=== PATIENT | male | born 1980 | race Hispanic/Latino ===

== ENCOUNTER 2017-12-18 14:25 | Emergency (ER) | payer SELFPAY ==
--- OUTSIDE RECORDS SUMMARY | 2017-12-18 14:28 | XMS REPORT | Clinical Summary ---
:1980 Author Organization [facility] Address [address] [place] [address] Phone Care Team Providers Name Role Phone Unavailable Primary Care Provider Unavailable Allergies Active Allergy Reactions Severity Noted Date Comments Gadolinium-Containing Contrast Media Hives 03/07/2017 Given at [facility] Current Medications Prescription Sig. Disp. Refills Start Date End Date Status levothyroxine Take 1 tablet 30 tablet 1 03/19/2017 03/19/2018 Active (SYNTHROID, (200 mcg LEVOTHROID) 200 MCG total) by tablet mouth Every morning on an empty stomach. levothyroxine Take 1 tablet 30 tablet 1 03/19/2017 03/19/2018 Active (SYNTHROID, (75 mcg LEVOTHROID) 75 MCG total) by tablet mouth Every morning on an empty stomach Take the 75 mcg tablet with the 200mcg tablet to total 275mcg.. gabapentin Take 1 90 capsule 1 03/19/2017 03/19/2018 Active (NEURONTIN) 300 MG capsule (300 capsule mg total) by mouth 3 (three) times daily. levothyroxine Take 250 mcg 03/19/2017 Discontinued (SYNTHROID, by mouth LEVOTHROID) 200 MCG Every morning tablet on an empty stomach. ondansetron Take 1 tablet 20 tablet 0 03/30/2017 04/06/2017 (ZOFRAN) 4 MG (4 mg total) tablet by mouth 2 (two) times daily as needed for Nausea for up to 7 days. acetaminophen-codei Take 2 60 tablet 0 03/30/2017 04/09/2017 ne (TYLENOL #3) tablets by 300-30 mg per mouth every 6 tablet (six) hours as needed for Pain for up to 10 days. Max Daily Amount: 8 tablets Active Problems Problem Noted Date Parkinson disease (HCC) 03/28/2017 Brain lesion 03/17/2017 Morbid obesity (HCC) 03/17/2017 YAMIL on CPAP 03/17/2017 Fatty liver 03/17/2017 H/O: depression 03/17/2017 Headache, acute 03/15/2017 Encounters Date Type Specialty Care Team Description 10/31/2017 Orders Only Neurology Zaki Allen Abnormal brain MRI MD Félix (Primary Dx);Intractable acute post-traumatic headache 10/30/2017 Emergency Emergency Medicine [place], Vasovagal syncope Jagjit Collins MD (Primary Dx);Dehydration;Morbi d obesity (HCC);Brain lesion 10/30/2017 Orders Only General Internal Medicine 04/17/2017 Orders Only Neurology Zaki Allen Abnormal brain MRI MD Félix (Primary Dx) 03/28/2017 - Hospital Encounter Intensive Care Anna, Parkinson disease 03/30/2017 MD Eduardo ([facility]) (Primary Dx);Brain mass;S/P craniotomy;Brain lesion 03/28/2017 Procedure Pass 03/28/2017 Surgery Anna CRANIOTOMY MD Eduardo 03/27/2017 Anesthesia Event Brad Simon MD 03/24/2017 Orders Only Neurosurgery Anna, Parkinson disease MD Eduardo ([facility]) (Primary Dx) 03/24/2017 Orders Only Neurosurgery Eduardo Castillo MD 03/19/2017 Orders Only General Internal Medicine 03/18/2017 Anesthesia Event Nazia Rincon MD 03/18/2017 Procedure Pass 03/18/2017 Surgery Virtual, PROCEDURE DONE Surgeon OUTSIDE OR 03/14/2017 - Hospital Encounter General Internal Melodie Fragoso Acute nonintractable 03/19/2017 Medicine MD An headache, unspecified Bartsch, headache type;Brain Seth Antonietta, mass;Brain MD lesion;Spells of speech arrest;Morbid obesity, unspecified obesity type (HCC);Fatty liver;Mild episode of recurrent major depressive disorder (HCC);YAMIL on CPAP;Encephalopathy after 12/17/2016 Family History Medical History Relation Name Comments Diabetes Father Diabetes Maternal Grandmother Hyperlipidemia Maternal Grandmother Cancer Paternal Aunt Cancer Paternal Grandmother Osteoporosis Paternal Grandmother Relation Name Status Comments Father Maternal Grandmother Paternal Aunt Paternal Grandmother Social History Tobacco Use Types Packs/Day Years Used Date Current Every Day Smoker 1 0.5 Smokeless Tobacco: Never Used Tobacco Cessation: Counseling Given: Yes Comments: since he was 20-28 years old quit for 4 years them started smoking again. handout to be given dos Alcohol Use Drinks/Week oz/Week Comments Yes 3 x a year Sex Assigned at Date Recorded Not on file Last Filed Vital Signs Vital Sign Reading Time Taken Blood Pressure 134/66 10/30/2017 8:36 PM [facility] Pulse 73 10/30/2017 8:36 PM [facility] Temperature 37.2 C (99 F) 10/30/2017 8:36 PM [facility] Respiratory Rate 18 10/30/2017 8:36 PM [facility] Oxygen Saturation 95% 10/30/2017 8:36 PM [facility] Inhaled Oxygen Concentration - - Weight 163.3 kg (360 lb) 10/30/2017 3:40 PM [facility] Height 175.3 cm (5' 9") 03/28/2017 3:15 PM CDT Body Mass Index 53.16 10/30/2017 3:40 PM [facility] Plan of Treatment Not on file Implants Implanted Type Area It Solutions Architect Device Expiration Model / Identifier Date Serial / Lot Matrix Floseal Hemo W/O Ndl 10 [id number] - [id number] Cement/Keo Left: FRITZ: BIOSCI 08/11/2018 [id number] / Implanted: Qty: 1 on 03/28/2017 by Eduardo Castillo MD ler/Adhesi Head / ve [id number] Cvr Bur-Hl Lp-Neuro 24mm Ti Ns 421.528 - [id number] Fracture/F Left: SYNTHES: SYNTHES [id number] / Implanted: Qty: 4 on 03/28/2017 by Eduardo Castillo MD ixation Head [facility] / Scr Sd Mtrxneu 4mm Ti Ns [id number] - [id number] Fracture/F Left: SYNTHES: SYNTHES [id number] / Implanted: Qty: 15 on 03/28/2017 by Eduardo Castillo MD ixation Head [place] / Grft Dura Cllgn Duragn [id number] Id-[id number] - [id number] Tissue Left: INTEGRA 07/17/2017 [id number] / Implanted: Qty: 1 on 03/28/2017 by Eduardo Castillo MD Graft/Subs Head LIFESCI:NEURO / titute [id number] Procedures Procedure Name Priority Date/Time Associated Diagnosis Comments CRANIOTOMY 03/28/2017 9:50 AM Brain tumor (HCC) CDT PROCEDURE DONE OUTSIDE 03/18/2017 11:07 AM GENERAL ANESTHESIA OR CDT REQUESTED after 12/17/2016 Results ED ECG Interpretation (11/03/2017 12:43 AM) Narrative Jagjit Potts MD 11/03/2017 12:43 AM ECG/EKG Interpretation Date/Time: 10/30/2017 4:52 PM Performed by: JAGJIT POTTS Authorized by: JAGJIT POTTS The ECG was interpreted by ED physician. The ECG is interpreted as sinus rhythm. Rate is normal rate. Heart rate is 82 BPM. Conduction: conduction normal. ST segments normal. T waves normal. [place] is right. Other findings: no other findings. Clinical Impression: non-specific ECGECG reviewed and does not meet STEMI criteria. Patient tolerance: Patient tolerated the procedure well with no immediate complications Urinalysis w/Microscopic (10/30/2017 6:25 PM)Only the most recent of2 resultswithin the time period is included. Component Value Ref Range Color, UA Yellow Clarity, UA Clear Specific [place], UA 1.014 1.001 - 1.035 pH, UA 6.5 5.0 - 8.0 Protein, UA Negative Negative Glucose, UA Negative Negative Ketones, UA Negative Negative Bilirubin, UA Negative Negative Blood, UA Negative Negative Nitrite, UA Negative Negative Leukocytes, UA Negative Negative Urobilinogen, UA 2.0 (H) 0.2 - 1.0 mg/dL RBC, UA <1 /HPF WBC, UA <1 /HPF Mucus Rare Specimen Source Urine, Clean Catch Specimen Performing Laboratory Urine - Urine, Clean Catch [address] [address] XR chest 1 view portable / bedside (10/30/2017 6:10 PM) Specimen Performing Laboratory GE RIS Narrative FINAL REPORT Chest one view AP 10/30/2017 7:07 PM CLINICAL INDICATION: LOSS OF CONSCIOUSNESS COMPARISON: None available IMPRESSION: There is atelectasis in the right lung base. The left lung is clear. Cardiomediastinal contours are within normal limits. The central pulmonary vasculature is not engorged. Signed: Sharif Du MD Report Verified Date/Time:10/30/2017 19:07:24 Reading Location: [facility] Radiology Reading Room Procedure Note Interface, External Ris In - 10/30/2017 7:13 PM [facility] FINAL REPORT Chest one view AP 10/30/2017 7:07 PM CLINICAL INDICATION: LOSS OF CONSCIOUSNESS COMPARISON: None available IMPRESSION: There is atelectasis in the right lung base. The left lung is clear. Cardiomediastinal contours are within normal limits. The central pulmonary vasculature is not engorged. Signed: Sharif Du MD Report Verified Date/Time: 10/30/2017 19:07:24 Reading Location: [facility] Radiology Reading Room brain without IV contrast (10/30/2017 5:39 PM) Specimen Performing Laboratory RIS Narrative FINAL REPORT CT head without contrast 10/30/2017 5:49 PM CLINICAL HISTORY: LOSS OF CONSCIOUSNESS SYNCOPE TECHNIQUE: Axial noncontrast CT images through the head were obtained. This examination was performed according to our departmental dose optimization program, which includes automated exposure control, adjustment of the mA and/or kV according to patient size, and/or use of iterated reconstruction technique. COMPARISON: MRI brain 03/16/2017 FINDINGS: There is no hemorrhage, extra-axial collection, evident mass, hydrocephalus, or midline shift. There is small volume encephalomalacia in the paramedian left frontal lobe, with an overlying craniotomy. The visualized paranasal sinuses and mastoid air cells are well aerated. The skull is otherwise intact. IMPRESSION: No intracranial hemorrhage or mass effect. Chronic appearing postoperative changes. If concern for acute pathology persists, further evaluation with pre and postcontrast MRI is recommended. Signed: Sharif Du MD Report Verified Date/Time:10/30/2017 17:52:21 Reading Location: [facility] Radiology Reading Room Procedure Note Interface, External Ris In - 10/30/2017 5:54 PM [facility] FINAL REPORT CT head without contrast 10/30/2017 5:49 PM CLINICAL HISTORY: LOSS OF CONSCIOUSNESS SYNCOPE TECHNIQUE: Axial noncontrast CT images through the head were obtained. This examination was performed according to our departmental dose optimization program, which includes automated exposure control, adjustment of the mA and/or kV according to patient size, and/or use of iterated reconstruction technique. COMPARISON: MRI brain 03/16/2017 FINDINGS: There is no hemorrhage, extra-axial collection, evident mass, hydrocephalus, or midline shift. There is small volume encephalomalacia in the paramedian left frontal lobe, with an overlying craniotomy. The visualized paranasal sinuses and mastoid air cells are well aerated. The skull is otherwise intact. IMPRESSION: No intracranial hemorrhage or mass effect. Chronic appearing postoperative changes. If concern for acute pathology persists, further evaluation with pre and postcontrast MRI is recommended. Signed: Sharif Du MD Report Verified Date/Time: 10/30/2017 17:52:21 Reading Location: [facility] Radiology Reading Room with platelet count + automated diff (10/30/2017 4:56 PM)Only the most recent of6 resultswithin the time period is included. Component Value Ref Range WBC 9.0 3.5 - 10.5 K/L RBC 5.15 4.63 - 6.08 M/L Hemoglobin 15.6 13.7 - 17.5 GM/DL Hematocrit 47.0 40.1 - 51.0 % MCV 91.3 79.0 - 92.2 fL MCH 30.3 25.7 - 32.2 pg MCHC 33.2 32.3 - 36.5 GM/DL RDW 13.5 11.6 - 14.4 % Platelets 205 150 - 450 K/CU MM MPV 9.9 9.4 - 12.4 fL nRBC 0 0 - 0 /100 WBC % Neutros 58 % % Lymphs 33 % % Monos 6 % % Eos 2 % % Baso 1 % # Neutros 5.19 1.78 - 5.38 K/L # Lymphs 3.00 1.32 - 3.57 K/L # Monos 0.54 0.30 - 0.82 K/L # Eos 0.17 0.04 - 0.54 K/L # Baso 0.05 0.01 - 0.08 K/L Immature Granulocytes-Relative 0 0 - 1 % Specimen Performing Laboratory Blood - [address] [address] Troponin I (10/30/2017 4:56 PM) Component Value Ref Range Troponin I <0.01 0.00 - 0.03 ng/mL Specimen Performing Laboratory Blood - [address] [address] Narrative Troponin I (TnI) levels must be interpreted in the context of the presenting symptoms and the clinical findings. Elevated TnI levels indicate myocardial damage, but are not specific for ischemic heart disease. Elevated TnI levels are seen in patients with other cardiac conditions (including myocarditis and congestive heart failure), and slight TnI elevations occur in patients with other conditions, including sepsis, renal failure, acidosis, acute neurological disease, and persistent tachyarrhythmia. CBC with platelet count + automated diff (10/30/2017 4:56 PM)Only the most recent of6 resultswithin the time period is included. Specimen Performing Laboratory Blood Narrative The following orders were created for panel order CBC with platelet count + automated diff. Procedure Abnormality Status --------- ------ CBC with platelet count ...[[id number]]Final result Please view results for these tests on the individual orders. Magnesium (10/30/2017 4:56 PM)Only the most recent of3 resultswithin the time period is included. Component Value Ref Range Magnesium 2.0 1.6 - 2.6 mg/dL Specimen Performing Laboratory Blood - Arm, [address] [address] Lipase (10/30/2017 4:56 PM) Component Value Ref Range Lipase 67 8 - 78 U/L Specimen Performing Laboratory Blood - [address] [address] Basic Metabolic Panel (10/30/2017 4:56 PM)Only the most recent of8 resultswithin the time period is included. Component Value Ref Range Sodium 141 136 - 145 meq/L Potassium 4.1 3.5 - 5.1 meq/L Chloride 108 (H) 98 - 107 meq/L CO2 21 (L) 22 - 29 meq/L BUN 12 7 - 21 mg/dL Creatinine 0.94 0.57 - 1.25 mg/dL Glucose 206 (H) 70 - 105 mg/dL Calcium 9.0 8.4 - 10.2 mg/dL EGFR Comment: INSUFFICIENT CLINICAL DATA TO CALCULATE mL/min/1.73 sq m ESTIMATED GFR. Specimen Performing Laboratory Blood - Arm, Left [address] [address] ECG 12 lead (10/30/2017 4:52 PM)Only the most recent of3 resultswithin the time period is included. Specimen Performing Laboratory GE MUSE Narrative Ventricular Rate 82 BPM Atrial Rate 82 BPM P-R Interval 154 ms QRS Duration 96 ms Q-T Interval 360 ms QTC Calculation(Bazett) 420 ms P Savoy 37 degrees R Savoy 95 degrees T Sav[place] 48 degrees Normal sinus rhythm Rightward axis Borderline ECG When compared with ECG of 19-MAR-2017 16:30, No significant change was found Confirmed by Hoa MOSELEY BASANT ([id number]) on 10/31/2017 4:55:53 PM Procedure Note Interface, External Ris In - 10/31/2017 4:56 PM [facility] Ventricular Rate 82 BPM Atrial Rate 82 BPM P-R Interval 154 ms QRS Duration 96 ms Q-T Interval 360 ms QTC Calculation(Bazett) 420 ms P [place] 37 degrees R Sav[place] 95 degrees T [place] 48 degrees Normal sinus rhythm Rightward axis Borderline ECG When compared with ECG of 19-MAR-2017 16:30, No significant change was found Confirmed by Hoa MOSELEY BASANT ([id number]) on 10/31/2017 4:55:53 PM INTRAOPERATIVE PATH REPORT - SCAN (03/31/2017 1:40 PM)Only the most recent of3 resultswithin the time period is included.RHYTHM STRIP - SCAN (03/31/2017 1:40 PM)Only the most recent of2 resultswithin the time period is included.MR brain without IV contrast (03/29/2017 10:56 AM) Specimen Performing Laboratory GE RIS Narrative FINAL REPORT MRI brain Comparison: March 16 Reason for exam: Post-op Discussion: Multiplanar MR imaging the brain was performed using T1, T2, FLAIR, FFE, diffusion, and ADC map imaging. Note that the study has a history of MRI contrast allergy and was not premedicated. A noncontrast study was therefore performed. Postoperative changes are noted with presumed biopsy related changes along the medial aspect of the left medial frontal nonenhancing lesion. There is some regional diffusion restriction and minimal hemorrhage within a very small operative cavity but there is no dae hematoma. T2 hyperintense signal alterations similar in general configuration to that of the previous study are in keeping with residual lesion. No hydrocephalus, midline shift, extra-axial collection. Impressions: No worrisome postoperative findings. Residual T2 hyperintense lesion is noted. Signed: Jason Rodriguez MD Report Verified Date/Time:03/29/2017 13:35:23 Reading Location: [address] Neuro Reading Room Procedure Note Interface, External Ris In - 03/30/2017 6:59 AM CDT FINAL REPORT MRI brain Comparison: March 16 Reason for exam: Post-op Discussion: Multiplanar MR imaging the brain was performed using T1, T2, FLAIR, FFE, diffusion, and ADC map imaging. Note that the study has a history of MRI contrast allergy and was not premedicated. A noncontrast study was therefore performed. Postoperative changes are noted with presumed biopsy related changes along the medial aspect of the left medial frontal nonenhancing lesion. There is some regional diffusion restriction and minimal hemorrhage within a very small operative cavity but there is no dae hematoma. T2 hyperintense signal alterations similar in general configuration to that of the previous study are in keeping with residual lesion. No hydrocephalus, midline shift, extra-axial collection. Impressions: No worrisome postoperative findings. Residual T2 hyperintense lesion is noted. Signed: Jason Rodriguez MD Report Verified Date/Time: 03/29/2017 13:35:23 Reading Location: [facility] Neuro Reading Room (Hemogram only) (03/29/2017 2:58 AM)Only the most recent of2 resultswithin the time period is included. Component Value Ref Range WBC 19.6 (H) 4.0 - 10.0 K/L RBC 4.54 4.20 - 5.80 M/L Hemoglobin 14.1 13.0 - 16.8 GM/DL Hematocrit 41.4 40.0 - 50.0 % MCV 91.2 82.0 - 98.0 fL MCH 31.0 27.0 - 33.0 pg MCHC 34.0 32.0 - 36.0 GM/DL RDW 13.6 10.3 - 14.2 % Platelets 193 150 - 430 K/CU MM MPV 7.3 6.5 - 10.5 fL nRBC 0 0 - 0 /100 WBC Specimen Performing Laboratory Blood [facility] [address] [place] [address] Narrative 0.00 Phosphorus (03/29/2017 2:58 AM) Component Value Ref Range Phosphorus 3.5 2.3 - 4.7 mg/dL Specimen Performing Laboratory Blood [address] [address] Tissue Exam (03/28/2017 12:15 PM) Component Value Ref Range Case Report Surgical Pathology Report Case: [id number] Authorizing Provider:Eduardo Castillo MDCollected: 03/28/2017 1215 [facility] Received: 03/28/2017 1221 SERVICES Pathologist: Samuel Desai MD Specimens: A) - Tumor, LEFT FRONTAL TUMOR C) - Tumor, LEFT FRONTAL TUMOR D) - Tumor, LEFT FRONTAL TUMOR DIAGNOSIS A. BRAIN, LEFT FRONTAL LOBE, CRANIOTOMY AND BIOPSY: CEREBRAL CORTEX WITH MILD GLIOSIS B. BRAIN, LEFT FRONTAL LOBE, CRANIOTOMY AND BIOPSY: NO SPECIMEN RECEIVED (SEE COMMENT) C. BRAIN, LEFT FRONTAL LOBE, CRANIOTOMY AND BIOPSY: CEREBRAL CORTEX AND WHITE MATTER WITH MILD GLIOSIS D. BRAIN, LEFT FRONTAL LOBE, CRANIOTOMY AND BIOPSY: CEREBRAL CORTEX AND WHITE MATTER WITH MILD GLIOSIS COMMENT Only 3 specimens are received, and no specimen B is received. Each of the specimens are submitted in their entirety. No definite tumor is identified. All immunoperoxidase stains are performed on the fourth specimen The MIB1 labeling index is less than 1% and st ains the nuclei of very rare glial cells.. Some foci of axonal loss and axonal dilatation are noted with neurofilament stains. Myelination is normal as determined with Luxol fast blue/PAS stains. IDH 1 is negative for tumor cells. P53 stains are negative. GFAP highlights reactive gliosis. Synaptophysin staining is not abnormal. The findings are nonspecific. Definite features of primary demyelination are also absent. CPT Code(s) 515719; 247836; 50613; 19563; 53512; 41091 4 CLINICAL HISTORY Left craniotomy, brain tumor SPECIMEN SOURCE A. Tumor, left frontal tumor GROSS DESCRIPTION Part A.The specimen is received fresh for frozen labeled with the patient's name and accession number as "tumor" with description of "left frontal tumor" is a 0.6 x 0.6 x 0.3 cm aggregate of multipl e fragments of mustafa soft tissue.___ squash is smear prepared. The specimen is submitted entirely in cassette FSA1 and A2. Part C. Received fresh for frozen labeled with the patient's name and accession number as "tumor" with description "left frontal tumor" consists of multiple fragments of mustafa soft tissue with an aggregat e measurement of 1 x 0.4 x 0. 2 cm. ____ squash smear prepared. The specimen is submitted entirely in cassette FSC1 and FSC2 and C3. SM/pl Part D. Received fresh for frozen labeled with the patient's name and accession number as "tumor" with the description of "left frontal tumor" consists of of multiple fragments of mustafa-pink soft tissue w ith an aggregate measurement of 1 x 0.5 x 0.5 cm. The specimen is submitted entirely in cassette DFS1 and D2. SM/pl INTRAOPERATIVE CONSULTATION LEFT FRONTAL TUMOR: - AFS1 - CEREBRAL CORTEX WITH MILD GLIOSIS - RESULTS HAVE BEEN REPORTED BY DR. DESAI AT 12:36 P.M. LEFT FRONTAL TUMOR: - BFS1 AND BFS2 - CORTEX, WHITE MATTER WITH GLIOSIS - RESULTS HAVE BEEN REPORTED BY DR. DESAI AT 1:05 P.M. LEFT FRONTAL TUMOR: - DFS1 - WHITE MATTER WITH REACTIVE GLIOSIS - RESULTS HAVE BEEN REPORTED BY DR. DESAI MICROSCOPIC DESCRIPTION Performed on A, C, and D SPECIAL STUDIES The following special studies were performed on this case and the interpretation is incorporated in the diagnostic report above: The immunohistochemistry test was developed and its performance characteristics determined by [facility], Pathology Laboratory. It has not been cleared or approved by the U.S. Food and Drug Administration. The FDA has determined that such clearance or approval is not necessary. The test is used for clinical purposes. It should not be regarded as investigational or for research. This laboratory is certified under the Clinical Laboratory Improvement Amendments of 1988 (CLIA-88) as qualified to perform high complexity clinical laboratory testing. Specimen Performing Laboratory Tissue - Tumor [place] [id number] [facility] (ABG,NA,K,H&H,GLUCOSE) (03/28/2017 11:24 AM) Specimen Performing Laboratory Blood, Arterial Narrative The following orders were created for panel order [facility] (ABG,NA,K,H&H,GLUCOSE). Procedure Abnormality Status --------- ------ Blood gas, arterial[[id number]]AbnormalFinal result Sodium Na-Stat Lab[[id number]] NormalFinal result Potassium-Stat Lab[[id number]] NormalFinal result Glucose-Stat Lab[[id number]] NormalFinal result HGB/HCT (H&H)-Stat Lab[[id number]] NormalFinal result Please view results for these tests on the individual orders. Potassium-Stat Lab (03/28/2017 11:24 AM) Component Value Ref Range Potassium 3.8 3.6 - 5.5 meq/L Specimen Performing Laboratory Blood, Arterial [address] [address] Narrative FiO2:35%, Temp: 36.7C FiO2:35%, Temp: 36.7C FiO2:35%, Temp: 36.7C FiO2:35%, Temp: 36.7C FiO2:35%, Temp: 36.7C Sodium Na-Stat Lab (03/28/2017 11:24 AM) Component Value Ref Range Sodium 136 135 - 148 meq/L Specimen Performing Laboratory Blood, Arterial [address] [address] Narrative FiO2:35%, Temp: 36.7C FiO2:35%, Temp: 36.7C FiO2:35%, Temp: 36.7C FiO2:35%, Temp: 36.7C FiO2:35%, Temp: 36.7C Glucose-Stat Lab (03/28/2017 11:24 AM) Component Value Ref Range Glucose 101 70 - 110 mg/dL Specimen Performing Laboratory Blood, Arterial [address] [address] Narrative FiO2:35%, Temp: 36.7C FiO2:35%, Temp: 36.7C FiO2:35%, Temp: 36.7C FiO2:35%, Temp: 36.7C FiO2:35%, Temp: 36.7C HGB/HCT (H&H)-Stat Lab (03/28/2017 11:24 AM) Component Value Ref Range Hemoglobin 13.8 13.0 - 16.8 g/dL Hematocrit 41.0 40.0 - 50.0 % Specimen Performing Laboratory Blood, Arterial [address] [address] Narrative FiO2:35%, Temp: 36.7C FiO2:35%, Temp: 36.7C FiO2:35%, Temp: 36.7C FiO2:35%, Temp: 36.7C FiO2:35%, Temp: 36.7C Blood gas, arterial (03/28/2017 11:24 AM) Component Value Ref Range pH, Arterial 7.42 7.35 - 7.45 pCO2, Arterial 33 (L) 35 - 45 mmHg pO2, Arterial 74 (L) 80 - 90 mmHg O2 Sat, Arterial 95.5 (L) 96.0 - 97.0 % HCO3, Arterial 21 21 - 29 mmol/L Base Excess, Arterial -3.0 (L) -2.0 - 3.0 mmol/L Patient Temperature 36.7 C FIO2 35.0 % Specimen Performing Laboratory Blood, Arterial [address] [address] Narrative FiO2:35%, Temp: 36.7C FiO2:35%, Temp: 36.7C FiO2:35%, Temp: 36.7C FiO2:35%, Temp: 36.7C FiO2:35%, Temp: 36.7C Calcium, Ionized (03/28/2017 11:24 AM) Component Value Ref Range Calcium, Ion 1.03 (L) 1.12 - 1.27 mmol/L pH, Blood 7.42 Specimen Performing Laboratory Blood [address] [address] POC-Glucose meter (03/19/2017 5:58 PM)Only the most recent of16 resultswithin the time period is included. Component Value Ref Range POC-Glucose Meter 108Comment: TESTED AT [address] 70 - 110 mg/dL [id number] Specimen Performing Laboratory Blood [address] [address] Manual Differential (03/19/2017 5:15 AM) Component Value Ref Range Total Counted Specimen Performing Laboratory Blood [address] [address] HIV-1 Antigen with HIV-1/2 Antibody (03/19/2017 5:15 AM) Component Value Ref Range HIV-1 Antigen with HIV 1&2 Antibody Nonreactive Nonreactive Specimen Performing Laboratory Blood [address] [address] Flow Cytometry Requisition (03/18/2017 2:28 PM) Component Value Ref Range Flow Cytometry See Separate Report Case # [id number] Specimen Performing Laboratory Cerebrospinal Fluid [address] [address] Mycobacterium TB PCR Non-Respiratory (03/18/2017 2:28 PM) Component Value Ref Range MYCOBACTERIUM TB Specimen Performing Laboratory Cerebrospinal Fluid - CSF [address] [address] Flow Cytometry (03/18/2017 2:28 PM) Component Value Ref Range Case Report Flow Cytometry Report Case: [id number] Authorizing Provider:Seth Christine MD Collected: 03/18/2017 1428 Ordering Location: [address] Received: 03/20/2017 0822 Service Pathologist: Dalia Roper MD Specimen:Other Flow Interpretation CEREBROSPINAL FLUID, FLOW CYTOMETRY: - NON-DIAGNOSTIC DUE TO LOW CELLULARITY AND NON-SPECIFIC ANTIBODY STAINING Flow Interpretation Comment Please correlate with morphologic and clinical findings. CPT Code(s) 91062 CLINICAL HISTORY Brain mass SPECIMEN SOURCE Cerebrospinal fluid CELLULAR BIOMARKER ANALYSIS CD2, CD3, CD4, CD5, CD7, CD8, CD10, CD11c, CD19, CD20, CD23, CD34, CD38, CD45, CD56, [place], Lambda IMMUNOPHENOTYPIC FINDINGS Flow cytometric evaluation is limited by low cellularity and non-specific antibody staining. DISCLAIMER These tests were developed and their performance characteristics determined by [facility]. They have not been cleared or approved by the U.S. Food and Drug Administration. The FDA has determined that s uch clearance or approval is not necessary. It should not be regarded as investigational or for research. This laboratory is certified under the Clinical Laboratory Improvement Amendments of 1988 ("CLIA ") as qualified to perform high-complexity clinical testing. Specimen Performing Laboratory Other [address] [address] Aurora ink prep (03/18/2017 2:27 PM) Component Value Ref Range [facility] Ink No encapsulated yeast seen No encapsulated yeast seen Specimen Performing Laboratory Cerebrospinal Fluid - CSF, tube [address] [address] AFB culture + smear (03/18/2017 2:27 PM) Component Value Ref Range Result No acid-fast bacilli isolated in 42 days AFB Smear No acid fast bacilli seen Specimen Performing Laboratory Cerebrospinal Fluid - CSF, tube [address] [address] Fungus culture + smear (03/18/2017 2:27 PM) Component Value Ref Range Result No fungus isolated in 28 days Fungus Smear No fungi seen Specimen Performing Laboratory Cerebrospinal Fluid - CSF, tube [address] [address] Protein, CSF (03/18/2017 2:21 PM) Component Value Ref Range Protein, CSF 60 (H) 15 - 45 mg/dL Specimen Performing Laboratory Cerebrospinal Fluid - CSF, tube [address] [address] Glucose, CSF (03/18/2017 2:21 PM) Component Value Ref Range Glucose, CSF 53 40 - 70 mg/dL Specimen Performing Laboratory Cerebrospinal Fluid - CSF, tube [address] [address] HSV 1/2 PCR, Qualitative (03/18/2017 2:20 PM) Component Value Ref Range HSV, PCR NEGATIVE NEGATIVE Specimen Performing Laboratory Cerebrospinal Fluid - CSF, tube [address] [address] Narrative Herpes Simplex Virus (HSV) not detected. These assays were performed by real-time PCR utilizing fluorogenic hydrolysis probe technology for the detection of Herpes Simplex Virus-1 and/or Herpes Simplex Virus-2 in approved specimens.A 154 base pair region of the HSV-1 and HSV-2 UL5 gene is amplified, and typing is achieved by using type specific probes.An internal control is used to confirm PCR amplification.Genetic variation and other factors can affect the accuracy of nucleic acid testing; therefore, the results should be interpreted in light of clinical data. This test was developed and its performance characteristics determined by the [facility] Pathology Department, Section of Molecular Pathology. It has not been cleared or approved by the U.S. Food and Drug Administration (FDA) , as FDA approval is not required for clinical use of the test.Validation was done as required by the Clinical Laboratory Amendments of 1988. CSF cell count with differential (03/18/2017 2:17 PM) Component Value Ref Range Appearance Clear Clear Color Colorless Colorless RBCs 2 0 - 5 /cu mm WBCs 0 <=5 /cu mm RBCs Fresh? 100% Fresh # of Cells Diff'd 0 Tube Number 3 Specimen Performing Laboratory Cerebrospinal Fluid - CSF, tube [address] [address] CSF culture + gram stain (03/18/2017 2:16 PM) Component Value Ref Range Result No growth Gram Stain Result No WBCs Gram Stain Result No organisms seen Specimen Performing Laboratory Cerebrospinal Fluid - CSF, tube [address] [address] Cytology (03/18/2017 1:02 PM) Component Value Ref Range Case Report Medical Cytology Report Case: [id number] Authorizing Provider:Seth Christine MD Collected: 03/18/2017 1302 Ordering Location: [address] Received: 03/20/2017 0905 Service Pathologist: Alysha Giraldo MD Specimen:CSF, tube 4 DIAGNOSIS CEREBROSPINAL FLUID (CYTOSPINS): - NO MALIGNANT CELLS IDENTIFIED; - ESSENTIALLY ACELLULAR SAMPLE Signing Pathologist Direct Phone Line: [phone] CPT Code(s) 01683 CLINICAL DATA Brain mass SPECIMEN SOURCE CEREBROSPINAL FLUID (CYTOSPINS) GROSS DESCRIPTION 2 cytospins Collected: [id number] Received: [id number] STATEMENT OF ADEQUACY Satisfactory Technical component was performed at [facility], Department of Pathology, [address] [place] [address], Professional component was performed [facility], at Department of Pathology, [address] [place] [address], Specimen Performing Laboratory Cerebrospinal Fluid - CSF, tube [address] [address] [place] Lumbar Puncture Image-Guided (03/18/2017 12:45 PM) Specimen Performing Laboratory GE RIS Narrative FINAL REPORT Procedure: Lumbar puncture Modality: Fluoroscopy Sedation: Anesthesia Anesthesia: 1% lidocaine local Indication: Brain lesion Discussion: The patient was sterilely prepped and draped. 1% lidocaine was used for local anesthesia. Using fluoroscopic guidance, a 20-gauge spinal needle was introduced into the thecal sac at the L4-L5 level. Approximately 13.5 cc of clear spinal fluid was removed and sent to the laboratory. There were no procedure related complications. Disposition:The patient was transferred back to their hospital room in unchanged condition. Fluoroscopy time: 0.2 minutes Number of images obtained: 1 Impression: Successful fluoroscopy guided lumbar puncture. Signed: Judit Guadalupe MD Report Verified Date/Time:03/18/2017 13:02:11 Reading Location: [address] Neuro Reading Room Procedure Note Interface, External Ris In - 03/18/2017 1:04 PM CDT FINAL REPORT Procedure: Lumbar puncture Modality: Fluoroscopy Sedation: Anesthesia Anesthesia: 1% lidocaine local Indication: Brain lesion Discussion: The patient was sterilely prepped and draped. 1% lidocaine was used for local anesthesia. Using fluoroscopic guidance, a 20-gauge spinal needle was introduced into the thecal sac at the L4-L5 level. Approximately 13.5 cc of clear spinal fluid was removed and sent to the laboratory. There were no procedure related complications. Disposition: The patient was transferred back to their hospital room in unchanged condition. Fluoroscopy time: 0.2 minutes Number of images obtained: 1 Impression: Successful fluoroscopy guided lumbar puncture. Signed: Judit Guadalupe MD Report Verified Date/Time: 03/18/2017 13:02:11 Reading Location: [place] [address]V Neuro Reading Room /aPTT (03/18/2017 4:26 AM)Only the most recent of4 resultswithin the time period is included. Component Value Ref Range Protime 13.7 11.7 - 14.7 seconds INR 1.1 <=5.9 PTT 27.2 22.5 - 36.0 seconds Specimen Performing Laboratory Blood [address] [address] Narrative RECOMMENDED COUMADIN/WARFARIN INR THERAPY RANGES STANDARD DOSE: 2.0 - 3.0 Includes: PROPHYLAXIS for venous thrombosis, systemic embolization; TREATMENT for venous thrombosis and/or pulmonary embolus. HIGH RISK: Target INR is 2.5-3.5 for patients with mechanical heart valves. Hepatic function panel (03/17/2017 4:47 AM) Component Value Ref Range Protein, Total 6.7Comment: Specimen slightly hemolyzed 6.0 - 8.3 gm/dL Albumin 3.3 (L)Comment: Specimen slightly hemolyzed 3.5 - 5.0 g/dL Total Bilirubin 0.2Comment: Specimen slightly hemolyzed 0.2 - 1.2 mg/dL Bilirubin, Direct 0.1Comment: Specimen slightly hemolyzed 0.1 - 0.5 mg/dL Alkaline Phosphatase 71 40 - 150 U/L AST 54 (H)Comment: Specimen slightly hemolyzed 5 - 34 U/L ALT 84 (H)Comment: Specimen slightly hemolyzed 6 - 55 U/L Specimen Performing Laboratory Blood - Arm, [address] [address] Creatine Kinase (CK) (03/16/2017 6:05 PM) Component Value Ref Range Total CK 212 (H) 29 - 200 U/L Specimen Performing Laboratory Blood - Arm, [address] [address] 2D Echo W/Doppler(CW/PW/Color) (03/16/2017 2:17 PM) Component Value Ref Range Ejection Fraction LV EF BP 75.1 % Specimen Performing Laboratory DIGISONICS Narrative Echocardiography Laboratory [address] [place] [address] Voice:[phone] Transthoracic Echocardiogram Pat.Name:VIKRAM BAGLEY Pat.ID:[id number] .Date: 03/16/2017 Refer.MD:SETH CHRISTINE Exam Time: 2:17:00 PMStudy Type:Echo Complete Height:69inWeight:360lb BSA: 2.65 m2 DOBAge:1980,36Y Sex: MALEBP:128/66 HR:61 bpmSonogrphr: Viv Babb [facility] Pat. Stat.:Inpatient Room:226 Reason for Study:Unexplained Presyncope/Syncope History / Clinical:Diabetes, Hypertension, Obesity, Thyroid disease, High cholesterol Procedures:2D ECHO W/ DOPPLER (CW/PW/COLOR), Definity contrast done SUMMARY: LV endocardium is adequately visualized withIV contrast. Left ventricular chamber size (by vol index) is normal (male - LVED vol - 34-74 ml/m2). No evidence of LV hypertrophy. All of the LV segments appear hyperkinetic. Global LV systolic function is hyperdynamic. LVEF by quantitative assessment is increased (>70%). LA size is normal. RV chamber size is normal. RA cavity size is normal. A trace of tricuspid regurgitation. The inferior vena cava is not visualized. The estimated RA pressure by IVC dynamics indeterminate. A trace of tricuspid regurgitation. Estimated peak systolic PA pressure is 30-35 mmHg + RA pressure. Peak systolic PA pressure may be underestimated; partial TR signal. FINDINGS: Rhythm/BP: Sinus bradycardia during the exam. LV: All of the LV segments appear hyperkinetic. Global LV systolicfunction is hyperdynamic. Normal diastolic functionLeft ventricular chamber size (by vol index) is normal(male - LVED vol - 34-74 ml/m2). No evidence of LV hypertrophy.LVEF by quantitative assessment is increased (>70%).The LVEF was measured using Huffman's bi- plane methodof disks. LV endocardium is adequately visualized with IV contrast. LA: LA size is normal. LA is well visualized. RV: RV is partially visualized. RV chamber size is normal. GlobalRV systolic function is normal. RA: The RA is well visualized. RA cavity size is normal. AV: Normal AoV structure and function. No evidence of aortic stenosis.No evidence of aortic regurgitation. MV: Normal MV structure and function. A trace of mitral regurgitation. TV: Normal TV structure and function. A trace of tricuspid regurgitation.No evidence of TV leaflet thickening. Estimatedpeak systolic PA pressure is 30-35 mmHg + RA pressure.Peak systolic PA pressure may be underestimated; partialTR signal. PV: Normal PV structure and function by limited views and Doppler. AO: Aortic root size (Sinus of Valsalva diameter) is normal. Pericard: No pericardial effusion is visualized. Systemic Veins: The inferior vena cava is not visualized. The estimatedRA pressure by IVC dynamics indeterminate. Comparison: No prior exam available for comparison. Quality:Technically adequate exam. MEASUREMENTS: 2D LA Sng Plane LA Vol78.1 mlIndex 29.5 ml/m2 LA Area 24.6 cm2(8.8-23.4)* Parasternal [place] Ao An 2.12 cm (1.4-2.6) LV%fs 34.7 %(25-46) Ao Rtd2.85 cmLVPWd 1.22 cm IVSd1.18 cm LA Ds 4.91 cm (2.3-3.9)* LVIDd 5.47 cm (4.3-5.1)* LV Wmn 1.2 cm LVIDs 3.57 cm (2-4) LV EF Biplane LVEDV BP 182 mlIndex 68.7 ml/m2 HR59 bpm LVESV BP45.4 mlLV CO BP 8.06 l/min LV SV BP 137 mlLV CI BP 3.04 l/min/m2 DOPPLER AV LVOT For Flow ROMPvxDsz580 cm/s (70-110) LVOT CO 5.22 l/min LVOT VTI22.7 cmLVOT CI 1.97 l/min/m2 LVOTpkPG 4.3 mmHgLVOT Area 3.46 cm2 LVOTmnPG2.17 ihHpFD78 bpm LVOT SV 78.7 ml Aortic Valve AV DI0.911 SVi (LVOT)29.7 AV AV For Flow/SHERRILL AV pkVel 124 cm/s (100-170) AV AC/ET 0.229 AV mnVel84.1 cm/sAVpkAcRt 3948 cm/s2 AV pkPG 6.15 mmHgAV DeRt 418 cm/s2 AV mnPG 3.28 mmHgArea (VTI) 3.16 cm2(3-5) AV VTI25 cmArea (Jem) 2.9 cm2(3-5)* AV ET297 msec AV AC 68 msec (83-118)* MV E/A Ratio MV pkE 101 cm/s (60-130) MV E/A1.32 MV pkA76.8 cm/s Signed 03/16/2017 06:09 PM Abdirashid Vallejo M.D. Procedure Note Interface, External Ris In - 03/16/2017 6:10 PM CDT Echocardiography Laboratory [address] [place] [address] Voice: [phone] Transthoracic Echocardiogram Pat.Name: VIKRAM BAGLEY Pat.ID: [id number] .Date: 03/16/2017 Refer.: SETH CHRISTINE Exam Time: 2:17:00 PM Study Type:Echo Complete Height: 69in Weight: 360lb BSA: 2.65 m2 Age: 1 1980,36Y Sex: MALE BP: 128/66 HR: 61 bpm Sonogrphr: Viv Babb [facility] Pat. Stat.:Inpatient Room: [facility] Reason for Study:Unexplained Presyncope/Syncope History / Clinical:Diabetes, Hypertension, Obesity, Thyroid disease, High cholesterol Procedures:2D ECHO W/ DOPPLER (CW/PW/COLOR), Definity contrast done SUMMARY: LV endocardium is adequately visualized with IV contrast. Left ventricular chamber size (by vol index) is normal (male - LVED vol - 34-74 ml/m2). No evidence of LV hypertrophy. All of the LV segments appear hyperkinetic. Global LV systolic function is hyperdynamic. LVEF by quantitative assessment is increased (>70%). LA size is normal. RV chamber size is normal. RA cavity size is normal. A trace of tricuspid regurgitation. The inferior vena cava is not visualized. The estimated RA pressure by IVC dynamics indeterminate. A trace of tricuspid regurgitation. Estimated peak systolic PA pressure is 30-35 mmHg + RA pressure. Peak systolic PA pressure may be underestimated; partial TR signal. FINDINGS: Rhythm/BP: Sinus bradycardia during the exam. LV: All of the LV segments appear hyperkinetic. Global LV systolic function is hyperdynamic. Normal diastolic function Left ventricular chamber size (by vol index) is normal (male - LVED vol - 34-74 ml/m2). No evidence of LV hypertrophy. LVEF by quantitative assessment is increased (>70%). The LVEF was measured using Huffman's bi-plane method of disks. LV endocardium is adequately visualized with IV contrast. LA: LA size is normal. LA is well visualized. RV: RV is partially visualized. RV chamber size is normal. Global RV systolic function is normal. RA: The RA is well visualized. RA cavity size is normal. AV: Normal AoV structure and function. No evidence of aortic stenosis. No evidence of aortic regurgitation. MV: Normal MV structure and function. A trace of mitral regurgitation. TV: Normal TV structure and function. A trace of tricuspid regurgitation. No evidence of TV leaflet thickening. Estimated peak systolic PA pressure is 30-35 mmHg + RA pressure. Peak systolic PA pressure may be underestimated; partial TR signal. PV: Normal PV structure and function by limited views and Doppler. AO: Aortic root size (Sinus of Valsalva diameter) is normal. Pericard: No pericardial effusion is visualized. Systemic Veins: The inferior vena cava is not visualized. The estimated RA pressure by IVC dynamics indeterminate. Comparison: No prior exam available for comparison. Quality: Technically adequate exam. MEASUREMENTS: 2D LA Sng Plane LA Vol 78.1 ml Index 29.5 ml/m2 LA Area 24.6 cm2 (8.8-23.4)* Parasternal [place] Ao An 2.12 cm (1.4-2.6) LV%fs 34.7 % (25-46) Ao Rtd 2.85 cm LVPWd 1.22 cm IVSd 1.18 cm LA Ds 4.91 cm (2.3-3.9)* LVIDd 5.47 cm (4.3-5.1)* LV Wmn 1.2 cm LVIDs 3.57 cm (2-4) LV EF Biplane LVEDV BP 182 ml Index 68.7 ml/m2 HR 59 bpm LVESV BP 45.4 ml LV CO BP 8.06 l/min LV SV BP 137 ml LV CI BP 3.04 l/min/m2 DOPPLER AV LVOT For Flow LVOTpkVel 104 cm/s (70-110) LVOT CO 5.22 l/min LVOT VTI 22.7 cm LVOT CI 1.97 l/min/m2 LVOTpkPG 4.3 mmHg LVOT Area 3.46 cm2 LVOTmnPG 2.17 mmHg HR 66 bpm LVOT SV 78.7 ml Aortic Valve AV DI 0.911 SVi (LVOT) 29.7 AV AV For Flow/SHERRILL AV pkVel 124 cm/s (100-170) AV AC/ET 0.229 AV mnVel 84.1 cm/s AVpkAcRt 3948 cm/s2 AV pkPG 6.15 mmHg AV DeRt 418 cm/s2 AV mnPG 3.28 mmHg Area (VTI) 3.16 cm2 (3-5) AV VTI 25 cm Area (Jem) 2.9 cm2 (3-5)* AV ET 297 msec AV AC 68 msec (83-118)* MV E/A Ratio MV pkE 101 cm/s (60-130) MV E/A 1.32 MV pkA 76.8 cm/s Signed 03/16/2017 06:09 PM Abdirashid Vallejo M.D. CT abdomen/pelvis with IV contrast (03/16/2017 10:19 AM) Specimen Performing Laboratory [facility] Narrative FINAL REPORT HISTORY : brain lesion, rule out primary malignancy TECHNIQUE :Multiple axial images of the chest, abdomen and pelvis were performed with 5 mm slice thickness with the administration of IV and oral contrast from the lung apices to the pubic symphysis. Delayed images were also obtained. This exam was performed according to our departmental dose optimization program which includes automated exposure control, adjustment of the mA and/or kV according to patient size and/or use of iterative reconstructive technique. COMPARISON : None CHEST : The thyroid gland is within normal limits. There is no hilar, mediastinal or axillary lymphadenopathy. There is coronary atherosclerosis. The osseous structures as well as the subcutaneous soft tissues are without any abnormalities. There are some scattered areas of some linear subsegmental atelectasis versus scarring. There is no pleural effusion, pneumothorax or infiltrate. ABDOMEN/PELVIS: The visualized spleen, adrenal glands, kidneys, pancreas, stomach and duodenum are within normal limits. The patient does have hepatic steatosis. There are some slight areas of fatty sparing. The patient is status post cholecystectomy. There is atherosclerotic vascular disease. There is no abdominal, retroperitoneal or pelvic lymphadenopathy. There is a small left-sided fat-containing inguinal hernia. No bowel contents are seen within the hernia, however. There is no free fluid or free air in the abdomen or pelvis. No findings of any bowel obstruction. The small bowel is within normal limits. There is colonic diverticulosis. There are no CT findings to suggest diverticulitis, however. The appendix is not visualized. The prostate gland is not enlarged. Some calcifications are seen within the prostate gland. There is some diffuse thickening of the wall of the bladder. While the wall thickening could be due to underdistention, a diffuse process such as cystitis or other infiltrative process cannot be excluded. As clinically warranted, the findings can be correlated with cystoscopy. There is some slightly hyperdense fluid within the bladder of unclear etiology/significance. This could represent some excreted contrast from the previous MRI of the brain. Urine with some hemorrhagic or proteinaceous material cannot be entirely excluded. Impression: 1. Scattered areas of some linear subsegmental atelectasis versus scarring in the lungs. 2. Atherosclerotic vascular disease. 3. Colonic diverticulosis. 4. Hepatic steatosis. 5. Diffuse bladder wall thickening of the poorly distended bladder. Please see above. Signed: Alo Heart MD Report Verified Date/Time:03/16/2017 10:30:14 Reading Location: [facility] C013Y CT Body Reading Room Procedure Note Interface, External Ris In - 03/16/2017 10:32 AM CDT FINAL REPORT HISTORY : brain lesion, rule out primary malignancy TECHNIQUE : Multiple axial images of the chest, abdomen and pelvis were performed with 5 mm slice thickness with the administration of IV and oral contrast from the lung apices to the pubic symphysis. Delayed images were also obtained. This exam was performed according to our departmental dose optimization program which includes automated exposure control, adjustment of the mA and/or kV according to patient size and/or use of iterative reconstructive technique. COMPARISON : None CHEST : The thyroid gland is within normal limits. There is no hilar, mediastinal or axillary lymphadenopathy. There is coronary atherosclerosis. The osseous structures as well as the subcutaneous soft tissues are without any abnormalities. There are some scattered areas of some linear subsegmental atelectasis versus scarring. There is no pleural effusion, pneumothorax or infiltrate. ABDOMEN/PELVIS: The visualized spleen, adrenal glands, kidneys, pancreas, stomach and duodenum are within normal limits. The patient does have hepatic steatosis. There are some slight areas of fatty sparing. The patient is status post cholecystectomy. There is atherosclerotic vascular disease. There is no abdominal, retroperitoneal or pelvic lymphadenopathy. There is a small left-sided fat-containing inguinal hernia. No bowel contents are seen within the hernia, however. There is no free fluid or free air in the abdomen or pelvis. No findings of any bowel obstruction. The small bowel is within normal limits. There is colonic diverticulosis. There are no CT findings to suggest diverticulitis, however. The appendix is not visualized. The prostate gland is not enlarged. Some calcifications are seen within the prostate gland. There is some diffuse thickening of the wall of the bladder. While the wall thickening could be due to underdistention, a diffuse process such as cystitis or other infiltrative process cannot be excluded. As clinically warranted, the findings can be correlated with cystoscopy. There is some slightly hyperdense fluid within the bladder of unclear etiology/significance. This could represent some excreted contrast from the previous MRI of the brain. Urine with some hemorrhagic or proteinaceous material cannot be entirely excluded. Impression: 1. Scattered areas of some linear subsegmental atelectasis versus scarring in the lungs. 2. Atherosclerotic vascular disease. 3. Colonic diverticulosis. 4. Hepatic steatosis. 5. Diffuse bladder wall thickening of the poorly distended bladder. Please see above. Signed: Alo Heart MD Report Verified Date/Time: 03/16/2017 10:30:14 Reading Location: [place] [address] CT Body Reading Room chest with IV contrast (03/16/2017 10:19 AM) Specimen Performing Laboratory [facility] Narrative FINAL REPORT HISTORY : brain lesion, rule out primary malignancy TECHNIQUE :Multiple axial images of the chest, abdomen and pelvis were performed with 5 mm slice thickness with the administration of IV and oral contrast from the lung apices to the pubic symphysis. Delayed images were also obtained. This exam was performed according to our departmental dose optimization program which includes automated exposure control, adjustment of the mA and/or kV according to patient size and/or use of iterative reconstructive technique. COMPARISON : None CHEST : The thyroid gland is within normal limits. There is no hilar, mediastinal or axillary lymphadenopathy. There is coronary atherosclerosis. The osseous structures as well as the subcutaneous soft tissues are without any abnormalities. There are some scattered areas of some linear subsegmental atelectasis versus scarring. There is no pleural effusion, pneumothorax or infiltrate. ABDOMEN/PELVIS: The visualized spleen, adrenal glands, kidneys, pancreas, stomach and duodenum are within normal limits. The patient does have hepatic steatosis. There are some slight areas of fatty sparing. The patient is status post cholecystectomy. There is atherosclerotic vascular disease. There is no abdominal, retroperitoneal or pelvic lymphadenopathy. There is a small left-sided fat-containing inguinal hernia. No bowel contents are seen within the hernia, however. There is no free fluid or free air in the abdomen or pelvis. No findings of any bowel obstruction. The small bowel is within normal limits. There is colonic diverticulosis. There are no CT findings to suggest diverticulitis, however. The appendix is not visualized. The prostate gland is not enlarged. Some calcifications are seen within the prostate gland. There is some diffuse thickening of the wall of the bladder. While the wall thickening could be due to underdistention, a diffuse process such as cystitis or other infiltrative process cannot be excluded. As clinically warranted, the findings can be correlated with cystoscopy. There is some slightly hyperdense fluid within the bladder of unclear etiology/significance. This could represent some excreted contrast from the previous MRI of the brain. Urine with some hemorrhagic or proteinaceous material cannot be entirely excluded. Impression: 1. Scattered areas of some linear subsegmental atelectasis versus scarring in the lungs. 2. Atherosclerotic vascular disease. 3. Colonic diverticulosis. 4. Hepatic steatosis. 5. Diffuse bladder wall thickening of the poorly distended bladder. Please see above. Signed: Alo Heart MD Report Verified Date/Time:03/16/2017 10:30:14 Reading Location: [facility] C013Y CT Body Reading Room Procedure Note Interface, External Ris In - 03/16/2017 10:32 AM CDT FINAL REPORT HISTORY : brain lesion, rule out primary malignancy TECHNIQUE : Multiple axial images of the chest, abdomen and pelvis were performed with 5 mm slice thickness with the administration of IV and oral contrast from the lung apices to the pubic symphysis. Delayed images were also obtained. This exam was performed according to our departmental dose optimization program which includes automated exposure control, adjustment of the mA and/or kV according to patient size and/or use of iterative reconstructive technique. COMPARISON : None CHEST : The thyroid gland is within normal limits. There is no hilar, mediastinal or axillary lymphadenopathy. There is coronary atherosclerosis. The osseous structures as well as the subcutaneous soft tissues are without any abnormalities. There are some scattered areas of some linear subsegmental atelectasis versus scarring. There is no pleural effusion, pneumothorax or infiltrate. ABDOMEN/PELVIS: The visualized spleen, adrenal glands, kidneys, pancreas, stomach and duodenum are within normal limits. The patient does have hepatic steatosis. There are some slight areas of fatty sparing. The patient is status post cholecystectomy. There is atherosclerotic vascular disease. There is no abdominal, retroperitoneal or pelvic lymphadenopathy. There is a small left-sided fat-containing inguinal hernia. No bowel contents are seen within the hernia, however. There is no free fluid or free air in the abdomen or pelvis. No findings of any bowel obstruction. The small bowel is within normal limits. There is colonic diverticulosis. There are no CT findings to suggest diverticulitis, however. The appendix is not visualized. The prostate gland is not enlarged. Some calcifications are seen within the prostate gland. There is some diffuse thickening of the wall of the bladder. While the wall thickening could be due to underdistention, a diffuse process such as cystitis or other infiltrative process cannot be excluded. As clinically warranted, the findings can be correlated with cystoscopy. There is some slightly hyperdense fluid within the bladder of unclear etiology/significance. This could represent some excreted contrast from the previous MRI of the brain. Urine with some hemorrhagic or proteinaceous material cannot be entirely excluded. Impression: 1. Scattered areas of some linear subsegmental atelectasis versus scarring in the lungs. 2. Atherosclerotic vascular disease. 3. Colonic diverticulosis. 4. Hepatic steatosis. 5. Diffuse bladder wall thickening of the poorly distended bladder. Please see above. Signed: Alo Heart MD Report Verified Date/Time: 03/16/2017 10:30:14 Reading Location: [facility] B1 C013Y CT Body Reading Room brain without & with IV contrast (03/16/2017 6:00 AM) Specimen Performing Laboratory [facility] Narrative FINAL REPORT MRI Brain with and without contrast 03/16/2017 7:24 AM CLINICAL HISTORY: Brain mass - Stealth protocol Patient with Gadolinium (contrast) allergy, will pre-medicate per protocol TECHNIQUE: Multiplanar, multisequence MR imaging of the brain was performed, utilizing the following imaging sequences: Axial T1, T2, FLAIR, GRE, DWI/ADC; sagittal T1; postcontrast axial, sagittal, and coronal T1. COMPARISON: None available. FINDINGS: There is a minimally expansile nonenhancing T2/FLAIR hyperintense lesion without diffusion restriction or hemosiderin deposition in the proximal left cingulate gyrus. There is no acute infarct, hematoma, hydrocephalus, extra-axial collection, or abnormal intracranial enhancement. There is no remarkable white matter disease. Normal appearing flow-voids are present within the major intracranial vascular structures. 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 The pineal region and craniocervical junction are unremarkable. The orbits, face, and skull base are without worrisome finding. 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 Signed: Sharif Du MD Report Verified Date/Time:03/16/2017 07:27:37 Reading Location: [address] Neuro Reading Room Procedure Note Interface, External Ris In - 03/16/2017 11:55 AM CDT FINAL REPORT MRI Brain with and without contrast 03/16/2017 7:24 AM CLINICAL HISTORY: Brain mass - Stealth protocol Patient with Gadolinium (contrast) allergy, will pre-medicate per protocol TECHNIQUE: Multiplanar, multisequence MR imaging of the brain was performed, utilizing the following imaging sequences: Axial T1, T2, FLAIR, GRE, DWI/ADC; sagittal T1; postcontrast axial, sagittal, and coronal T1. COMPARISON: None available. FINDINGS: There is a minimally expansile nonenhancing T2/FLAIR hyperintense lesion without diffusion restriction or hemosiderin deposition in the proximal left cingulate gyrus. There is no acute infarct, hematoma, hydrocephalus, extra-axial collection, or abnormal intracranial enhancement. There is no remarkable white matter disease. Normal appearing flow-voids are present within the major intracranial vascular structures. 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 The pineal region and craniocervical junction are unremarkable. The orbits, face, and skull base are without worrisome finding. 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 Signed: Sharif Du MD Report Verified Date/Time: 03/16/2017 07:27:37 Reading Location: [facility] C013V Neuro Reading Room /Free T4 If Indicated (03/15/2017 5:39 PM) Component Value Ref Range TSH 14.58 (H) 0.35 - 4.94 uIU/mL Specimen Performing Laboratory Blood - Arm, [address] [address] T4, free (03/15/2017 5:39 PM) Component Value Ref Range Free T4 0.79 0.70 - 1.48 ng/dL Specimen Performing Laboratory Blood - Arm, [address] [address] Ammonia (03/15/2017 5:39 PM) Component Value Ref Range Ammonia 43 18 - 72 mol/L Specimen Performing Laboratory Blood - [facility], [address] [address] EEG AWAKE AND DROWSY (03/15/2017 4:37 PM) Specimen Performing Laboratory GE RIS Narrative DATE OF TEST: 03/15/2017 DATE OF REPORT: 03/15/2017 ACC: [id number] Start time: 16:01 Stop time: 16:22 ICD-10: R56.9 CPT Code: 60031 HISTORY: 36 year old man who presented with confusion and was found to have a brain mass on MRI.He has had recent episodes of loss of consciousness and memory deficits concerning for seizure. MEDICATIONS: Benadryl, levothyroxine, prednisone, norco, ketorolac, odansetron TECHNICAL SUMMARY: This is a digital video EEG recorded with 32 input channels reviewed with bipolar and referential montages using the modified combinatorial system nomenclature. DESCRIPTION OF RECORD:During the maximally alert state a 9-10 Hz posterior dominant rhythm was seen that was symmetric, reactive to eye opening and well regulated.More anteriorly, low voltage frontocentral beta predominated.Drowsiness was characterized by alpha attenuation and increased frontocentral theta.Deeper stages of sleep were not recorded. HV: Hyperventilation was not performed. PHOTIC STIMULATION: Flash stimulation was not done. IMPRESSION: Normal Awake and Drowsy EEG CLINICAL CORRELATION: An EEG without epileptiform discharges does not exclude the possibility of epilepsy.If the clinical suspicion of epilepsy remains, consider additional EEG recordings. Liudmila Chiang MD, PhD Epilepsy Fellow Daysi Alarcon MD Neurophysiology/Epilepsy Attending Attending note: I personally reviewed this EEG record and I agree with the details of this report. Procedure Note Interface, External Ris In - 03/15/2017 5:05 PM CDT DATE OF TEST: 03/15/2017 DATE OF REPORT: 03/15/2017 ACC: [id number] Start time: 16:01 Stop time: 16:22 ICD-10: R56.9 CPT Code: 01327 HISTORY: 36 year old man who presented with confusion and was found to have a brain mass on MRI. He has had recent episodes of loss of consciousness and memory deficits concerning for seizure. MEDICATIONS: Benadryl, levothyroxine, prednisone, norco, ketorolac, odansetron TECHNICAL SUMMARY: This is a digital video EEG recorded with 32 input channels reviewed with bipolar and referential montages using the modified combinatorial system nomenclature. DESCRIPTION OF RECORD: During the maximally alert state a 9-10 Hz posterior dominant rhythm was seen that was symmetric, reactive to eye opening and well regulated. More anteriorly, low voltage frontocentral beta predominated. Drowsiness was characterized by alpha attenuation and increased frontocentral theta. Deeper stages of sleep were not recorded. HV: Hyperventilation was not performed. PHOTIC STIMULATION: Flash stimulation was not done. IMPRESSION: Normal Awake and Drowsy EEG CLINICAL CORRELATION: An EEG without epileptiform discharges does not exclude the possibility of epilepsy. If the clinical suspicion of epilepsy remains, consider additional EEG recordings. Liudmila Chiang MD, PhD Epilepsy Fellow Daysi Alarcon MD Neurophysiology/Epilepsy Attending Attending note: I personally reviewed this EEG record and I agree with the details of this report. after 12/17/2016
--- OUTSIDE RECORDS SUMMARY | 2017-12-18 14:29 | XMS REPORT ---
:1980 [facility] Address [address] [place] [address] Dr. Torre [address] [place] [id number] Care Team Providers Name Role Phone NAOMIE LEDESMA Unavailable Unavailable TERRANCE MODI Unavailable Unavailable An ARREOLA Unavailable Unavailable Problems This patient has no known problems. Allergies, Adverse Reactions, Alerts This patient has no known allergies or adverse reactions. Medications This patient has no known medications. Results Test Description Test Time Test Comments Text Results Atomic Results Result Comments RAD, CHEST, 1 2017-10-30 Reason for exam:->LOSS FINAL REPORT PATIENT ID: VIEW, NON DEPT 19:07:00 OF CONSCIOUSNESSShould this [id number] Chest one be performed at the view AP 10/30/2017 7:07 bedside?->Yes PM CLINICAL INDICATION: LOSS OF CONSCIOUSNESS COMPARISON: None available IMPRESSION: There is atelectasis in the right lung base. The left lung is clear. Cardiomediastinal contours are within normal limits. The central pulmonary vasculature is not engorged. Signed: Sharif Faulkner Verified Date/Time: 10/30/2017 19:07:24 Reading Location: [facility] Radiology Reading Room ALYSIS W/ MICROSCOPIC 2017-10-30 18:49:00 Test Item Value Reference Range Comments COLOR (BEAKER) (test nwlo=767) Yellow CLARITY (BEAKER) (test lowd=724) Clear SPECIFIC GRAVITY UA (BEAKER) (test cdfy=100) 1.014 1.001-1.035 PH UA (BEAKER) (test ugov=757) 6.5 5.0-8.0 PROTEIN UA (BEAKER) (test ycys=357) Negative Negative GLUCOSE UA (BEAKER) (test raef=257) Negative Negative KETONES UA (BEAKER) (test jdlv=297) Negative Negative BILIRUBIN UA (BEAKER) (test hldr=534) Negative Negative BLOOD UA (BEAKER) (test uala=142) Negative Negative NITRITE UA (BEAKER) (test uyvz=994) Negative Negative LEUKOCYTE ESTERASE UA (BEAKER) (test gcmj=683) Negative Negative UROBILINOGEN UA (BEAKER) (test zwya=072) 2.0 mg/dL 0.2-1.0 RBC UA (BEAKER) (test nnbs=378) < /HPF WBC UA (BEAKER) (test esru=574) < /HPF MUCUS (BEAKER) (test dopb=4769) Rare SOURCE(BEAKER) (test rfjh=5107) Urine, Clean Catch BASIC METABOLIC [id number] 18:08:00 Test Item Value Reference Range Comments SODIUM (BEAKER) (test 141 meq/L 136-145 tmaz=826) POTASSIUM (BEAKER) (test 4.1 meq/L 3.5-5.1 ucko=069) CHLORIDE (BEAKER) (test 108 meq/L 98-107 pxof=542) CO2 (BEAKER) (test 21 meq/L 22-29 tbnj=992) BLOOD UREA NITROGEN 12 mg/dL 7-21 (BEAKER) (test jnnu=472) CREATININE (BEAKER) (test 0.94 mg/dL 0.57-1.25 gafs=570) GLUCOSE RANDOM (BEAKER) 206 mg/dL 70-105 (test udpz=124) CALCIUM (BEAKER) (test 9.0 mg/dL 8.4-10.2 ahkt=471) EGFR (BEAKER) (test mL/min/1.73 sq m INSUFFICIENT CLINICAL DATA judi=1157) TO CALCULATE ESTIMATED GFR. [id number] 18:06:00 Test Item Value Reference Range Comments MAGNESIUM (BEAKER) (test bevy=738) 2.0 mg/dL 1.6-2.6 [id number] 18:06:00 Test Item Value Reference Range Comments LIPASE (BEAKER) (test yrlm=091) 67 U/L 8-78 TROPONIN [id number] 18:03:00 Test Item Value Reference Range Comments TROPONIN I (BEAKER) (test gyre=396) < ng/mL 0.00-0.03 Troponin I (TnI) levels must be interpreted [...] failure, acidosis, acute neurological disease, and persistent tachyarrhythmia.CT, BRAIN, WITHOUT [id number] 17 :52:00Reason for exam:->LOSS OF CONSCIOUSNESSWhat is the patient's sedation requirement?->No SedationFINAL REPORT CT head without contrast 10/30/2017 5:49 PM CLINICAL HISTORY: LOSS OF CONSCIOUSNESSSYNCOPE TECHNIQUE: Axial noncontrast CT images through the head were obtained. Thisexamination was performed according to our departmental dose [...] and postcontrast MRI is recommended. Signed: Sharif Faulkner Verified Date/Time: 10/30/2017 17 :52:21 Reading Location: [facility] Radiology Reading Room CBC W/PLT COUNT & AUTO [id number] 17:19:00 Test Item Value Reference Range Comments WHITE BLOOD CELL COUNT (BEAKER) (test dnfq=194) 9.0 K/ L 3.5-10.5 RED BLOOD CELL COUNT (BEAKER) (test lbll=138) 5.15 M/ L 4.63-6.08 HEMOGLOBIN (BEAKER) (test ehub=720) 15.6 GM/DL 13.7-17.5 HEMATOCRIT (BEAKER) (test xfkh=639) 47.0 % 40.1-51.0 MEAN CORPUSCULAR VOLUME (BEAKER) (test fnba=034) 91.3 fL 79.0-92.2 MEAN CORPUSCULAR HEMOGLOBIN (BEAKER) (test 30.3 pg 25.7-32.2 ssxc=567) MEAN CORPUSCULAR HEMOGLOBIN CONC (BEAKER) (test 33.2 GM/DL 32.3-36.5 wgwo=471) RED CELL DISTRIBUTION WIDTH (BEAKER) (test 13.5 % 11.6-14.4 gomw=831) PLATELET COUNT (BEAKER) (test lazc=076) 205 K/CU MM 150-450 MEAN PLATELET VOLUME (BEAKER) (test xesc=671) 9.9 fL 9.4-12.4 NUCLEATED RED BLOOD CELLS (BEAKER) (test 0 /100 WBC 0-0 gqgi=407) NEUTROPHILS RELATIVE PERCENT (BEAKER) (test 58 % avco=141) LYMPHOCYTES RELATIVE PERCENT (BEAKER) (test 33 % hpbv=452) MONOCYTES RELATIVE PERCENT (BEAKER) (test 6 % cctw=550) EOSINOPHILS RELATIVE PERCENT (BEAKER) (test 2 % pyfa=317) BASOPHILS RELATIVE PERCENT (BEAKER) (test 1 % mobw=497) NEUTROPHILS ABSOLUTE COUNT (BEAKER) (test 5.19 K/ L 1.78-5.38 xykl=204) LYMPHOCYTES ABSOLUTE COUNT (BEAKER) (test 3.00 K/ L 1.32-3.57 ekpd=270) MONOCYTES ABSOLUTE COUNT (BEAKER) (test 0.54 K/ L 0.30-0.82 qhzu=270) EOSINOPHILS ABSOLUTE COUNT (BEAKER) (test 0.17 K/ L 0.04-0.54 sgjn=155) BASOPHILS ABSOLUTE COUNT (BEAKER) (test 0.05 K/ L 0.01-0.08 qomi=636) IMMATURE GRANULOCYTES-RELATIVE PERCENT (BEAKER) 0 % 0-1 (test ocwn=1991) AFB CULTURE + [id number] 08:57:00 Test Item Value Reference Range Comments CULTURE (BEAKER) (test No acid-fast bacilli isolated uhqp=5308) in 42 days AFB SMEAR (BEAKER) (test No acid fast bacilli seen gjav=019) FUNGUS CULTURE + [id number] 07:23:00 Test Item Value Reference Range Comments CULTURE (BEAKER) (test No fungus isolated in 28 days mgny=2520) FUNGUS SMEAR (BEAKER) (test No fungi seen gucf=0573) FLOW CYTOMETRY [id number] 15:21:00 Test Item Value Reference Range Comments FLOW CYTOMETRY RESULT POINTER (GHANSHYAM) See Separate Report (test ntdq=5638) FLOW CYTOMETRY AP CASE # (BELINUS) (test [id number] loyc=3073) TISSUE [id number] 10:11:00Surgical Pathology Report Case: [id number] Authorizing Provider: Terrance Modi MD Collected: 03/28/2017 1215 Ordering Location: [facility] Received: 2016 1221 SERVICES Pathologist: Samuel Desai MD Specimens: A) - Tumor, LEFT FRONTAL TUMOR C) - Tumor, LEFT FRONTAL TUMOR D) - Tumor, LEFT FRONTAL TUMOR A. BRAIN, LEFT FRONTAL LOBE, CRANIOTOMY AND BIOPSY:CEREBRAL CORTEX WITH MILD GLIOSISB. BRAIN, LEFT FRONTAL LOBE, CRANIOTOMY AND BIOPSY:NO SPECIMEN RECEIVED (SEE COMMENT)C. BRAIN, LEFT FRONTAL LOBE, CRANIOTOMY AND BIOPSY:CEREBRAL CORTEX AND WHITE MATTER WITH MILD GLIOSISD. BRAIN, LEFT FRONTAL LOBE, CRANIOTOMY AND BIOPSY:CEREBRAL CORTEX AND WHITE MATTER WITH MILD GLIOSIS Only 3 specimens are received, and no specimen B is received.Each of the specimens are submitted in their entirety. No definite tumor is identified. All immunoperoxidase stains are performed on the fourth specimen The MIB-1 labeling index is less than 1% and stains the nuclei of very rare glial cells.. Some foci of axonal loss and axonal dilatation are noted with neurofilament stains. Myelination is normal as determined with Luxol fast blue/PAS stains. IDH-1 is negative for tumor cells. P53 stains are negative. GFAP highlights reactive gliosis. Synaptophysin staining is not abnormal. The findings are nonspecific. Definite features of primary demyelination are also absent. [id number]; [id number]; 22826; 89846; 29765; 62691 x4Left craniotomy, brain tumorA. Tumor, left frontal tumorPart A. The specimen is received fresh for frozen labeled with the patient 's name and accession number as "tumor" with description of "left frontal tumor " is a 0.6 x 0.6 x 0.3 cm aggregate of multiple fragments of mustafa soft tissue. _ __ squash is smear prepared. The specimen is submitted entirely in cassette AAQ9ohm A2. Part C. Received fresh for frozen labeled with the patient's name and accession number as "tumor" with description "left frontal tumor" consists of multiple fragments of mustafa soft tissue with anaggregate measurement of 1 x 0.4 x 0. 2 cm. ____ squash smear prepared. The specimen is submitted entirely in cassette FSC1 and FSC2 and C3. SM/plPart D. Received fresh for frozen labeled with the patient's name and accession number as "tumor" with the description of "left frontal tumor" consists of of multiple fragments of mustaaf- pink soft tissue with an aggregate measurement of 1 x 0.5 x 0.5 cm. The specimen is submitted entirely in cassette DFS1 and D2. SM/plLEFT FRONTAL TUMOR : - AFS1 - CEREBRAL CORTEX WITH MILD GLIOSIS - RESULTS HAVE BEEN REPORTED BY DR. DESAI AT 12:36 P.M. LEFT FRONTAL TUMOR: - BFS1 AND BFS2 - CORTEX, WHITE MATTER WITH GLIOSIS - RESULTS HAVE BEEN REPORTED BY DR. DESAI AT 1:05 P.M.LEFT FRONTAL TUMOR: - DFS1 - WHITE MATTER WITH REACTIVE GLIOSIS - RESULTS HAVE BEEN REPORTED BY Performed on A, C, and DThe following special studies were performed on this case and the interpretation is incorporated in the diagnostic report above:The immunohistochemistry test was developed and its performance characteristics determined by [facility], Pathology Laboratory.It has not been cleared or approved by the U.S. Food and Drug Administration. The FDA has determinedthat such clearance or approval is not necessary. The test is used for clinical purposes. It should not be regarded as investigational or for research. This laboratory is certified under the Clinical Laboratory Improvement Amendments of 1988 (CLIA-88) as qualified to perform high complexity clinical laboratory testing.BASIC METABOLIC [id number] 09:32:00 Test Item Value Reference Range Comments SODIUM (BEAKER) (test 137 meq/L 136-145 zqqa=285) POTASSIUM (BEAKER) (test 3.7 meq/L 3.5-5.1 qazg=538) CHLORIDE (BEAKER) (test 103 meq/L 98-107 zqrb=170) CO2 (BEAKER) (test 27 meq/L 22-29 pxee=975) BLOOD UREA NITROGEN 9 mg/dL 7-21 (BEAKER) (test usqk=967) CREATININE (BEAKER) (test 0.84 mg/dL 0.57-1.25 nwnn=165) GLUCOSE RANDOM (BEAKER) 201 mg/dL 70-105 (test sboj=800) CALCIUM (BEAKER) (test 8.6 mg/dL 8.4-10.2 fmsi=163) EGFR (BEAKER) (test mL/min/1.73 sq m INSUFFICIENT CLINICAL DATA lcny=1908) TO CALCULATE ESTIMATED GFR. CBC W/PLT COUNT & AUTO [id number] 09:09:00 Test Item Value Reference Range Comments WHITE BLOOD CELL COUNT (BEAKER) (test sncl=179) 11.2 K/ L 4.0-10.0 RED BLOOD CELL COUNT (BEAKER) (test bgof=686) 4.23 M/ L 4.20-5.80 HEMOGLOBIN (BEAKER) (test kzzd=992) 13.8 GM/DL 13.0-16.8 HEMATOCRIT (BEAKER) (test gzlx=808) 39.2 % 40.0-50.0 MEAN CORPUSCULAR VOLUME (BEAKER) (test rkqe=159) 92.8 fL 82.0-98.0 MEAN CORPUSCULAR HEMOGLOBIN (BEAKER) (test 32.8 pg 27.0-33.0 taah=392) MEAN CORPUSCULAR HEMOGLOBIN CONC (BEAKER) (test 35.3 GM/DL 32.0-36.0 vrvb=567) RED CELL DISTRIBUTION WIDTH (BEAKER) (test 12.0 % 10.3-14.2 vgdi=636) PLATELET COUNT (BEAKER) (test jjge=033) 163 K/CU MM 150-430 MEAN PLATELET VOLUME (BEAKER) (test ojli=892) 7.5 fL 6.5-10.5 NUCLEATED RED BLOOD CELLS (BEAKER) (test 0 /100 WBC 0-0 ulan=740) NEUTROPHILS RELATIVE PERCENT (BEAKER) (test 69 % dwrc=916) LYMPHOCYTES RELATIVE PERCENT (BEAKER) (test 23 % ztcj=076) MONOCYTES RELATIVE PERCENT (BEAKER) (test 6 % shaz=420) EOSINOPHILS RELATIVE PERCENT (BEAKER) (test 2 % epwi=324) BASOPHILS RELATIVE PERCENT (BEAKER) (test 0 % oxzq=962) NEUTROPHILS ABSOLUTE COUNT (BEAKER) (test 7.70 K/ L 1.80-8.00 jjko=186) LYMPHOCYTES ABSOLUTE COUNT (BEAKER) (test 2.63 K/ L 1.48-4.50 mvhv=878) MONOCYTES ABSOLUTE COUNT (BEAKER) (test 0.70 K/ L 0.00-1.30 jdqo=651) EOSINOPHILS ABSOLUTE COUNT (BEAKER) (test 0.20 K/ L 0.00-0.50 tbig=936) BASOPHILS ABSOLUTE COUNT (BEAKER) (test 0.02 K/ L 0.00-0.20 itwk=621) 0.00BASIC METABOLIC [id number] 03:22:00 Test Item Value Reference Range Comments SODIUM (BEAKER) (test 138 meq/L 136-145 eelh=530) POTASSIUM (BEAKER) (test 4.3 meq/L 3.5-5.1 rutq=769) CHLORIDE (BEAKER) (test 106 meq/L 98-107 hpqv=758) CO2 (BEAKER) (test 22 meq/L 22-29 tufh=168) BLOOD UREA NITROGEN 9 mg/dL 7-21 (BEAKER) (test prsb=492) CREATININE (BEAKER) (test 0.82 mg/dL 0.57-1.25 shxq=776) GLUCOSE RANDOM (BEAKER) 148 mg/dL 70-105 (test ciyb=185) CALCIUM (BEAKER) (test 8.4 mg/dL 8.4-10.2 cqno=379) EGFR (BEAKER) (test mL/min/1.73 sq m INSUFFICIENT CLINICAL DATA jdyq=7570) TO CALCULATE ESTIMATED GFR. [id number] 03:20:00 Test Item Value Reference Range Comments PHOSPHORUS (BEAKER) (test nklr=427) 3.5 mg/dL 2.3-4.7 [id number] 03:20:00 Test Item Value Reference Range Comments MAGNESIUM (BEAKER) (test sayn=273) 1.9 mg/dL 1.6-2.6 CBC (HEMOGRAM ONLY)2017-03-29 03:09:00 Test Item Value Reference Range Comments WHITE BLOOD CELL COUNT (BEAKER) (test roxv=684) 19.6 K/ L 4.0-10.0 RED BLOOD CELL COUNT (BEAKER) (test lphy=958) 4.54 M/ L 4.20-5.80 HEMOGLOBIN (BEAKER) (test sqfy=555) 14.1 GM/DL 13.0-16.8 HEMATOCRIT (BEAKER) (test cbgq=298) 41.4 % 40.0-50.0 MEAN CORPUSCULAR VOLUME (BEAKER) (test ewyy=070) 91.2 fL 82.0-98.0 MEAN CORPUSCULAR HEMOGLOBIN (BEAKER) (test 31.0 pg 27.0-33.0 ihft=310) MEAN CORPUSCULAR HEMOGLOBIN CONC (BEAKER) (test 34.0 GM/DL 32.0-36.0 gwfe=099) RED CELL DISTRIBUTION WIDTH (BEAKER) (test 13.6 % 10.3-14.2 isyo=834) PLATELET COUNT (BEAKER) (test mwzm=057) 193 K/CU MM 150-430 MEAN PLATELET VOLUME (BEAKER) (test yiqk=133) 7.3 fL 6.5-10.5 NUCLEATED RED BLOOD CELLS (BEAKER) (test 0 /100 WBC 0-0 ecvu=683) 0.00MYCOBACTERIUM TB PCR [id number] 14:38:00 Test Item Value Reference Range Comments MYCOBACTERIUM TB (test aprr=[id number]) HGB/HCT (H&H) - STAT [id number] 11:35:00 Test Item Value Reference Range Comments HEMOGLOBIN (BEAKER) (test omfk=679) 13.8 g/dL 13.0-16.8 HEMATOCRIT (BEAKER) (test emyr=079) 41.0 % 40.0-50.0 FiO2:35%, Temp: 36.7CFiO2:35%, Temp: 36.7CFiO2:35%, Temp: 36.7CFiO2:35%, Temp: 36.7CFiO2:35%, Temp: 36.7CCALCIUM, [id number] 11:35:00 Test Item Value Reference Range Comments CALCIUM IONIZED (BEAKER) (test oxeg=781) 1.03 mmol/L 1.12-1.27 PH, BLOOD (BEAKER) (test ehqk=5059) 7.42 BLOOD GAS, [id number] 11:34:00 Test Item Value Reference Range Comments PH ARTERIAL (BEAKER) (test ckdh=602) 7.42 7.35-7.45 PCO2 ARTERIAL (BEAKER) (test caeo=960) 33 mmHg 35-45 PO2 ARTERIAL (BEAKER) (test pjbc=159) 74 mmHg 80-90 O2 SATURATION ARTERIAL (BEAKER) (test kswa=230) 95.5 % 96.0-97.0 HCO3 ARTERIAL (BEAKER) (test tuis=267) 21 mmol/L 21-29 BASE EXCESS ARTERIAL (BEAKER) (test ufzt=890) -3.0 mmol/L -2.0-3.0 PATIENT TEMPERATURE (BEAKER) (test gzxt=6464) 36.7 C FIO2 (BEAKER) (test jfwh=4863) 35.0 % FiO2:35%, Temp: 36.7CFiO2:35%, Temp: 36.7CFiO2:35%, Temp: 36.7CFiO2:35%, Temp: 36.7CFiO2:35%, Temp: 36.7CGLUCOSE-STAT [id number] 11:33:00 Test Item Value Reference Range Comments GLUCOSE RANDOM (BEAKER) (test nxbq=771) 101 mg/dL 70-110 FiO2:35%, Temp: 36.7CFiO2:35%, Temp: 36.7CFiO2:35%, Temp: 36.7CFiO2:35%, Temp: 36.7CFiO2:35%, Temp: 36.7CSODIUM NA-STAT [id number] 11:33:00 Test Item Value Reference Range Comments SODIUM (BEAKER) (test ieff=016) 136 meq/L 135-148 FiO2:35%, Temp: 36.7CFiO2:35%, Temp: 36.7CFiO2:35%, Temp: 36.7CFiO2:35%, Temp: 36.7CFiO2:35%, Temp: 36.7CPOTASSIUM-STAT [id number] 11:33:00 Test Item Value Reference Range Comments POTASSIUM (BEAKER) (test nfyc=884) 3.8 meq/L 3.6-5.5 FiO2:35%, Temp: 36.7CFiO2:35%, Temp: 36.7CFiO2:35%, Temp: 36.7CFiO2:35%, Temp: 36.7CFiO2:35%, Temp: 36.7CURINALYSIS W/ [id number] 08:37:00 Test Item Value Reference Range Comments COLOR (BEAKER) (test oqyu=598) Yellow CLARITY (BEAKER) (test hzvg=769) Clear SPECIFIC GRAVITY UA (BEAKER) (test lugx=090) 1.023 1.001-1.035 PH UA (BEAKER) (test cznf=632) 6.0 5.0-8.0 PROTEIN UA (BEAKER) (test uwiy=109) 10 mg/dL Negative GLUCOSE UA (BEAKER) (test qhut=298) Negative Negative KETONES UA (BEAKER) (test ujuj=542) Negative Negative BILIRUBIN UA (BEAKER) (test otlz=529) Negative Negative BLOOD UA (BEAKER) (test rsuq=404) Negative Negative NITRITE UA (BEAKER) (test mlos=419) Negative Negative LEUKOCYTE ESTERASE UA (BEAKER) (test xdpb=917) Negative Negative UROBILINOGEN UA (BEAKER) (test sbko=509) 0.2 mg/dL 0.2-1.0 RBC UA (BEAKER) (test unng=268) 1 /HPF WBC UA (BEAKER) (test eoqb=036) 1 /HPF MUCUS (BEAKER) (test ndyg=9558) Rare SQUAMOUS EPITHELIAL (BEAKER) (test kafr=144) 1 /HPF SOURCE(BEAKER) (test lrfq=1366) Urine, Voided FLOW [id number] 14:12:00Flow Cytometry Report Case: [id number] Authorizing Provider: Ayanna Christine MD Collected: 03/18/2017 1428 Ordering Location: [address] Received: 2016 0822 Service Pathologist: Dalia Roper MD Specimen: Other CEREBROSPINAL FLUID,FLOW CYTOMETRY:- NON-DIAGNOSTIC DUE TO LOW CELLULARITY AND NON-SPECIFIC ANTIBODY STAINING Please correlate with morphologic and clinical findings. 54700Kmmqy massCerebrospinal fluidCD2, CD3, CD4, CD5, CD7, CD8, CD10, CD11c, CD19, CD20, CD23, CD34, CD38, CD45, CD56, [place], LambdaFlow cytometric evaluation is limitedby low cellularity and non- specific antibody staining.These tests were developed and their performance characteristics determined by [facility]. They have not been cleared or approved by the U.S. Foodand Drug Administration. The FDA has determined that such clearance or approval is not necessary. Itshould not be regarded as investigational or for research. This laboratory is certified under the Clinical Laboratory Improvement Amendments of 1988 ("CLIA") as qualified to perform high-complexity clinical testing.CSF CULTURE + GRAM [id number] 09: 13:00 Test Item Value Reference Range Comments CULTURE (BEAKER) (test zoka=4601) No growth GRAM STAIN RESULT (BEAKER) (test No WBCs oanl=3203) GRAM STAIN RESULT (BEAKER) (test No organisms seen qjvb=84639) HSV 1/2 PCR, [id number] 17:52:00 Test Item Value Reference Range Comments HSV BY PCR (BEAKER) (test gjlr=665) NEGATIVE NEGATIVE Herpes Simplex Virus (HSV) not detected.These assays were performed by real- time PCR utilizing fluorogenic hydrolysis probe technology for the detection of Herpes Simplex Virus-1 and/or Herpes Simplex Virus-2 in approved specimens. A 154 base pair region of the HSV-1 and HSV-2 UL5 gene is amplified, and typing is achieved by using type specific probes. An internal control is used to confirm PCR amplification. Genetic variation and other factors can affect the accuracy of nucleic acid testing; therefore, the results should be interpreted in light of clinical data.This test was developed and its performance characteristics determined by the [facility] Pathology Department, Section of Molecular Pathology. It has not been cleared or approved by the U.S. Food and Drug Administration (FDA), as FDA approval is not required for clinical use of the test. Validation was done as required by the Clinical Laboratory Amendments of 1988.[id number] 14:15:00Medical Cytology Report Case: [id number] Authorizing Provider: Ayanna Christine MD Collected: 03/18/2017 1302 Ordering Location: [address] Received: 03/20/2017 0905 Service Pathologist: Alysha Giraldo MD Specimen: CSF , tube 4 CEREBROSPINAL FLUID (CYTOSPINS): - NO MALIGNANT CELLS IDENTIFIED; - ESSENTIALLY ACELLULAR SAMPLE Signing Pathologist Direct Phone Line: [phone] massCEREBROSPINAL FLUID (CYTOSPINS)2 cytospinsCollected: [id number]: [id number] St. [facility], [facility] of [facility]ology, [address] [place] [address], [facility], [facility] of [facility], [address] [place] [address], FLZC-GLUCOSE [id number] 18:01:00 Test Item Value Reference Range Comments POC-GLUCOSE METER (BEAKER) 108 mg/dL 70-110 TESTED AT [address] (test lmfi=9446) [place] [address] POCT-GLUCOSE [id number] 12:24:00 Test Item Value Reference Range Comments POC-GLUCOSE METER (BEAKER) 129 mg/dL 70-110 TESTED AT [address] (test lbtz=8441) [place] [address] CBC W/PLT COUNT & AUTO [id number] 10:53:00 Test Item Value Reference Range Comments WHITE BLOOD CELL COUNT (BEAKER) (test pdsa=952) 9.0 K/ L 4.0-10.0 RED BLOOD CELL COUNT (BEAKER) (test ludy=685) 4.89 M/ L 4.20-5.80 HEMOGLOBIN (BEAKER) (test pelg=135) 15.2 GM/DL 13.0-16.8 HEMATOCRIT (BEAKER) (test pjbr=148) 45.0 % 40.0-50.0 MEAN CORPUSCULAR VOLUME (BEAKER) (test xmah=762) 91.9 fL 82.0-98.0 MEAN CORPUSCULAR HEMOGLOBIN (BEAKER) (test 31.0 pg 27.0-33.0 qqiv=131) MEAN CORPUSCULAR HEMOGLOBIN CONC (BEAKER) (test 33.8 GM/DL 32.0-36.0 mnpq=275) RED CELL DISTRIBUTION WIDTH (BEAKER) (test 12.1 % 10.3-14.2 ywsm=362) PLATELET COUNT (BEAKER) (test gzkt=126) 172 K/CU MM 150-430 MEAN PLATELET VOLUME (BEAKER) (test whbt=060) 7.5 fL 6.5-10.5 NUCLEATED RED BLOOD CELLS (BEAKER) (test 0 /100 WBC 0-0 dvaa=650) NEUTROPHILS RELATIVE PERCENT (BEAKER) (test 46 % dapi=204) LYMPHOCYTES RELATIVE PERCENT (BEAKER) (test 43 % nkmu=512) MONOCYTES RELATIVE PERCENT (BEAKER) (test 7 % ycew=264) EOSINOPHILS RELATIVE PERCENT (BEAKER) (test 3 % hriz=913) BASOPHILS RELATIVE PERCENT (BEAKER) (test 0 % jkfr=302) NEUTROPHILS ABSOLUTE COUNT (BEAKER) (test 4.15 K/ L 1.80-8.00 joml=977) LYMPHOCYTES ABSOLUTE COUNT (BEAKER) (test 3.86 K/ L 1.48-4.50 vrcz=016) MONOCYTES ABSOLUTE COUNT (BEAKER) (test 0.63 K/ L 0.00-1.30 eapr=302) EOSINOPHILS ABSOLUTE COUNT (BEAKER) (test 0.31 K/ L 0.00-0.50 qrqm=020) BASOPHILS ABSOLUTE COUNT (BEAKER) (test 0.04 K/ L 0.00-0.20 jtcp=071) 0.00(MANUAL DIFFERENTIAL)2017-03-19 10:53:00 Test Item Value Reference Range Comments TOTAL COUNTED (BEAKER) (test birr=8174) POCT-GLUCOSE [id number] 08:15:00 Test Item Value Reference Range Comments POC-GLUCOSE METER (BEAKER) 110 mg/dL 70-110 TESTED AT [facility] [address] [facility] (test dzyw=7811) [facility] [address] BASIC METABOLIC [id number] 06:38:00 Test Item Value Reference Range Comments SODIUM (BEAKER) (test 140 meq/L 136-145 fuqi=172) POTASSIUM (BEAKER) (test 3.8 meq/L 3.5-5.1 ldyr=041) CHLORIDE (BEAKER) (test 106 meq/L 98-107 ytog=047) CO2 (BEAKER) (test 23 meq/L 22-29 gerq=833) BLOOD UREA NITROGEN 10 mg/dL 7-21 (BEAKER) (test qlvi=098) CREATININE (BEAKER) (test 0.94 mg/dL 0.57-1.25 qsbv=384) GLUCOSE RANDOM (BEAKER) 106 mg/dL 70-105 (test ncnp=522) CALCIUM (BEAKER) (test 8.4 mg/dL 8.4-10.2 parr=033) EGFR (BEAKER) (test mL/min/1.73 sq m INSUFFICIENT CLINICAL DATA eyzi=8665) TO CALCULATE ESTIMATED GFR. HIV-1 ANTIGEN WITH HIV-1/2 [id number] 06:37:00 Test Item Value Reference Range Comments HIV-1 ANTIGEN WITH HIV 1\\T\\2 ANTIBODY (2) Nonreactive Nonreactive (BEAKER) (test ylpv=8932) POCT-GLUCOSE [id number] 22:04:00 Test Item Value Reference Range Comments POC-GLUCOSE METER (BEAKER) 77 mg/dL 70-110 TESTED AT [facility] [address] [place] [address] (test yinq=2623) [facility] [address] CSF CELL COUNT [id number] 16:31:00 Test Item Value Reference Range Comments APPEARANCE CSF (BEAKER) (test vjqs=060) Clear Clear COLOR CSF (BEAKER) (test xnxp=368) Colorless Colorless RBC CSF (BEAKER) (test gqtc=884) 2 /cu mm 0-5 WBC CSF (BEAKER) (test axaw=2097) 0 /cu mm <=5 RBCS FRESH (BEAKER) (test fiva=0567) 100% Fresh NUMBER OF CELLS DIFF'D (BEAKER) (test rjli=8798) 0 TUBE NUMBER CSF (BEAKER) (test tnes=8485) 3 PROTEIN, [id number] 15:25:00 Test Item Value Reference Range Comments PROTEIN CSF (BEAKER) (test lehw=458) 60 mg/dL 15-45 GLUCOSE, [id number] 15:19:00 Test Item Value Reference Range Comments GLUCOSE CSF (BEAKER) (test hywt=716) 53 mg/dL 40-70 MICHAEL INK [id number] 15:10:00 Test Item Value Reference Range Comments MICHAEL INK (BEAKER) No encapsulated yeast seen No encapsulated yeast seen (test pipw=0178) POCT-GLUCOSE [id number] 07:47:00 Test Item Value Reference Range Comments POC-GLUCOSE METER (BEAKER) 97 mg/dL 70-110 TESTED AT [facility] [address] [facility] (test qhts=8348) [place] [address] CBC W/PLT COUNT & AUTO [id number] 06:05:00 Test Item Value Reference Range Comments WHITE BLOOD CELL COUNT (BEAKER) (test hltg=370) 10.3 K/ L 4.0-10.0 RED BLOOD CELL COUNT (BEAKER) (test qysz=807) 4.96 M/ L 4.20-5.80 HEMOGLOBIN (BEAKER) (test filu=450) 14.6 GM/DL 13.0-16.8 HEMATOCRIT (BEAKER) (test zzix=950) 46.1 % 40.0-50.0 MEAN CORPUSCULAR VOLUME (BEAKER) (test myvf=356) 92.9 fL 82.0-98.0 MEAN CORPUSCULAR HEMOGLOBIN (BEAKER) (test 29.4 pg 27.0-33.0 nyea=894) MEAN CORPUSCULAR HEMOGLOBIN CONC (BEAKER) (test 31.7 GM/DL 32.0-36.0 tdlq=335) RED CELL DISTRIBUTION WIDTH (BEAKER) (test 12.1 % 10.3-14.2 qzky=700) PLATELET COUNT (BEAKER) (test syoa=279) 175 K/CU MM 150-430 MEAN PLATELET VOLUME (BEAKER) (test xznj=282) 7.5 fL 6.5-10.5 NUCLEATED RED BLOOD CELLS (BEAKER) (test 0 /100 WBC 0-0 oszo=409) NEUTROPHILS RELATIVE PERCENT (BEAKER) (test 46 % xwjf=491) LYMPHOCYTES RELATIVE PERCENT (BEAKER) (test 42 % kcxf=122) MONOCYTES RELATIVE PERCENT (BEAKER) (test 8 % xphz=707) EOSINOPHILS RELATIVE PERCENT (BEAKER) (test 3 % ckzh=160) BASOPHILS RELATIVE PERCENT (BEAKER) (test 1 % waqe=155) NEUTROPHILS ABSOLUTE COUNT (BEAKER) (test 4.74 K/ L 1.80-8.00 jrzz=243) LYMPHOCYTES ABSOLUTE COUNT (BEAKER) (test 4.36 K/ L 1.48-4.50 jack=548) MONOCYTES ABSOLUTE COUNT (BEAKER) (test 0.80 K/ L 0.00-1.30 egft=807) EOSINOPHILS ABSOLUTE COUNT (BEAKER) (test 0.33 K/ L 0.00-0.50 hecn=166) BASOPHILS ABSOLUTE COUNT (BEAKER) (test 0.06 K/ L 0.00-0.20 helk=516) 0.00BASIC METABOLIC [id number] 05:56:00 Test Item Value Reference Range Comments SODIUM (BEAKER) (test 138 meq/L 136-145 vufx=567) POTASSIUM (BEAKER) (test 4.0 meq/L 3.5-5.1 fiqt=019) CHLORIDE (BEAKER) (test 107 meq/L 98-107 mgqg=504) CO2 (BEAKER) (test 24 meq/L 22-29 nrcb=762) BLOOD UREA NITROGEN 15 mg/dL 7-21 (BEAKER) (test azad=835) CREATININE (BEAKER) (test 0.96 mg/dL 0.57-1.25 ymab=965) GLUCOSE RANDOM (BEAKER) 94 mg/dL 70-105 (test ovbk=583) CALCIUM (BEAKER) (test 8.2 mg/dL 8.4-10.2 mgzg=612) EGFR (BEAKER) (test mL/min/1.73 sq m INSUFFICIENT CLINICAL DATA gasj=0227) TO CALCULATE ESTIMATED GFR. [id number] 05:01:00 Test Item Value Reference Range Comments PROTIME (BEAKER) (test eimh=854) 13.7 seconds 11.7-14.7 INR (BEAKER) (test wwac=667) 1.1 <=5.9 PARTIAL THROMBOPLASTIN TIME (BEAKER) (test 27.2 seconds 22.5-36.0 htdo=847) RECOMMENDED COUMADIN/WARFARIN INR THERAPY RANGESSTANDARD DOSE: 2.0 - 3.0 Includes: PROPHYLAXIS forvenous thrombosis, systemic embolization; TREATMENT for venous thrombosis and/or pulmonary embolus.HIGH RISK: Target INR is 2.5-3.5 for patients with mechanical heart valves.POCT-GLUCOSE [id number] 21:22:00 Test Item Value Reference Range Comments POC-GLUCOSE METER (BEAKER) 174 mg/dL 70-110 TESTED AT [address] (test zugj=4629) [facility] [address] POCT-GLUCOSE [id number] 17:05:00 Test Item Value Reference Range Comments POC-GLUCOSE METER (BEAKER) 104 mg/dL 70-110 TESTED AT [address] (test fnxz=7713) [place] [address] [id number] 12:22:00 Test Item Value Reference Range Comments PROTIME (BEAKER) (test vjub=540) 15.0 seconds 11.7-14.7 INR (BEAKER) (test bjnn=168) 1.2 <=5.9 PARTIAL THROMBOPLASTIN TIME (BEAKER) (test 27.5 seconds 22.5-36.0 uegv=317) RECOMMENDED COUMADIN/WARFARIN INR THERAPY RANGESSTANDARD DOSE: 2.0 - 3.0 Includes: PROPHYLAXIS forvenous thrombosis, systemic embolization; TREATMENT for venous thrombosis and/or pulmonary embolus.HIGH RISK: Target INR is 2.5-3.5 for patients with mechanical heart valves.[id number] 12:20:00 Test Item Value Reference Range Comments MAGNESIUM (BEAKER) (test zygw=909) 1.9 mg/dL 1.6-2.6 POCT-GLUCOSE [id number] 11:34:00 Test Item Value Reference Range Comments POC-GLUCOSE METER (BEAKER) 90 mg/dL 70-110 TESTED AT [address] (test plse=0361) [place] [id number] POCT-GLUCOSE [id number] 07:35:00 Test Item Value Reference Range Comments POC-GLUCOSE METER (BEAKER) 105 mg/dL 70-110 TESTED AT [address] (test basc=9506) [place] [id number] CBC W/PLT COUNT & AUTO [id number] 07:01:00 Test Item Value Reference Range Comments WHITE BLOOD CELL COUNT (BEAKER) (test yajr=196) 12.6 K/ L 4.0-10.0 RED BLOOD CELL COUNT (BEAKER) (test cczb=542) 5.10 M/ L 4.20-5.80 HEMOGLOBIN (BEAKER) (test nrik=557) 15.4 GM/DL 13.0-16.8 HEMATOCRIT (BEAKER) (test mnll=288) 47.2 % 40.0-50.0 MEAN CORPUSCULAR VOLUME (BEAKER) (test bviw=030) 92.4 fL 82.0-98.0 MEAN CORPUSCULAR HEMOGLOBIN (BEAKER) (test 30.2 pg 27.0-33.0 yjil=126) MEAN CORPUSCULAR HEMOGLOBIN CONC (BEAKER) (test 32.7 GM/DL 32.0-36.0 hpoa=065) RED CELL DISTRIBUTION WIDTH (BEAKER) (test 12.2 % 10.3-14.2 mvst=339) PLATELET COUNT (BEAKER) (test nwrs=471) 162 K/CU MM 150-430 MEAN PLATELET VOLUME (BEAKER) (test pbwy=954) 8.6 fL 6.5-10.5 NUCLEATED RED BLOOD CELLS (BEAKER) (test 0 /100 WBC 0-0 jfzt=466) NEUTROPHILS RELATIVE PERCENT (BEAKER) (test 54 % oqry=596) LYMPHOCYTES RELATIVE PERCENT (BEAKER) (test 38 % ycdb=329) MONOCYTES RELATIVE PERCENT (BEAKER) (test 6 % kamg=477) EOSINOPHILS RELATIVE PERCENT (BEAKER) (test 1 % ppwf=435) BASOPHILS RELATIVE PERCENT (BEAKER) (test 1 % afvd=635) NEUTROPHILS ABSOLUTE COUNT (BEAKER) (test 6.80 K/ L 1.80-8.00 ysse=048) LYMPHOCYTES ABSOLUTE COUNT (BEAKER) (test 4.76 K/ L 1.48-4.50 mbcq=599) MONOCYTES ABSOLUTE COUNT (BEAKER) (test 0.79 K/ L 0.00-1.30 dbgf=223) EOSINOPHILS ABSOLUTE COUNT (BEAKER) (test 0.17 K/ L 0.00-0.50 jvnf=994) BASOPHILS ABSOLUTE COUNT (BEAKER) (test 0.09 K/ L 0.00-0.20 snor=507) 0.00BASIC METABOLIC [id number] 06:11:00 Test Item Value Reference Range Comments SODIUM (BEAKER) (test 138 meq/L 136-145 djgx=059) POTASSIUM (BEAKER) (test 4.3 meq/L 3.5-5.1 Specimen slightly qsbp=708) hemolyzed CHLORIDE (BEAKER) (test 108 meq/L 98-107 iqje=440) CO2 (BEAKER) (test 19 meq/L 22-29 swzf=385) BLOOD UREA NITROGEN 13 mg/dL 7-21 (BEAKER) (test hdgw=243) CREATININE (BEAKER) (test 0.88 mg/dL 0.57-1.25 Specimen slightly lfgx=342) hemolyzed GLUCOSE RANDOM (BEAKER) 93 mg/dL 70-105 (test pnxp=929) CALCIUM (BEAKER) (test 8.4 mg/dL 8.4-10.2 migu=762) EGFR (BEAKER) (test mL/min/1.73 sq m INSUFFICIENT CLINICAL DATA nmmx=0324) TO CALCULATE ESTIMATED GFR. HEPATIC FUNCTION [id number] 06:10:00 Test Item Value Reference Range Comments TOTAL PROTEIN (BEAKER) (test 6.7 gm/dL 6.0-8.3 Specimen slightly hemolyzed ogei=145) ALBUMIN (BEAKER) (test 3.3 g/dL 3.5-5.0 Specimen slightly hemolyzed aerm=5368) BILIRUBIN TOTAL (BEAKER) (test 0.2 mg/dL 0.2-1.2 Specimen slightly hemolyzed qmlz=832) BILIRUBIN DIRECT (BEAKER) (test 0.1 mg/dL 0.1-0.5 Specimen slightly hemolyzed zokj=155) ALKALINE PHOSPHATASE (BEAKER) 71 U/L 40-150 (test lyac=268) AST (SGOT) (BEAKER) (test 54 U/L 5-34 Specimen slightly hemolyzed womv=189) ALT (SGPT) (BEAKER) (test 84 U/L 6-55 Specimen slightly hemolyzed lzuy=699) POCT-GLUCOSE [id number] 21:29:00 Test Item Value Reference Range Comments POC-GLUCOSE METER (BEAKER) 238 mg/dL 70-110 TESTED AT [facility] [address] (test vzsz=1649) [facility] [address] CREATINE KINASE (CK)2017-03-16 19:00:00 Test Item Value Reference Range Comments CREATINE KINASE TOTAL (BEAKER) (test wgzt=130) 212 U/L 29-200 POCT-GLUCOSE [id number] 17:04:00 Test Item Value Reference Range Comments POC-GLUCOSE METER (BEAKER) 88 mg/dL 70-110 TESTED AT [address] (test gbzc=7889) [facility] [address] POCT-GLUCOSE [id number] 11:53:00 Test Item Value Reference Range Comments POC-GLUCOSE METER (BEAKER) 119 mg/dL 70-110 TESTED AT [address] (test isqp=0693) [facility] [address] POCT-GLUCOSE [id number] 07:32:00 Test Item Value Reference Range Comments POC-GLUCOSE METER (BEAKER) 142 mg/dL 70-110 TESTED AT [address] (test idxw=6796) [facility] [address] CBC W/PLT COUNT & AUTO [id number] 06:33:00 Test Item Value Reference Range Comments WHITE BLOOD CELL COUNT (BEAKER) (test sely=751) 12.2 K/ L 4.0-10.0 RED BLOOD CELL COUNT (BEAKER) (test tpnd=267) 5.24 M/ L 4.20-5.80 HEMOGLOBIN (BEAKER) (test lefl=407) 15.6 GM/DL 13.0-16.8 HEMATOCRIT (BEAKER) (test izar=775) 48.5 % 40.0-50.0 MEAN CORPUSCULAR VOLUME (BEAKER) (test bobi=801) 92.5 fL 82.0-98.0 MEAN CORPUSCULAR HEMOGLOBIN (BEAKER) (test 29.7 pg 27.0-33.0 clvq=583) MEAN CORPUSCULAR HEMOGLOBIN CONC (BEAKER) (test 32.1 GM/DL 32.0-36.0 gqza=114) RED CELL DISTRIBUTION WIDTH (BEAKER) (test 13.6 % 10.3-14.2 nouy=956) PLATELET COUNT (BEAKER) (test fbob=709) 190 K/CU MM 150-430 MEAN PLATELET VOLUME (BEAKER) (test ublt=582) 7.8 fL 6.5-10.5 NUCLEATED RED BLOOD CELLS (BEAKER) (test 0 /100 WBC 0-0 xgxa=689) NEUTROPHILS RELATIVE PERCENT (BEAKER) (test 73 % jloj=241) LYMPHOCYTES RELATIVE PERCENT (BEAKER) (test 23 % hdjs=684) MONOCYTES RELATIVE PERCENT (BEAKER) (test 3 % hpaq=695) EOSINOPHILS RELATIVE PERCENT (BEAKER) (test 0 % csrq=287) BASOPHILS RELATIVE PERCENT (BEAKER) (test 0 % alhy=687) NEUTROPHILS ABSOLUTE COUNT (BEAKER) (test 8.89 K/ L 1.80-8.00 hpjv=057) LYMPHOCYTES ABSOLUTE COUNT (BEAKER) (test 2.85 K/ L 1.48-4.50 yhsz=929) MONOCYTES ABSOLUTE COUNT (BEAKER) (test 0.34 K/ L 0.00-1.30 cqjc=251) EOSINOPHILS ABSOLUTE COUNT (BEAKER) (test 0.03 K/ L 0.00-0.50 ugnp=110) BASOPHILS ABSOLUTE COUNT (BEAKER) (test 0.06 K/ L 0.00-0.20 bcty=348) 0.00BASIC METABOLIC [id number] 06:20:00 Test Item Value Reference Range Comments SODIUM (BEAKER) (test 138 meq/L 136-145 rvhy=795) POTASSIUM (BEAKER) (test 4.8 meq/L 3.5-5.1 emfl=926) CHLORIDE (BEAKER) (test 106 meq/L 98-107 xwkv=121) CO2 (BEAKER) (test 23 meq/L 22-29 aspn=504) BLOOD UREA NITROGEN 15 mg/dL 7-21 (BEAKER) (test wjef=481) CREATININE (BEAKER) (test 0.92 mg/dL 0.57-1.25 xwuq=712) GLUCOSE RANDOM (BEAKER) 142 mg/dL 70-105 (test lztf=999) CALCIUM (BEAKER) (test 9.0 mg/dL 8.4-10.2 mrzx=927) EGFR (BEAKER) (test mL/min/1.73 sq m INSUFFICIENT CLINICAL DATA uqis=2027) TO CALCULATE ESTIMATED GFR. [id number] 05:51:00 Test Item Value Reference Range Comments PROTIME (BEAKER) (test qnzq=584) 14.1 seconds 11.7-14.7 INR (BEAKER) (test kiak=679) 1.1 <=5.9 PARTIAL THROMBOPLASTIN TIME (BEAKER) (test 27.5 seconds 22.5-36.0 bpvl=346) RECOMMENDED COUMADIN/WARFARIN INR THERAPY RANGESSTANDARD DOSE: 2.0 - 3.0 Includes: PROPHYLAXIS forvenous thrombosis, systemic embolization; TREATMENT for venous thrombosis and/or pulmonary embolus.HIGH RISK: Target INR is 2.5-3.5 for patients with mechanical heart valves.T4, [id number] 19:26:00 Test Item Value Reference Range Comments FREE T4 (BEAKER) (test wbzv=264) 0.79 ng/dL 0.70-1.48 TSH/FREE T4 IF [id number] 18:49:00 Test Item Value Reference Range Comments THYROID STIMULATING HORMONE (BEAKER) (test 14.58 uIU/mL 0.35-4.94 racw=185) [id number] 18:11:00 Test Item Value Reference Range Comments AMMONIA (BEAKER) (test kuuk=463) 43 mol/L 18-72 POCT-GLUCOSE [id number] 17:22:00 Test Item Value Reference Range Comments POC-GLUCOSE METER (BEAKER) 118 mg/dL 70-110 TESTED AT [address] (test khaq=0050) [facility] [address] POCT-GLUCOSE [id number] 07:33:00 Test Item Value Reference Range Comments POC-GLUCOSE METER (BEAKER) 202 mg/dL 70-110 TESTED AT [address] (test lfyg=4166) [facility] [address] CBC (HEMOGRAM ONLY)2017-03-15 06:38:00 Test Item Value Reference Range Comments WHITE BLOOD CELL COUNT (BEAKER) (test ugos=277) 20.1 K/ L 4.0-10.0 RED BLOOD CELL COUNT (BEAKER) (test ylwn=126) 5.45 M/ L 4.20-5.80 HEMOGLOBIN (BEAKER) (test ehat=952) 15.9 GM/DL 13.0-16.8 HEMATOCRIT (BEAKER) (test rbkm=855) 50.1 % 40.0-50.0 MEAN CORPUSCULAR VOLUME (BEAKER) (test wsbs=296) 92.0 fL 82.0-98.0 MEAN CORPUSCULAR HEMOGLOBIN (BEAKER) (test 29.3 pg 27.0-33.0 pytf=400) MEAN CORPUSCULAR HEMOGLOBIN CONC (BEAKER) (test 31.8 GM/DL 32.0-36.0 acky=598) RED CELL DISTRIBUTION WIDTH (BEAKER) (test 12.0 % 10.3-14.2 syaq=379) PLATELET COUNT (BEAKER) (test bqqe=378) 218 K/CU MM 150-430 MEAN PLATELET VOLUME (BEAKER) (test ldhh=637) 7.4 fL 6.5-10.5 NUCLEATED RED BLOOD CELLS (BEAKER) (test 0 /100 WBC 0-0 rnlf=636) 0.00BASI METABOLIC [id number] 05:56:00 Test Item Value Reference Range Comments SODIUM (BEAKER) (test 138 meq/L 136-145 yxdc=975) POTASSIUM (BEAKER) (test 4.2 meq/L 3.5-5.1 gvvy=515) CHLORIDE (BEAKER) (test 105 meq/L 98-107 jklz=363) CO2 (BEAKER) (test 21 meq/L 22-29 dcae=740) BLOOD UREA NITROGEN 13 mg/dL 7-21 (BEAKER) (test gekm=626) CREATININE (BEAKER) (test 0.85 mg/dL 0.57-1.25 vixu=272) GLUCOSE RANDOM (BEAKER) 127 mg/dL 70-105 (test yufe=567) CALCIUM (BEAKER) (test 9.5 mg/dL 8.4-10.2 mucv=323) EGFR (BEAKER) (test mL/min/1.73 sq m INSUFFICIENT CLINICAL DATA qdjh=4609) TO CALCULATE ESTIMATED GFR. [id number] 05:48:00 Test Item Value Reference Range Comments PROTIME (BEAKER) (test tgmy=463) 14.1 seconds 11.7-14.7 INR (BEAKER) (test gztg=820) 1.1 <=5.9 PARTIAL THROMBOPLASTIN TIME (BEAKER) (test 26.1 seconds 22.5-36.0 xajb=795) RECOMMENDED COUMADIN/WARFARIN INR THERAPY RANGESSTANDARD DOSE: 2.0 - 3.0 Includes: PROPHYLAXIS forvenous thrombosis, systemic embolization; TREATMENT for venous thrombosis and/or pulmonary embolus.HIGH RISK: Target INR is 2.5-3.5 for patients with mechanical heart valves.POCT-GLUCOSE [id number] 00:03:00 Test Item Value Reference Range Comments POC-GLUCOSE METER (BEAKER) 133 mg/dL 70-110 TESTED AT [address] (test fcul=9252) [facility] [address]
--- NOTE | 2017-12-18 16:46 | ER ---
Nurse's Notes [facility] Name: Vikram Bagley Age: 37 yrs Sex: Male : 1980 Arrival Date: 12/18/2017 Time: 14:27 Bed Waiting Private MD: Manolo Velasco Diagnosis: Presentation: 12/18 14:53 Presenting complaint: Patient states: "I have a real sharp pain in the center of my lk1 back and in my groin area that started last night.". Transition of care: patient was not received from another setting of care. Onset of symptoms was December 17, 2017 at 20:00. Care prior to arrival: None. 14:53 Method Of Arrival: Ambulatory lk1 14:53 Acuity: SMITA 3 lk1 Triage Assessment: 14:56 General: Appears uncomfortable, Behavior is calm, cooperative, appropriate for age. lk1 Pain: Complains of pain in back Pain radiates to pelvis Pain currently is 10 out of 10 on a pain scale. Musculoskeletal: Swelling absent. Historical: - Allergies: 14:55 iodine IV; lk1 - PMHx: 14:55 fatty liver; Hypothyroidism; brain lesion; High Cholesterol; Anxiety; lk1 - PSHx: 14:55 brain surgery; lk1 - Immunization history:: Adult Immunizations up to date. - Social history:: Smoking status: Patient uses tobacco products, smokes one pack cigarettes per day. Assessment: 16:45 Reassessment: called patient who reports he went to urgent care to be seen. ss Vital Signs: 14:56 BP 135 / 84; Pulse 66; Resp 18; Temp 97.8(TE); Pulse Ox 96% on R/A; Weight 154.22 kg lk1 (R); Height 5 ft. 8 in. (172.72 cm) (R); Pain 10/10; 14:56 Body Mass Index 51.70 (154.22 kg, 172.72 cm) lk1 ED Course: 14:27 Patient arrived in ED. as 14:28 Manolo Velasco MD is Private Physician. as 14:54 Triage completed. lk1 14:59 Arm band placed on right wrist. lk1 16:41 Christopher Moses MD is Attending Physician. tw4 16:43 Josephine Mclean, RN is Primary Nurse. aj Administered Medications: No medications were administered Outcome: 16:45 Eloped from waiting room. ss 16:46 Patient left the ED. ss Signatures: Josephine Mclean RN RN Krystal Guzman Shelby, RN RN Juani Huff RN RN lk1 Christopher Moses MD MD tw4
== END 2017-12-18 16:46 | disposition left against medical advice (07) ==
LOC: ER 14:25
DX: Z53.21 Procedure and treatment not carried out due to patient leaving prior to being seen by health care provider (principal)
CPT/HCPCS: 99281

== ENCOUNTER 2018-04-09 13:38 | Emergency (ER) | payer SELFPAY ==
--- OUTSIDE RECORDS SUMMARY | 2018-04-09 13:40 | XMS REPORT | Clinical Summary ---
:1980 Author Organization [facility] Address [address] [place] [address] Phone Care Team Providers Name Role Phone Unavailable Primary Care Provider Unavailable Allergies Active Allergy Reactions Severity Noted Date Comments Gadolinium-Containing Contrast Media Hives 03/07/2017 Given at [facility] Current Medications Prescription Sig. Disp. Refills Start Date End Date Status levothyroxine Take 1 tablet 30 tablet 1 03/19/2017 03/19/2018 (SYNTHROID, (200 mcg total) LEVOTHROID) 200 MCG by mouth Every tablet morning on an empty stomach. levothyroxine Take 1 tablet 30 tablet 1 03/19/2017 03/19/2018 (SYNTHROID, (75 mcg total) LEVOTHROID) 75 MCG by mouth Every tablet morning on an empty stomach Take the 75 mcg tablet with the 200mcg tablet to total 275mcg.. gabapentin Take 1 capsule 90 capsule 1 03/19/2017 03/19/2018 (NEURONTIN) 300 MG (300 mg total) capsule by mouth 3 (three) times daily. acetaminophen-codeine Take 2 tablets 60 tablet 0 03/30/2017 04/09/2017 (TYLENOL #3) 300-30 by mouth every mg per tablet 6 (six) hours as needed for Pain for [...] acute post-traumatic headache 10/30/2017 Emergency Emergency Medicine Jagjit Potts Vasovagal syncope MD Dennis (Primary Dx);Dehydration;Morbid obesity (HCC);Brain lesion 10/30/2017 Orders Only General Internal Medicine 04/17/2017 Orders Only Neurology Zaki Allen Abnormal brain MRI MD Félix (Primary Dx) after 04/08/2017 Family History Medical History Relation Name Comments [...] Taken Blood Pressure 134/66 10/30/2017 8:36 PM FAMILY SERVICES ASSISTANT Pulse 73 10/30/2017 8:36 PM FAMILY SERVICES ASSISTANT Temperature 37.2 C (99 F) 10/30/2017 8:36 PM FAMILY SERVICES ASSISTANT Respiratory Rate 18 10/30/2017 8:36 PM FAMILY SERVICES ASSISTANT Oxygen Saturation 95% 10/30/2017 8:36 PM FAMILY SERVICES ASSISTANT Inhaled Oxygen Concentration - - Weight 163.3 kg (360 lb) 10/30/2017 3:40 PM FAMILY SERVICES ASSISTANT Height - - Body Mass Index 53.16 10/30/2017 3:40 PM FAMILY SERVICES ASSISTANT Plan of Treatment Not on file Implants Implanted Type Area Ribbon Hanking Machine Operator Device Expiration Model / Identifier Date Serial / Lot Matrix Floseal Hemo W/O Ndl 10 [id number] - [id number] Cement/Keo Left: FRITZ: BIOSCI 08/11/2018 [id number] / Implanted: Qty: 1 on 03/28/2017 by Eduardo Castillo MD ler/Adhesi Head / ve [id number] Cvr Bur-Hl Lp-Neuro 24mm Ti Ns 421.528 - [id number] Fracture/F Left: SYNTHES: SYNTHES 421.528 / Implanted: Qty: 4 on 03/28/2017 by Eduardo Castillo MD ixation Head [employer] / Scr Sd Mtrxneu 4mm Ti Ns 04.503.104.01 - [id number] Fracture/F Left: SYNTHES: SYNTHES .104.01 / Implanted: Qty: 15 on 03/28/2017 by Eduardo Castillo MD ixation Head [employer] / Grft Dura Cllgn Duragn [id number] Id-[id number] - [id number] Tissue Left: INTEGRA 07/17/2017 [id number] / Implanted: Qty: 1 on 03/28/2017 by Eduardo Castillo MD Graft/Subs Head LIFESCI:NEURO / titute [id number] Results ED ECG Interpretation (11/03/2017 12:43 AM) Narrative Jagjit Potts MD 11/03/2017 12:43 AM ECG/EKG Interpretation Date/Time: 10/30/2017 4:52 PM Performed by: JAGJIT POTTS Authorized by: JAGJIT POTTS The ECG was interpreted by ED physician. The ECG is interpreted as sinus rhythm. Rate is normal rate. Heart rate is 82 BPM. Conduction: conduction normal. ST segments normal. T waves normal. [place] is right. Other findings: no other findings. Clinical Impression: non-specific ECGECG reviewed and does not meet STEMI criteria. Patient tolerance: Patient tolerated the procedure well with no immediate complications Urinalysis w/Microscopic (10/30/2017 6:25 PM) Component Value Ref Range Color, UA Yellow Clarity, UA Clear Specific [place], UA 1.014 1.001 - 1.035 pH, UA [...] Performing Laboratory Urine - Urine, Clean Catch [facility] [address] [address] XR chest 1 view portable / bedside (10/30/2017 6:10 PM) Specimen Performing Laboratory GE RIS Narrative FINAL REPORT Chest one view AP 10/30/2017 7:07 PM CLINICAL INDICATION: LOSS OF CONSCIOUSNESS COMPARISON: None available IMPRESSION: There is atelectasis in the right lung base. The left lung is clear. Cardiomediastinal contours are within normal limits. The central pulmonary vasculature is not engorged. Signed: Sharif Faulkner MD Report Verified Date/Time:10/30/2017 19:07:24 Reading Location: [facility] Reading Room Procedure Note Interface, External Ris In - 10/30/2017 7:13 PM FAMILY SERVICES ASSISTANT FINAL REPORT Chest one view AP 10/30/2017 7:07 PM CLINICAL INDICATION: LOSS OF CONSCIOUSNESS COMPARISON: None available IMPRESSION: There is atelectasis in the right lung base. The left lung is clear. Cardiomediastinal contours are within normal limits. The central pulmonary vasculature is not engorged. Signed: Sharif Faulkner MD Report Verified Date/Time: 10/30/2017 19:07:24 Reading Location: [facility] Reading Room brain without IV contrast (10/30/2017 [...] postcontrast MRI is recommended. Signed: Sharif Faulkner MD Report Verified Date/Time:10/30/2017 17:52:21 Reading Location: [facility] Reading Room Procedure Note Interface, External Ris In - 10/30/2017 5:54 PM FAMILY SERVICES ASSISTANT FINAL REPORT CT head without contrast 10/30/2017 [...] postcontrast MRI is recommended. Signed: Sharif Faulkner MD Report Verified Date/Time: 10/30/2017 17:52:21 Reading Location: [facility] Reading Room with platelet count + automated diff (10/30/2017 4:56 PM) Component Value Ref Range WBC 9.0 3.5 [...] 1 % Specimen Performing Laboratory Blood - [address] [address] Troponin I (10/30/2017 4:56 PM) Component Value Ref Range Troponin I <0.01 0.00 - 0.03 ng/mL Specimen Performing Laboratory Blood - [facility], [address] [address] Narrative Troponin I (TnI) levels must be [...] platelet count + automated diff (10/30/2017 4:56 PM) Specimen Performing Laboratory Blood Narrative The following orders were created for panel order CBC with platelet count + automated diff. Procedure Abnormality Status --------- ------ CBC with platelet count ...[[id number]]Final result Please view results for these tests on the individual orders. Magnesium (10/30/2017 4:56 PM) Component Value Ref Range Magnesium 2.0 1.6 - 2.6 mg/dL Specimen Performing Laboratory Blood - [place], [address] [address] Lipase (10/30/2017 4:56 PM) Component Value Ref Range Lipase 67 8 - 78 U/L Specimen Performing Laboratory Blood - [facility], [address] [address] Basic Metabolic Panel (10/30/2017 4:56 PM) Component Value Ref Range Sodium 141 136 [...] Specimen Performing Laboratory Blood - [place], Left [facility] [address] [address] ECG 12 lead (10/30/2017 4:52 PM) Specimen Performing Laboratory GE MUSE Narrative Ventricular Rate 82 BPM Atrial Rate 82 BPM P-R Interval 154 ms QRS Duration 96 ms Q-T Interval 360 ms QTC Calculation(Bazett) 420 ms P [place] 37 degrees R [place] 95 degrees T [place] 48 degrees Normal sinus rhythm Rightward axis Borderline ECG When compared with ECG of 19-MAR-2017 16:30, No significant change was found Confirmed by Hoa MOSELEY, CAM ([place]) on 10/31/2017 4:55:53 PM Procedure Note Interface, External Ris In - 10/31/2017 4:56 PM FAMILY SERVICES ASSISTANT Ventricular Rate 82 BPM Atrial Rate 82 BPM P-R Interval 154 ms QRS Duration 96 ms Q-T Interval 360 ms QTC Calculation(Bazett) 420 ms P [place] 37 degrees R [place] 95 degrees T [place] 48 degrees Normal sinus rhythm Rightward axis Borderline ECG When compared with ECG of 19-MAR-2017 16:30, No significant change was found Confirmed by Hoa MOSELEY, CAM ([place]) on 10/31/2017 4:55:53 PM after 04/08/2017
--- OUTSIDE RECORDS SUMMARY | 2018-04-09 13:41 | XMS REPORT ---
:1980 [facility] Address [address] [place] [address] Dr. Torre [address] [place] [address] Care Team Providers Name Role Phone GLEN LEDESMA Unavailable Unavailable TERRANCE MODI Unavailable Unavailable NÉSTOR ARREOLA Unavailable Unavailable Problems This patient has no known problems. Allergies, Adverse Reactions, Alerts This patient has no known allergies or adverse reactions. Medications This patient has no known medications. Results Test Description Test Time Test Comments Text Results Atomic Results Result Comments RAD, CHEST, 1 2017-10-30 Reason for exam:->LOSS OF FINAL REPORT PATIENT ID: VIEW, NON DEPT 19:07:00 CONSCIOUSNESSShould this be [id number] Chest one performed at the view AP 10/30/2017 7:07 bedside?->Yes PM CLINICAL INDICATION: LOSS OF CONSCIOUSNESS COMPARISON: None available IMPRESSION: There is atelectasis in the right lung base. The left lung is clear. Cardiomediastinal contours are within normal limits. The central pulmonary vasculature is not engorged. Signed: Sharif Faulkner Verified Date/Time: 10/30/2017 19:07:24 Reading Location: [facility] Radiology Reading Room ALYSIS W/ MICROSCOPIC 2017-10-30 18:49:00 Test Item Value Reference Range Comments COLOR (BEAKER) (test wpbu=318) Yellow CLARITY (BEAKER) (test axrb=454) Clear SPECIFIC GRAVITY UA (BEAKER) (test mxav=299) 1.014 1.001-1.035 PH UA (BEAKER) (test bizd=782) 6.5 5.0-8.0 PROTEIN UA (BEAKER) (test bksy=920) Negative Negative GLUCOSE UA (BEAKER) (test pxxo=030) Negative Negative KETONES UA (BEAKER) (test fwlh=631) Negative Negative BILIRUBIN UA (BEAKER) (test wlri=261) Negative Negative BLOOD UA (BEAKER) (test digh=922) Negative Negative NITRITE UA (BEAKER) (test lmkx=462) Negative Negative LEUKOCYTE ESTERASE UA (BEAKER) (test bcao=591) Negative Negative UROBILINOGEN UA (BEAKER) (test iqxf=287) 2.0 mg/dL 0.2-1.0 RBC UA (BEAKER) (test mtcj=521) < /HPF WBC UA (BEAKER) (test fipo=945) < /HPF MUCUS (BEAKER) (test oqkg=0435) Rare SOURCE(BEAKER) (test rvpm=9317) Urine, Clean Catch BASIC METABOLIC [id number] 18:08:00 Test Item Value Reference Range Comments SODIUM (BEAKER) (test 141 meq/L 136-145 noho=324) POTASSIUM (BEAKER) (test 4.1 meq/L 3.5-5.1 bteu=900) CHLORIDE (BEAKER) (test 108 meq/L 98-107 leda=394) CO2 (BEAKER) (test 21 meq/L 22-29 ubeb=980) BLOOD UREA NITROGEN 12 mg/dL 7-21 (BEAKER) (test invm=244) CREATININE (BEAKER) (test 0.94 mg/dL 0.57-1.25 ieli=234) GLUCOSE RANDOM (BEAKER) 206 mg/dL 70-105 (test bita=749) CALCIUM (BEAKER) (test 9.0 mg/dL 8.4-10.2 vyzn=911) EGFR (BEAKER) (test mL/min/1.73 sq m INSUFFICIENT CLINICAL DATA ojhy=8953) TO CALCULATE ESTIMATED GFR. [id number] 18:06:00 Test Item Value Reference Range Comments MAGNESIUM (BEAKER) (test qimr=089) 2.0 mg/dL 1.6-2.6 [id number] 18:06:00 Test Item Value Reference Range Comments LIPASE (BEAKER) (test pcyt=235) 67 U/L 8-78 TROPONIN [id number] 18:03:00 Test Item Value Reference Range Comments TROPONIN I (BEAKER) (test teod=918) < ng/mL 0.00-0.03 Troponin I (TnI) levels [...] neurological disease, and persistent tachyarrhythmia.CT, BRAIN, WITHOUT [id number] 17 :52:00Reason for exam:->LOSS OF CONSCIOUSNESSWhat is [...] Verified Date/Time: 10/30/2017 17 :52:21 Reading Location: [facility] Radiology Reading Room CBC W/PLT COUNT & AUTO [id number] 17:19:00 Test Item Value Reference Range Comments WHITE BLOOD CELL COUNT (BEAKER) (test qntf=597) 9.0 K/ L 3.5-10.5 RED BLOOD CELL COUNT (BEAKER) (test ugmo=337) 5.15 M/ L 4.63-6.08 HEMOGLOBIN (BEAKER) (test lyar=466) 15.6 GM/DL 13.7-17.5 HEMATOCRIT (BEAKER) (test uhgf=203) 47.0 % 40.1-51.0 MEAN CORPUSCULAR VOLUME (BEAKER) (test iwgp=057) 91.3 fL 79.0-92.2 MEAN CORPUSCULAR HEMOGLOBIN (BEAKER) (test 30.3 pg 25.7-32.2 yvvl=165) MEAN CORPUSCULAR HEMOGLOBIN CONC (BEAKER) (test 33.2 GM/DL 32.3-36.5 sxpc=084) RED CELL DISTRIBUTION WIDTH (BEAKER) (test 13.5 % 11.6-14.4 wkbr=731) PLATELET COUNT (BEAKER) (test cmxb=502) 205 K/CU MM 150-450 MEAN PLATELET VOLUME (BEAKER) (test ltqn=614) 9.9 fL 9.4-12.4 NUCLEATED RED BLOOD CELLS (BEAKER) (test 0 /100 WBC 0-0 urpa=235) NEUTROPHILS RELATIVE PERCENT (BEAKER) (test 58 % mllo=132) LYMPHOCYTES RELATIVE PERCENT (BEAKER) (test 33 % gywe=191) MONOCYTES RELATIVE PERCENT (BEAKER) (test 6 % vqoo=074) EOSINOPHILS RELATIVE PERCENT (BEAKER) (test 2 % tiog=126) BASOPHILS RELATIVE PERCENT (BEAKER) (test 1 % bkqx=784) NEUTROPHILS ABSOLUTE COUNT (BEAKER) (test 5.19 K/ L 1.78-5.38 hoyh=744) LYMPHOCYTES ABSOLUTE COUNT (BEAKER) (test 3.00 K/ L 1.32-3.57 gsen=365) MONOCYTES ABSOLUTE COUNT (BEAKER) (test 0.54 K/ L 0.30-0.82 bsfk=387) EOSINOPHILS ABSOLUTE COUNT (BEAKER) (test 0.17 K/ L 0.04-0.54 zjdu=847) BASOPHILS ABSOLUTE COUNT (BEAKER) (test 0.05 K/ L 0.01-0.08 hehh=786) IMMATURE GRANULOCYTES-RELATIVE PERCENT (BEAKER) 0 % 0-1 (test fmqv=7450) AFB CULTURE + [id number] 08:57:00 Test Item Value Reference Range Comments CULTURE (BEAKER) (test No acid-fast bacilli isolated cyuo=9294) in 42 days AFB SMEAR (BEAKER) (test No acid fast bacilli seen krlw=863) FUNGUS CULTURE + [id number] 07:23:00 Test Item Value Reference Range Comments CULTURE (BEAKER) (test No fungus isolated in 28 days crpo=8382) FUNGUS SMEAR (BEAKER) (test No fungi seen jwkq=4770) FLOW CYTOMETRY [id number] 15:21:00 Test Item Value Reference Range Comments FLOW CYTOMETRY RESULT POINTER (GHANSHYAM) See Separate Report (test pbko=4386) FLOW CYTOMETRY AP CASE # (GHANSHYAM) (test [id number] chex=7619) TISSUE [id number] 10:11:00Surgical Pathology Report Case: [id number] Authorizing Provider: Terrance Modi MD Collected: 03/28/2017 1215 Ordering Location: [facility] Received: 2016 1221 SERVICES Pathologist: Samuel [...] features of primary demyelination are also absent. [id number]; 34522g7; 45237; 42708; 63865; 71367 x4Left craniotomy, brain tumorA. Tumor, left frontal tumorPart A. The specimen is received fresh for frozen labeled with the patient 's name and accession number as "tumor" with description of "left frontal tumor " is a 0.6 x 0.6 x 0.3 cm aggregate of multiple fragments of mustafa soft tissue. _ __ squash is smear prepared. The specimen is submitted entirely in cassette [id number]. Part C. Received fresh for frozen [...] tumor" consists of of multiple fragments of mustafa- pink soft tissue with an aggregate measurement [...] developed and its performance characteristics determined by [facility], Pathology Laboratory.It has not been cleared [...] perform high complexity clinical laboratory testing.BASIC METABOLIC [id number] 09:32:00 Test Item Value Reference Range Comments SODIUM (BEAKER) (test 137 meq/L 136-145 ftll=948) POTASSIUM (BEAKER) (test 3.7 meq/L 3.5-5.1 cawk=568) CHLORIDE (BEAKER) (test 103 meq/L 98-107 epxm=129) CO2 (BEAKER) (test 27 meq/L 22-29 zmup=217) BLOOD UREA NITROGEN 9 mg/dL 7-21 (BEAKER) (test iupk=299) CREATININE (BEAKER) (test 0.84 mg/dL 0.57-1.25 xywo=313) GLUCOSE RANDOM (BEAKER) 201 mg/dL 70-105 (test vloz=508) CALCIUM (BEAKER) (test 8.6 mg/dL 8.4-10.2 gcux=546) EGFR (BEAKER) (test mL/min/1.73 sq m INSUFFICIENT CLINICAL DATA wzon=5960) TO CALCULATE ESTIMATED GFR. CBC W/PLT COUNT & AUTO [id number] 09:09:00 Test Item Value Reference Range Comments WHITE BLOOD CELL COUNT (BEAKER) (test xqcn=294) 11.2 K/ L 4.0-10.0 RED BLOOD CELL COUNT (BEAKER) (test fjzf=346) 4.23 M/ L 4.20-5.80 HEMOGLOBIN (BEAKER) (test hwhx=025) 13.8 GM/DL 13.0-16.8 HEMATOCRIT (BEAKER) (test qslc=095) 39.2 % 40.0-50.0 MEAN CORPUSCULAR VOLUME (BEAKER) (test byrx=381) 92.8 fL 82.0-98.0 MEAN CORPUSCULAR HEMOGLOBIN (BEAKER) (test 32.8 pg 27.0-33.0 pvlw=437) MEAN CORPUSCULAR HEMOGLOBIN CONC (BEAKER) (test 35.3 GM/DL 32.0-36.0 vmcg=268) RED CELL DISTRIBUTION WIDTH (BEAKER) (test 12.0 % 10.3-14.2 eoxw=418) PLATELET COUNT (BEAKER) (test lssu=346) 163 K/CU MM 150-430 MEAN PLATELET VOLUME (BEAKER) (test yrlx=373) 7.5 fL 6.5-10.5 NUCLEATED RED BLOOD CELLS (BEAKER) (test 0 /100 WBC 0-0 eupa=294) NEUTROPHILS RELATIVE PERCENT (BEAKER) (test 69 % lrls=556) LYMPHOCYTES RELATIVE PERCENT (BEAKER) (test 23 % hnmy=557) MONOCYTES RELATIVE PERCENT (BEAKER) (test 6 % tbty=244) EOSINOPHILS RELATIVE PERCENT (BEAKER) (test 2 % lfxg=674) BASOPHILS RELATIVE PERCENT (BEAKER) (test 0 % bgdq=279) NEUTROPHILS ABSOLUTE COUNT (BEAKER) (test 7.70 K/ L 1.80-8.00 zbnf=190) LYMPHOCYTES ABSOLUTE COUNT (BEAKER) (test 2.63 K/ L 1.48-4.50 bnbx=822) MONOCYTES ABSOLUTE COUNT (BEAKER) (test 0.70 K/ L 0.00-1.30 ucuv=011) EOSINOPHILS ABSOLUTE COUNT (BEAKER) (test 0.20 K/ L 0.00-0.50 aquq=905) BASOPHILS ABSOLUTE COUNT (BEAKER) (test 0.02 K/ L 0.00-0.20 dogo=296) 0.00BASIC METABOLIC [id number] 03:22:00 Test Item Value Reference Range Comments SODIUM (BEAKER) (test 138 meq/L 136-145 zfqf=811) POTASSIUM (BEAKER) (test 4.3 meq/L 3.5-5.1 wbbe=264) CHLORIDE (BEAKER) (test 106 meq/L 98-107 mbdx=733) CO2 (BEAKER) (test 22 meq/L 22-29 lkld=717) BLOOD UREA NITROGEN 9 mg/dL 7-21 (BEAKER) (test ygim=573) CREATININE (BEAKER) (test 0.82 mg/dL 0.57-1.25 fjvj=799) GLUCOSE RANDOM (BEAKER) 148 mg/dL 70-105 (test hifz=046) CALCIUM (BEAKER) (test 8.4 mg/dL 8.4-10.2 nxar=298) EGFR (BEAKER) (test mL/min/1.73 sq m INSUFFICIENT CLINICAL DATA uydj=0994) TO CALCULATE ESTIMATED GFR. [id number] 03:20:00 Test Item Value Reference Range Comments PHOSPHORUS (BEAKER) (test kamy=382) 3.5 mg/dL 2.3-4.7 [id number] 03:20:00 Test Item Value Reference Range Comments MAGNESIUM (BEAKER) (test difg=056) 1.9 mg/dL 1.6-2.6 CBC (HEMOGRAM ONLY)2017-03-29 03:09:00 Test Item Value Reference Range Comments WHITE BLOOD CELL COUNT (BEAKER) (test jrbh=404) 19.6 K/ L 4.0-10.0 RED BLOOD CELL COUNT (BEAKER) (test nysl=539) 4.54 M/ L 4.20-5.80 HEMOGLOBIN (BEAKER) (test znyg=132) 14.1 GM/DL 13.0-16.8 HEMATOCRIT (BEAKER) (test czoc=104) 41.4 % 40.0-50.0 MEAN CORPUSCULAR VOLUME (BEAKER) (test qyfz=829) 91.2 fL 82.0-98.0 MEAN CORPUSCULAR HEMOGLOBIN (BEAKER) (test 31.0 pg 27.0-33.0 nzxw=835) MEAN CORPUSCULAR HEMOGLOBIN CONC (BEAKER) (test 34.0 GM/DL 32.0-36.0 rbrd=385) RED CELL DISTRIBUTION WIDTH (BEAKER) (test 13.6 % 10.3-14.2 schc=109) PLATELET COUNT (BEAKER) (test zhsh=928) 193 K/CU MM 150-430 MEAN PLATELET VOLUME (BEAKER) (test xyli=094) 7.3 fL 6.5-10.5 NUCLEATED RED BLOOD CELLS (BEAKER) (test 0 /100 WBC 0-0 jxvr=557) 0.00MYCOBACTERIUM TB PCR [id number] 14:38:00 Test Item Value Reference Range Comments MYCOBACTERIUM TB (test kfuh=[id number]) HGB/HCT (H&H) - STAT [id number] 11:35:00 Test Item Value Reference Range Comments HEMOGLOBIN (BEAKER) (test zkad=152) 13.8 g/dL 13.0-16.8 HEMATOCRIT (BEAKER) (test twlr=234) 41.0 % 40.0-50.0 FiO2:35%, Temp: 36.7CFiO2:35%, Temp: 36.7CFiO2:35%, Temp: 36.7CFiO2:35%, Temp: 36.7CFiO2:35%, Temp: 36.7CCALCIUM, [id number] 11:35:00 Test Item Value Reference Range Comments CALCIUM IONIZED (BEAKER) (test gmzd=385) 1.03 mmol/L 1.12-1.27 PH, BLOOD (BEAKER) (test fomr=4860) 7.42 BLOOD GAS, [id number] 11:34:00 Test Item Value Reference Range Comments PH ARTERIAL (BEAKER) (test iupb=625) 7.42 7.35-7.45 PCO2 ARTERIAL (BEAKER) (test xwsg=155) 33 mmHg 35-45 PO2 ARTERIAL (BEAKER) (test zsxd=608) 74 mmHg 80-90 O2 SATURATION ARTERIAL (BEAKER) (test zjhp=940) 95.5 % 96.0-97.0 HCO3 ARTERIAL (BEAKER) (test ejcg=608) 21 mmol/L 21-29 BASE EXCESS ARTERIAL (BEAKER) (test fbjd=767) -3.0 mmol/L -2.0-3.0 PATIENT TEMPERATURE (BEAKER) (test ofph=2204) 36.7 C FIO2 (BEAKER) (test mddb=3445) 35.0 % FiO2:35%, Temp: 36.7CFiO2:35%, Temp: 36.7CFiO2:35%, Temp: 36.7CFiO2:35%, Temp: 36.7CFiO2:35%, Temp: 36.7CGLUCOSE-STAT [id number] 11:33:00 Test Item Value Reference Range Comments GLUCOSE RANDOM (BEAKER) (test ffmv=470) 101 mg/dL 70-110 FiO2:35%, Temp: 36.7CFiO2:35%, Temp: 36.7CFiO2:35%, Temp: 36.7CFiO2:35%, Temp: 36.7CFiO2:35%, Temp: 36.7CSODIUM NA-STAT [id number] 11:33:00 Test Item Value Reference Range Comments SODIUM (BEAKER) (test mobh=268) 136 meq/L 135-148 FiO2:35%, Temp: 36.7CFiO2:35%, Temp: 36.7CFiO2:35%, Temp: 36.7CFiO2:35%, Temp: 36.7CFiO2:35%, Temp: 36.7CPOTASSIUM-STAT [id number] 11:33:00 Test Item Value Reference Range Comments POTASSIUM (BEAKER) (test owcj=918) 3.8 meq/L 3.6-5.5 FiO2:35%, Temp: 36.7CFiO2:35%, Temp: 36.7CFiO2:35%, Temp: 36.7CFiO2:35%, Temp: 36.7CFiO2:35%, Temp: 36.7CURINALYSIS W/ [id number] 08:37:00 Test Item Value Reference Range Comments COLOR (BEAKER) (test iesg=308) Yellow CLARITY (BEAKER) (test gtng=185) Clear SPECIFIC GRAVITY UA (BEAKER) (test dgqp=090) 1.023 1.001-1.035 PH UA (BEAKER) (test dtij=001) 6.0 5.0-8.0 PROTEIN UA (BEAKER) (test rfbu=094) 10 mg/dL Negative GLUCOSE UA (BEAKER) (test sysk=952) Negative Negative KETONES UA (BEAKER) (test lpks=486) Negative Negative BILIRUBIN UA (BEAKER) (test qprd=568) Negative Negative BLOOD UA (BEAKER) (test yazd=426) Negative Negative NITRITE UA (BEAKER) (test qmuw=236) Negative Negative LEUKOCYTE ESTERASE UA (BEAKER) (test wbze=997) Negative Negative UROBILINOGEN UA (BEAKER) (test ixev=340) 0.2 mg/dL 0.2-1.0 RBC UA (BEAKER) (test mzvq=964) 1 /HPF WBC UA (BEAKER) (test yfoa=672) 1 /HPF MUCUS (BEAKER) (test hvwl=4853) Rare SQUAMOUS EPITHELIAL (BEAKER) (test nglw=475) 1 /HPF SOURCE(BEAKER) (test kmcj=4429) Urine, Voided FLOW [id number] 14:12:00Flow Cytometry Report Case: [id number] Authorizing Provider: Ayanna Christine MD Collected: 03/18/2017 1428 Ordering Location: [address] Received: 2016 0822 Service Pathologist: Dalia Roper MD Specimen: Other CEREBROSPINAL FLUID,FLOW CYTOMETRY:- NON-DIAGNOSTIC DUE TO LOW CELLULARITY AND NON-SPECIFIC ANTIBODY STAINING Please correlate with morphologic and clinical findings. 01351Qpksu massCerebrospinal fluidCD2, CD3, CD4, CD5, CD7, CD8, CD10, CD11c, CD19, CD20, CD23, CD34, CD38, CD45, CD56, [place], LambdaFlow cytometric evaluation is limitedby low cellularity and non- specific antibody staining.These tests were developed and their performance characteristics determined by [facility]. They have not been cleared or approved by the U.S. Foodand Drug Administration. The FDA has determined that such clearance or approval is not necessary. Itshould not be regarded as investigational or for research. This laboratory is certified under the Clinical Laboratory Improvement Amendments of 1988 ("CLIA") as qualified to perform high-complexity clinical testing.CSF CULTURE + GRAM [id number] 09: 13:00 Test Item Value Reference Range Comments CULTURE (BEAKER) (test tcul=4067) No growth GRAM STAIN RESULT (BEAKER) (test No WBCs pohv=1093) GRAM STAIN RESULT (BEAKER) (test No organisms seen xfyc=88194) HSV 1/2 PCR, [id number] 17:52:00 Test Item Value Reference Range Comments HSV BY PCR (BEAKER) (test zjka=981) NEGATIVE NEGATIVE Herpes Simplex Virus (HSV) not [...] and its performance characteristics determined by the [facility] Pathology Department, Section of Molecular Pathology. It has not been cleared or approved by the U.S. Food and Drug Administration (FDA), as FDA approval is not required for clinical use of the test. Validation was done as required by the Clinical Laboratory Amendments of 1988.[id number] 14:15:00Medical Cytology Report Case: [id number] Authorizing Provider: Ayanna Christine MD Collected: 03/18/2017 1302 Ordering Location: [address] Received: 03/20/2017 0905 Service Pathologist: Alysha Giraldo MD Specimen: CSF , tube 4 CEREBROSPINAL FLUID (CYTOSPINS): - NO MALIGNANT CELLS IDENTIFIED; - ESSENTIALLY ACELLULAR SAMPLE Signing Pathologist Direct Phone Line: [phone] massCEREBROSPINAL FLUID (CYTOSPINS)2 cytospinsCollected: [id number]: [id number] Angeles [facility], Department of Pathology, [address] [place] [address], [facility] [place], [facility] of [facility], [address] [place] [address], BGNW-GLUCOSE [id number] 18:01:00 Test Item Value Reference Range Comments POC-GLUCOSE METER (BEAKER) 108 mg/dL 70-110 TESTED AT [address] (test dhah=7992) [place] [address] POCT-GLUCOSE [id number] 12:24:00 Test Item Value Reference Range Comments POC-GLUCOSE METER (BEAKER) 129 mg/dL 70-110 TESTED AT [address] (test pykc=7858) [place] [address] CBC W/PLT COUNT & AUTO [id number] 10:53:00 Test Item Value Reference Range Comments WHITE BLOOD CELL COUNT (BEAKER) (test vlam=661) 9.0 K/ L 4.0-10.0 RED BLOOD CELL COUNT (BEAKER) (test fuis=552) 4.89 M/ L 4.20-5.80 HEMOGLOBIN (BEAKER) (test eson=625) 15.2 GM/DL 13.0-16.8 HEMATOCRIT (BEAKER) (test vygg=741) 45.0 % 40.0-50.0 MEAN CORPUSCULAR VOLUME (BEAKER) (test vszf=544) 91.9 fL 82.0-98.0 MEAN CORPUSCULAR HEMOGLOBIN (BEAKER) (test 31.0 pg 27.0-33.0 chtw=229) MEAN CORPUSCULAR HEMOGLOBIN CONC (BEAKER) (test 33.8 GM/DL 32.0-36.0 rclu=042) RED CELL DISTRIBUTION WIDTH (BEAKER) (test 12.1 % 10.3-14.2 vnms=795) PLATELET COUNT (BEAKER) (test gwol=757) 172 K/CU MM 150-430 MEAN PLATELET VOLUME (BEAKER) (test nrpx=660) 7.5 fL 6.5-10.5 NUCLEATED RED BLOOD CELLS (BEAKER) (test 0 /100 WBC 0-0 xsog=020) NEUTROPHILS RELATIVE PERCENT (BEAKER) (test 46 % pvla=418) LYMPHOCYTES RELATIVE PERCENT (BEAKER) (test 43 % nccq=833) MONOCYTES RELATIVE PERCENT (BEAKER) (test 7 % agoa=487) EOSINOPHILS RELATIVE PERCENT (BEAKER) (test 3 % crhg=494) BASOPHILS RELATIVE PERCENT (BEAKER) (test 0 % mltk=468) NEUTROPHILS ABSOLUTE COUNT (BEAKER) (test 4.15 K/ L 1.80-8.00 iczx=644) LYMPHOCYTES ABSOLUTE COUNT (BEAKER) (test 3.86 K/ L 1.48-4.50 bmcw=136) MONOCYTES ABSOLUTE COUNT (BEAKER) (test 0.63 K/ L 0.00-1.30 jgib=838) EOSINOPHILS ABSOLUTE COUNT (BEAKER) (test 0.31 K/ L 0.00-0.50 hnfu=445) BASOPHILS ABSOLUTE COUNT (BEAKER) (test 0.04 K/ L 0.00-0.20 heeb=396) 0.00(MANUAL DIFFERENTIAL)2017-03-19 10:53:00 Test Item Value Reference Range Comments TOTAL COUNTED (BEAKER) (test nkxp=2252) POCT-GLUCOSE [id number] 08:15:00 Test Item Value Reference Range Comments POC-GLUCOSE METER (BEAKER) 110 mg/dL 70-110 TESTED AT [facility] [address] [facility] (test pcfx=3624) [facility] [address] BASIC METABOLIC [id number] 06:38:00 Test Item Value Reference Range Comments SODIUM (BEAKER) (test 140 meq/L 136-145 ljrc=541) POTASSIUM (BEAKER) (test 3.8 meq/L 3.5-5.1 glcm=651) CHLORIDE (BEAKER) (test 106 meq/L 98-107 klkh=112) CO2 (BEAKER) (test 23 meq/L 22-29 mgun=040) BLOOD UREA NITROGEN 10 mg/dL 7-21 (BEAKER) (test uqca=840) CREATININE (BEAKER) (test 0.94 mg/dL 0.57-1.25 gbxn=776) GLUCOSE RANDOM (BEAKER) 106 mg/dL 70-105 (test jgdx=021) CALCIUM (BEAKER) (test 8.4 mg/dL 8.4-10.2 tayz=909) EGFR (BEAKER) (test mL/min/1.73 sq m INSUFFICIENT CLINICAL DATA tlgp=4012) TO CALCULATE ESTIMATED GFR. HIV-1 ANTIGEN WITH HIV-1/2 [id number] 06:37:00 Test Item Value Reference Range Comments HIV-1 ANTIGEN WITH HIV 1\\T\\2 ANTIBODY (2) Nonreactive Nonreactive (BEAKER) (test thmc=7598) POCT-GLUCOSE [id number] 22:04:00 Test Item Value Reference Range Comments POC-GLUCOSE METER (BEAKER) 77 mg/dL 70-110 TESTED AT [facility] [address] [facility] (test gzfw=0286) [facility] [address] CSF CELL COUNT W/[id number] 16:31:00 Test Item Value Reference Range Comments APPEARANCE CSF (BEAKER) (test hwsq=145) Clear Clear COLOR CSF (BEAKER) (test hcrq=537) Colorless Colorless RBC CSF (BEAKER) (test addo=991) 2 /cu mm 0-5 WBC CSF (BEAKER) (test tipz=3079) 0 /cu mm <=5 RBCS FRESH (BEAKER) (test llnf=9336) 100% Fresh NUMBER OF CELLS DIFF'D (BEAKER) (test wyge=4529) 0 TUBE NUMBER CSF (BEAKER) (test qbqz=2627) 3 PROTEIN, [id number] 15:25:00 Test Item Value Reference Range Comments PROTEIN CSF (BEAKER) (test ibfe=178) 60 mg/dL 15-45 GLUCOSE, [id number] 15:19:00 Test Item Value Reference Range Comments GLUCOSE CSF (BEAKER) (test mhgj=597) 53 mg/dL 40-70 MICHAEL INK [id number] 15:10:00 Test Item Value Reference Range Comments MICHAEL INK (BEAKER) No encapsulated yeast seen No encapsulated yeast seen (test safd=0328) POCT-GLUCOSE [id number] 07:47:00 Test Item Value Reference Range Comments POC-GLUCOSE METER (BEAKER) 97 mg/dL 70-110 TESTED AT [facility] [address] (test rcju=0907) [place] [address] CBC W/PLT COUNT & AUTO [id number] 06:05:00 Test Item Value Reference Range Comments WHITE BLOOD CELL COUNT (BEAKER) (test ugvk=620) 10.3 K/ L 4.0-10.0 RED BLOOD CELL COUNT (BEAKER) (test dbnh=164) 4.96 M/ L 4.20-5.80 HEMOGLOBIN (BEAKER) (test zjmo=100) 14.6 GM/DL 13.0-16.8 HEMATOCRIT (BEAKER) (test gxif=798) 46.1 % 40.0-50.0 MEAN CORPUSCULAR VOLUME (BEAKER) (test wlru=333) 92.9 fL 82.0-98.0 MEAN CORPUSCULAR HEMOGLOBIN (BEAKER) (test 29.4 pg 27.0-33.0 yjfr=502) MEAN CORPUSCULAR HEMOGLOBIN CONC (BEAKER) (test 31.7 GM/DL 32.0-36.0 biox=928) RED CELL DISTRIBUTION WIDTH (BEAKER) (test 12.1 % 10.3-14.2 txvh=484) PLATELET COUNT (BEAKER) (test gsfe=181) 175 K/CU MM 150-430 MEAN PLATELET VOLUME (BEAKER) (test ltof=847) 7.5 fL 6.5-10.5 NUCLEATED RED BLOOD CELLS (BEAKER) (test 0 /100 WBC 0-0 wldt=618) NEUTROPHILS RELATIVE PERCENT (BEAKER) (test 46 % ixjc=286) LYMPHOCYTES RELATIVE PERCENT (BEAKER) (test 42 % swqx=560) MONOCYTES RELATIVE PERCENT (BEAKER) (test 8 % jfdi=320) EOSINOPHILS RELATIVE PERCENT (BEAKER) (test 3 % xttd=371) BASOPHILS RELATIVE PERCENT (BEAKER) (test 1 % gyap=014) NEUTROPHILS ABSOLUTE COUNT (BEAKER) (test 4.74 K/ L 1.80-8.00 wzbs=373) LYMPHOCYTES ABSOLUTE COUNT (BEAKER) (test 4.36 K/ L 1.48-4.50 esmy=728) MONOCYTES ABSOLUTE COUNT (BEAKER) (test 0.80 K/ L 0.00-1.30 jnfh=905) EOSINOPHILS ABSOLUTE COUNT (BEAKER) (test 0.33 K/ L 0.00-0.50 dwoi=106) BASOPHILS ABSOLUTE COUNT (BEAKER) (test 0.06 K/ L 0.00-0.20 ewvw=800) 0.00BASIC METABOLIC [id number] 05:56:00 Test Item Value Reference Range Comments SODIUM (BEAKER) (test 138 meq/L 136-145 tuun=741) POTASSIUM (BEAKER) (test 4.0 meq/L 3.5-5.1 vgfo=389) CHLORIDE (BEAKER) (test 107 meq/L 98-107 ifbd=527) CO2 (BEAKER) (test 24 meq/L 22-29 sagj=006) BLOOD UREA NITROGEN 15 mg/dL 7-21 (BEAKER) (test hbct=546) CREATININE (BEAKER) (test 0.96 mg/dL 0.57-1.25 mlgh=513) GLUCOSE RANDOM (BEAKER) 94 mg/dL 70-105 (test dkmx=811) CALCIUM (BEAKER) (test 8.2 mg/dL 8.4-10.2 dcjv=354) EGFR (BEAKER) (test mL/min/1.73 sq m INSUFFICIENT CLINICAL DATA usqy=3879) TO CALCULATE ESTIMATED GFR. [id number] 05:01:00 Test Item Value Reference Range Comments PROTIME (BEAKER) (test syyk=387) 13.7 seconds 11.7-14.7 INR (BEAKER) (test nivk=103) 1.1 <=5.9 PARTIAL THROMBOPLASTIN TIME (BEAKER) (test 27.2 seconds 22.5-36.0 gndr=119) RECOMMENDED COUMADIN/WARFARIN INR THERAPY RANGESSTANDARD DOSE: 2.0 - 3.0 Includes: PROPHYLAXIS forvenous thrombosis, systemic embolization; TREATMENT for venous thrombosis and/or pulmonary embolus.HIGH RISK: Target INR is 2.5-3.5 for patients with mechanical heart valves.POCT-GLUCOSE [id number] 21:22:00 Test Item Value Reference Range Comments POC-GLUCOSE METER (BEAKER) 174 mg/dL 70-110 TESTED AT [address] (test hnhw=8422) [facility] [address] POCT-GLUCOSE [id number] 17:05:00 Test Item Value Reference Range Comments POC-GLUCOSE METER (BEAKER) 104 mg/dL 70-110 TESTED AT [address] (test mbmm=3825) [place] [id number] 12:22:00 Test Item Value Reference Range Comments PROTIME (BEAKER) (test xdxr=098) 15.0 seconds 11.7-14.7 INR (BEAKER) (test qagy=493) 1.2 <=5.9 PARTIAL THROMBOPLASTIN TIME (BEAKER) (test 27.5 seconds 22.5-36.0 fyvn=563) RECOMMENDED COUMADIN/WARFARIN INR THERAPY RANGESSTANDARD DOSE: 2.0 - 3.0 Includes: PROPHYLAXIS forvenous thrombosis, systemic embolization; TREATMENT for venous thrombosis and/or pulmonary embolus.HIGH RISK: Target INR is 2.5-3.5 for patients with mechanical heart valves.[id number] 12:20:00 Test Item Value Reference Range Comments MAGNESIUM (BEAKER) (test ahzj=384) 1.9 mg/dL 1.6-2.6 POCT-GLUCOSE [id number] 11:34:00 Test Item Value Reference Range Comments POC-GLUCOSE METER (BEAKER) 90 mg/dL 70-110 TESTED AT [address] (test lhcw=7650) [place] [id number] POCT-GLUCOSE [id number] 07:35:00 Test Item Value Reference Range Comments POC-GLUCOSE METER (BEAKER) 105 mg/dL 70-110 TESTED AT [address] (test jiaz=5027) [place] [id number] CBC W/PLT COUNT & AUTO [id number] 07:01:00 Test Item Value Reference Range Comments WHITE BLOOD CELL COUNT (BEAKER) (test wttl=441) 12.6 K/ L 4.0-10.0 RED BLOOD CELL COUNT (BEAKER) (test jywt=398) 5.10 M/ L 4.20-5.80 HEMOGLOBIN (BEAKER) (test zavp=342) 15.4 GM/DL 13.0-16.8 HEMATOCRIT (BEAKER) (test sggu=640) 47.2 % 40.0-50.0 MEAN CORPUSCULAR VOLUME (BEAKER) (test uyso=014) 92.4 fL 82.0-98.0 MEAN CORPUSCULAR HEMOGLOBIN (BEAKER) (test 30.2 pg 27.0-33.0 qxct=230) MEAN CORPUSCULAR HEMOGLOBIN CONC (BEAKER) (test 32.7 GM/DL 32.0-36.0 nybn=748) RED CELL DISTRIBUTION WIDTH (BEAKER) (test 12.2 % 10.3-14.2 tujd=687) PLATELET COUNT (BEAKER) (test bsky=076) 162 K/CU MM 150-430 MEAN PLATELET VOLUME (BEAKER) (test efuu=519) 8.6 fL 6.5-10.5 NUCLEATED RED BLOOD CELLS (BEAKER) (test 0 /100 WBC 0-0 crvr=375) NEUTROPHILS RELATIVE PERCENT (BEAKER) (test 54 % djqp=956) LYMPHOCYTES RELATIVE PERCENT (BEAKER) (test 38 % hain=861) MONOCYTES RELATIVE PERCENT (BEAKER) (test 6 % vjsv=951) EOSINOPHILS RELATIVE PERCENT (BEAKER) (test 1 % dtti=350) BASOPHILS RELATIVE PERCENT (BEAKER) (test 1 % qbak=358) NEUTROPHILS ABSOLUTE COUNT (BEAKER) (test 6.80 K/ L 1.80-8.00 xjma=222) LYMPHOCYTES ABSOLUTE COUNT (BEAKER) (test 4.76 K/ L 1.48-4.50 bnxl=811) MONOCYTES ABSOLUTE COUNT (BEAKER) (test 0.79 K/ L 0.00-1.30 zixj=202) EOSINOPHILS ABSOLUTE COUNT (BEAKER) (test 0.17 K/ L 0.00-0.50 aquk=834) BASOPHILS ABSOLUTE COUNT (BEAKER) (test 0.09 K/ L 0.00-0.20 ceke=846) 0.00BASI METABOLIC [id number] 06:11:00 Test Item Value Reference Range Comments SODIUM (BEAKER) (test 138 meq/L 136-145 gfnk=643) POTASSIUM (BEAKER) (test 4.3 meq/L 3.5-5.1 Specimen slightly rolw=441) hemolyzed CHLORIDE (BEAKER) (test 108 meq/L 98-107 dfen=596) CO2 (BEAKER) (test 19 meq/L 22-29 fgqx=046) BLOOD UREA NITROGEN 13 mg/dL 7-21 (BEAKER) (test pfek=238) CREATININE (BEAKER) (test 0.88 mg/dL 0.57-1.25 Specimen slightly bywq=788) hemolyzed GLUCOSE RANDOM (BEAKER) 93 mg/dL 70-105 (test qxfe=068) CALCIUM (BEAKER) (test 8.4 mg/dL 8.4-10.2 qtcf=258) EGFR (BEAKER) (test mL/min/1.73 sq m INSUFFICIENT CLINICAL DATA pfml=6728) TO CALCULATE ESTIMATED GFR. HEPATIC FUNCTION [id number] 06:10:00 Test Item Value Reference Range Comments TOTAL PROTEIN (BEAKER) (test 6.7 gm/dL 6.0-8.3 Specimen slightly hemolyzed xmvg=362) ALBUMIN (BEAKER) (test 3.3 g/dL 3.5-5.0 Specimen slightly hemolyzed dpqm=5915) BILIRUBIN TOTAL (BEAKER) (test 0.2 mg/dL 0.2-1.2 Specimen slightly hemolyzed dxgz=297) BILIRUBIN DIRECT (BEAKER) (test 0.1 mg/dL 0.1-0.5 Specimen slightly hemolyzed bjhq=978) ALKALINE PHOSPHATASE (BEAKER) 71 U/L 40-150 (test ayxe=906) AST (SGOT) (BEAKER) (test 54 U/L 5-34 Specimen slightly hemolyzed xsyj=230) ALT (SGPT) (BEAKER) (test 84 U/L 6-55 Specimen slightly hemolyzed drpi=744) POCT-GLUCOSE [id number] 21:29:00 Test Item Value Reference Range Comments POC-GLUCOSE METER (BEAKER) 238 mg/dL 70-110 TESTED AT [address] (test xoqd=4026) [facility] [id number] CREATINE KINASE (CK)2017-03-16 19:00:00 Test Item Value Reference Range Comments CREATINE KINASE TOTAL (BEAKER) (test vhle=997) 212 U/L 29-200 POCT-GLUCOSE [id number] 17:04:00 Test Item Value Reference Range Comments POC-GLUCOSE METER (BEAKER) 88 mg/dL 70-110 TESTED AT [address] (test yxwx=9944) [place] [id number] POCT-GLUCOSE [id number] 11:53:00 Test Item Value Reference Range Comments POC-GLUCOSE METER (BEAKER) 119 mg/dL 70-110 TESTED AT [place] [id number] [facility] (test idkq=5521) [place] [id number] POCT-GLUCOSE [id number] 07:32:00 Test Item Value Reference Range Comments POC-GLUCOSE METER (BEAKER) 142 mg/dL 70-110 TESTED AT [address] (test ilid=2829) [place] [id number] CBC W/PLT COUNT & AUTO [id number] 06:33:00 Test Item Value Reference Range Comments WHITE BLOOD CELL COUNT (BEAKER) (test woqd=646) 12.2 K/ L 4.0-10.0 RED BLOOD CELL COUNT (BEAKER) (test idmv=128) 5.24 M/ L 4.20-5.80 HEMOGLOBIN (BEAKER) (test tcrh=408) 15.6 GM/DL 13.0-16.8 HEMATOCRIT (BEAKER) (test ufle=131) 48.5 % 40.0-50.0 MEAN CORPUSCULAR VOLUME (BEAKER) (test cchi=787) 92.5 fL 82.0-98.0 MEAN CORPUSCULAR HEMOGLOBIN (BEAKER) (test 29.7 pg 27.0-33.0 nxjb=596) MEAN CORPUSCULAR HEMOGLOBIN CONC (BEAKER) (test 32.1 GM/DL 32.0-36.0 iybx=602) RED CELL DISTRIBUTION WIDTH (BEAKER) (test 13.6 % 10.3-14.2 wlbu=016) PLATELET COUNT (BEAKER) (test ivxe=822) 190 K/CU MM 150-430 MEAN PLATELET VOLUME (BEAKER) (test qtvx=601) 7.8 fL 6.5-10.5 NUCLEATED RED BLOOD CELLS (BEAKER) (test 0 /100 WBC 0-0 syks=526) NEUTROPHILS RELATIVE PERCENT (BEAKER) (test 73 % wduk=881) LYMPHOCYTES RELATIVE PERCENT (BEAKER) (test 23 % gmlb=876) MONOCYTES RELATIVE PERCENT (BEAKER) (test 3 % osta=569) EOSINOPHILS RELATIVE PERCENT (BEAKER) (test 0 % knlo=923) BASOPHILS RELATIVE PERCENT (BEAKER) (test 0 % lcnz=798) NEUTROPHILS ABSOLUTE COUNT (BEAKER) (test 8.89 K/ L 1.80-8.00 ajdg=594) LYMPHOCYTES ABSOLUTE COUNT (BEAKER) (test 2.85 K/ L 1.48-4.50 pwcf=239) MONOCYTES ABSOLUTE COUNT (BEAKER) (test 0.34 K/ L 0.00-1.30 ztxx=126) EOSINOPHILS ABSOLUTE COUNT (BEAKER) (test 0.03 K/ L 0.00-0.50 orni=582) BASOPHILS ABSOLUTE COUNT (BEAKER) (test 0.06 K/ L 0.00-0.20 xfca=520) 0.00BASI METABOLIC [id number] 06:20:00 Test Item Value Reference Range Comments SODIUM (BEAKER) (test 138 meq/L 136-145 jofx=492) POTASSIUM (BEAKER) (test 4.8 meq/L 3.5-5.1 qakp=290) CHLORIDE (BEAKER) (test 106 meq/L 98-107 zzli=381) CO2 (BEAKER) (test 23 meq/L 22-29 pmxi=412) BLOOD UREA NITROGEN 15 mg/dL 7-21 (BEAKER) (test qeee=796) CREATININE (BEAKER) (test 0.92 mg/dL 0.57-1.25 xaoy=419) GLUCOSE RANDOM (BEAKER) 142 mg/dL 70-105 (test btnl=729) CALCIUM (BEAKER) (test 9.0 mg/dL 8.4-10.2 isjx=931) EGFR (BEAKER) (test mL/min/1.73 sq m INSUFFICIENT CLINICAL DATA bxgo=0881) TO CALCULATE ESTIMATED GFR. [id number] 05:51:00 Test Item Value Reference Range Comments PROTIME (BEAKER) (test kukt=911) 14.1 seconds 11.7-14.7 INR (BEAKER) (test ntyw=800) 1.1 <=5.9 PARTIAL THROMBOPLASTIN TIME (BEAKER) (test 27.5 seconds 22.5-36.0 zrhj=219) RECOMMENDED COUMADIN/WARFARIN INR THERAPY RANGESSTANDARD DOSE: 2.0 - 3.0 Includes: PROPHYLAXIS forvenous thrombosis, systemic embolization; TREATMENT for venous thrombosis and/or pulmonary embolus.HIGH RISK: Target INR is 2.5-3.5 for patients with mechanical heart valves.T4, [id number] 19:26:00 Test Item Value Reference Range Comments FREE T4 (BEAKER) (test wxml=560) 0.79 ng/dL 0.70-1.48 TSH/FREE T4 IF [id number] 18:49:00 Test Item Value Reference Range Comments THYROID STIMULATING HORMONE (BEAKER) (test 14.58 uIU/mL 0.35-4.94 nuar=504) [id number] 18:11:00 Test Item Value Reference Range Comments AMMONIA (BEAKER) (test lbmv=916) 43 mol/L 18-72 POCT-GLUCOSE [id number] 17:22:00 Test Item Value Reference Range Comments POC-GLUCOSE METER (BEAKER) 118 mg/dL 70-110 TESTED AT [address] (test kjfm=7089) [place] [address] POCT-GLUCOSE [id number] 07:33:00 Test Item Value Reference Range Comments POC-GLUCOSE METER (BEAKER) 202 mg/dL 70-110 TESTED AT [address] (test fqmf=7130) [place] [id number] CBC (HEMOGRAM ONLY)2017-03-15 06:38:00 Test Item Value Reference Range Comments WHITE BLOOD CELL COUNT (BEAKER) (test plis=721) 20.1 K/ L 4.0-10.0 RED BLOOD CELL COUNT (BEAKER) (test uqxw=398) 5.45 M/ L 4.20-5.80 HEMOGLOBIN (BEAKER) (test byqm=269) 15.9 GM/DL 13.0-16.8 HEMATOCRIT (BEAKER) (test akxt=099) 50.1 % 40.0-50.0 MEAN CORPUSCULAR VOLUME (BEAKER) (test ttof=449) 92.0 fL 82.0-98.0 MEAN CORPUSCULAR HEMOGLOBIN (BEAKER) (test 29.3 pg 27.0-33.0 ftbm=172) MEAN CORPUSCULAR HEMOGLOBIN CONC (BEAKER) (test 31.8 GM/DL 32.0-36.0 egvz=853) RED CELL DISTRIBUTION WIDTH (BEAKER) (test 12.0 % 10.3-14.2 tceb=855) PLATELET COUNT (BEAKER) (test hphw=594) 218 K/CU MM 150-430 MEAN PLATELET VOLUME (BEAKER) (test btlt=403) 7.4 fL 6.5-10.5 NUCLEATED RED BLOOD CELLS (BEAKER) (test 0 /100 WBC 0-0 pqmr=657) 0.00BASIC METABOLIC [id number] 05:56:00 Test Item Value Reference Range Comments SODIUM (BEAKER) (test 138 meq/L 136-145 jjfo=739) POTASSIUM (BEAKER) (test 4.2 meq/L 3.5-5.1 eodg=853) CHLORIDE (BEAKER) (test 105 meq/L 98-107 lsbu=271) CO2 (BEAKER) (test 21 meq/L 22-29 erlx=070) BLOOD UREA NITROGEN 13 mg/dL 7-21 (BEAKER) (test wsxe=126) CREATININE (BEAKER) (test 0.85 mg/dL 0.57-1.25 nqnr=223) GLUCOSE RANDOM (BEAKER) 127 mg/dL 70-105 (test szbl=922) CALCIUM (BEAKER) (test 9.5 mg/dL 8.4-10.2 cpwb=627) EGFR (BEAKER) (test mL/min/1.73 sq m INSUFFICIENT CLINICAL DATA inbe=0968) TO CALCULATE ESTIMATED GFR. [id number] 05:48:00 Test Item Value Reference Range Comments PROTIME (BEAKER) (test wtsk=258) 14.1 seconds 11.7-14.7 INR (BEAKER) (test lkyo=907) 1.1 <=5.9 PARTIAL THROMBOPLASTIN TIME (BEAKER) (test 26.1 seconds 22.5-36.0 aepl=411) RECOMMENDED COUMADIN/WARFARIN INR THERAPY RANGESSTANDARD DOSE: 2.0 - 3.0 Includes: PROPHYLAXIS forvenous thrombosis, systemic embolization; TREATMENT for venous thrombosis and/or pulmonary embolus.HIGH RISK: Target INR is 2.5-3.5 for patients with mechanical heart valves.POCT-GLUCOSE [id number] 00:03:00 Test Item Value Reference Range Comments POC-GLUCOSE METER (BEAKER) 133 mg/dL 70-110 TESTED AT [facility] [address] [facility] (test tnkn=6706) [facility] [id number]
[2018-04-09] MEDS ORDERED: HYDROMORPHONE HCL 1 MG/ML INJ ONE (14:42)
[2018-04-09] MEDS ORDERED: ONDANSETRON 4 MG/2 ML VIAL ONE (14:42)
[2018-04-09 14:53] LABS: Absolute Lymphocytes (CBC) 3.4 K/uL (0.7-4.9); Absolute Monocytes 0.9 K/uL (0.1-1.3); Absolute Neutrophil 6.9 K/uL (1.8-8.0); Basophils % 0.4 % (0-1.3); Eosinophils % 1.1 % (0-4.4); Hematocrit 50.5 % (39.6-49.0); Lymphocytes % 29.8 % (15.3-44.8); MCH 30.6 pg (27.0-35.0); MCV 91.4 fL (80-100); MPV 8.8 fL (7.6-11.3); RBC Red Blood Cell Count 5.52 M/uL (4.33-5.43)
[2018-04-09 14:59] LABS: Protime INR 1.02
[2018-04-09 15:16] LABS: Bilirubin Direct 0.2 mg/dL (0-0.2); Bilirubin Total 0.7 mg/dL (0.2-1.0); Magnesium 2.4 mg/dL (1.8-2.4); Potassium 3.8 mmol/L (3.5-5.1); Protein, Total 7.3 g/dL (6.4-8.2)
--- NOTE | 2018-04-09 15:19 | RAD REPORT ---
EXAM DESCRIPTION: CT - Abdomen Pelvis Wo Contrast - 04/09/2018 2:49 pm CLINICAL HISTORY: Abdominal pain right pelvic pain COMPARISON: None TECHNIQUE: Computed axial tomography of the abdomen and pelvis was obtained. IV and oral contrast we re not requested. All CT scans are performed using dose optimization technique as appropriate and may include automated exposure control or mA/KV adjustment according to patient size. FINDINGS: The evaluation of solid organs, vessels and bowel is limited secondary to the lack of con trast administration. Fatty infiltration of the liver is seen. Spleen, pancreas, adrenals and kidneys appear grossly normal. Small left inguinal hernia contains fat. There is no evidence of diverticulitis. No gross abnormality of the right hip is noted A moderate amount of stool is present throughout the colon IMPRESSION: Moderate amount of stool within the colon Fatty liver
[2018-04-09 17:30] LABS: Urine Blood NEGATIVE (NEG); Urine Glucose NEGATIVE (NEG); Urine Protein NEGATIVE (NEG)
--- NOTE | 2018-04-09 18:45 | RAD REPORT ---
EXAM DESCRIPTION: MRI - Lumbar Spine Wo Con - 04/09/2018 6:30 pm CLINICAL HISTORY: Bilateral leg numbness and radiculopathy COMPARISON: None. TECHNIQUE: Sagittal T1, T2 and STIR weighted sequences were obtained. Axial T1 and T2 sequences were obtained through the lumbar disc levels. FINDINGS: L1-2, L2-3 and L3-4 are unremarkable. A large right lateral structure is present at L4-5 markedly narrowing the right neural foramina A small to moderate broad-based central disc herniation is present at L5-S1 which abuts the right and left S1 nerve roots. No abnormal signal within the bones is noted IMPRESSION: Large right lateral structure L4-5 likely representing a disc herniation. Marked narrowi ng of the right neural foramina is present. Small to moderate broad-based central disc herniation L5-S1
--- NOTE | 2018-04-09 18:54 | EDPHYS ---
Physician Documentation [facility] Name: Vikram Bagley Age: 37 yrs Sex: Male : 1980 Arrival Date: 04/09/2018 Time: 13:39 Bed 16 Private MD: None, None ED Physician Fransisco Harrison HPI: 04/09 14:56 This 37 yrs old Male presents to ER via EMS with complaints of Right leg pain, jr8 side pain. 14:56 Patient stated that for over a week now has had right leg pain that is burning and jr8 cramping in nature. Stated that he was seen at [place] and given medicine but that it is not working and pain is getting worse. Denies trauma to leg . 15:44 Severity of symptoms: At their worst the symptoms were moderate in the emergency jr8 department the symptoms are unchanged. The patient has not experienced similar symptoms in the past. The patient has been recently seen by a physician:. Historical: - Allergies: 13:58 iodine IV; ss - PMHx: 13:58 ADD/ADHD; Anxiety; brain lesion; fatty liver; High Cholesterol; Hypertension; ss Hypothyroidism; - PSHx: 13:58 brain surgery; ss - Immunization history:: Adult Immunizations up to date. - Social history:: Smoking status: Patient uses tobacco products, smokes one pack cigarettes per day. - Ebola Screening: : Patient denies exposure to infectious person Patient denies travel to an Ebola-affected area in the 21 days before illness onset. ROS: 15:44 Eyes: Negative for injury, pain, redness, and discharge, ENT: Negative for injury, jr8 pain, and discharge, Neck: Negative for injury, pain, and swelling, Cardiovascular: Negative for chest pain, palpitations, and edema, Respiratory: Negative for shortness of breath, cough, wheezing, and pleuritic chest pain, Abdomen/GI: Negative for abdominal pain, nausea, vomiting, diarrhea, and constipation, Back: Negative for injury and pain, Skin: Negative for injury, rash, and discoloration, Neuro: Negative for headache, weakness, numbness, tingling, and seizure. 15:44 MS/extremity: Positive for pain, of the right leg. Exam: 15:44 Head/Face: Normocephalic, atraumatic. Eyes: Pupils equal round and reactive to light, jr8 extra-ocular motions intact. Lids and lashes normal. Conjunctiva and sclera are non-icteric and not injected. Cornea within normal limits. Periorbital areas with no swelling, redness, or edema. ENT: Nares patent. No nasal discharge, no septal abnormalities noted. Tympanic membranes are normal and external auditory canals are clear. Oropharynx with no redness, swelling, or masses, exudates, or evidence of obstruction, uvula midline. Mucous membranes moist. Neck: Trachea midline, no thyromegaly or masses palpated, and no cervical lymphadenopathy. Supple, full range of motion without nuchal rigidity, or vertebral point tenderness. No Meningismus. Chest/axilla: Normal chest wall appearance and motion. Nontender with no deformity. No lesions are appreciated. Cardiovascular: Regular rate and rhythm with a normal S1 and S2. No gallops, murmurs, or rubs. Normal PMI, no JVD. No pulse deficits. Respiratory: Lungs have equal breath sounds bilaterally, clear to auscultation and percussion. No rales, rhonchi or wheezes noted. No increased work of breathing, no retractions or nasal flaring. Back: No spinal tenderness. No costovertebral tenderness. Full range of motion. Skin: Warm, dry with normal turgor. Normal color with no rashes, no lesions, and no evidence of cellulitis. Neuro: Awake and alert, GCS 15, oriented to person, place, time, and situation. Cranial nerves II-XII grossly intact. Motor strength 5/5 in all extremities. Sensory grossly intact. Cerebellar exam normal. Normal gait. 15:44 Abdomen/GI: Inspection: obese Bowel sounds: active, all quadrants, Palpation: soft, in all quadrants, moderate abdominal tenderness, in the anterior aspect of right lateral abdomen, right inguinal region, mass, is not appreciated, rebound tenderness, is not appreciated, voluntary guarding, is not appreciated, involuntary guarding, is not appreciated, no appreciated organomegaly, Indicators: McBurney's point is not tender, Cordova's sign is negative, Rovsing's sign is negative, Liver: no appreciated palpable abnormalities, tenderness, is not appreciated. 15:44 Musculoskeletal/extremity: Extremities: grossly normal except: noted in the right leg: pain, tenderness, ROM: intact in all extremities, full active range of motion, full passive range of motion, limited active range of motion due to pain, limited passive range of motion due to pain, Circulation is intact in all extremities. Sensation intact. Vital Signs: 13:58 BP 152 / 116; Pulse 60; Resp 22; Temp 98.0(TE); Pulse Ox 97% on R/A; Weight 149.69 kg; ss Height 5 ft. 9 in. (175.26 cm); Pain 10/10; 15:10 BP 131 / 85; Pulse 46; Resp 14; Pulse Ox 96% on R/A; mb3 16:49 BP 117 / 71; Pulse 48; Resp 16; Pulse Ox 97% on R/A; mb3 18:42 BP 120 / 67; Pulse 46; Resp 16; Pulse Ox 97% on R/A; mb3 19:15 BP 122 / 66; Pulse 52; Resp 18; Temp 98; Pulse Ox 100% on R/A; Pain 3/10; bs1 13:58 Body Mass Index 48.73 (149.69 kg, 175.26 cm) ss MDM: 14:07 Patient medically screened. jr8 18:52 Data reviewed: vital signs, nurses notes, lab test result(s), radiologic studies, CT jr8 scan, MRI, and as a result, I will discharge patient. Data interpreted: Pulse oximetry: on room air is 97 %. Interpretation: normal. Counseling: I had a detailed discussion with the patient and/or guardian regarding: the historical points, exam findings, and any diagnostic results supporting the discharge/admit diagnosis, lab results, radiology results, the need for outpatient follow up, a neurosurgeon, to return to the emergency department if symptoms worsen or persist or if there are any questions or concerns that arise at home. 04/09 14:32 Order name: Basic Metabolic Panel; Complete Time: 15:16 04/09 14:32 Order name: CBC with Diff; Complete Time: 15:16 04/09 14:32 Order name: CPK; Complete Time: 15:16 04/09 14:32 Order name: LFT's; Complete Time: 15:16 04/09 14:32 Order name: Magnesium; Complete Time: 15:16 04/09 14:32 Order name: PT-INR; Complete Time: 15:16 04/09 14:32 Order name: Cardiac monitoring; Complete Time: 19:13 04/09 14:32 Order name: IV Saline Lock; Complete Time: 14:35 [facility] 04/09 14:32 Order name: Labs collected and sent; Complete Time: 14:35 [facility] 04/09 14:33 Order name: CT Abd/Pelvis - Without Cont; Complete Time: 15:33 04/09 15:34 Order name: MRI Lumbar Spine wo Con; Complete Time: 18:45 [facility] 04/09 17:02 Order name: Urine Dipstick--Ancillary (enter results); Complete Time: 17:32 ag 04/09 14:32 Order name: O2 Per Protocol; Complete Time: 14:35 [facility] 04/09 14:32 Order name: O2 Sat Monitoring; Complete Time: 14:35 [facility] 04/09 14:32 Order name: Urine Dipstick-Ancillary (obtain specimen); Complete Time: 19:14 Administered Medications: 14:40 Drug: Dilaudid 1 mg Route: IVP; Site: left antecubital; mb3 19:13 Follow up: Response: No adverse reaction bs1 14:40 Drug: Zofran 4 mg Route: IVP; Site: left antecubital; mb3 19:13 Follow up: Response: No adverse reaction bs1 Disposition: 04/10 09:40 Co-signature as Attending Physician, Fransisco Harrison MD I agree with the assessment and stephy plan of care. Disposition: 04/09/18 18:54 Discharged to Home. Impression: Disc Herniation L4-L5 and L5-S1, Low back pain, Intervertebral disc disorders with radiculopathy, lumbar region. - Condition is Stable. - Discharge Instructions: Back Pain, Adult, Herniated Disk, Musculoskeletal Pain, Back Exercises, Acyb-nr-Uimw, Heat Therapy. - Prescriptions for Robaxin 500 mg Oral Tablet - take 2 tablet by ORAL route every 6 hours As needed; 40 tablet. Medrol (Joseph) 4 mg Oral Tablets, Dose Pack - take 1 tablet by ORAL route as directed - follow package instructions; 1 packet. - Medication Reconciliation Form, Thank You Letter, Antibiotic Education, Prescription Opioid Use form. - Follow up: Jadon Whitmore MD; When: 1 - 2 days; Reason: Recheck today's complaints, Continuance of care, Re-evaluation by your physician. - Problem is new. - Symptoms have improved. Signatures: Dispatcher [employer] EDMS Fransisco Harrison MD MD cha Smirch, Shelby, RN RN Justyn Fagan PA PA jr8 Arely Oneill RN RN bs1 Dennis Stoner RN RN mb3 Corrections: (The following items were deleted from the chart) 04/09 18:57 13:58 PMHx: Diabetes - NIDDM; [facility] 19:16 18:54 04/09/2018 18:54 Discharged to Home. Impression: Disc Herniation L4-L5 and L5-S1; bs1 Low back pain; Intervertebral disc disorders with radiculopathy, lumbar region. Condition is Stable. Forms are Medication Reconciliation Form, Thank You Letter, Antibiotic Education, Prescription Opioid Use. Follow up: Jadon Whitmore; When: 1 - 2 days; Reason: Recheck today's complaints, Continuance of care, Re-evaluation by your physician. Problem is new. Symptoms have improved. jr8
--- NOTE | 2018-04-09 18:54 | ER ---
Nurse's Notes [facility] Name: Vikram Bagley Age: 37 yrs Sex: Male : 1980 Arrival Date: 04/09/2018 Time: 13:39 Bed 16 Private MD: None, None Diagnosis: Disc Herniation L4-L5 and L5-S1;Low back pain;Intervertebral disc disorders with radiculopathy, lumbar region Presentation: 04/09 13:56 Presenting complaint: Patient states: R hip pain that radiates down to R thigh that ss began 2 weeks ago. Pt reports the pain is getting progressively worse, and is now unbearable. Pt reports being seen in [place] [facility] 1 week ago, but believes that the medication is not helping. Transition of care: patient was not received from another setting of care. Onset of symptoms was March 26, 2018. Risk Assessment: Do you want to hurt yourself or someone else? Patient reports no desire to harm self or others. Initial Sepsis Screen: Does the patient meet any 2 criteria? No. Patient's initial sepsis screen is negative. Does the patient have a suspected source of infection? No. Patient's initial sepsis screen is negative. Care prior to arrival: None. 13:56 Method Of Arrival: EMS: [facility] 13:56 Acuity: [facility] 3 ss Historical: - Allergies: 13:58 iodine IV; ss - PMHx: 13:58 ADD/ADHD; Anxiety; brain lesion; fatty liver; High Cholesterol; Hypertension; ss Hypothyroidism; - PSHx: 13:58 brain surgery; ss - Immunization history:: Adult Immunizations up to date. - Social history:: Smoking status: Patient uses tobacco products, smokes one pack cigarettes per day. - Ebola Screening: : Patient denies exposure to infectious person Patient denies travel to an Ebola-affected area in the 21 days before illness onset. Screenin:11 Abuse screen: Denies threats or abuse. Nutritional screening: No deficits noted. mb3 Tuberculosis screening: No symptoms or risk factors identified. Fall Risk None identified. Assessment: 15:08 General: Appears distressed, uncomfortable, Behavior is cooperative, crying. Pain: mb3 Complains of pain in right femoral area, right inguinal area and right iliac crest Pain radiates to right leg. Neuro: Level of Consciousness is awake, alert, obeys commands, Oriented to person, place, time, situation, Appropriate for age. Cardiovascular: No deficits noted. Heart tones present Capillary refill < 3 seconds Pulses are all present. Rhythm is sinus rhythm. Respiratory: Airway is patent Respiratory effort is even, unlabored, Respiratory pattern is regular, symmetrical, Breath sounds are clear bilaterally. GI: Abdomen is round obese, Bowel sounds present X 4 quads. Abd is soft Abdomen is tender to palpation in right lower quadrant. : No signs and/or symptoms were reported regarding the genitourinary system. EENT: No signs and/or symptoms were reported regarding the EENT system. Derm: No signs and/or symptoms reported regarding the dermatologic system. 15:15 Reassessment: Patient and/or family updated on plan of care and expected duration. Pain mb3 level reassessed. Patient is alert, oriented x 3, equal unlabored respirations, skin warm/dry/pink. Patient states feeling better. Patient states symptoms have improved. 16:49 Reassessment: Patient and/or family updated on plan of care and expected duration. Pain mb3 level reassessed. Patient is alert, oriented x 3, equal unlabored respirations, skin warm/dry/pink. Patient states feeling better. 18:41 Reassessment: Patient and/or family updated on plan of care and expected duration. Pain mb3 level reassessed. Patient is alert, oriented x 3, equal unlabored respirations, skin warm/dry/pink. states pain starting to come back. 19:15 Reassessment: Patient appears in no apparent distress at this time. Patient and/or bs1 family updated on plan of care and expected duration. Pain level reassessed. Patient is alert, oriented x 3, equal unlabored respirations, skin warm/dry/pink. Report received from ADONIS Collins. I agree with initial assessement. Patient states feeling better. Vital Signs: 13:58 BP 152 / 116; Pulse 60; Resp 22; Temp 98.0(TE); Pulse Ox 97% on R/A; Weight 149.69 kg; ss Height 5 ft. 9 in. (175.26 cm); Pain 10/10; 15:10 BP 131 / 85; Pulse 46; Resp 14; Pulse Ox 96% on R/A; mb3 16:49 BP 117 / 71; Pulse 48; Resp 16; Pulse Ox 97% on R/A; mb3 18:42 BP 120 / 67; Pulse 46; Resp 16; Pulse Ox 97% on R/A; mb3 19:15 BP 122 / 66; Pulse 52; Resp 18; Temp 98; Pulse Ox 100% on R/A; Pain 3/10; bs1 13:58 Body Mass Index 48.73 (149.69 kg, 175.26 cm) ED Course: 13:39 Patient arrived in ED. sb2 13:39 None, None is Private Physician. sb2 13:58 Triage completed. ss 13:58 Arm band placed on right wrist. ss 14:03 Dennis Stoner, RN is Primary Nurse. mb3 14:07 Justyn Fagan PA is PHCP. jr8 14:07 Fransisco Harrison MD is Attending Physician. jr8 14:12 Inserted saline lock: 22 gauge in left antecubital area, using aseptic technique. Blood mb3 collected. 14:[address] nj 14:49 CT completed. Patient moved back from CT. nj 14:50 CT Abd/Pelvis - Without Cont In Process Unspecified. EDMS 15:13 Patient has correct armband on for positive identification. Bed in low position. Call mb3 light in reach. Side rails up X 1. potline monitor on. Pulse ox on. NIBP on. 15:19 EKG done, by guitar technician. reviewed by Fransisco Harrison MD. sm3 18:00 Patient moved to MRI via wheelchair. ka 18:28 MRI Lumbar Spine wo Con In Process Unspecified. EDMS 18:28 MRI completed. Patient tolerated well. Patient moved back from MRI. ka 18:52 Jadon Whitmore MD is Referral Physician. jr8 19:14 No provider procedures requiring assistance completed. IV discontinued, bleeding bs1 controlled, No redness/swelling at site. Pressure dressing applied. Administered Medications: 14:40 Drug: Dilaudid 1 mg Route: IVP; Site: left antecubital; mb3 19:13 Follow up: Response: No adverse reaction bs1 14:40 Drug: Zofran 4 mg Route: IVP; Site: left antecubital; mb3 19:13 Follow up: Response: No adverse reaction bs1 Outcome: 18:54 Discharge ordered by . jr8 19:14 Discharged to home ambulatory. bs1 19:14 Condition: stable 19:14 Discharge instructions given to patient, Instructed on discharge instructions, follow up and referral plans. medication usage, Demonstrated understanding of instructions, follow-up care, medications, Prescriptions given X 2. 19:16 Patient left the ED. bs1 Signatures: Dispatcher [employer] EDMS Radha Croft, RN RN ss Justyn Fagan PA PA jr8 Cara Black Nathan nj Salazar, Brittany RN RN bs1 Naty Pimentel sb2 Dennis Stoner RN RN mb3 She Acevedo 3 Corrections: (The following items were deleted from the chart) 18:57 13:58 PMHx: Diabetes - NIDDM; mb3
[2018-04-09 20:18] VITALS: BP 122/66; TEMP 98; O2SAT 100
== END 2018-04-09 19:16 | disposition home or self-care (01) ==
LOC: ER 13:38
DX: M51.27 Other intervertebral disc displacement, lumbosacral region (principal); M51.16 Intervertebral disc disorders with radiculopathy, lumbar region; I10 Essential (primary) hypertension; F17.210 Nicotine dependence, cigarettes, uncomplicated; Z91.048 Other nonmedicinal substance allergy status
CPT/HCPCS: 36415; 72148; 74176; 80048; 80076; 81003; 82550; 83735; 85025; 85610; 96374; 96375; 99285; J1170; J2405

== ENCOUNTER 2018-09-20 07:37 | Emergency (ER) | payer SELFPAY ==
--- OUTSIDE RECORDS SUMMARY | 2018-09-20 07:40 | XMS REPORT | Clinical Summary ---
:1980 Author Organization [facility] Address [address] [place] [address] Care Team Providers Name Role Phone Sharpmaegan Primary Care Provider Allergies Active Allergy Reactions Severity Noted Date Comments Gadolinium-Containing Contrast Media Hives 03/07/2017 Given at [facility] Medications Medication Sig Dispensed Refills Start Date End Date Status levothyroxine [...] capsule by mouth 3 (three) times daily. Active Problems Problem Noted Date Parkinson disease 03/28/2017 Brain lesion 03/17/2017 Morbid obesity 03/17/2017 YAMIL on CPAP 03/17/2017 Fatty liver 03/17/2017 H/O: depression 03/17/2017 Headache, acute 03/15/2017 Encounters Date Type Specialty Care Team Description 10/31/2017 Orders Only Neurology Zaki Allen Abnormal brain MRI (Primary Dx); MD Félix Intractable acute post-traumatic headache 10/30/2017 Emergency Emergency Medicine Jagjit Potts Vasovagal syncope (Primary Dx); MD Dennis Dehydration; Morbid obesity (HCC); Brain lesion 10/30/2017 Orders Only General Internal Medicine after 09/19/2017 Family History Medical History Relation Name Comments [...] Assigned at Date Recorded Not on file Job Start Date Occupation Industry Not on file Not on file Not on file Travel History Travel Start Travel End No recent travel history available. Last Filed Vital Signs Vital Sign Reading Time Taken Blood Pressure 134/66 10/30/2017 8:36 PM [employer] Pulse 73 10/30/2017 8:36 PM [employer] Temperature 37.2 C (99 F) 10/30/2017 8:36 PM [employer] Respiratory Rate 18 10/30/2017 8:36 PM [employer] Oxygen Saturation 95% 10/30/2017 8:36 PM [employer] Inhaled Oxygen Concentration - - Weight 163.3 kg (360 lb) 10/30/2017 3:40 PM [employer] Height - - Body Mass Index 53.16 10/30/2017 3:40 PM [employer] Plan of Treatment Not on file Implants Implanted Type Area Travel Nurse Device Shelf Model / Identifier Expiration Serial / Date Lot Matrix Floseal Hemo W/O Ndl 10 [id number] - [id number] Cement/Keo Left: FRITZ: BIOSCI 08/11/2018 [id number] / Implanted: Qty: 1 on 03/28/2017 by Eduardo Castillo MD ler/Adhesi Head / ve [id number] Cvr Bur-Hl Lp-Neuro 24mm Ti Ns 421.528 - [id number] Fracture/F Left: SYNTHES: SYNTHES [id number] / Implanted: Qty: 4 on 03/28/2017 by Eduardo Castillo MD ixation Head [facility] / [facility] Sd Mtrxneu 4mm Ti Ns [id number] - [id number] Fracture/F Left: SYNTHES: SYNTHES [id number] / Implanted: Qty: 15 on 03/28/2017 by Eduardo Castillo MD ixation Head [facility] / [facility] [[email or web address] Dura Cllgn Duragn [id number] - [id number] Tissue Left: INTEGRA 07/17/2017 ID-[id number] / Implanted: Qty: 1 on 03/28/2017 by Eduardo Castillo MD Graft/Subs Head LIFESCI:NEURO / titute [id number] Procedures Procedure Name Priority Date/Time Associated Comments Diagnosis ED ECG INTERPRETATION Routine 11/03/2017 12:43 Results for this AM [employer] procedure are in the results section. URINALYSIS W/ STAT 10/30/2017 6:25 Results for this MICROSCOPIC PM [employer] procedure are in the results section. XR CHEST 1 VIEW STAT 10/30/2017 6:10 Results for this PORTABLE/BEDSIDE PM [employer] procedure are in the results section. CT BRAIN WITHOUT IV STAT 10/30/2017 5:39 Results for this CONTRAST PM [employer] procedure are in the results section. CBC W/PLT COUNT & AUTO STAT 10/30/2017 4:56 Results for this DIFFERENTIAL PM [employer] procedure are in the results section. MAGNESIUM STAT 10/30/2017 4:56 Results for this PM [employer] procedure are in the results section. LIPASE STAT 10/30/2017 4:56 Results for this PM [employer] procedure are in the results section. TROPONIN I STAT 10/30/2017 4:56 Results for this PM [employer] procedure are in the results section. CBC W/PLT COUNT & AUTO STAT 10/30/2017 4:56 Results for this DIFFERENTIAL PM [employer] procedure are in the results section. BASIC METABOLIC PANEL STAT 10/30/2017 4:56 Results for this (7) PM [employer] procedure are in the results section. ECG 12-LEAD STAT 10/30/2017 4:52 Results for this PM [employer] procedure are in the results section. after 09/19/2017 Results ED ECG Interpretation (11/03/2017 12:43 AM [employer]) Narrative Performed At Jagjit Potts MD 11/03/2017 12:43 AM ECG/EKG Interpretation Date/Time: 10/30/2017 4:52 PM Performed by: JAGJIT POTTS Authorized by: JAGJIT POTTS The ECG was interpreted by ED physician. The ECG is interpreted as sinus rhythm. Rate is normal rate. Heart rate is 82 BPM. Conduction: conduction normal. ST segments normal. T waves normal. [place] is right. Other findings: no other findings. Clinical Impression: non-specific ECGECG reviewed and does not meet STEMI criteria. Patient tolerance: Patient tolerated the procedure well with no immediate complications Urinalysis w/Microscopic (10/30/2017 6:25 PM [employer]) Color, UA Yellow [facility] Clarity, UA Clear [facility] Specific [place], UA 1.014 1.001 - 1.035 [facility] pH, UA 6.5 5.0 - 8.0 [facility] Protein, UA Negative Negative [facility] Glucose, UA Negative Negative [facility] Ketones, UA Negative Negative [facility] Bilirubin, UA Negative Negative [facility] Blood, UA Negative Negative [facility] Nitrite, UA Negative Negative [facility] Leukocytes, UA Negative Negative [facility] Urobilinogen, UA 2.0 (H) 0.2 - 1.0 mg/dL [facility] RBC, UA <1 /HPF [facility] WBC, UA <1 /HPF [facility] Mucus Rare [facility] Specimen Source Urine, Clean Catch [facility] Specimen Urine - Urine, Clean Catch Performing Organization Address City/State/Zipcode Phone Number [facility] [address] [place] [address] CENTER XR chest 1 view portable / bedside (10/30/2017 6:10 PM [employer]) Narrative Performed At FINAL REPORT [facility] Chest one view AP 10/30/2017 7:07 PM CLINICAL INDICATION: LOSS OF CONSCIOUSNESS COMPARISON: None available IMPRESSION: There is atelectasis in the right lung base. The left lung is clear. Cardiomediastinal contours are within normal limits. The central pulmonary vasculature is not engorged. Signed: Sharif Faulkner MD Report Verified Date/Time:10/30/2017 19:07:24 Reading Location: [facility] Radiology Reading Room Procedure Note Interface, External Ris In - 10/30/2017 7:13 PM [employer] FINAL REPORT Chest one view AP 10/30/2017 7:07 PM CLINICAL INDICATION: LOSS OF CONSCIOUSNESS COMPARISON: None available IMPRESSION: There is atelectasis in the right lung base. The left lung is clear. Cardiomediastinal contours are within normal limits. The central pulmonary vasculature is not engorged. Signed: Sharif Faulkner MD Report Verified Date/Time: 10/30/2017 19:07:24 Reading Location: [facility] Radiology Reading Room Performing Organization Address City/State/Zipcode Phone Number [facility] brain without IV contrast (10/30/2017 5:39 PM [employer]) Narrative Performed At FINAL REPORT [facility] head without contrast 10/30/2017 5:49 PM [...] MD Report Verified Date/Time:10/30/2017 17:52:21 Reading Location: [facility] Radiology Reading Room Procedure Note Interface, External Ris In - 10/30/2017 5:54 PM [employer] FINAL REPORT CT head without contrast 10/30/2017 [...] Report Verified Date/Time: 10/30/2017 17:52:21 Reading Location: [facility] Radiology Reading Room Performing Organization Address City/State/Zipcode Phone Number GE RIS CBC with platelet count + automated diff (10/30/2017 4:56 PM [employer]) WBC 9.0 3.5 - 10.5 K/L [facility] RBC 5.15 4.63 - 6.08 M/L [facility] Hemoglobin 15.6 13.7 - 17.5 GM/DL [facility] Hematocrit 47.0 40.1 - 51.0 % [facility] MCV 91.3 79.0 - 92.2 fL [facility] MCH 30.3 25.7 - 32.2 pg [facility] MCHC 33.2 32.3 - 36.5 GM/DL [facility] RDW 13.5 11.6 - 14.4 % [facility] Platelets 205 150 - 450 K/CU MM [facility] MPV 9.9 9.4 - 12.4 fL [facility] nRBC 0 0 - 0 /100 WBC [facility] % Neutros 58 % [facility] % Lymphs 33 % [facility] % Monos 6 % [facility] % Eos 2 % [facility] % Baso 1 % [facility] # Neutros 5.19 1.78 - 5.38 K/L [facility] # Lymphs 3.00 1.32 - 3.57 K/L [facility] # Monos 0.54 0.30 - 0.82 K/L [facility] # Eos 0.17 0.04 - 0.54 K/L [facility] # Baso 0.05 0.01 - 0.08 K/L [facility] Immature Granulocytes-Relative 0 0 - 1 % [facility] Specimen Blood - Arm, Left Performing Organization Address City/State/[facility] Phone Number [facility] [address] [place] [address] [phone] CENTER Troponin I (10/30/2017 4:56 PM [employer]) Troponin I <0.01 0.00 - 0.03 ng/mL [facility] Specimen Blood - Arm, Left Narrative Performed At [facility] Troponin I (TnI) levels must be interpreted [...] acidosis, acute neurological disease, and persistent tachyarrhythmia. Performing Organization Address City/[facility] Phone Number [address] [address] CENTER Magnesium (10/30/2017 4:56 PM [employer]) Magnesium 2.0 1.6 - 2.6 mg/dL [facility] Specimen Blood - Arm, Left Performing Organization Address [facility]/[place] Phone Number [address] [address] CENTER Lipase (10/30/2017 4:56 PM [employer]) Lipase 67 8 - 78 U/L [facility] Specimen Blood - Arm, Left Performing Organization Address [facility]/[place] Phone Number [address] [address] [phone] [place] Basic Metabolic Panel (10/30/2017 4:56 PM [employer]) Sodium 141 136 - 145 meq/L [facility] Potassium 4.1 3.5 - 5.1 meq/L [facility] Chloride 108 (H) 98 - 107 meq/L [facility] CO2 21 (L) 22 - 29 meq/L [facility] BUN 12 7 - 21 mg/dL [facility] Creatinine 0.94 0.57 - 1.25 mg/dL [facility] Glucose 206 (H) 70 - 105 mg/dL [facility] Calcium 9.0 8.4 - 10.2 mg/dL [facility] EGFR Comment: INSUFFICIENT CLINICAL mL/min/1.73 sq m [facility] DATA TO CALCULATE ESTIMATED MEDICAL CENTER GFR. Specimen Blood - Arm, Left Performing Organization Address [facility] Phone Number [address] [address] CENTER ECG 12 lead (10/30/2017 4:52 PM [employer]) Narrative Performed At Ventricular Rate 82 BPM GE MUSE Atrial Rate 82 BPM P-R Interval 154 ms QRS Duration 96 ms Q-T Interval 360 ms QTC Calculation(Bazett) 420 ms P [place] 37 degrees R [place] 95 degrees T [place] 48 degrees Normal sinus rhythm Rightward axis Borderline ECG When compared with ECG of 19-MAR-2017 16:30, No significant change was found Confirmed by Hoa MOSELEY, CAM ([id number]) on 10/31/2017 4:55:53 PM Procedure Note Interface, External Ris In - 10/31/2017 4:56 PM [employer] Ventricular Rate 82 BPM Atrial Rate 82 BPM P-R Interval 154 ms QRS Duration 96 ms Q-T Interval 360 ms QTC Calculation(Bazett) 420 ms P [place] 37 degrees R [place] 95 degrees T [place] 48 degrees Normal sinus rhythm Rightward axis Borderline ECG When compared with ECG of 19-MAR-2017 16:30, No significant change was found Confirmed by Hoa MOSELEY, CAM ([id number]) on 10/31/2017 4:55:53 PM Performing Organization Address City/State/Zipcode Phone Number SARA MUSE after 09/19/2017 Insurance Payer Benefit Plan / Subscriber ID Type Phone Address Group BLUE CROSS/BLUE BCBS PPO POS EPO xxxxxxxxxxxx PPO [phone] [address] [place] [address] [facility] HMO POS xxxxxxxxx HMO/POS [facility] [place] ([place] [address] Advance Directives For more information, please contact:[address] [phone] Code Status Date Activated Date Inactivated Comments Full Code 03/28/2017 3:16 PM 03/30/2017 2:02 PM This code status was determined by: Patient Full Code 03/15/2017 2:58 AM 03/20/2017 12:50 AM This code status was determined by: Patient
--- OUTSIDE RECORDS SUMMARY | 2018-09-20 07:41 | XMS REPORT ---
:1980 [facility] Address [address] [place] [address] [address]. [address] [place] [address] Care Team Providers Name Role Phone DR MARQUEZ HADDAD Unavailable Unavailable GLEN LEDESMA Unavailable Unavailable TERRANCE MODI Unavailable Unavailable NÉSTOR ARREOLA Unavailable Unavailable Payers Payer Name Policy Type Policy Number Effective Date Expiration Date Problems This patient has no known problems. Allergies, Adverse Reactions, Alerts Allergy Allergy Status Severity Reaction(s) Onset Inactive Treating Comments Name Type Date Date Clinician No Known DA Active U 2018-06 Allergies -16 00:00:0 0 Medications This patient has no known medications. Encounters Start End Encounter Admission Attending Care Care Encounter Date/Time Date/Time Type Type Clinicians Facility Department ID 2018-04-18 2018-04-18 Outpatient LORETO NOLASCO [facility] [id number] 07:34:00 10:07:00 MARQUEZ Results Test Description Test Time Test Comments Text Results Atomic Results Result Comments XR SMITA W 2018-04-18 FluoroscopyLocation CONTRAST*HSE* 10:12:25 Code: [id number] HISTORY: Back painComments: Fluoroscopy was provided during Lumbar SMITA. Approximately fluoroscopytime was 34.4 seconds. 4 fluoroscopic spot images were taken.IMPRESSION: Fluoroscopy services provided. Please see operative report for fulldetails. RAD, CHEST, 1 VIEW, 2017-10-30 Reason for exam:->LOSS FINAL REPORT PATIENT ID: NON DEPT 19:07:00 OF CONSCIOUSNESSShould [id number] Chest one this be performed at the view AP 10/30/2017 7:07 bedside?->Yes PM CLINICAL INDICATION: LOSS OF CONSCIOUSNESS COMPARISON: None available IMPRESSION: There is atelectasis in the right lung base. The left lung is clear. Cardiomediastinal contours are within normal limits. The central pulmonary vasculature is not engorged. Signed: Sharif Faulkner Verified Date/Time: 10/30/2017 19:07:24 Reading Location: [facility] Radiology Reading Room ALYSIS W/ MICROSCOPIC 2017-10-30 18:49:00 Test Item Value Reference Range Comments COLOR (BEAKER) (test xorx=487) Yellow CLARITY (BEAKER) (test hmuc=457) Clear SPECIFIC GRAVITY UA (BEAKER) (test zdaq=767) 1.014 1.001-1.035 PH UA (BEAKER) (test mutv=450) 6.5 5.0-8.0 PROTEIN UA (BEAKER) (test vzwz=179) Negative Negative GLUCOSE UA (BEAKER) (test ufpr=282) Negative Negative KETONES UA (BEAKER) (test kvcn=612) Negative Negative BILIRUBIN UA (BEAKER) (test dcqu=780) Negative Negative BLOOD UA (BEAKER) (test rltl=261) Negative Negative NITRITE UA (BEAKER) (test xmcx=596) Negative Negative LEUKOCYTE ESTERASE UA (BEAKER) (test pkmr=748) Negative Negative UROBILINOGEN UA (BEAKER) (test mfpc=121) 2.0 mg/dL 0.2-1.0 RBC UA (BEAKER) (test eoko=225) < /HPF WBC UA (BEAKER) (test dxzj=965) < /HPF MUCUS (BEAKER) (test wami=3984) Rare SOURCE(BEAKER) (test lopx=4121) Urine, Clean Catch BASIC METABOLIC [id number] 18:08:00 Test Item Value Reference Range Comments SODIUM (BEAKER) (test 141 meq/L 136-145 jbyl=461) POTASSIUM (BEAKER) (test 4.1 meq/L 3.5-5.1 tcma=495) CHLORIDE (BEAKER) (test 108 meq/L 98-107 ykpk=570) CO2 (BEAKER) (test 21 meq/L 22-29 cvhf=102) BLOOD UREA NITROGEN 12 mg/dL 7-21 (BEAKER) (test fxpo=917) CREATININE (BEAKER) (test 0.94 mg/dL 0.57-1.25 fipk=710) GLUCOSE RANDOM (BEAKER) 206 mg/dL 70-105 (test qmzt=849) CALCIUM (BEAKER) (test 9.0 mg/dL 8.4-10.2 ykdd=414) EGFR (BEAKER) (test mL/min/1.73 sq m INSUFFICIENT CLINICAL DATA emxw=2650) TO CALCULATE ESTIMATED GFR. [id number] 18:06:00 Test Item Value Reference Range Comments MAGNESIUM (BEAKER) (test qkry=038) 2.0 mg/dL 1.6-2.6 [id number] 18:06:00 Test Item Value Reference Range Comments LIPASE (BEAKER) (test izeh=413) 67 U/L 8-78 TROPONIN [id number] 18:03:00 Test Item Value Reference Range Comments TROPONIN I (BEAKER) (test haez=482) < ng/mL 0.00-0.03 Troponin I (TnI) levels [...] neurological disease, and persistent tachyarrhythmia.CT, BRAIN, WITHOUT [id number] 17 :52:00Reason for exam:->LOSS OF CONSCIOUSNESSWhat is [...] and postcontrast MRI is recommended. Signed: Sharif Faulknereport Verified Date/Time: 10/30/2017 17 :52:21 Reading Location: [facility] Radiology Reading Room CBC W/PLT COUNT & AUTO [id number] 17:19:00 Test Item Value Reference Range Comments WHITE BLOOD CELL COUNT (BEAKER) (test suow=909) 9.0 K/ L 3.5-10.5 RED BLOOD CELL COUNT (BEAKER) (test rklh=592) 5.15 M/ L 4.63-6.08 HEMOGLOBIN (BEAKER) (test hwij=575) 15.6 GM/DL 13.7-17.5 HEMATOCRIT (BEAKER) (test allu=907) 47.0 % 40.1-51.0 MEAN CORPUSCULAR VOLUME (BEAKER) (test rqph=622) 91.3 fL 79.0-92.2 MEAN CORPUSCULAR HEMOGLOBIN (BEAKER) (test 30.3 pg 25.7-32.2 mwek=823) MEAN CORPUSCULAR HEMOGLOBIN CONC (BEAKER) (test 33.2 GM/DL 32.3-36.5 lofv=361) RED CELL DISTRIBUTION WIDTH (BEAKER) (test 13.5 % 11.6-14.4 huey=339) PLATELET COUNT (BEAKER) (test hpeq=728) 205 K/CU MM 150-450 MEAN PLATELET VOLUME (BEAKER) (test fcez=675) 9.9 fL 9.4-12.4 NUCLEATED RED BLOOD CELLS (BEAKER) (test 0 /100 WBC 0-0 xpkh=659) NEUTROPHILS RELATIVE PERCENT (BEAKER) (test 58 % vtax=210) LYMPHOCYTES RELATIVE PERCENT (BEAKER) (test 33 % pjtd=737) MONOCYTES RELATIVE PERCENT (BEAKER) (test 6 % brft=874) EOSINOPHILS RELATIVE PERCENT (BEAKER) (test 2 % qccg=265) BASOPHILS RELATIVE PERCENT (BEAKER) (test 1 % ipam=866) NEUTROPHILS ABSOLUTE COUNT (BEAKER) (test 5.19 K/ L 1.78-5.38 kksm=684) LYMPHOCYTES ABSOLUTE COUNT (BEAKER) (test 3.00 K/ L 1.32-3.57 leyq=361) MONOCYTES ABSOLUTE COUNT (BEAKER) (test 0.54 K/ L 0.30-0.82 gpfg=421) EOSINOPHILS ABSOLUTE COUNT (BEAKER) (test 0.17 K/ L 0.04-0.54 okfm=560) BASOPHILS ABSOLUTE COUNT (BEAKER) (test 0.05 K/ L 0.01-0.08 zzyd=923) IMMATURE GRANULOCYTES-RELATIVE PERCENT (BEAKER) 0 % 0-1 (test gppd=1133) AFB CULTURE + [id number] 08:57:00 Test Item Value Reference Range Comments CULTURE (BEAKER) (test No acid-fast bacilli isolated mufk=4086) in 42 days AFB SMEAR (BEAKER) (test No acid fast bacilli seen iuhq=248) FUNGUS CULTURE + [id number] 07:23:00 Test Item Value Reference Range Comments CULTURE (BEAKER) (test No fungus isolated in 28 days fhmt=3855) FUNGUS SMEAR (BEAKER) (test No fungi seen vbxb=9682) FLOW CYTOMETRY [id number] 15:21:00 Test Item Value Reference Range Comments FLOW CYTOMETRY RESULT POINTER (BEAKER) See Separate Report (test acmi=4790) FLOW CYTOMETRY AP CASE # (BEAKER) (test [id number] zkqn=1511) TISSUE [id number] 10:11:00Surgical Pathology Report Case: [id number] Authorizing Provider: Terrance Modi MD Collected: 03/28/2017 1215 Ordering Location: [facility] PERIOPER[facility]IVE Received: 2016 1221 SERVICES Pathologist: [...] features of primary demyelination are also absent. 20251a2; 88626y0; 09840; 18648; 88890; 87710 x4Left craniotomy, brain tumorA. Tumor, left frontal tumorPart A. The specimen is received fresh for frozen labeled with the patient 's name and accession number as "tumor" with description of "left frontal tumor " is a 0.6 x 0.6 x 0.3 cm aggregate of multiple fragments of mustafa soft tissue. _ __ squash is smear prepared. The specimen is submitted entirely in cassette [id number] A2. Part C. Received fresh for frozen [...] developed and its performance characteristics determined by [facility], Pathology Laboratory.It has not been cleared [...] perform high complexity clinical laboratory testing.BASIC METABOLIC [id number] 09:32:00 Test Item Value Reference Range Comments SODIUM (BEAKER) (test 137 meq/L 136-145 ixsk=202) POTASSIUM (BEAKER) (test 3.7 meq/L 3.5-5.1 froh=480) CHLORIDE (BEAKER) (test 103 meq/L 98-107 herg=975) CO2 (BEAKER) (test 27 meq/L 22-29 pdzm=303) BLOOD UREA NITROGEN 9 mg/dL 7-21 (BEAKER) (test fvra=231) CREATININE (BEAKER) (test 0.84 mg/dL 0.57-1.25 irzf=743) GLUCOSE RANDOM (BEAKER) 201 mg/dL 70-105 (test hudo=842) CALCIUM (BEAKER) (test 8.6 mg/dL 8.4-10.2 hylf=897) EGFR (BEAKER) (test mL/min/1.73 sq m INSUFFICIENT CLINICAL DATA jxqq=7259) TO CALCULATE ESTIMATED GFR. CBC W/PLT COUNT & AUTO [id number] 09:09:00 Test Item Value Reference Range Comments WHITE BLOOD CELL COUNT (BEAKER) (test gbny=681) 11.2 K/ L 4.0-10.0 RED BLOOD CELL COUNT (BEAKER) (test fagy=300) 4.23 M/ L 4.20-5.80 HEMOGLOBIN (BEAKER) (test nora=112) 13.8 GM/DL 13.0-16.8 HEMATOCRIT (BEAKER) (test drvy=157) 39.2 % 40.0-50.0 MEAN CORPUSCULAR VOLUME (BEAKER) (test nqvj=093) 92.8 fL 82.0-98.0 MEAN CORPUSCULAR HEMOGLOBIN (BEAKER) (test 32.8 pg 27.0-33.0 pojk=796) MEAN CORPUSCULAR HEMOGLOBIN CONC (BEAKER) (test 35.3 GM/DL 32.0-36.0 sgpp=336) RED CELL DISTRIBUTION WIDTH (BEAKER) (test 12.0 % 10.3-14.2 mknu=744) PLATELET COUNT (BEAKER) (test cisl=828) 163 K/CU MM 150-430 MEAN PLATELET VOLUME (BEAKER) (test xtiz=225) 7.5 fL 6.5-10.5 NUCLEATED RED BLOOD CELLS (BEAKER) (test 0 /100 WBC 0-0 acgp=326) NEUTROPHILS RELATIVE PERCENT (BEAKER) (test 69 % numu=001) LYMPHOCYTES RELATIVE PERCENT (BEAKER) (test 23 % ndve=298) MONOCYTES RELATIVE PERCENT (BEAKER) (test 6 % lozx=255) EOSINOPHILS RELATIVE PERCENT (BEAKER) (test 2 % bosl=585) BASOPHILS RELATIVE PERCENT (BEAKER) (test 0 % utfh=752) NEUTROPHILS ABSOLUTE COUNT (BEAKER) (test 7.70 K/ L 1.80-8.00 xssq=822) LYMPHOCYTES ABSOLUTE COUNT (BEAKER) (test 2.63 K/ L 1.48-4.50 zkmx=379) MONOCYTES ABSOLUTE COUNT (BEAKER) (test 0.70 K/ L 0.00-1.30 fowy=358) EOSINOPHILS ABSOLUTE COUNT (BEAKER) (test 0.20 K/ L 0.00-0.50 mrzg=120) BASOPHILS ABSOLUTE COUNT (BEAKER) (test 0.02 K/ L 0.00-0.20 bdws=717) 0.00BASI METABOLIC [id number] 03:22:00 Test Item Value Reference Range Comments SODIUM (BEAKER) (test 138 meq/L 136-145 qblf=706) POTASSIUM (BEAKER) (test 4.3 meq/L 3.5-5.1 tgxj=581) CHLORIDE (BEAKER) (test 106 meq/L 98-107 gbua=122) CO2 (BEAKER) (test 22 meq/L 22-29 grvl=224) BLOOD UREA NITROGEN 9 mg/dL 7-21 (BEAKER) (test kvry=566) CREATININE (BEAKER) (test 0.82 mg/dL 0.57-1.25 zgtg=325) GLUCOSE RANDOM (BEAKER) 148 mg/dL 70-105 (test jiwn=383) CALCIUM (BEAKER) (test 8.4 mg/dL 8.4-10.2 osnl=555) EGFR (BEAKER) (test mL/min/1.73 sq m INSUFFICIENT CLINICAL DATA gqmf=4513) TO CALCULATE ESTIMATED GFR. [id number] 03:20:00 Test Item Value Reference Range Comments PHOSPHORUS (BEAKER) (test ycup=852) 3.5 mg/dL 2.3-4.7 [id number] 03:20:00 Test Item Value Reference Range Comments MAGNESIUM (BEAKER) (test mlsw=016) 1.9 mg/dL 1.6-2.6 CBC (HEMOGRAM ONLY)2017-03-29 03:09:00 Test Item Value Reference Range Comments WHITE BLOOD CELL COUNT (BEAKER) (test zdyj=703) 19.6 K/ L 4.0-10.0 RED BLOOD CELL COUNT (BEAKER) (test txcg=650) 4.54 M/ L 4.20-5.80 HEMOGLOBIN (BEAKER) (test xnrf=944) 14.1 GM/DL 13.0-16.8 HEMATOCRIT (BEAKER) (test wpuz=223) 41.4 % 40.0-50.0 MEAN CORPUSCULAR VOLUME (BEAKER) (test uwsm=783) 91.2 fL 82.0-98.0 MEAN CORPUSCULAR HEMOGLOBIN (BEAKER) (test 31.0 pg 27.0-33.0 woiq=261) MEAN CORPUSCULAR HEMOGLOBIN CONC (BEAKER) (test 34.0 GM/DL 32.0-36.0 xnmr=900) RED CELL DISTRIBUTION WIDTH (BEAKER) (test 13.6 % 10.3-14.2 hhvt=426) PLATELET COUNT (BEAKER) (test bfxl=136) 193 K/CU MM 150-430 MEAN PLATELET VOLUME (BEAKER) (test snch=770) 7.3 fL 6.5-10.5 NUCLEATED RED BLOOD CELLS (BEAKER) (test 0 /100 WBC 0-0 ixfp=457) 0.00MYCOBACTERIUM TB PCR [id number] 14:38:00 Test Item Value Reference Range Comments MYCOBACTERIUM TB (test vemj=[id number]) HGB/HCT (H&H) - STAT [id number] 11:35:00 Test Item Value Reference Range Comments HEMOGLOBIN (BEAKER) (test qetm=027) 13.8 g/dL 13.0-16.8 HEMATOCRIT (BEAKER) (test pttg=040) 41.0 % 40.0-50.0 FiO2:35%, Temp: 36.7CFiO2:35%, Temp: 36.7CFiO2:35%, Temp: 36.7CFiO2:35%, Temp: 36.7CFiO2:35%, Temp: 36.7CCALCIUM, [id number] 11:35:00 Test Item Value Reference Range Comments CALCIUM IONIZED (BEAKER) (test elwl=966) 1.03 mmol/L 1.12-1.27 PH, BLOOD (BEAKER) (test bfzz=0268) 7.42 BLOOD GAS, [id number] 11:34:00 Test Item Value Reference Range Comments PH ARTERIAL (BEAKER) (test gmhm=348) 7.42 7.35-7.45 PCO2 ARTERIAL (BEAKER) (test ukee=243) 33 mmHg 35-45 PO2 ARTERIAL (BEAKER) (test vbgg=823) 74 mmHg 80-90 O2 SATURATION ARTERIAL (BEAKER) (test xtrz=879) 95.5 % 96.0-97.0 HCO3 ARTERIAL (BEAKER) (test zfum=444) 21 mmol/L 21-29 BASE EXCESS ARTERIAL (BEAKER) (test vsuy=644) -3.0 mmol/L -2.0-3.0 PATIENT TEMPERATURE (BEAKER) (test sydf=1480) 36.7 C FIO2 (BEAKER) (test szjv=5997) 35.0 % FiO2:35%, Temp: 36.7CFiO2:35%, Temp: 36.7CFiO2:35%, Temp: 36.7CFiO2:35%, Temp: 36.7CFiO2:35%, Temp: 36.7CGLUCOSE-STAT [id number] 11:33:00 Test Item Value Reference Range Comments GLUCOSE RANDOM (BEAKER) (test oiqb=588) 101 mg/dL 70-110 FiO2:35%, Temp: 36.7CFiO2:35%, Temp: 36.7CFiO2:35%, Temp: 36.7CFiO2:35%, Temp: 36.7CFiO2:35%, Temp: 36.7CSODIUM NA-STAT [id number] 11:33:00 Test Item Value Reference Range Comments SODIUM (BEAKER) (test nive=083) 136 meq/L 135-148 FiO2:35%, Temp: 36.7CFiO2:35%, Temp: 36.7CFiO2:35%, Temp: 36.7CFiO2:35%, Temp: 36.7CFiO2:35%, Temp: 36.7CPOTASSIUM-STAT [id number] 11:33:00 Test Item Value Reference Range Comments POTASSIUM (BEAKER) (test ezja=733) 3.8 meq/L 3.6-5.5 FiO2:35%, Temp: 36.7CFiO2:35%, Temp: 36.7CFiO2:35%, Temp: 36.7CFiO2:35%, Temp: 36.7CFiO2:35%, Temp: 36.7CURINALYSIS W/ [id number] 08:37:00 Test Item Value Reference Range Comments COLOR (BEAKER) (test rhde=150) Yellow CLARITY (BEAKER) (test nuxg=740) Clear SPECIFIC GRAVITY UA (BEAKER) (test lgmo=376) 1.023 1.001-1.035 PH UA (BEAKER) (test scmk=735) 6.0 5.0-8.0 PROTEIN UA (BEAKER) (test hgfz=617) 10 mg/dL Negative GLUCOSE UA (BEAKER) (test lidy=627) Negative Negative KETONES UA (BEAKER) (test sfvv=431) Negative Negative BILIRUBIN UA (BEAKER) (test kiat=622) Negative Negative BLOOD UA (BEAKER) (test jozs=553) Negative Negative NITRITE UA (BEAKER) (test nwii=442) Negative Negative LEUKOCYTE ESTERASE UA (BEAKER) (test toxu=600) Negative Negative UROBILINOGEN UA (BEAKER) (test bdhc=742) 0.2 mg/dL 0.2-1.0 RBC UA (BEAKER) (test uwib=402) 1 /HPF WBC UA (BEAKER) (test puqg=789) 1 /HPF MUCUS (BEAKER) (test acuk=3017) Rare SQUAMOUS EPITHELIAL (BEAKER) (test cgqz=898) 1 /HPF SOURCE(BEAKER) (test ffld=2757) Urine, Voided FLOW [id number] 14:12:00Flow Cytometry Report Case: [id number] Authorizing Provider: Ayanna Christine MD Collected: 03/18/2017 1428 Ordering Location: [address] Received: 2016 0822 Service Pathologist: Dalia Roper MD Specimen: Other CEREBROSPINAL FLUID,FLOW CYTOMETRY:- NON-DIAGNOSTIC DUE TO LOW CELLULARITY AND NON-SPECIFIC ANTIBODY STAINING Please correlate with morphologic and clinical findings. 65310Gyezk massCerebrospinal fluidCD2, CD3, CD4, CD5, CD7, CD8, CD10, CD11c, CD19, CD20, CD23, CD34, CD38, CD45, CD56, [place], LambdaFlow cytometric evaluation is limitedby low cellularity and non- specific antibody staining.These tests were developed and their performance characteristics determined by [facility]. They have not been cleared or approved by the U.S. Foodand Drug Administration. The FDA has determined that such clearance or approval is not necessary. Itshould not be regarded as investigational or for research. This laboratory is certified under the Clinical Laboratory Improvement Amendments of 1988 ("CLIA") as qualified to perform high-complexity clinical testing.CSF CULTURE + GRAM [id number] 09: 13:00 Test Item Value Reference Range Comments CULTURE (BEAKER) (test yejz=7614) No growth GRAM STAIN RESULT (BEAKER) (test No WBCs chaq=4066) GRAM STAIN RESULT (BEAKER) (test No organisms seen wwyk=79518) HSV 1/2 PCR, [id number] 17:52:00 Test Item Value Reference Range Comments HSV BY PCR (BEAKER) (test tewi=840) NEGATIVE NEGATIVE Herpes Simplex Virus (HSV) not [...] and its performance characteristics determined by the [facility] Pathology Department, Section of Molecular Pathology. It has not been cleared or approved by the U.S. Food and Drug Administration (FDA), as FDA approval is not required for clinical use of the test. Validation was done as required by the Clinical Laboratory Amendments of 1988.[id number] 14:15:00Medical Cytology Report Case: [id number] Authorizing Provider: Ayanna Christine MD Collected: 03/18/2017 1302 Ordering Location: [address] Received: 03/20/2017 0905 Service Pathologist: Alysha Giraldo MD Specimen: CSF , tube 4 CEREBROSPINAL FLUID (CYTOSPINS): - NO MALIGNANT CELLS IDENTIFIED; - ESSENTIALLY ACELLULAR SAMPLE Signing Pathologist Direct Phone Line: [phone] massCEREBROSPINAL FLUID (CYTOSPINS)2 cytospinsCollected: [id number]: [id number] [facility], Department of Pathology, [address] [place] [address], [facility], [address] [place] [address], LNKS-GLUCOSE [id number] 18:01:00 Test Item Value Reference Range Comments POC-GLUCOSE METER (BEAKER) 108 mg/dL 70-110 [address]7644) [facility] [address] POCT-GLUCOSE [id number] 12:24:00 Test Item Value Reference Range Comments POC-GLUCOSE METER (BEAKER) 129 mg/dL 70-110 TESTED AT [facility] [address] [facility] (test jnta=9385) [facility] [address] CBC W/PLT COUNT & AUTO [id number] 10:53:00 Test Item Value Reference Range Comments WHITE BLOOD CELL COUNT (BEAKER) (test smgh=299) 9.0 K/ L 4.0-10.0 RED BLOOD CELL COUNT (BEAKER) (test zkpj=418) 4.89 M/ L 4.20-5.80 HEMOGLOBIN (BEAKER) (test uxwd=587) 15.2 GM/DL 13.0-16.8 HEMATOCRIT (BEAKER) (test gbfg=826) 45.0 % 40.0-50.0 MEAN CORPUSCULAR VOLUME (BEAKER) (test sfej=904) 91.9 fL 82.0-98.0 MEAN CORPUSCULAR HEMOGLOBIN (BEAKER) (test 31.0 pg 27.0-33.0 ocpz=150) MEAN CORPUSCULAR HEMOGLOBIN CONC (BEAKER) (test 33.8 GM/DL 32.0-36.0 ovvr=724) RED CELL DISTRIBUTION WIDTH (BEAKER) (test 12.1 % 10.3-14.2 vakh=228) PLATELET COUNT (BEAKER) (test oiwh=702) 172 K/CU MM 150-430 MEAN PLATELET VOLUME (BEAKER) (test exbm=315) 7.5 fL 6.5-10.5 NUCLEATED RED BLOOD CELLS (BEAKER) (test 0 /100 WBC 0-0 qlcu=621) NEUTROPHILS RELATIVE PERCENT (BEAKER) (test 46 % ebcd=209) LYMPHOCYTES RELATIVE PERCENT (BEAKER) (test 43 % oknd=642) MONOCYTES RELATIVE PERCENT (BEAKER) (test 7 % ryrv=441) EOSINOPHILS RELATIVE PERCENT (BEAKER) (test 3 % alup=378) BASOPHILS RELATIVE PERCENT (BEAKER) (test 0 % gnce=730) NEUTROPHILS ABSOLUTE COUNT (BEAKER) (test 4.15 K/ L 1.80-8.00 enfq=347) LYMPHOCYTES ABSOLUTE COUNT (BEAKER) (test 3.86 K/ L 1.48-4.50 ggfs=013) MONOCYTES ABSOLUTE COUNT (BEAKER) (test 0.63 K/ L 0.00-1.30 jqhb=913) EOSINOPHILS ABSOLUTE COUNT (BEAKER) (test 0.31 K/ L 0.00-0.50 dvgu=143) BASOPHILS ABSOLUTE COUNT (BEAKER) (test 0.04 K/ L 0.00-0.20 kpqm=889) 0.00(MANUAL DIFFERENTIAL)2017-03-19 10:53:00 Test Item Value Reference Range Comments TOTAL COUNTED (BEAKER) (test kbpw=6023) POCT-GLUCOSE [id number] 08:15:00 Test Item Value Reference Range Comments POC-GLUCOSE METER (BEAKER) 110 mg/dL 70-110 TESTED AT [address] (test lqdg=4009) [facility] [address] BASIC METABOLIC [id number] 06:38:00 Test Item Value Reference Range Comments SODIUM (BEAKER) (test 140 meq/L 136-145 bryr=228) POTASSIUM (BEAKER) (test 3.8 meq/L 3.5-5.1 btif=287) CHLORIDE (BEAKER) (test 106 meq/L 98-107 twvf=553) CO2 (BEAKER) (test 23 meq/L 22-29 ptnn=426) BLOOD UREA NITROGEN 10 mg/dL 7-21 (BEAKER) (test olqc=559) CREATININE (BEAKER) (test 0.94 mg/dL 0.57-1.25 yanq=094) GLUCOSE RANDOM (BEAKER) 106 mg/dL 70-105 (test oxny=636) CALCIUM (BEAKER) (test 8.4 mg/dL 8.4-10.2 tocg=152) EGFR (BEAKER) (test mL/min/1.73 sq m INSUFFICIENT CLINICAL DATA iuhf=0783) TO CALCULATE ESTIMATED GFR. HIV-1 ANTIGEN WITH HIV-1/2 [id number] 06:37:00 Test Item Value Reference Range Comments HIV-1 ANTIGEN WITH HIV 1\\T\\2 ANTIBODY (2) Nonreactive Nonreactive (BEAKER) (test qxwq=0445) POCT-GLUCOSE [id number] 22:04:00 Test Item Value Reference Range Comments POC-GLUCOSE METER (BEAKER) 77 mg/dL 70-110 TESTED AT [address] (test zzyx=4448) [facility] [address] CSF CELL COUNT [id number] 16:31:00 Test Item Value Reference Range Comments APPEARANCE CSF (BEAKER) (test icmu=944) Clear Clear COLOR CSF (BEAKER) (test mgmc=335) Colorless Colorless RBC CSF (BEAKER) (test ryyn=831) 2 /cu mm 0-5 WBC CSF (BEAKER) (test hurm=1198) 0 /cu mm <=5 RBCS FRESH (BEAKER) (test wiaf=5346) 100% Fresh NUMBER OF CELLS DIFF'D (BEAKER) (test jixq=0561) 0 TUBE NUMBER CSF (BEAKER) (test pbgx=9132) 3 PROTEIN, [id number] 15:25:00 Test Item Value Reference Range Comments PROTEIN CSF (BEAKER) (test lmqs=758) 60 mg/dL 15-45 GLUCOSE, [id number] 15:19:00 Test Item Value Reference Range Comments GLUCOSE CSF (BEAKER) (test jdxs=296) 53 mg/dL 40-70 MICHAEL INK [id number] 15:10:00 Test Item Value Reference Range Comments MICHAEL INK (BEAKER) No encapsulated yeast seen No encapsulated yeast seen (test rpuu=7922) POCT-GLUCOSE [id number] 07:47:00 Test Item Value Reference Range Comments POC-GLUCOSE METER (BEAKER) 97 mg/dL 70-110 TESTED AT [facility] [address] [facility] [address] (test ndnt=6359) [facility] [address] CBC W/PLT COUNT & AUTO [id number] 06:05:00 Test Item Value Reference Range Comments WHITE BLOOD CELL COUNT (BEAKER) (test hvlw=695) 10.3 K/ L 4.0-10.0 RED BLOOD CELL COUNT (BEAKER) (test jmgo=874) 4.96 M/ L 4.20-5.80 HEMOGLOBIN (BEAKER) (test lfcm=113) 14.6 GM/DL 13.0-16.8 HEMATOCRIT (BEAKER) (test msbx=963) 46.1 % 40.0-50.0 MEAN CORPUSCULAR VOLUME (BEAKER) (test cgop=612) 92.9 fL 82.0-98.0 MEAN CORPUSCULAR HEMOGLOBIN (BEAKER) (test 29.4 pg 27.0-33.0 kcyt=590) MEAN CORPUSCULAR HEMOGLOBIN CONC (BEAKER) (test 31.7 GM/DL 32.0-36.0 oxjq=003) RED CELL DISTRIBUTION WIDTH (BEAKER) (test 12.1 % 10.3-14.2 milt=170) PLATELET COUNT (BEAKER) (test xqhz=435) 175 K/CU MM 150-430 MEAN PLATELET VOLUME (BEAKER) (test kltf=612) 7.5 fL 6.5-10.5 NUCLEATED RED BLOOD CELLS (BEAKER) (test 0 /100 WBC 0-0 ifcd=935) NEUTROPHILS RELATIVE PERCENT (BEAKER) (test 46 % ckwm=144) LYMPHOCYTES RELATIVE PERCENT (BEAKER) (test 42 % dxze=672) MONOCYTES RELATIVE PERCENT (BEAKER) (test 8 % xthp=556) EOSINOPHILS RELATIVE PERCENT (BEAKER) (test 3 % exfj=981) BASOPHILS RELATIVE PERCENT (BEAKER) (test 1 % hakt=783) NEUTROPHILS ABSOLUTE COUNT (BEAKER) (test 4.74 K/ L 1.80-8.00 qlrl=734) LYMPHOCYTES ABSOLUTE COUNT (BEAKER) (test 4.36 K/ L 1.48-4.50 qftt=841) MONOCYTES ABSOLUTE COUNT (BEAKER) (test 0.80 K/ L 0.00-1.30 tmex=881) EOSINOPHILS ABSOLUTE COUNT (BEAKER) (test 0.33 K/ L 0.00-0.50 ezbs=847) BASOPHILS ABSOLUTE COUNT (BEAKER) (test 0.06 K/ L 0.00-0.20 midk=753) 0.00BASI METABOLIC [id number] 05:56:00 Test Item Value Reference Range Comments SODIUM (BEAKER) (test 138 meq/L 136-145 mvnx=679) POTASSIUM (BEAKER) (test 4.0 meq/L 3.5-5.1 jjec=643) CHLORIDE (BEAKER) (test 107 meq/L 98-107 cwzh=036) CO2 (BEAKER) (test 24 meq/L 22-29 bnkw=575) BLOOD UREA NITROGEN 15 mg/dL 7-21 (BEAKER) (test eugr=446) CREATININE (BEAKER) (test 0.96 mg/dL 0.57-1.25 bkun=699) GLUCOSE RANDOM (BEAKER) 94 mg/dL 70-105 (test tqvg=947) CALCIUM (BEAKER) (test 8.2 mg/dL 8.4-10.2 dule=521) EGFR (BEAKER) (test mL/min/1.73 sq m INSUFFICIENT CLINICAL DATA fisy=0160) TO CALCULATE ESTIMATED GFR. [id number] 05:01:00 Test Item Value Reference Range Comments PROTIME (BEAKER) (test hina=220) 13.7 seconds 11.7-14.7 INR (BEAKER) (test mssf=409) 1.1 <=5.9 PARTIAL THROMBOPLASTIN TIME (BEAKER) (test 27.2 seconds 22.5-36.0 jvyn=888) RECOMMENDED COUMADIN/WARFARIN INR THERAPY RANGESSTANDARD DOSE: 2.0 - 3.0 Includes: PROPHYLAXIS forvenous thrombosis, systemic embolization; TREATMENT for venous thrombosis and/or pulmonary embolus.HIGH RISK: Target INR is 2.5-3.5 for patients with mechanical heart valves.POCT-GLUCOSE [id number] 21:22:00 Test Item Value Reference Range Comments POC-GLUCOSE METER (BEAKER) 174 mg/dL 70-110 TESTED AT [address] (test iewi=5323) [facility] [address] POCT-GLUCOSE [id number] 17:05:00 Test Item Value Reference Range Comments POC-GLUCOSE METER (BEAKER) 104 mg/dL 70-110 TESTED AT [address] (test btnf=1374) [facility] [address] [id number] 12:22:00 Test Item Value Reference Range Comments PROTIME (BEAKER) (test linl=456) 15.0 seconds 11.7-14.7 INR (BEAKER) (test jmtt=666) 1.2 <=5.9 PARTIAL THROMBOPLASTIN TIME (BEAKER) (test 27.5 seconds 22.5-36.0 xxig=764) RECOMMENDED COUMADIN/WARFARIN INR THERAPY RANGESSTANDARD DOSE: 2.0 - 3.0 Includes: PROPHYLAXIS forvenous thrombosis, systemic embolization; TREATMENT for venous thrombosis and/or pulmonary embolus.HIGH RISK: Target INR is 2.5-3.5 for patients with mechanical heart valves.[id number] 12:20:00 Test Item Value Reference Range Comments MAGNESIUM (BEAKER) (test zkij=782) 1.9 mg/dL 1.6-2.6 POCT-GLUCOSE [id number] 11:34:00 Test Item Value Reference Range Comments POC-GLUCOSE METER (BEAKER) 90 mg/dL 70-110 TESTED AT [address] (test kunm=5943) [facility] [address] POCT-GLUCOSE [id number] 07:35:00 Test Item Value Reference Range Comments POC-GLUCOSE METER (BEAKER) 105 mg/dL 70-110 TESTED AT [address] (test cehk=4341) [facility] [address] CBC W/PLT COUNT & AUTO [id number] 07:01:00 Test Item Value Reference Range Comments WHITE BLOOD CELL COUNT (BEAKER) (test bihr=036) 12.6 K/ L 4.0-10.0 RED BLOOD CELL COUNT (BEAKER) (test rnwg=988) 5.10 M/ L 4.20-5.80 HEMOGLOBIN (BEAKER) (test uxme=127) 15.4 GM/DL 13.0-16.8 HEMATOCRIT (BEAKER) (test ancy=326) 47.2 % 40.0-50.0 MEAN CORPUSCULAR VOLUME (BEAKER) (test zfto=798) 92.4 fL 82.0-98.0 MEAN CORPUSCULAR HEMOGLOBIN (BEAKER) (test 30.2 pg 27.0-33.0 ilph=817) MEAN CORPUSCULAR HEMOGLOBIN CONC (BEAKER) (test 32.7 GM/DL 32.0-36.0 vsoi=945) RED CELL DISTRIBUTION WIDTH (BEAKER) (test 12.2 % 10.3-14.2 kiui=468) PLATELET COUNT (BEAKER) (test tmff=331) 162 K/CU MM 150-430 MEAN PLATELET VOLUME (BEAKER) (test qeac=397) 8.6 fL 6.5-10.5 NUCLEATED RED BLOOD CELLS (BEAKER) (test 0 /100 WBC 0-0 fdon=900) NEUTROPHILS RELATIVE PERCENT (BEAKER) (test 54 % fqxr=739) LYMPHOCYTES RELATIVE PERCENT (BEAKER) (test 38 % qcdp=990) MONOCYTES RELATIVE PERCENT (BEAKER) (test 6 % xnvh=011) EOSINOPHILS RELATIVE PERCENT (BEAKER) (test 1 % kodo=206) BASOPHILS RELATIVE PERCENT (BEAKER) (test 1 % ugpc=854) NEUTROPHILS ABSOLUTE COUNT (BEAKER) (test 6.80 K/ L 1.80-8.00 gitp=338) LYMPHOCYTES ABSOLUTE COUNT (BEAKER) (test 4.76 K/ L 1.48-4.50 frpo=216) MONOCYTES ABSOLUTE COUNT (BEAKER) (test 0.79 K/ L 0.00-1.30 veru=445) EOSINOPHILS ABSOLUTE COUNT (BEAKER) (test 0.17 K/ L 0.00-0.50 qnuj=200) BASOPHILS ABSOLUTE COUNT (BEAKER) (test 0.09 K/ L 0.00-0.20 jbbd=611) 0.00BASIC METABOLIC [id number] 06:11:00 Test Item Value Reference Range Comments SODIUM (BEAKER) (test 138 meq/L 136-145 svfu=672) POTASSIUM (BEAKER) (test 4.3 meq/L 3.5-5.1 Specimen slightly rdnu=744) hemolyzed CHLORIDE (BEAKER) (test 108 meq/L 98-107 xsjn=005) CO2 (BEAKER) (test 19 meq/L 22-29 ohvq=702) BLOOD UREA NITROGEN 13 mg/dL 7-21 (BEAKER) (test zcbv=801) CREATININE (BEAKER) (test 0.88 mg/dL 0.57-1.25 Specimen slightly upek=186) hemolyzed GLUCOSE RANDOM (BEAKER) 93 mg/dL 70-105 (test ilto=490) CALCIUM (BEAKER) (test 8.4 mg/dL 8.4-10.2 teof=802) EGFR (BEAKER) (test mL/min/1.73 sq m INSUFFICIENT CLINICAL DATA sgyq=6266) TO CALCULATE ESTIMATED GFR. HEPATIC FUNCTION [id number] 06:10:00 Test Item Value Reference Range Comments TOTAL PROTEIN (BEAKER) (test 6.7 gm/dL 6.0-8.3 Specimen slightly hemolyzed glcp=348) ALBUMIN (BEAKER) (test 3.3 g/dL 3.5-5.0 Specimen slightly hemolyzed fuge=9675) BILIRUBIN TOTAL (BEAKER) (test 0.2 mg/dL 0.2-1.2 Specimen slightly hemolyzed penx=217) BILIRUBIN DIRECT (BEAKER) (test 0.1 mg/dL 0.1-0.5 Specimen slightly hemolyzed xpvf=091) ALKALINE PHOSPHATASE (BEAKER) 71 U/L 40-150 (test ckpu=764) AST (SGOT) (BEAKER) (test 54 U/L 5-34 Specimen slightly hemolyzed atzl=165) ALT (SGPT) (BEAKER) (test 84 U/L 6-55 Specimen slightly hemolyzed avoh=516) POCT-GLUCOSE [id number] 21:29:00 Test Item Value Reference Range Comments POC-GLUCOSE METER (BEAKER) 238 mg/dL 70-110 TESTED AT [address] (test ivdy=6920) [place] [address] CREATINE KINASE (CK)2017-03-16 19:00:00 Test Item Value Reference Range Comments CREATINE KINASE TOTAL (BEAKER) (test cvhh=748) 212 U/L 29-200 POCT-GLUCOSE [id number] 17:04:00 Test Item Value Reference Range Comments POC-GLUCOSE METER (AKER) 88 mg/dL 70-110 TESTED AT [address] (test tbvp=5225) [place] [address] POCT-GLUCOSE [id number] 11:53:00 Test Item Value Reference Range Comments POC-GLUCOSE METER (BEAKER) 119 mg/dL 70-110 TESTED AT [address] (test ogtr=2126) [place] [address] POCT-GLUCOSE [id number] 07:32:00 Test Item Value Reference Range Comments POC-GLUCOSE METER (BEAKER) 142 mg/dL 70-110 TESTED AT [address] (test lqzq=8065) [place] [address] CBC W/PLT COUNT & AUTO [id number] 06:33:00 Test Item Value Reference Range Comments WHITE BLOOD CELL COUNT (BEAKER) (test frcz=659) 12.2 K/ L 4.0-10.0 RED BLOOD CELL COUNT (BEAKER) (test kevy=489) 5.24 M/ L 4.20-5.80 HEMOGLOBIN (BEAKER) (test lddb=500) 15.6 GM/DL 13.0-16.8 HEMATOCRIT (BEAKER) (test vmkg=079) 48.5 % 40.0-50.0 MEAN CORPUSCULAR VOLUME (BEAKER) (test qhef=886) 92.5 fL 82.0-98.0 MEAN CORPUSCULAR HEMOGLOBIN (BEAKER) (test 29.7 pg 27.0-33.0 mnbs=830) MEAN CORPUSCULAR HEMOGLOBIN CONC (BEAKER) (test 32.1 GM/DL 32.0-36.0 ahdj=948) RED CELL DISTRIBUTION WIDTH (BEAKER) (test 13.6 % 10.3-14.2 jhoq=768) PLATELET COUNT (BEAKER) (test idnv=374) 190 K/CU MM 150-430 MEAN PLATELET VOLUME (BEAKER) (test isef=144) 7.8 fL 6.5-10.5 NUCLEATED RED BLOOD CELLS (BEAKER) (test 0 /100 WBC 0-0 dsaa=031) NEUTROPHILS RELATIVE PERCENT (BEAKER) (test 73 % hbvt=555) LYMPHOCYTES RELATIVE PERCENT (BEAKER) (test 23 % mrcq=072) MONOCYTES RELATIVE PERCENT (BEAKER) (test 3 % rhdm=229) EOSINOPHILS RELATIVE PERCENT (BEAKER) (test 0 % byik=007) BASOPHILS RELATIVE PERCENT (BEAKER) (test 0 % fxsd=383) NEUTROPHILS ABSOLUTE COUNT (BEAKER) (test 8.89 K/ L 1.80-8.00 hlut=873) LYMPHOCYTES ABSOLUTE COUNT (BEAKER) (test 2.85 K/ L 1.48-4.50 srsb=718) MONOCYTES ABSOLUTE COUNT (BEAKER) (test 0.34 K/ L 0.00-1.30 zynw=948) EOSINOPHILS ABSOLUTE COUNT (BEAKER) (test 0.03 K/ L 0.00-0.50 dlxi=873) BASOPHILS ABSOLUTE COUNT (BEAKER) (test 0.06 K/ L 0.00-0.20 tklt=111) 0.00BASI METABOLIC [id number] 06:20:00 Test Item Value Reference Range Comments SODIUM (BEAKER) (test 138 meq/L 136-145 btku=674) POTASSIUM (BEAKER) (test 4.8 meq/L 3.5-5.1 lxyx=750) CHLORIDE (BEAKER) (test 106 meq/L 98-107 fsaa=787) CO2 (BEAKER) (test 23 meq/L 22-29 oqqv=769) BLOOD UREA NITROGEN 15 mg/dL 7-21 (BEAKER) (test rtia=961) CREATININE (BEAKER) (test 0.92 mg/dL 0.57-1.25 kbmr=867) GLUCOSE RANDOM (BEAKER) 142 mg/dL 70-105 (test pnno=516) CALCIUM (BEAKER) (test 9.0 mg/dL 8.4-10.2 rlzo=504) EGFR (BEAKER) (test mL/min/1.73 sq m INSUFFICIENT CLINICAL DATA djue=2414) TO CALCULATE ESTIMATED GFR. [id number] 05:51:00 Test Item Value Reference Range Comments PROTIME (BEAKER) (test movh=023) 14.1 seconds 11.7-14.7 INR (BEAKER) (test crca=602) 1.1 <=5.9 PARTIAL THROMBOPLASTIN TIME (BEAKER) (test 27.5 seconds 22.5-36.0 gvyk=035) RECOMMENDED COUMADIN/WARFARIN INR THERAPY RANGESSTANDARD DOSE: 2.0 - 3.0 Includes: PROPHYLAXIS forvenous thrombosis, systemic embolization; TREATMENT for venous thrombosis and/or pulmonary embolus.HIGH RISK: Target INR is 2.5-3.5 for patients with mechanical heart valves.T4, [id number] 19:26:00 Test Item Value Reference Range Comments FREE T4 (BEAKER) (test gqsn=802) 0.79 ng/dL 0.70-1.48 TSH/FREE T4 IF [id number] 18:49:00 Test Item Value Reference Range Comments THYROID STIMULATING HORMONE (BEAKER) (test 14.58 uIU/mL 0.35-4.94 iugz=792) [id number] 18:11:00 Test Item Value Reference Range Comments AMMONIA (BEAKER) (test qzzk=506) 43 mol/L 18-72 POCT-GLUCOSE [id number] 17:22:00 Test Item Value Reference Range Comments POC-GLUCOSE METER (BEAKER) 118 mg/dL 70-110 TESTED AT [facility] [address] [place] [address] (test hygm=9589) [facility] [address] POCT-GLUCOSE [id number] 07:33:00 Test Item Value Reference Range Comments POC-GLUCOSE METER (BEAKER) 202 mg/dL 70-110 TESTED AT [address] (test dwpd=4585) [facility] [address] CBC (HEMOGRAM ONLY)2017-03-15 06:38:00 Test Item Value Reference Range Comments WHITE BLOOD CELL COUNT (BEAKER) (test epjn=469) 20.1 K/ L 4.0-10.0 RED BLOOD CELL COUNT (BEAKER) (test znzf=914) 5.45 M/ L 4.20-5.80 HEMOGLOBIN (BEAKER) (test jrrq=619) 15.9 GM/DL 13.0-16.8 HEMATOCRIT (BEAKER) (test vbcb=454) 50.1 % 40.0-50.0 MEAN CORPUSCULAR VOLUME (BEAKER) (test rfjl=394) 92.0 fL 82.0-98.0 MEAN CORPUSCULAR HEMOGLOBIN (BEAKER) (test 29.3 pg 27.0-33.0 owuf=729) MEAN CORPUSCULAR HEMOGLOBIN CONC (BEAKER) (test 31.8 GM/DL 32.0-36.0 yvmi=452) RED CELL DISTRIBUTION WIDTH (BEAKER) (test 12.0 % 10.3-14.2 kjen=509) PLATELET COUNT (BEAKER) (test pohr=495) 218 K/CU MM 150-430 MEAN PLATELET VOLUME (BEAKER) (test ejjx=209) 7.4 fL 6.5-10.5 NUCLEATED RED BLOOD CELLS (BEAKER) (test 0 /100 WBC 0-0 uhrb=602) 0.00BASIC METABOLIC [id number] 05:56:00 Test Item Value Reference Range Comments SODIUM (BEAKER) (test 138 meq/L 136-145 rsvf=693) POTASSIUM (BEAKER) (test 4.2 meq/L 3.5-5.1 qhgb=705) CHLORIDE (BEAKER) (test 105 meq/L 98-107 xsqr=299) CO2 (BEAKER) (test 21 meq/L 22-29 xhfq=773) BLOOD UREA NITROGEN 13 mg/dL 7-21 (BEAKER) (test wfyu=898) CREATININE (BEAKER) (test 0.85 mg/dL 0.57-1.25 fhgi=154) GLUCOSE RANDOM (BEAKER) 127 mg/dL 70-105 (test qtbf=756) CALCIUM (BEAKER) (test 9.5 mg/dL 8.4-10.2 zroo=966) EGFR (BEAKER) (test mL/min/1.73 sq m INSUFFICIENT CLINICAL DATA cjho=4983) TO CALCULATE ESTIMATED GFR. [id number] 05:48:00 Test Item Value Reference Range Comments PROTIME (BEAKER) (test fupt=849) 14.1 seconds 11.7-14.7 INR (BEAKER) (test qbjn=465) 1.1 <=5.9 PARTIAL THROMBOPLASTIN TIME (BEAKER) (test 26.1 seconds 22.5-36.0 lobq=133) RECOMMENDED COUMADIN/WARFARIN INR THERAPY RANGESSTANDARD DOSE: 2.0 - 3.0 Includes: PROPHYLAXIS forvenous thrombosis, systemic embolization; TREATMENT for venous thrombosis and/or pulmonary embolus.HIGH RISK: Target INR is 2.5-3.5 for patients with mechanical heart valves.POCT-GLUCOSE [id number] 00:03:00 Test Item Value Reference Range Comments POC-GLUCOSE METER (BEAKER) 133 mg/dL 70-110 TESTED AT [facility] [address] (test zlpu=0522) [facility] [address]
[2018-09-20] MEDS ORDERED: ONDANSETRON 4 MG/2 ML VIAL ONE (08:43)
[2018-09-20] MEDS ORDERED: MORPHINE 4 MG/ML SYR ONE (08:43)
[2018-09-20] MEDS ORDERED: NA CHLORIDE 0.9% 500 ML ONE (08:43)
[2018-09-20 08:44] LABS: Absolute Lymphocytes (CBC) 1.5 K/uL (0.7-4.9); Absolute Monocytes 0.6 K/uL (0.1-1.3); Absolute Neutrophil 4.9 K/uL (1.8-8.0); Basophils % 0.3 % (0-1.3); Eosinophils % 1.5 % (0-4.4); Hematocrit 47.7 % (39.6-49.0); Lymphocytes % 21.3 % (15.3-44.8); MPV 8.4 fL (7.6-11.3); Monocytes % 8.5 % (3.3-12.3)
--- NOTE | 2018-09-20 09:02 | RAD REPORT ---
EXAM DESCRIPTION: CT - Head Brain Wo Cont - 09/20/2018 8:41 am CLINICAL HISTORY: Headache, blurred vision, nausea, history of intracranial lesion COMPARISON: CT imaging February 2017 TECHNIQUE: Axial 5 mm thick images of the head were obtained without IV contrast. All CT scans are performed using dose optimization technique as appropriate and may include automated exposure control or mA/KV adjustment according to patient size. FINDINGS: No intracranial hemorrhage, mass, edema or shift of mid-line structures. No acute infarcti on changes seen. No abnormal extra-axial fluid collections. Ventricles are normal. Dense calcificatio ns are present along the anterior falx. Mastoid air cells and visualized portions of the paranasal sinuses are clear. No acute bony findings. Postsurgical changes are noted to the left frontal bone. Procedure performed is unknown. No encephalomalacia or brain parenchymal abnormality seen. Findings are similar to 2017. IMPRESSION: Negative non-contrast CT head examination for acute finding. No significant change from February 2017.
[2018-09-20 09:45] LABS: BUN Blood Urea Nitrogen 11 mg/dL (7-18); Bicarbonate 28 mmol/L (21-32); Glucose Level 101 mg/dL (74-106); Potassium 4.1 mmol/L (3.5-5.1); Sodium Level 140 mmol/L (136-145)
[2018-09-20] MEDS ORDERED: KETOROLAC 30 MG/ML INJ ONE (09:50)
--- NOTE | 2018-09-20 11:08 | EDPHYS ---
Physician Documentation [facility] Name: Vikram Bagley Age: 37 yrs Sex: Male : 1980 Arrival Date: 09/20/2018 Time: 07:40 Bed 14 Private MD: Manolo Velasco ED Physician Armando Leon HPI: 09/20 08:15 This 37 yrs old Male presents to ER via Ambulatory with complaints of kdr Headache, Nausea. 08:15 The patient complains of pain to the left frontal area, left side of the back of head, kdr left temporal area and left occipital area. The patient describes the headache as aching, constant, unrelenting. Onset: The symptoms/episode began/occurred yesterday. Associated signs and symptoms: Pertinent positives: nausea, Tinnitus - worse in the left ear. Severity of symptoms: At its worst the pain was moderate, severe, just prior to arrival, in the emergency department the pain is unchanged. 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 The symptoms are alleviated by nothing. the symptoms are aggravated by noise. The patient has experienced a previous episode. The patient has not recently seen a physician, Has not followed up since his surgery. Historical: - Allergies: 07:47 iodine IV; hb - Home Meds: 07:47 None [Active]; hb - PMHx: 07:47 ADD/ADHD; Anxiety; brain lesion; fatty liver; High Cholesterol; Hypertension; hb Hypothyroidism; - PSHx: 07:47 brain surgery; hb - Immunization history:: Adult Immunizations up to date. - Social history:: Smoking status: Patient/guardian denies using tobacco. - Ebola Screening: : No symptoms or risks identified at this time. ROS: 08:15 Constitutional: Negative for fever, chills, and weight loss, Eyes: Negative for injury, kdr pain, redness, and discharge, ENT: Negative for injury, pain, and discharge, Neck: Negative for injury, pain, and swelling, Cardiovascular: Negative for chest pain, palpitations, and edema, Respiratory: Negative for shortness of breath, cough, wheezing, and pleuritic chest pain, Abdomen/GI: Negative for abdominal pain, nausea, vomiting, diarrhea, and constipation, Back: Negative for injury and pain, : Negative for injury, bleeding, discharge, and swelling, MS/Extremity: Negative for injury and deformity, Skin: Negative for injury, rash, and discoloration, Psych: Negative for depression, anxiety, suicide ideation, homicidal ideation, and hallucinations, Allergy/Immunology: Negative for hives, rash, and allergies, Endocrine: Negative for neck swelling, polydipsia, polyuria, polyphagia, and marked weight changes, Hematologic/Lymphatic: Negative for swollen nodes, abnormal bleeding, and unusual bruising. 08:15 Neuro: Positive for headache, tinnitus, Negative for altered mental status, dizziness, seizure activity, speech changes, syncope, near syncope. Exam: 08:15 Constitutional: This is a well developed, well nourished patient who is awake, alert, kdr and in no acute distress. Head/Face: Normocephalic, atraumatic. Eyes: Pupils equal round and reactive to light, extra-ocular motions intact. Lids and lashes normal. Conjunctiva and sclera are non-icteric and not injected. Cornea within normal limits. Periorbital areas with no swelling, redness, or edema. Neck: Trachea midline, no thyromegaly or masses palpated, and no cervical lymphadenopathy. Supple, full range of motion without nuchal rigidity, or vertebral point tenderness. No Meningismus. Chest/axilla: Normal chest wall appearance and motion. Nontender with no deformity. No lesions are appreciated. Cardiovascular: Regular rate and rhythm with a normal S1 and S2. No gallops, murmurs, or rubs. Normal PMI, no JVD. No pulse deficits. Respiratory: Lungs have equal breath sounds bilaterally, clear to auscultation and percussion. No rales, rhonchi or wheezes noted. No increased work of breathing, no retractions or nasal flaring. Abdomen/GI: Soft, non-tender, with normal bowel sounds. No distension or tympany. No guarding or rebound. No evidence of tenderness throughout. Back: No spinal tenderness. No costovertebral tenderness. Full range of motion. Skin: Warm, dry with normal turgor. Normal color with no rashes, no lesions, and no evidence of cellulitis. MS/ Extremity: Pulses equal, no cyanosis. Neurovascular intact. Full, normal range of motion. Neuro: Awake and alert, GCS 15, oriented to person, place, time, and situation. Cranial nerves II-XII grossly intact. Motor strength 5/5 in all extremities. Sensory grossly intact. Cerebellar exam normal. Normal gait. Psych: Awake, alert, with orientation to person, place and time. Behavior, mood, and affect are within normal limits. Vital Signs: 07:45 BP 132 / 76; Pulse 64; Resp 16; Temp 97.8; Pulse Ox 96% on R/A; Pain 10/10; hb 08:45 BP 118 / 69; Pulse 53; Resp 20; Pulse Ox 96% on R/A; rb1 09:45 BP 116 / 56; Pulse 51; Resp 20; Pulse Ox 95% on R/A; Pain 7/10; rb1 11:13 BP 98 / 47; Pulse 55; Resp 18; Temp 100.1; Pulse Ox 97% ; hs1 11:17 BP 111 / 63; hs1 11:13 . hs1 11:17 BP retaken hs1 MDM: 08:15 Data reviewed: vital signs, nurses notes, lab test result(s), radiologic studies. kdr Counseling: I had a detailed discussion with the patient and/or guardian regarding: the historical points, exam findings, and any diagnostic results supporting the discharge/admit diagnosis, lab results, radiology results. 09:38 ED course: EUGENE is now a 6/10 but feels substantially better - will give Toradol and kdr re-evaluate. 11:06 ED course: The EUGENE is much better - the patient states he is ready to be discharged. kdr 11:07 Patient medically screened. kdr 09/20 08:14 Order name: CBC with Diff; Complete Time: 09:11 kdr 09/20 08:14 Order name: Chem 7 kdr 09/20 08:14 Order name: CT Head Brain wo Cont; Complete Time: 09:11 kdr Administered Medications: 08:36 Drug: morphine 4 mg Route: IVP; Site: right forearm; rb1 09:00 Follow up: Response: No adverse reaction; Pain is decreased rb1 08:36 Drug: Zofran 4 mg Route: IVP; Site: right forearm; rb1 09:00 Follow up: Response: No adverse reaction; Nausea is decreased rb1 08:36 Drug: NS 0.9% 500 ml Route: IV; Rate: bolus; Site: right forearm; rb1 09:17 Follow up: IV Status: Completed infusion rb1 09:46 Drug: TORadol 30 mg Route: IVP; Site: right forearm; rb1 10:03 Follow up: Response: No adverse reaction; Pain is decreased rb1 Disposition: 09/20/18 11:07 Discharged to Home. Impression: Headache. - Condition is Stable. - Discharge Instructions: General Headache Without Cause, [id number]. - Prescriptions for Tramadol 50 mg Oral Tablet - take 1 tablet by ORAL route every 8 hours as needed; 12 tablet. - Medication Reconciliation Form, Thank You Letter, Prescription Opioid Use form. - Follow up: Manolo Velasco MD; When: 2 - 3 days; Reason: If symptoms return, Further diagnostic work-up, Recheck today's complaints, Continuance of care, Re-evaluation by your physician. - Problem is an acute exacerbation. - Symptoms have improved. Signatures: Dispatcher [employer] EDLA Armando Leon MD MD kdr Beata Tolbert, RN RN rb1 Ayanna Moffett RN RN Corrections: (The following items were deleted from the chart) 11:24 11:07 09/20/2018 11:07 Discharged to Home. Impression: Headache. Condition is Stable. rb1 Forms are Medication Reconciliation Form, Thank You Letter, Antibiotic Education, Prescription Opioid Use. Follow up: Manolo Velasco; When: 2 - 3 days; Reason: If symptoms return, Further diagnostic work-up, Recheck today's complaints, Continuance of care, Re-evaluation by your physician. Problem is an acute exacerbation. Symptoms have improved. kdr
--- NOTE | 2018-09-20 11:08 | ER ---
Nurse's Notes [facility] Name: Vikram Bagley Age: 37 yrs Sex: Male : 1980 Arrival Date: 09/20/2018 Time: 07:40 Bed 14 Private MD: Manolo Velasco Diagnosis: Headache Presentation: 09/20 07:45 Presenting complaint: Throbbing headache, blurred vision, and nausea x 2 days. hb Transition of care: patient was not received from another setting of care. Onset of symptoms was September 19, 2018. Risk Assessment: Do you want to hurt yourself or someone else? Patient reports no desire to harm self or others. Initial Sepsis Screen: Does the patient meet any 2 criteria? No. Patient's initial sepsis screen is negative. Does the patient have a suspected source of infection? No. Patient's initial sepsis screen is negative. Care prior to arrival: None. 07:45 Method Of Arrival: Ambulatory hb 07:45 Acuity: SMITA 3 hb Triage Assessment: 07:45 Headache History: Denies prior headaches. rb1 07:45 Pain: Also complains of photophobia. rb1 Historical: - Allergies: 07:47 iodine IV; hb - Home Meds: 07:47 None [Active]; hb - PMHx: 07:47 ADD/ADHD; Anxiety; brain lesion; fatty liver; High Cholesterol; Hypertension; hb Hypothyroidism; - PSHx: 07:47 brain surgery; hb - Immunization history:: Adult Immunizations up to date. - Social history:: Smoking status: Patient/guardian denies using tobacco. - Ebola Screening: : No symptoms or risks identified at this time. Screenin:47 Abuse screen: Denies threats or abuse. Denies injuries from another. Nutritional hb screening: No deficits noted. Tuberculosis screening: No symptoms or risk factors identified. Fall Risk None identified. Assessment: 07:45 General: Appears uncomfortable, Behavior is calm, cooperative. Pain: Complains of pain rb1 in left temporal area and left frontal area Pain currently is 10 out of 10 on a pain scale. Pain began x 2 days. Neuro: Level of Consciousness is awake, alert, obeys commands, Oriented to person, place, time, situation, Reports blurred vision. Cardiovascular: Capillary refill < 3 seconds is brisk in bilateral fingers. Respiratory: Airway is patent Respiratory effort is even, unlabored, Respiratory pattern is regular, symmetrical. GI: Reports nausea. : No signs and/or symptoms were reported regarding the genitourinary system. Derm: Skin is dry, Skin is normal, Skin temperature is warm. Musculoskeletal: Range of motion: intact in all extremities. 08:41 Reassessment: pt. went to CT. rb1 09:00 Reassessment: Patient appears in no apparent distress at this time. Patient and/or rb1 family updated on plan of care and expected duration. Pain level reassessed. Patient is alert, oriented x 3, equal unlabored respirations, skin warm/dry/pink. 10:00 Reassessment: Patient appears in no apparent distress at this time. Patient and/or rb1 family updated on plan of care and expected duration. Pain level reassessed. Patient is alert, oriented x 3, equal unlabored respirations, skin warm/dry/pink. pain decreased. 11:00 Reassessment: Patient appears in no apparent distress at this time. No changes from rb1 previously documented assessment. at bedside. Vital Signs: 07:45 BP 132 / 76; Pulse 64; Resp 16; Temp 97.8; Pulse Ox 96% on R/A; Pain 10/10; hb 08:45 BP 118 / 69; Pulse 53; Resp 20; Pulse Ox 96% on R/A; rb1 09:45 BP 116 / 56; Pulse 51; Resp 20; Pulse Ox 95% on R/A; Pain 7/10; rb1 11:13 BP 98 / 47; Pulse 55; Resp 18; Temp 100.1; Pulse Ox 97% ; hs1 11:17 BP 111 / 63; hs1 11:13 . hs1 11:17 BP retaken hs1 ED Course: 07:40 Patient arrived in ED. sb2 07:41 Manolo Velasco MD is Private Physician. sb2 07:42 Beata Tolbert, ADONIS is Primary Nurse. rb1 07:43 Lea Erazo FNP-C [facility]. snw 07:43 Armando Leon MD is Attending Physician. snw 07:45 Pulse ox on. NIBP on. rb1 07:47 Triage completed. hb 07:47 Arm band placed on right wrist. hb 07:47 Patient has correct armband on for positive identification. Bed in low position. Call hb light in reach. Side rails up X 1. 07:54 Armando Leon MD is Attending Physician. kdr 08:33 Initial lab(s) drawn, by me, sent to lab. Inserted saline lock: 20 gauge in right dh3 forearm, using aseptic technique. Blood collected. 08:39 CT completed. Patient tolerated procedure well. Patient moved to CT via wheelchair. sj Patient moved back from CT. 08:40 CT Head Brain wo Cont In Process Unspecified. EDMS 11:07 Manolo Velasco MD is Referral Physician. kdr 11:23 No provider procedures requiring assistance completed. IV discontinued, intact, rb1 bleeding controlled, No redness/swelling at site. Pressure dressing applied. Administered Medications: 08:36 Drug: morphine 4 mg Route: IVP; Site: right forearm; rb1 09:00 Follow up: Response: No adverse reaction; Pain is decreased rb1 08:36 Drug: Zofran 4 mg Route: IVP; Site: right forearm; rb1 09:00 Follow up: Response: No adverse reaction; Nausea is decreased rb1 08:36 Drug: NS 0.9% 500 ml Route: IV; Rate: bolus; Site: right forearm; rb1 09:17 Follow up: IV Status: Completed infusion rb1 09:46 Drug: TORadol 30 mg Route: IVP; Site: right forearm; rb1 10:03 Follow up: Response: No adverse reaction; Pain is decreased rb1 Outcome: 11:07 Discharge ordered by . kdr 11:23 Discharged to home ambulatory, with family. rb1 11:23 Condition: stable 11:23 Discharge instructions given to patient, Instructed on discharge instructions, follow up and referral plans. medication usage, Demonstrated understanding of instructions, follow-up care, medications, Prescriptions given X 1. 11:24 Patient left the ED. rb1 Signatures: Dispatcher [employer] EDSC Armando Leon MD MD [facility] Lea Erazo, FEED AND FARM MANAGEMENT ADVISER-C FEED AND FARM MANAGEMENT ADVISER-CsnRhiannon Morton Rebecca, RN RN [facility] Ayanna Moffett RN RN Naheed Kessler 3 Naty Pimentel sb2 Sorin Rivas hs1 Corrections: (The following items were deleted from the chart) 07:49 07:45 Acuity: SMITA 4 hb hb 08:44 07:45 Neuro: Level of Consciousness is awake, alert, obeys commands, Oriented to rb1 person, place, time, situation, rb1
[2018-09-20 11:33] VITALS: TEMP 100.1; O2SAT 97
[2018-09-20 11:34] VITALS: BP 111/63
== END 2018-09-20 11:24 | disposition home or self-care (01) ==
LOC: ER 07:37
DX: R51 Headache (principal); I10 Essential (primary) hypertension; Z91.048 Other nonmedicinal substance allergy status
CPT/HCPCS: 36415; 70450; 80048; 85025; 96361; 96374; 96375; 99284; J2405

== ENCOUNTER 2019-04-08 07:21 | Emergency (ER) | payer OTHER, SELFPAY ==
--- OUTSIDE RECORDS SUMMARY | 2019-04-08 07:26 | XMS REPORT | Clinical Summary ---
:1980 Author Organization [facility] Address [address] [place] [address] Care Team Providers Name Role Phone Jamie Primary Care Provider Allergies Active Allergy Reactions Severity Noted Date Comments Gadolinium-Containing Contrast Media Hives 03/07/2017 Given at [facility] Medications No known medications Active Problems Problem Noted Date Parkinson disease 03/28/2017 Brain lesion 03/17/2017 Morbid obesity 03/17/2017 YAMIL on CPAP 03/17/2017 Fatty liver 03/17/2017 H/O: depression 03/17/2017 Headache, acute 03/15/2017 Family History Medical History Relation Name Comments [...] travel history available. Last Filed Vital Signs Not on file Plan of Treatment Not on file Implants Implanted Type [employer] Device Shelf Model / Identifier Expiration Serial / Date Lot Matrix Floseal Hemo W/O Ndl 10 [id number] - [id number] Cement/Keo Left: FRITZ: BIOSCI 08/11/2018 [id number] / Implanted: Qty: 1 on 03/28/2017 by Eduardo Castillo MD ler/Adhesi Head / ve [id number] Cvr Bur-Hl Lp-Neuro 24mm Ti Ns 421.528 - [id number] Fracture/F Left: SYNTHES: SYNTHES [id number] / Implanted: Qty: 4 on 03/28/2017 by Eduardo Castillo MD ixation Head [employer] / Scr Sd Mtrxneu 4mm Ti Ns .503.104.01 - [id number] Fracture/F Left: SYNTHES: SYNTHES [id number] / Implanted: Qty: 15 on 03/28/2017 by Eduardo Castillo MD ixation Head [employer] / Grft Dura Cllgn Duragn [id number] Id-3301 - [id number] Tissue Left: INTEGRA 07/17/2017 ID-[id number] / Implanted: Qty: 1 on 03/28/2017 by Eduardo Castillo MD Graft/Subs Head LIFESCI:NEURO / titute [id number] Results Not on fileafter 04/07/2018 Insurance Payer Benefit Plan / Subscriber ID Type Phone Address Group BLUE CROSS/BLUE BCBS PPO POS EPO xxxxxxxxxxxx PPO [phone] [address] [place] [address] [facility] HMO POS xxxxxxxxx HMO/POS [facility] SELECT CHOICE Advance Directives For more information, please contact:[address] [phone] Code Status Date Activated Date Inactivated Comments Full Code 03/28/2017 3:16 PM 03/30/2017 2:02 PM This code status was determined by: Patient Full Code 03/15/2017 2:58 AM 03/20/2017 12:50 AM This code status was determined by: Patient
--- OUTSIDE RECORDS SUMMARY | 2019-04-08 07:27 | XMS REPORT ---
:1980 [facility] Address [address] [place] [address] [address]. Torre [address] [place] [address] Care Team Providers Name Role Phone DR [...] Date/Time Type Type Clinicians Facility Department ID 2019-02-17 2019-02-17 Outpatient E [facility] 7500 13:47:00 13:47:00 2018-04-18 2018-04-18 Outpatient LORETO NOLASCO HSEACU [id number] 07:34:00 10:07:00 MARQUEZ Results Test Description Test Time Test Comments Text Results Atomic Results Result Comments XR SMITA W 2018-04-18 FluoroscopyLocation CONTRAST*HSE* 10:12:25 Code: [id number] HISTORY: Back painComments: Fluoroscopy was provided during Lumbar SMITA. Approximately fluoroscopytime was 34.4 seconds. 4 fluoroscopic spot images were taken.IMPRESSION: Fluoroscopy services provided. Please see operative report for fulldetails. RAD, CHEST, 1 VIEW, 2017-10-30 Reason for exam:->LOSS FINAL REPORT PATIENT ID: NON DEPT 19:07:00 OF CONSCIOUSNESSShould [id number] Chest one this be performed at the view AP 10/30/2017 7:07 bedside?->Yes PM CLINICAL INDICATION: LOSS OF CONSCIOUSNESS COMPARISON: None available IMPRESSION: There is atelectasis in the right lung base. The left lung is clear. Cardiomediastinal contours are within normal limits. The central pulmonary vasculature is not engorged. Signed: Sharif Faulkner Verified Date/Time: 10/30/2017 19:07:24 Reading Location: [facility] Radiology Reading Room ALYSIS W/ MICROSCOPIC 2017-10-30 18:49:00 Test Item Value Reference Range Comments COLOR (BEAKER) (test mkwy=039) Yellow CLARITY (BEAKER) (test idcz=615) Clear SPECIFIC GRAVITY UA (BEAKER) (test sgao=616) 1.014 1.001-1.035 PH UA (BEAKER) (test uepj=388) 6.5 5.0-8.0 PROTEIN UA (BEAKER) (test qbxp=184) Negative Negative GLUCOSE UA (BEAKER) (test vtpk=562) Negative Negative KETONES UA (BEAKER) (test qljs=378) Negative Negative BILIRUBIN UA (BEAKER) (test usws=683) Negative Negative BLOOD UA (BEAKER) (test rsio=823) Negative Negative NITRITE UA (BEAKER) (test rdkx=533) Negative Negative LEUKOCYTE ESTERASE UA (BEAKER) (test fdps=785) Negative Negative UROBILINOGEN UA (BEAKER) (test lqdf=033) 2.0 mg/dL 0.2-1.0 RBC UA (BEAKER) (test vbhn=497) < /HPF WBC UA (BEAKER) (test ksaa=569) < /HPF MUCUS (BEAKER) (test oyqb=6742) Rare SOURCE(BEAKER) (test oiuj=8846) Urine, Clean Catch BASIC METABOLIC [id number] 18:08:00 Test Item Value Reference Range Comments SODIUM (BEAKER) (test 141 meq/L 136-145 bohd=076) POTASSIUM (BEAKER) (test 4.1 meq/L 3.5-5.1 eazf=209) CHLORIDE (BEAKER) (test 108 meq/L 98-107 nsef=721) CO2 (BEAKER) (test 21 meq/L 22-29 ejvi=567) BLOOD UREA NITROGEN 12 mg/dL 7-21 (BEAKER) (test dajt=015) CREATININE (BEAKER) (test 0.94 mg/dL 0.57-1.25 bmbr=088) GLUCOSE RANDOM (BEAKER) 206 mg/dL 70-105 (test lajz=778) CALCIUM (BEAKER) (test 9.0 mg/dL 8.4-10.2 rnfr=949) EGFR (BEAKER) (test mL/min/1.73 sq m INSUFFICIENT CLINICAL DATA fcwk=1529) TO CALCULATE ESTIMATED GFR. [id number] 18:06:00 Test Item Value Reference Range Comments MAGNESIUM (BEAKER) (test yzaf=751) 2.0 mg/dL 1.6-2.6 [id number] 18:06:00 Test Item Value Reference Range Comments LIPASE (BEAKER) (test jbvb=987) 67 U/L 8-78 TROPONIN [id number] 18:03:00 Test Item Value Reference Range Comments TROPONIN I (BEAKER) (test jsvq=554) < ng/mL 0.00-0.03 Troponin I (TnI) levels [...] neurological disease, and persistent tachyarrhythmia.CT, BRAIN, WITHOUT [id number] 17 :52:00Reason for exam:->LOSS OF CONSCIOUSNESSWhat is [...] Verified Date/Time: 10/30/2017 17 :52:21 Reading Location: [facility] Radiology Reading Room CBC W/PLT COUNT & AUTO [id number] 17:19:00 Test Item Value Reference Range Comments WHITE BLOOD CELL COUNT (BEAKER) (test dwbw=615) 9.0 K/ L 3.5-10.5 RED BLOOD CELL COUNT (BEAKER) (test ygft=420) 5.15 M/ L 4.63-6.08 HEMOGLOBIN (BEAKER) (test fxxs=755) 15.6 GM/DL 13.7-17.5 HEMATOCRIT (BEAKER) (test mqrs=619) 47.0 % 40.1-51.0 MEAN CORPUSCULAR VOLUME (BEAKER) (test qecs=941) 91.3 fL 79.0-92.2 MEAN CORPUSCULAR HEMOGLOBIN (BEAKER) (test 30.3 pg 25.7-32.2 aany=080) MEAN CORPUSCULAR HEMOGLOBIN CONC (BEAKER) (test 33.2 GM/DL 32.3-36.5 ryyo=914) RED CELL DISTRIBUTION WIDTH (BEAKER) (test 13.5 % 11.6-14.4 uweb=164) PLATELET COUNT (BEAKER) (test eash=344) 205 K/CU MM 150-450 MEAN PLATELET VOLUME (BEAKER) (test gsmf=505) 9.9 fL 9.4-12.4 NUCLEATED RED BLOOD CELLS (BEAKER) (test 0 /100 WBC 0-0 wptf=542) NEUTROPHILS RELATIVE PERCENT (BEAKER) (test 58 % erpe=875) LYMPHOCYTES RELATIVE PERCENT (BEAKER) (test 33 % uqqp=523) MONOCYTES RELATIVE PERCENT (BEAKER) (test 6 % qpzn=083) EOSINOPHILS RELATIVE PERCENT (BEAKER) (test 2 % fipe=306) BASOPHILS RELATIVE PERCENT (BEAKER) (test 1 % uscv=232) NEUTROPHILS ABSOLUTE COUNT (BEAKER) (test 5.19 K/ L 1.78-5.38 imbp=662) LYMPHOCYTES ABSOLUTE COUNT (BEAKER) (test 3.00 K/ L 1.32-3.57 gokg=984) MONOCYTES ABSOLUTE COUNT (BEAKER) (test 0.54 K/ L 0.30-0.82 lnwp=432) EOSINOPHILS ABSOLUTE COUNT (BEAKER) (test 0.17 K/ L 0.04-0.54 xoju=401) BASOPHILS ABSOLUTE COUNT (BEAKER) (test 0.05 K/ L 0.01-0.08 spvt=758) IMMATURE GRANULOCYTES-RELATIVE PERCENT (BEAKER) 0 % 0-1 (test bwvn=2299) AFB CULTURE + [id number] 08:57:00 Test Item Value Reference Range Comments CULTURE (BEAKER) (test No acid-fast bacilli isolated dpgs=7948) in 42 days AFB SMEAR (BEAKER) (test No acid fast bacilli seen lysz=353) FUNGUS CULTURE + [id number] 07:23:00 Test Item Value Reference Range Comments CULTURE (BEAKER) (test No fungus isolated in 28 days lxjt=0616) FUNGUS SMEAR (BEAKER) (test No fungi seen geah=9828) FLOW CYTOMETRY [id number] 15:21:00 Test Item Value Reference Range Comments FLOW CYTOMETRY RESULT POINTER (BEAKER) See Separate Report (test yuwg=6986) FLOW CYTOMETRY AP CASE # (BEAKER) (test [id number] xuue=5583) TISSUE [id number] 10:11:00Surgical Pathology Report Case: [id number] Authorizing Provider: Terrance Modi MD Collected: 03/28/2017 1215 Ordering Location: [facility] Received: 2016 1221 SERVICES Pathologist: [...] features of primary demyelination are also absent. 37295v1; 36017h9; 56859; 67971; 69768; 34585 x4Left craniotomy, brain tumorA. Tumor, left frontal tumorPart A. The specimen is received fresh for frozen labeled with the patient 's name and accession number as "tumor" with description of "left frontal tumor " is a 0.6 x 0.6 x 0.3 cm aggregate of multiple fragments of mustafa soft tissue. _ __ squash is smear prepared. The specimen is submitted entirely in cassette CXA7ctm A2. Part C. Received fresh for frozen [...] developed and its performance characteristics determined by [facility], Pathology Laboratory.It has not been cleared or [...] perform high complexity clinical laboratory testing.BASIC METABOLIC [id number] 09:32:00 Test Item Value Reference Range Comments SODIUM (BEAKER) (test 137 meq/L 136-145 fady=819) POTASSIUM (BEAKER) (test 3.7 meq/L 3.5-5.1 nqxk=529) CHLORIDE (BEAKER) (test 103 meq/L 98-107 bjsn=865) CO2 (BEAKER) (test 27 meq/L 22-29 suwv=908) BLOOD UREA NITROGEN 9 mg/dL 7-21 (BEAKER) (test seum=114) CREATININE (BEAKER) (test 0.84 mg/dL 0.57-1.25 onrt=256) GLUCOSE RANDOM (BEAKER) 201 mg/dL 70-105 (test vspw=609) CALCIUM (BEAKER) (test 8.6 mg/dL 8.4-10.2 szen=232) EGFR (BEAKER) (test mL/min/1.73 sq m INSUFFICIENT CLINICAL DATA lqqh=7279) TO CALCULATE ESTIMATED GFR. CBC W/PLT COUNT & AUTO [id number] 09:09:00 Test Item Value Reference Range Comments WHITE BLOOD CELL COUNT (BEAKER) (test iqra=472) 11.2 K/ L 4.0-10.0 RED BLOOD CELL COUNT (BEAKER) (test yalb=783) 4.23 M/ L 4.20-5.80 HEMOGLOBIN (BEAKER) (test lmif=125) 13.8 GM/DL 13.0-16.8 HEMATOCRIT (BEAKER) (test bpsj=784) 39.2 % 40.0-50.0 MEAN CORPUSCULAR VOLUME (BEAKER) (test vojv=295) 92.8 fL 82.0-98.0 MEAN CORPUSCULAR HEMOGLOBIN (BEAKER) (test 32.8 pg 27.0-33.0 icil=289) MEAN CORPUSCULAR HEMOGLOBIN CONC (BEAKER) (test 35.3 GM/DL 32.0-36.0 zadv=983) RED CELL DISTRIBUTION WIDTH (BEAKER) (test 12.0 % 10.3-14.2 ltbj=923) PLATELET COUNT (BEAKER) (test sglr=050) 163 K/CU MM 150-430 MEAN PLATELET VOLUME (BEAKER) (test behk=111) 7.5 fL 6.5-10.5 NUCLEATED RED BLOOD CELLS (BEAKER) (test 0 /100 WBC 0-0 rrze=658) NEUTROPHILS RELATIVE PERCENT (BEAKER) (test 69 % dlim=457) LYMPHOCYTES RELATIVE PERCENT (BEAKER) (test 23 % atom=374) MONOCYTES RELATIVE PERCENT (BEAKER) (test 6 % bpnn=666) EOSINOPHILS RELATIVE PERCENT (BEAKER) (test 2 % urfv=686) BASOPHILS RELATIVE PERCENT (BEAKER) (test 0 % nrhy=649) NEUTROPHILS ABSOLUTE COUNT (BEAKER) (test 7.70 K/ L 1.80-8.00 teyp=287) LYMPHOCYTES ABSOLUTE COUNT (BEAKER) (test 2.63 K/ L 1.48-4.50 qsuj=321) MONOCYTES ABSOLUTE COUNT (BEAKER) (test 0.70 K/ L 0.00-1.30 cqcw=939) EOSINOPHILS ABSOLUTE COUNT (BEAKER) (test 0.20 K/ L 0.00-0.50 gdlh=891) BASOPHILS ABSOLUTE COUNT (BEAKER) (test 0.02 K/ L 0.00-0.20 wcsl=190) 0.00BASIC METABOLIC [id number] 03:22:00 Test Item Value Reference Range Comments SODIUM (BEAKER) (test 138 meq/L 136-145 htpr=763) POTASSIUM (BEAKER) (test 4.3 meq/L 3.5-5.1 boue=815) CHLORIDE (BEAKER) (test 106 meq/L 98-107 zsvi=257) CO2 (BEAKER) (test 22 meq/L 22-29 oqpv=907) BLOOD UREA NITROGEN 9 mg/dL 7-21 (BEAKER) (test jevr=744) CREATININE (BEAKER) (test 0.82 mg/dL 0.57-1.25 hmcg=503) GLUCOSE RANDOM (BEAKER) 148 mg/dL 70-105 (test cklv=094) CALCIUM (BEAKER) (test 8.4 mg/dL 8.4-10.2 jjvv=128) EGFR (BEAKER) (test mL/min/1.73 sq m INSUFFICIENT CLINICAL DATA xduy=4585) TO CALCULATE ESTIMATED GFR. [id number] 03:20:00 Test Item Value Reference Range Comments PHOSPHORUS (BEAKER) (test dnia=501) 3.5 mg/dL 2.3-4.7 [id number] 03:20:00 Test Item Value Reference Range Comments MAGNESIUM (BEAKER) (test hcdb=803) 1.9 mg/dL 1.6-2.6 CBC (HEMOGRAM ONLY)2017-03-29 03:09:00 Test Item Value Reference Range Comments WHITE BLOOD CELL COUNT (BEAKER) (test repu=448) 19.6 K/ L 4.0-10.0 RED BLOOD CELL COUNT (BEAKER) (test wstq=370) 4.54 M/ L 4.20-5.80 HEMOGLOBIN (BEAKER) (test xsgg=987) 14.1 GM/DL 13.0-16.8 HEMATOCRIT (BEAKER) (test fviu=440) 41.4 % 40.0-50.0 MEAN CORPUSCULAR VOLUME (BEAKER) (test sbah=005) 91.2 fL 82.0-98.0 MEAN CORPUSCULAR HEMOGLOBIN (BEAKER) (test 31.0 pg 27.0-33.0 zhko=873) MEAN CORPUSCULAR HEMOGLOBIN CONC (BEAKER) (test 34.0 GM/DL 32.0-36.0 dbar=322) RED CELL DISTRIBUTION WIDTH (BEAKER) (test 13.6 % 10.3-14.2 mufx=076) PLATELET COUNT (BEAKER) (test awrz=698) 193 K/CU MM 150-430 MEAN PLATELET VOLUME (BEAKER) (test jjob=915) 7.3 fL 6.5-10.5 NUCLEATED RED BLOOD CELLS (BEAKER) (test 0 /100 WBC 0-0 tmvu=211) 0.00MYCOBACTERIUM TB PCR [id number] 14:38:00 Test Item Value Reference Range Comments MYCOBACTERIUM TB (test zasl=[id number]) HGB/HCT (H&H) - STAT [id number] 11:35:00 Test Item Value Reference Range Comments HEMOGLOBIN (BEAKER) (test xftj=933) 13.8 g/dL 13.0-16.8 HEMATOCRIT (BEAKER) (test cpob=194) 41.0 % 40.0-50.0 FiO2:35%, Temp: 36.7CFiO2:35%, Temp: 36.7CFiO2:35%, Temp: 36.7CFiO2:35%, Temp: 36.7CFiO2:35%, Temp: 36.7CCALCIUM, [id number] 11:35:00 Test Item Value Reference Range Comments CALCIUM IONIZED (BEAKER) (test imzx=841) 1.03 mmol/L 1.12-1.27 PH, BLOOD (BEAKER) (test rauw=9331) 7.42 BLOOD GAS, [id number] 11:34:00 Test Item Value Reference Range Comments PH ARTERIAL (BEAKER) (test hmwm=042) 7.42 7.35-7.45 PCO2 ARTERIAL (BEAKER) (test cntp=415) 33 mmHg 35-45 PO2 ARTERIAL (BEAKER) (test mtel=184) 74 mmHg 80-90 O2 SATURATION ARTERIAL (BEAKER) (test wsrs=490) 95.5 % 96.0-97.0 HCO3 ARTERIAL (BEAKER) (test eizi=437) 21 mmol/L 21-29 BASE EXCESS ARTERIAL (BEAKER) (test rjuh=351) -3.0 mmol/L -2.0-3.0 PATIENT TEMPERATURE (BEAKER) (test pcte=5720) 36.7 C FIO2 (BEAKER) (test zdty=6514) 35.0 % FiO2:35%, Temp: 36.7CFiO2:35%, Temp: 36.7CFiO2:35%, Temp: 36.7CFiO2:35%, Temp: 36.7CFiO2:35%, Temp: 36.7CGLUCOSE-STAT [id number] 11:33:00 Test Item Value Reference Range Comments GLUCOSE RANDOM (BEAKER) (test btwh=109) 101 mg/dL 70-110 FiO2:35%, Temp: 36.7CFiO2:35%, Temp: 36.7CFiO2:35%, Temp: 36.7CFiO2:35%, Temp: 36.7CFiO2:35%, Temp: 36.7CSODIUM NA-STAT [id number] 11:33:00 Test Item Value Reference Range Comments SODIUM (BEAKER) (test elsi=846) 136 meq/L 135-148 FiO2:35%, Temp: 36.7CFiO2:35%, Temp: 36.7CFiO2:35%, Temp: 36.7CFiO2:35%, Temp: 36.7CFiO2:35%, Temp: 36.7CPOTASSIUM-STAT [id number] 11:33:00 Test Item Value Reference Range Comments POTASSIUM (BEAKER) (test rilg=504) 3.8 meq/L 3.6-5.5 FiO2:35%, Temp: 36.7CFiO2:35%, Temp: 36.7CFiO2:35%, Temp: 36.7CFiO2:35%, Temp: 36.7CFiO2:35%, Temp: 36.7CURINALYSIS W/ [id number] 08:37:00 Test Item Value Reference Range Comments COLOR (BEAKER) (test srbj=880) Yellow CLARITY (BEAKER) (test hksi=260) Clear SPECIFIC GRAVITY UA (BEAKER) (test pxkx=676) 1.023 1.001-1.035 PH UA (BEAKER) (test eywq=899) 6.0 5.0-8.0 PROTEIN UA (BEAKER) (test kbus=110) 10 mg/dL Negative GLUCOSE UA (BEAKER) (test btnw=392) Negative Negative KETONES UA (BEAKER) (test jras=444) Negative Negative BILIRUBIN UA (BEAKER) (test ozpz=112) Negative Negative BLOOD UA (BEAKER) (test wune=121) Negative Negative NITRITE UA (BEAKER) (test shpw=306) Negative Negative LEUKOCYTE ESTERASE UA (BEAKER) (test wswr=288) Negative Negative UROBILINOGEN UA (BEAKER) (test mlst=102) 0.2 mg/dL 0.2-1.0 RBC UA (BEAKER) (test ifmq=719) 1 /HPF WBC UA (BEAKER) (test fpll=366) 1 /HPF MUCUS (BEAKER) (test tgxd=7810) Rare SQUAMOUS EPITHELIAL (BEAKER) (test gpwi=498) 1 /HPF SOURCE(BEAKER) (test enwl=8337) Urine, Voided FLOW [id number] 14:12:00Flow Cytometry Report Case: [id number] Authorizing Provider: Ayanna Christine MD Collected: 03/18/2017 1428 Ordering Location: [address] Received: 2016 0822 Service Pathologist: Dalia Roper MD Specimen: Other CEREBROSPINAL FLUID,FLOW CYTOMETRY:- NON-DIAGNOSTIC DUE TO LOW CELLULARITY AND NON-SPECIFIC ANTIBODY STAINING Please correlate with morphologic and clinical findings. [id number] massCerebrospinal fluidCD2, CD3, CD4, CD5, CD7, CD8, CD10, CD11c, CD19, CD20, CD23, CD34, CD38, CD45, CD56, [place], LambdaFlow cytometric evaluation is limitedby low cellularity and non- specific antibody staining.These tests were developed and their performance characteristics determined by [facility]. They have not been cleared or approved by the U.S. Foodand Drug Administration. The FDA has determined that such clearance or approval is not necessary. Itshould not be regarded as investigational or for research. This laboratory is certified under the Clinical Laboratory Improvement Amendments of 1988 ("CLIA") as qualified to perform high-complexity clinical testing.CSF CULTURE + GRAM [id number] 09: 13:00 Test Item Value Reference Range Comments CULTURE (BEAKER) (test cyec=3312) No growth GRAM STAIN RESULT (BEAKER) (test No WBCs fybz=4921) GRAM STAIN RESULT ([employer]AKER) (test No organisms seen qplz=28130) HSV 1/2 PCR, [id number] 17:52:00 Test Item Value Reference Range Comments HSV BY PCR ([employer]AKER) (test cpze=759) NEGATIVE NEGATIVE Herpes Simplex Virus (HSV) not [...] and its performance characteristics determined by the [facility] Pathology Department, Section of Molecular Pathology. It has not been cleared or approved by the U.S. Food and Drug Administration (FDA), as FDA approval is not required for clinical use of the test. Validation was done as required by the Clinical Laboratory Amendments of 1988.[id number] 14:15:00Medical Cytology Report Case: [id number] Authorizing Provider: Ayanna Christine MD Collected: 03/18/2017 1302 Ordering Location: [address] Received: 03/20/2017 0905 Service Pathologist: Alysha Giraldo MD Specimen: CSF , tube 4 CEREBROSPINAL FLUID (CYTOSPINS): - NO MALIGNANT CELLS IDENTIFIED; - ESSENTIALLY ACELLULAR SAMPLE Signing Pathologist Direct Phone Line: [phone] massCEREBROSPINAL FLUID (CYTOSPINS)2 cytospinsCollected: [id number]: [id number] [facility], Department of Pathology, [address] [place] [address], [facility], [facility], [address] [place] [address], ZFVS-GLUCOSE [id number] 18:01:00 Test Item Value Reference Range Comments POC-GLUCOSE METER (BEAKER) 108 mg/dL 70-110 TESTED AT [facility] [address] [facility] (test osne=0504) [facility] [address] POCT-GLUCOSE [id number] 12:24:00 Test Item Value Reference Range Comments POC-GLUCOSE METER (BEAKER) 129 mg/dL 70-110 TESTED AT [facility] [address] [facility] (test vyxa=9389) [facility] [address] CBC W/PLT COUNT & AUTO [id number] 10:53:00 Test Item Value Reference Range Comments WHITE BLOOD CELL COUNT (BEAKER) (test krzp=855) 9.0 K/ L 4.0-10.0 RED BLOOD CELL COUNT (BEAKER) (test sdcv=196) 4.89 M/ L 4.20-5.80 HEMOGLOBIN (BEAKER) (test jhtl=682) 15.2 GM/DL 13.0-16.8 HEMATOCRIT (BEAKER) (test kwvn=934) 45.0 % 40.0-50.0 MEAN CORPUSCULAR VOLUME (BEAKER) (test mvse=498) 91.9 fL 82.0-98.0 MEAN CORPUSCULAR HEMOGLOBIN (BEAKER) (test 31.0 pg 27.0-33.0 ndak=410) MEAN CORPUSCULAR HEMOGLOBIN CONC (BEAKER) (test 33.8 GM/DL 32.0-36.0 rtgx=478) RED CELL DISTRIBUTION WIDTH (BEAKER) (test 12.1 % 10.3-14.2 lsgx=052) PLATELET COUNT (BEAKER) (test yjvo=601) 172 K/CU MM 150-430 MEAN PLATELET VOLUME (BEAKER) (test lmtu=687) 7.5 fL 6.5-10.5 NUCLEATED RED BLOOD CELLS (BEAKER) (test 0 /100 WBC 0-0 cjyn=827) NEUTROPHILS RELATIVE PERCENT (BEAKER) (test 46 % tkeh=956) LYMPHOCYTES RELATIVE PERCENT (BEAKER) (test 43 % aaaa=801) MONOCYTES RELATIVE PERCENT (BEAKER) (test 7 % qgqq=805) EOSINOPHILS RELATIVE PERCENT (BEAKER) (test 3 % scmj=942) BASOPHILS RELATIVE PERCENT (BEAKER) (test 0 % enyv=181) NEUTROPHILS ABSOLUTE COUNT (BEAKER) (test 4.15 K/ L 1.80-8.00 azfl=399) LYMPHOCYTES ABSOLUTE COUNT (BEAKER) (test 3.86 K/ L 1.48-4.50 hbin=680) MONOCYTES ABSOLUTE COUNT (BEAKER) (test 0.63 K/ L 0.00-1.30 orwk=879) EOSINOPHILS ABSOLUTE COUNT (BEAKER) (test 0.31 K/ L 0.00-0.50 rnoh=455) BASOPHILS ABSOLUTE COUNT (BEAKER) (test 0.04 K/ L 0.00-0.20 pqur=457) 0.00(MANUAL DIFFERENTIAL)2017-03-19 10:53:00 Test Item Value Reference Range Comments TOTAL COUNTED (BEAKER) (test ecgg=3719) POCT-GLUCOSE [id number] 08:15:00 Test Item Value Reference Range Comments POC-GLUCOSE METER (BEAKER) 110 mg/dL 70-110 TESTED AT [facility] [address] [facility] (test cjjs=2017) [facility] [address] BASIC METABOLIC [id number] 06:38:00 Test Item Value Reference Range Comments SODIUM (BEAKER) (test 140 meq/L 136-145 urlk=083) POTASSIUM (BEAKER) (test 3.8 meq/L 3.5-5.1 rlww=676) CHLORIDE (BEAKER) (test 106 meq/L 98-107 fmxw=242) CO2 (BEAKER) (test 23 meq/L 22-29 twas=704) BLOOD UREA NITROGEN 10 mg/dL 7-21 (BEAKER) (test jcla=973) CREATININE (BEAKER) (test 0.94 mg/dL 0.57-1.25 ywhr=327) GLUCOSE RANDOM (BEAKER) 106 mg/dL 70-105 (test bdxe=029) CALCIUM (BEAKER) (test 8.4 mg/dL 8.4-10.2 jrji=518) EGFR (BEAKER) (test mL/min/1.73 sq m INSUFFICIENT CLINICAL DATA zbct=0107) TO CALCULATE ESTIMATED GFR. HIV-1 ANTIGEN WITH HIV-1/2 [id number] 06:37:00 Test Item Value Reference Range Comments HIV-1 ANTIGEN WITH HIV 1\\T\\2 ANTIBODY (2) Nonreactive Nonreactive (BEAKER) (test tour=3829) POCT-GLUCOSE [id number] 22:04:00 Test Item Value Reference Range Comments POC-GLUCOSE METER (BEAKER) 77 mg/dL 70-110 TESTED AT [address] (test owpk=7814) [facility] [address] CSF CELL COUNT [id number] 16:31:00 Test Item Value Reference Range Comments APPEARANCE CSF (BEAKER) (test zuth=268) Clear Clear COLOR CSF (BEAKER) (test wsdj=987) Colorless Colorless RBC CSF (BEAKER) (test lumn=544) 2 /cu mm 0-5 WBC CSF (BEAKER) (test cwqi=4703) 0 /cu mm <=5 RBCS FRESH (BEAKER) (test vsrd=6983) 100% Fresh NUMBER OF CELLS DIFF'D (BEAKER) (test ygrz=8775) 0 TUBE NUMBER CSF (BEAKER) (test yrus=5683) 3 PROTEIN, [id number] 15:25:00 Test Item Value Reference Range Comments PROTEIN CSF (BEAKER) (test ozna=086) 60 mg/dL 15-45 GLUCOSE, [id number] 15:19:00 Test Item Value Reference Range Comments GLUCOSE CSF (BEAKER) (test bpwc=438) 53 mg/dL 40-70 MICHAEL INK [id number] 15:10:00 Test Item Value Reference Range Comments MICHAEL INK (BEAKER) No encapsulated yeast seen No encapsulated yeast seen (test bzdo=5424) POCT-GLUCOSE [id number] 07:47:00 Test Item Value Reference Range Comments POC-GLUCOSE METER (BEAKER) 97 mg/dL 70-110 TESTED AT [address] (test eotz=4263) [facility] [id number] CBC W/PLT COUNT & AUTO [id number] 06:05:00 Test Item Value Reference Range Comments WHITE BLOOD CELL COUNT (BEAKER) (test tzbc=077) 10.3 K/ L 4.0-10.0 RED BLOOD CELL COUNT (BEAKER) (test hemu=819) 4.96 M/ L 4.20-5.80 HEMOGLOBIN (BEAKER) (test tytv=125) 14.6 GM/DL 13.0-16.8 HEMATOCRIT (BEAKER) (test exjc=341) 46.1 % 40.0-50.0 MEAN CORPUSCULAR VOLUME (BEAKER) (test cqts=090) 92.9 fL 82.0-98.0 MEAN CORPUSCULAR HEMOGLOBIN (BEAKER) (test 29.4 pg 27.0-33.0 ijrx=225) MEAN CORPUSCULAR HEMOGLOBIN CONC (BEAKER) (test 31.7 GM/DL 32.0-36.0 dorg=800) RED CELL DISTRIBUTION WIDTH (BEAKER) (test 12.1 % 10.3-14.2 vsbm=978) PLATELET COUNT (BEAKER) (test cwxa=489) 175 K/CU MM 150-430 MEAN PLATELET VOLUME (BEAKER) (test bhcg=225) 7.5 fL 6.5-10.5 NUCLEATED RED BLOOD CELLS (BEAKER) (test 0 /100 WBC 0-0 nrcc=866) NEUTROPHILS RELATIVE PERCENT (BEAKER) (test 46 % dppq=064) LYMPHOCYTES RELATIVE PERCENT (BEAKER) (test 42 % qcii=795) MONOCYTES RELATIVE PERCENT (BEAKER) (test 8 % dzja=454) EOSINOPHILS RELATIVE PERCENT (BEAKER) (test 3 % dyio=094) BASOPHILS RELATIVE PERCENT (BEAKER) (test 1 % gpsl=382) NEUTROPHILS ABSOLUTE COUNT (BEAKER) (test 4.74 K/ L 1.80-8.00 llxp=702) LYMPHOCYTES ABSOLUTE COUNT (BEAKER) (test 4.36 K/ L 1.48-4.50 dqce=679) MONOCYTES ABSOLUTE COUNT (BEAKER) (test 0.80 K/ L 0.00-1.30 mnip=310) EOSINOPHILS ABSOLUTE COUNT (BEAKER) (test 0.33 K/ L 0.00-0.50 fzzy=279) BASOPHILS ABSOLUTE COUNT (BEAKER) (test 0.06 K/ L 0.00-0.20 dvfv=079) [facility]00[facility] [id number] 05:56:00 Test Item Value Reference Range Comments SODIUM (BEAKER) (test 138 meq/L 136-145 patl=602) POTASSIUM (BEAKER) (test 4.0 meq/L 3.5-5.1 necv=756) CHLORIDE (BEAKER) (test 107 meq/L 98-107 xrzk=510) CO2 (BEAKER) (test 24 meq/L 22-29 ldcq=976) BLOOD UREA NITROGEN 15 mg/dL 7-21 (BEAKER) (test ijld=360) CREATININE (BEAKER) (test 0.96 mg/dL 0.57-1.25 qqsa=983) GLUCOSE RANDOM (BEAKER) 94 mg/dL 70-105 (test fpnh=007) CALCIUM (BEAKER) (test 8.2 mg/dL 8.4-10.2 noib=950) EGFR (BEAKER) (test mL/min/1.73 sq m INSUFFICIENT CLINICAL DATA dqfa=1564) TO CALCULATE ESTIMATED GFR. [id number] 05:01:00 Test Item Value Reference Range Comments PROTIME (BEAKER) (test yzge=698) 13.7 seconds 11.7-14.7 INR (BEAKER) (test jlmp=590) 1.1 <=5.9 PARTIAL THROMBOPLASTIN TIME (BEAKER) (test 27.2 seconds 22.5-36.0 wgrt=920) RECOMMENDED COUMADIN/WARFARIN INR THERAPY RANGESSTANDARD DOSE: 2.0 - 3.0 Includes: PROPHYLAXIS forvenous thrombosis, systemic embolization; TREATMENT for venous thrombosis and/or pulmonary embolus.HIGH RISK: Target INR is 2.5-3.5 for patients with mechanical heart valves.POCT-GLUCOSE [id number] 21:22:00 Test Item Value Reference Range Comments POC-GLUCOSE METER (BEAKER) 174 mg/dL 70-110 TESTED AT [facility] [address] [facility] (test pkid=4220) [facility] [address] POCT-GLUCOSE [id number] 17:05:00 Test Item Value Reference Range Comments POC-GLUCOSE METER (BEAKER) 104 mg/dL 70-110 TESTED AT [address] (test fdxg=3690) [facility] [address] [id number] 12:22:00 Test Item Value Reference Range Comments PROTIME (BEAKER) (test usoh=229) 15.0 seconds 11.7-14.7 INR (BEAKER) (test xbqm=796) 1.2 <=5.9 PARTIAL THROMBOPLASTIN TIME (BEAKER) (test 27.5 seconds 22.5-36.0 cbdc=077) RECOMMENDED COUMADIN/WARFARIN INR THERAPY RANGESSTANDARD DOSE: 2.0 - 3.0 Includes: PROPHYLAXIS forvenous thrombosis, systemic embolization; TREATMENT for venous thrombosis and/or pulmonary embolus.HIGH RISK: Target INR is 2.5-3.5 for patients with mechanical heart valves.[id number] 12:20:00 Test Item Value Reference Range Comments MAGNESIUM (BEAKER) (test oerd=296) 1.9 mg/dL 1.6-2.6 POCT-GLUCOSE [id number] 11:34:00 Test Item Value Reference Range Comments POC-GLUCOSE METER (BEAKER) 90 mg/dL 70-110 TESTED AT [place] [id number] [facility] (test uevo=2545) [facility] [address] POCT-GLUCOSE [id number] 07:35:00 Test Item Value Reference Range Comments POC-GLUCOSE METER (BEAKER) 105 mg/dL 70-110 TESTED AT [address] (test xdgk=9049) [facility] [address] CBC W/PLT COUNT & AUTO [id number] 07:01:00 Test Item Value Reference Range Comments WHITE BLOOD CELL COUNT (BEAKER) (test yzzk=888) 12.6 K/ L 4.0-10.0 RED BLOOD CELL COUNT (BEAKER) (test cala=073) 5.10 M/ L 4.20-5.80 HEMOGLOBIN (BEAKER) (test lpnt=574) 15.4 GM/DL 13.0-16.8 HEMATOCRIT (BEAKER) (test furt=046) 47.2 % 40.0-50.0 MEAN CORPUSCULAR VOLUME (BEAKER) (test fmyk=139) 92.4 fL 82.0-98.0 MEAN CORPUSCULAR HEMOGLOBIN (BEAKER) (test 30.2 pg 27.0-33.0 ryjt=678) MEAN CORPUSCULAR HEMOGLOBIN CONC (BEAKER) (test 32.7 GM/DL 32.0-36.0 cvmx=767) RED CELL DISTRIBUTION WIDTH (BEAKER) (test 12.2 % 10.3-14.2 eyyp=063) PLATELET COUNT (BEAKER) (test souy=207) 162 K/CU MM 150-430 MEAN PLATELET VOLUME (BEAKER) (test hoyl=374) 8.6 fL 6.5-10.5 NUCLEATED RED BLOOD CELLS (BEAKER) (test 0 /100 WBC 0-0 kjso=215) NEUTROPHILS RELATIVE PERCENT (BEAKER) (test 54 % gzkx=168) LYMPHOCYTES RELATIVE PERCENT (BEAKER) (test 38 % zufj=914) MONOCYTES RELATIVE PERCENT (BEAKER) (test 6 % ascc=288) EOSINOPHILS RELATIVE PERCENT (BEAKER) (test 1 % oefu=403) BASOPHILS RELATIVE PERCENT (BEAKER) (test 1 % nhkc=249) NEUTROPHILS ABSOLUTE COUNT (BEAKER) (test 6.80 K/ L 1.80-8.00 cvef=247) LYMPHOCYTES ABSOLUTE COUNT (BEAKER) (test 4.76 K/ L 1.48-4.50 dvkk=130) MONOCYTES ABSOLUTE COUNT (BEAKER) (test 0.79 K/ L 0.00-1.30 lotw=190) EOSINOPHILS ABSOLUTE COUNT (BEAKER) (test 0.17 K/ L 0.00-0.50 fffa=251) BASOPHILS ABSOLUTE COUNT (BEAKER) (test 0.09 K/ L 0.00-0.20 gnxj=251) 0.00BASIC METABOLIC [id number] 06:11:00 Test Item Value Reference Range Comments SODIUM (BEAKER) (test 138 meq/L 136-145 nhch=204) POTASSIUM (BEAKER) (test 4.3 meq/L 3.5-5.1 Specimen slightly ptle=924) hemolyzed CHLORIDE (BEAKER) (test 108 meq/L 98-107 nraw=215) CO2 (BEAKER) (test 19 meq/L 22-29 oebq=723) BLOOD UREA NITROGEN 13 mg/dL 7-21 (BEAKER) (test psgy=502) CREATININE (BEAKER) (test 0.88 mg/dL 0.57-1.25 Specimen slightly tmvf=192) hemolyzed GLUCOSE RANDOM (BEAKER) 93 mg/dL 70-105 (test xmnz=721) CALCIUM (BEAKER) (test 8.4 mg/dL 8.4-10.2 qlpu=686) EGFR (BEAKER) (test mL/min/1.73 sq m INSUFFICIENT CLINICAL DATA gjjj=6073) TO CALCULATE ESTIMATED GFR. HEPATIC FUNCTION [id number] 06:10:00 Test Item Value Reference Range Comments TOTAL PROTEIN (BEAKER) (test 6.7 gm/dL 6.0-8.3 Specimen slightly hemolyzed slau=421) ALBUMIN (BEAKER) (test 3.3 g/dL 3.5-5.0 Specimen slightly hemolyzed xnsg=8610) BILIRUBIN TOTAL (BEAKER) (test 0.2 mg/dL 0.2-1.2 Specimen slightly hemolyzed fknh=333) BILIRUBIN DIRECT (BEAKER) (test 0.1 mg/dL 0.1-0.5 Specimen slightly hemolyzed ugyo=309) ALKALINE PHOSPHATASE (BEAKER) 71 U/L 40-150 (test akzu=000) AST (SGOT) (BEAKER) (test 54 U/L 5-34 Specimen slightly hemolyzed vtcj=355) ALT (SGPT) (BEAKER) (test 84 U/L 6-55 Specimen slightly hemolyzed zbea=982) POCT-GLUCOSE [id number] 21:29:00 Test Item Value Reference Range Comments POC-GLUCOSE METER (BEAKER) 238 mg/dL 70-110 TESTED AT [address] (test ours=5186) [place] [id number] CREATINE KINASE (CK)2017-03-16 19:00:00 Test Item Value Reference Range Comments CREATINE KINASE TOTAL (AKER) (test ptlh=304) 212 U/L 29-200 POCT-GLUCOSE [id number] 17:04:00 Test Item Value Reference Range Comments POC-GLUCOSE METER (BEAKER) 88 mg/dL 70-110 TESTED AT [address] (test hhjp=7538) [place] [id number] POCT-GLUCOSE [id number] 11:53:00 Test Item Value Reference Range Comments POC-GLUCOSE METER (BEAKER) 119 mg/dL 70-110 TESTED AT [address] (test eirj=3848) [place] [id number] POCT-GLUCOSE [id number] 07:32:00 Test Item Value Reference Range Comments POC-GLUCOSE METER (BEAKER) 142 mg/dL 70-110 TESTED AT [address] (test bepi=0047) [place] [id number] CBC W/PLT COUNT & AUTO [id number] 06:33:00 Test Item Value Reference Range Comments WHITE BLOOD CELL COUNT (BEAKER) (test ejay=879) 12.2 K/ L 4.0-10.0 RED BLOOD CELL COUNT (BEAKER) (test ddre=175) 5.24 M/ L 4.20-5.80 HEMOGLOBIN (BEAKER) (test bdbo=624) 15.6 GM/DL 13.0-16.8 HEMATOCRIT (BEAKER) (test swal=549) 48.5 % 40.0-50.0 MEAN CORPUSCULAR VOLUME (BEAKER) (test cilr=820) 92.5 fL 82.0-98.0 MEAN CORPUSCULAR HEMOGLOBIN (BEAKER) (test 29.7 pg 27.0-33.0 wtyp=370) MEAN CORPUSCULAR HEMOGLOBIN CONC (BEAKER) (test 32.1 GM/DL 32.0-36.0 pbhg=060) RED CELL DISTRIBUTION WIDTH (BEAKER) (test 13.6 % 10.3-14.2 mllo=433) PLATELET COUNT (BEAKER) (test isjp=917) 190 K/CU MM 150-430 MEAN PLATELET VOLUME (BEAKER) (test ebih=295) 7.8 fL 6.5-10.5 NUCLEATED RED BLOOD CELLS (BEAKER) (test 0 /100 WBC 0-0 aopw=828) NEUTROPHILS RELATIVE PERCENT (BEAKER) (test 73 % drcb=214) LYMPHOCYTES RELATIVE PERCENT (BEAKER) (test 23 % leqx=019) MONOCYTES RELATIVE PERCENT (BEAKER) (test 3 % aydt=222) EOSINOPHILS RELATIVE PERCENT (BEAKER) (test 0 % hzsw=672) BASOPHILS RELATIVE PERCENT (BEAKER) (test 0 % stja=173) NEUTROPHILS ABSOLUTE COUNT (BEAKER) (test 8.89 K/ L 1.80-8.00 dcjp=573) LYMPHOCYTES ABSOLUTE COUNT (BEAKER) (test 2.85 K/ L 1.48-4.50 gipz=962) MONOCYTES ABSOLUTE COUNT (BEAKER) (test 0.34 K/ L 0.00-1.30 refi=750) EOSINOPHILS ABSOLUTE COUNT (BEAKER) (test 0.03 K/ L 0.00-0.50 cjav=414) BASOPHILS ABSOLUTE COUNT (BEAKER) (test 0.06 K/ L 0.00-0.20 elbc=776) 0.00BASIC METABOLIC [id number] 06:20:00 Test Item Value Reference Range Comments SODIUM (BEAKER) (test 138 meq/L 136-145 fweo=551) POTASSIUM (BEAKER) (test 4.8 meq/L 3.5-5.1 kmma=537) CHLORIDE (BEAKER) (test 106 meq/L 98-107 iiny=300) CO2 (BEAKER) (test 23 meq/L 22-29 viqu=904) BLOOD UREA NITROGEN 15 mg/dL 7-21 (BEAKER) (test dzyn=465) CREATININE (BEAKER) (test 0.92 mg/dL 0.57-1.25 srio=075) GLUCOSE RANDOM (BEAKER) 142 mg/dL 70-105 (test uwkf=441) CALCIUM (BEAKER) (test 9.0 mg/dL 8.4-10.2 pqhv=145) EGFR (BEAKER) (test mL/min/1.73 sq m INSUFFICIENT CLINICAL DATA hsqf=3487) TO CALCULATE ESTIMATED GFR. [id number] 05:51:00 Test Item Value Reference Range Comments PROTIME (BEAKER) (test lozq=570) 14.1 seconds 11.7-14.7 INR (BEAKER) (test xrhx=132) 1.1 <=5.9 PARTIAL THROMBOPLASTIN TIME (BEAKER) (test 27.5 seconds 22.5-36.0 slgr=918) RECOMMENDED COUMADIN/WARFARIN INR THERAPY RANGESSTANDARD DOSE: 2.0 - 3.0 Includes: PROPHYLAXIS forvenous thrombosis, systemic embolization; TREATMENT for venous thrombosis and/or pulmonary embolus.HIGH RISK: Target INR is 2.5-3.5 for patients with mechanical heart valves.T4, [id number] 19:26:00 Test Item Value Reference Range Comments FREE T4 (BEAKER) (test hdht=581) 0.79 ng/dL 0.70-1.48 TSH/FREE T4 IF [id number] 18:49:00 Test Item Value Reference Range Comments THYROID STIMULATING HORMONE (BEAKER) (test 14.58 uIU/mL 0.35-4.94 mgbj=603) [id number] 18:11:00 Test Item Value Reference Range Comments AMMONIA (BEAKER) (test msub=591) 43 mol/L 18-72 POCT-GLUCOSE [id number] 17:22:00 Test Item Value Reference Range Comments POC-GLUCOSE METER (BEAKER) 118 mg/dL 70-110 TESTED AT [facility] [address] (test zuxf=1155) [facility] [address] POCT-GLUCOSE [id number] 07:33:00 Test Item Value Reference Range Comments POC-GLUCOSE METER (BEAKER) 202 mg/dL 70-110 TESTED AT [facility] [address] (test voru=1404) [place] [address] CBC (HEMOGRAM ONLY)2017-03-15 06:38:00 Test Item Value Reference Range Comments WHITE BLOOD CELL COUNT (BEAKER) (test rfnb=909) 20.1 K/ L 4.0-10.0 RED BLOOD CELL COUNT (BEAKER) (test sapy=074) 5.45 M/ L 4.20-5.80 HEMOGLOBIN (BEAKER) (test xejf=062) 15.9 GM/DL 13.0-16.8 HEMATOCRIT (BEAKER) (test umba=249) 50.1 % 40.0-50.0 MEAN CORPUSCULAR VOLUME (BEAKER) (test gtwe=970) 92.0 fL 82.0-98.0 MEAN CORPUSCULAR HEMOGLOBIN (BEAKER) (test 29.3 pg 27.0-33.0 kipl=557) MEAN CORPUSCULAR HEMOGLOBIN CONC (BEAKER) (test 31.8 GM/DL 32.0-36.0 lmno=887) RED CELL DISTRIBUTION WIDTH (BEAKER) (test 12.0 % 10.3-14.2 hpch=314) PLATELET COUNT (BEAKER) (test lgvz=106) 218 K/CU MM 150-430 MEAN PLATELET VOLUME (BEAKER) (test qhbd=042) 7.4 fL 6.5-10.5 NUCLEATED RED BLOOD CELLS (BEAKER) (test 0 /100 WBC 0-0 hiic=731) 0.00[facility] METABOLIC [id number] 05:56:00 Test Item Value Reference Range Comments SODIUM (BEAKER) (test 138 meq/L 136-145 ewgv=445) POTASSIUM (BEAKER) (test 4.2 meq/L 3.5-5.1 lknn=796) CHLORIDE (BEAKER) (test 105 meq/L 98-107 kexi=928) CO2 (BEAKER) (test 21 meq/L 22-29 cxew=439) BLOOD UREA NITROGEN 13 mg/dL 7-21 (BEAKER) (test xrwz=941) CREATININE (BEAKER) (test 0.85 mg/dL 0.57-1.25 obmj=006) GLUCOSE RANDOM (BEAKER) 127 mg/dL 70-105 (test efil=646) CALCIUM (BEAKER) (test 9.5 mg/dL 8.4-10.2 mpha=363) EGFR (BEAKER) (test mL/min/1.73 sq m INSUFFICIENT CLINICAL DATA oref=9705) TO CALCULATE ESTIMATED GFR. PT/[id number] 05:48:00 Test Item Value Reference Range Comments PROTIME (BEAKER) (test uozr=035) 14.1 seconds 11.7-14.7 INR (BEAKER) (test kssc=122) 1.1 <=5.9 PARTIAL THROMBOPLASTIN TIME (BEAKER) (test 26.1 seconds 22.5-36.0 jcvt=919) RECOMMENDED COUMADIN/WARFARIN INR THERAPY RANGESSTANDARD DOSE: 2.0 - 3.0 Includes: PROPHYLAXIS forvenous thrombosis, systemic embolization; TREATMENT for venous thrombosis and/or pulmonary embolus.HIGH RISK: Target INR is 2.5-3.5 for patients with mechanical heart valves.POCT-GLUCOSE [id number] 00:03:00 Test Item Value Reference Range Comments POC-GLUCOSE METER ([employer]) 133 mg/dL 70-110 TESTED AT [facility] [address] (test wjgx=6882) [facility] [address]
[2019-04-08 07:39] LABS: Absolute Lymphocytes (CBC) 3.4 K/uL (0.7-4.9); Basophils % 1.1 % (0-1.3); Eosinophils % 2.6 % (0-4.4); Hematocrit 45.9 % (39.6-49.0); Lymphocytes % 40.2 % (15.3-44.8); MPV 8.9 fL (7.6-11.3); Monocytes % 8.7 % (3.3-12.3); RBC Red Blood Cell Count 5.03 M/uL (4.33-5.43)
[2019-04-08] MEDS ORDERED: NA CHLORIDE 0.9% 1,000 ML ONE (07:54)
[2019-04-08] MEDS ORDERED: METOCLOPRAMIDE 10 MG/2mL INJ ONE (07:54)
[2019-04-08] MEDS ORDERED: MEPERIDINE HCL 50 MG/ML AMP ONE (07:54)
--- NOTE | 2019-04-08 08:00 | RAD REPORT ---
EXAM DESCRIPTION: CT - Head Brain Wo Cont - 04/08/2019 7:35 am CLINICAL HISTORY: Headache COMPARISON: September 2018 TECHNIQUE: Computed axial tomography of the head was obtained. IV contrast was not requested. All CT scans are performed using dose optimization technique as appropriate and may include automated exposure control or mA/KV adjustment according to patient size. FINDINGS: Postsurgical changes involve the left frontal lobe. Mild gliosis is seen. An intracranial bleed is not seen . The ventricles are normal in caliber. No extra-axial fluid collection is noted. Fluid within the sinuses/ mastoids is not seen. IMPRESSION: No acute intracranial abnormality is seen. If patient's symptoms persist MRI of the bra in would be recommended.
[2019-04-08 08:08] LABS: BUN Blood Urea Nitrogen 13 mg/dL (7-18); Bicarbonate 28 mmol/L (21-32); Glucose Level 110 mg/dL (74-106); Potassium 4.2 mmol/L (3.5-5.1); Sodium Level 141 mmol/L (136-145); Troponin (Emerg Dept Use Only) < 0.02 ng/mL (0.0-0.045)
[2019-04-08] MEDS ORDERED: KETOROLAC 30 MG/ML INJ ONE (08:31)
[2019-04-08] MEDS ORDERED: dexAMETHasone 10 MG/ML VIAL ONE (08:31)
--- NOTE | 2019-04-08 09:38 | EDPHYS ---
Physician Documentation [facility] Name: Vikram Bagley Age: 38 yrs Sex: Male : 1980 Arrival Date: 04/08/2019 Time: 07:23 Bed 4 Private MD: ED Physician Pedro Reyes HPI: 04/08 07:26 This 38 yrs old Male presents to ER via Unassigned with complaints of Chest rn Pain, Headache. 07:26 The patient complains of pain to the top of head. The patient describes the headache as rn aching. Onset: The symptoms/episode began/occurred this morning. Associated signs and symptoms: Pertinent negatives: altered mental status, fever, neck stiffness, rash, vision loss, vomiting, weakness, vertigo. Severity of symptoms: At its worst the pain was moderate, in the emergency department the pain is unchanged. The symptoms are alleviated by nothing. the symptoms are aggravated by nothing. The patient has experienced similar episodes in the past. The patient has not recently seen a physician. 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 No vision changes or vomiting. Reports after headache began, felt chest pain and palpitations. NO abd pain. . Historical: - Allergies: 07:31 iodine IV; ph 07:33 iodine IV; ss - Home Meds: 07:33 acetaminophen-codeine 300-30 mg Oral tab 1 tab every 4-6 hours [Active]; tizanidine 4 ss mg oral tab 1 tab every 8 hours [Active]; atorvastatin 40 mg oral tab 1 tab once daily [Active]; levothyroxine 200 mcg tab 1 tab once daily [Active]; - PMHx: 07:31 ADD/ADHD; Anxiety; brain lesion; fatty liver; High Cholesterol; Hypertension; ph Hypothyroidism; 07:33 ADD/ADHD; Anxiety; brain lesion; fatty liver; High Cholesterol; Hypothyroidism; ss Hypertension; - PSHx: 07:31 brain surgery; ph 07:33 brain surgery; Appendectomy; Cholecystectomy; ss - Immunization history:: Adult Immunizations unknown, Adult Immunizations up to date. - Social history:: Smoking status: Patient/guardian denies using tobacco. - Family history:: not pertinent. - Ebola Screening: : No symptoms or risks identified at this time Patient denies exposure to infectious person Patient denies travel to an Ebola-affected area in the 21 days before illness onset. - Hospitalizations: : No recent hospitalization is reported. ROS: 07:26 Constitutional: Negative for fever, chills, and weight loss, Eyes: Negative for injury, rn pain, redness, and discharge, Neck: Negative for injury, pain, and swelling, Cardiovascular: Negative for edema Respiratory: Negative for shortness of breath, cough, wheezing, and pleuritic chest pain, Abdomen/GI: Negative for abdominal pain, nausea, vomiting, diarrhea, and constipation, MS/Extremity: Negative for injury and deformity, Skin: Negative for injury, rash, and discoloration, Neuro: Negative for weakness, numbness, tingling, and seizure. Exam: 07:26 Constitutional: This is a well developed, well nourished patient who is awake, alert rn Head/Face: Normocephalic, atraumatic. + left sided cranial surgical scar Eyes: Pupils equal round and reactive to light, extra-ocular motions intact. Lids and lashes normal. Conjunctiva and sclera are non-icteric and not injected. Cornea within normal limits. Periorbital areas with no swelling, redness, or edema. ENT: MMM Neck: Trachea midline, no thyromegaly or masses palpated, and no cervical lymphadenopathy. Supple, full range of motion without nuchal rigidity, or vertebral point tenderness. No Meningismus. Cardiovascular: Regular rate and rhythm. No pulse deficits. Respiratory: Lungs have equal breath sounds bilaterally, clear to auscultation. No increased work of breathing, no retractions or nasal flaring. Abdomen/GI: soft, non-tender Skin: Warm, dry with normal turgor. Normal color with no rashes, no lesions, and no evidence of cellulitis. MS/ Extremity: Pulses equal, no cyanosis. Neurovascular intact. Full, normal range of motion. Equal circumference. Neuro: Awake and alert, GCS 15, oriented to person, place, time, and situation. Cranial nerves II-XII grossly intact. Motor strength 5/5 in all extremities. Sensory grossly intact. Cerebellar exam normal. Vital Signs: 07:33 Pulse 74; Resp 22; ss 07:37 BP 124 / 106; Pulse 62; Resp 16; Temp 98.5; Pulse Ox 99% ; Weight 154.22 kg; Height 5 ph ft. 9 in. (175.26 cm); 07:46 BP 126 / 58; Pulse 66; Pulse Ox 100% on R/A; ea 08:00 BP 106 / 45; Pulse 51; Resp 16; Pulse Ox 94% on R/A; ss 08:00 Pulse Ox 97% on 2 lpm NC; ss 07:37 Body Mass Index 50.21 (154.22 kg, 175.26 cm) ph 08:00 2L O2 VIA NC placed ss Rigo Coma Score: 09:35 Eye Response: spontaneous(4). Verbal Response: oriented(5). Motor Response: obeys rn commands(6). Total: 15. MDM: 07:23 Patient medically screened. rn 08:24 ED course: Pt improved, ct no acute findings. EKG without ischemia, trop negative. Will rn continue to treat symptoms and reassess. . 09:35 Differential diagnosis: hypertensive headache, intracerebral hemorrhage, migraine, rn neoplasm, tension headache, vasomotor headache. Data reviewed: vital signs, nurses notes, lab test result(s), EKG, radiologic studies, CT scan, and as a result, I will. Counseling: I had a detailed discussion with the patient and/or guardian regarding: the historical points, exam findings, and any diagnostic results supporting the discharge/admit diagnosis, lab results, radiology results, the need for outpatient follow up, to return to the emergency department if symptoms worsen or persist or if there are any questions or concerns that arise at home. Response to treatment: the patient's symptoms have markedly improved after treatment, and as a result, I will discharge patient. Special discussion: I discussed with the patient/guardian in detail that at this point there is no indication for admission to the hospital. It is understood, however, that if the symptoms persist or worsen the patient needs to return immediately for re-evaluation. ED course: Chest pain resolved, EUGENE improving, repeat neuro exam still normal. Reports bilateral hand tingling, no numbness of arms/shoulders. Will dc home with return precautions.. 04/08 07:26 Order name: CBC with Diff; Complete Time: 08:03 rn 04/08 07:26 Order name: Basic Metabolic Panel; Complete Time: 08:10 rn 04/08 07:26 Order name: CT Head Brain wo Cont; Complete Time: 08:03 rn 04/08 07:26 Order name: Troponin (emerg Dept Use Only); Complete Time: 08:10 rn 04/08 07:26 Order name: IV Start; Complete Time: 07:36 rn 04/08 07:26 Order name: EKG; Complete Time: 07:27 rn 04/08 07:26 Order name: EKG - Nurse/Tech; Complete Time: 07:36 rn Administered Medications: 07:44 Drug: NS 0.9% 1000 ml Route: IV; Rate: 1000 ml; Site: left wrist; ea 09:00 Follow up: Response: No adverse reaction; IV Status: Completed infusion; IV Intake: ph 1000ml 07:45 Drug: Demerol 50 mg Route: IVP; Site: left wrist; ea 08:25 Follow up: Response: No adverse reaction; Marked relief of symptoms; Pain is decreased ss 07:46 Drug: Reglan 10 mg Route: IVP; Site: left wrist; ea 08:26 Follow up: Response: No adverse reaction; Marked relief of symptoms ss 08:23 Drug: TORadol - Ketorolac 15 mg Route: IVP; Site: left wrist; ss 09:00 Follow up: Response: No adverse reaction; Pain is decreased ph 08:26 Drug: Decadron - Dexamethasone 10 mg Route: IVP; Site: left wrist; ss 09:00 Follow up: Response: No adverse reaction ph Disposition: 04/08/19 09:37 Discharged to Home. Impression: Headache, Chest pain, unspecified. - Condition is Stable. - Discharge Instructions: Nonspecific Chest Pain, General Headache Without Cause. - Medication Reconciliation Form, Thank You Letter, Antibiotic Education, Prescription Opioid Use, Work release form form. - Follow up: Private Physician; When: As needed; Reason: Recheck today's complaints, Re-evaluation by your physician. - Problem is new. - Symptoms have improved. Signatures: Dispatcher [employer] EDMS Pedro Reyes MD MD rn Smirch, Shelby, RN RN ss Hall, Patricia, RN RN ph Antunez, Elena, RN RN ea Corrections: (The following items were deleted from the chart) 10:06 09:37 04/08/2019 09:37 Discharged to Home. Impression: Headache; Chest pain, ss unspecified. Condition is Stable. Forms are Medication Reconciliation Form, Thank You Letter, Antibiotic Education, Prescription Opioid Use. Follow up: Private Physician; When: As needed; Reason: Recheck today's complaints, Re-evaluation by your physician. Problem is new. Symptoms have improved. rn
--- NOTE | 2019-04-08 09:38 | ER ---
Nurse's Notes [facility] Name: Vikram Bagley Age: 38 yrs Sex: Male : 1980 Arrival Date: 04/08/2019 Time: 07:23 Bed 4 Private MD: Diagnosis: Headache;Chest pain, unspecified Presentation: 04/08 07:25 Presenting complaint: EMS states: Sudden onset of chest pain, headache and R leg pain ss that began at approximately 0600 this morning. Transition of care: patient was not received from another setting of care. Onset of symptoms was April 08, 2019. Risk Assessment: Do you want to hurt yourself or someone else? Patient reports no desire to harm self or others. Initial Sepsis Screen: Does the patient meet any 2 criteria? RR > 20 per min. Does the patient have a suspected source of infection? No. Patient's initial sepsis screen is negative. Care prior to arrival: Medication(s) given: ASA, 81 mg, x 4, IV initiated. 20 GA, in the left wrist. 07:25 Acuity: SMITA 2 ss 07:25 Method Of Arrival: EMS: [facility] Historical: - Allergies: 07:31 iodine IV; ph 07:33 iodine IV; ss - Home Meds: 07:33 acetaminophen-codeine 300-30 mg Oral tab 1 tab every 4-6 hours [Active]; tizanidine 4 ss mg oral tab 1 tab every 8 hours [Active]; atorvastatin 40 mg oral tab 1 tab once daily [Active]; levothyroxine 200 mcg tab 1 tab once daily [Active]; - PMHx: 07:31 ADD/ADHD; Anxiety; brain lesion; fatty liver; High Cholesterol; Hypertension; ph Hypothyroidism; 07:33 ADD/ADHD; Anxiety; brain lesion; fatty liver; High Cholesterol; Hypothyroidism; ss Hypertension; - PSHx: 07:31 brain surgery; ph 07:33 brain surgery; Appendectomy; Cholecystectomy; ss - Immunization history:: Adult Immunizations unknown, Adult Immunizations up to date. - Social history:: Smoking status: Patient/guardian denies using tobacco. - Family history:: not pertinent. - Ebola Screening: : No symptoms or risks identified at this time Patient denies exposure to infectious person Patient denies travel to an Ebola-affected area in the 21 days before illness onset. - Hospitalizations: : No recent hospitalization is reported. Screenin:30 Abuse screen: Denies threats or abuse. Denies injuries from another. Nutritional ph screening: No deficits noted. Tuberculosis screening: No symptoms or risk factors identified. Fall Risk None identified. Assessment: 07:39 General: Appears in no apparent distress. uncomfortable, obese, well groomed, Behavior ph is cooperative, appropriate for age, Denies fever, feeling ill. Pain: Complains of pain in top of head, chest , and R leg Pain does not radiate. Pain began. Neuro: Level of Consciousness is awake, alert, obeys commands, Oriented to person, place, time, situation, Moves all extremities. Speech is normal, Facial symmetry appears normal, Reports headache in top of head numbness in right arm and left arm. Cardiovascular: Reports chest pain, nausea, Capillary refill < 3 seconds in bilateral fingers Patient's skin is warm and dry. Chest pain is located in substernal area. Respiratory: Airway is patent Respiratory effort is even, unlabored, Respiratory pattern is regular, symmetrical. GI: Abdomen is non-distended, obese, Reports nausea, Patient currently denies vomiting. Derm: Skin is intact, is healthy with good turgor, Skin is pink, warm \T\ dry. Musculoskeletal: Circulation, motion, and sensation intact. Range of motion: intact in all extremities. Vital Signs: 07:33 Pulse 74; Resp 22; ss 07:37 BP 124 / 106; Pulse 62; Resp 16; Temp 98.5; Pulse Ox 99% ; Weight 154.22 kg; Height 5 ph ft. 9 in. (175.26 cm); 07:46 BP 126 / 58; Pulse 66; Pulse Ox 100% on R/A; ea 08:00 BP 106 / 45; Pulse 51; Resp 16; Pulse Ox 94% on R/A; ss 08:00 Pulse Ox 97% on 2 lpm NC; ss 07:37 Body Mass Index 50.21 (154.22 kg, 175.26 cm) ph 08:00 2L O2 VIA NC placed ss [place] Coma Score: 09:35 Eye Response: spontaneous(4). Verbal Response: oriented(5). Motor Response: obeys rn commands(6). Total: 15. ED Course: 07:23 Patient arrived in ED. iw 07:23 Pedro Reyes MD is Attending Physician. rn 07:26 Triage completed. ss 07:33 Arm band placed on right wrist. ss 07:34 Maintain EMS IV. Dressing intact. Good blood return noted. Site clean \T\ dry. Gauge \T\ ss site: 20 gauge in L wrist. Patient maintains SpO2 saturation greater than 95% on room air. 07:37 CT Head Brain wo Cont In Process Unspecified. EDMS 07:39 Kelly Beebe RN is Primary Nurse. ph 07:39 Patient has correct armband on for positive identification. Bed in low position. Call ph light in reach. Side rails up X2. telemetry monitor on. Pulse ox on. NIBP on. Door closed. Noise minimized. Warm blanket given. Head of bed elevated. 09:52 IV discontinued, intact, bleeding controlled, No redness/swelling at site. Pressure em1 dressing applied. 10:05 No provider procedures requiring assistance completed. ss Administered Medications: 07:44 Drug: NS 0.9% 1000 ml Route: IV; Rate: 1000 ml; Site: left wrist; ea 09:00 Follow up: Response: No adverse reaction; IV Status: Completed infusion; IV Intake: ph 1000ml 07:45 Drug: Demerol 50 mg Route: IVP; Site: left wrist; ea 08:25 Follow up: Response: No adverse reaction; Marked relief of symptoms; Pain is decreased ss 07:46 Drug: Reglan 10 mg Route: IVP; Site: left wrist; ea 08:26 Follow up: Response: No adverse reaction; Marked relief of symptoms ss 08:23 Drug: TORadol - Ketorolac 15 mg Route: IVP; Site: left wrist; ss 09:00 Follow up: Response: No adverse reaction; Pain is decreased ph 08:26 Drug: Decadron - Dexamethasone 10 mg Route: IVP; Site: left wrist; ss 09:00 Follow up: Response: No adverse reaction ph Intake: 09:00 IV: 1000ml; Total: 1000ml. ph Outcome: 09:37 Discharge ordered by . rn 10:05 Discharged to home ambulatory, with family. ss 10:05 Condition: improved 10:05 Discharge instructions given to patient, family, Instructed on discharge instructions, follow up and referral plans. Demonstrated understanding of instructions, follow-up care, medications. 10:06 Patient left the ED. ss Signatures: Dispatcher [employer] EDKY Antoinette Adhikari RN RN iw Pedro Reyes MD MD rn Guille, Chris em1 Radha Croft, RN RN ss Kelly Beebe, RN RN Lala Ledesma RN RN ea
[2019-04-08 10:49] VITALS: TEMP 98.5
[2019-04-08 10:51] VITALS: BP 106/45; O2SAT 97
--- NOTE | 2019-04-09 10:42 | EKG ---
Test Date: 2019-04-08 Test Time: 07:23:07 Neurophysiological Technician: SANDRO MEASUREMENT RESULTS: Intervals: Rate: 63 MT: 152 QRSD: 96 QT: 406 QTc: 415 [place]: P: 17 MT: 152 QRS: 92 T: 48 INTERPRETIVE STATEMENTS: Normal sinus rhythm Rightward axis Borderline ECG Compared to ECG 06/27/2017 16:47:44 No significant changes Electronically Signed On 04-09-19 10:38:46 CDT by Demetrio Mark
== END 2019-04-08 10:06 | disposition home or self-care (01) ==
LOC: ER 07:21
DX: R51 Headache (principal); R07.9 Chest pain, unspecified; F90.9 Attention-deficit hyperactivity disorder, unspecified type; F41.9 Anxiety disorder, unspecified; E78.00 Pure hypercholesterolemia, unspecified; I10 Essential (primary) hypertension; E78.5 Hyperlipidemia, unspecified; Z91.041 Radiographic dye allergy status
CPT/HCPCS: 36415; 70450; 80048; 84484; 85025; 93005; 96361; 96374; 96375; 99285; J1100; J2175; J2765; J7030

== ENCOUNTER 2019-06-25 16:20 | Observation (INO) | payer OTHER, SELFPAY ==
--- NOTE | 2019-06-25 16:53 | RAD REPORT ---
EXAM DESCRIPTION: RAD - Chest Single View - 06/25/2019 4:47 pm CLINICAL HISTORY: Chest pain COMPARISON: February 2017 TECHNIQUE: AP portable chest image was obtained 1645 hours . FINDINGS: Lungs are clear. Heart and vasculature are normal. No measurable pleural effusion and no p neumothorax. No acute bony abnormality seen. No acute aortic findings suspected. IMPRESSION: No acute cardiopulmonary process. No significant interval change.
[2019-06-25 17:00] LABS: Absolute Lymphocytes (CBC) 3.2 K/uL (0.7-4.9); Basophils % 0.7 % (0-1.3); Lymphocytes % 39.9 % (15.3-44.8); MPV 8.9 fL (7.6-11.3); RBC Red Blood Cell Count 5.25 M/uL (4.33-5.43)
--- NOTE | 2019-06-25 17:08 | EKG ---
Test Date: 2019-06-25 Test Time: 16:35:29 Farm Implement Engine Mechanic: DILSHAD MEASUREMENT RESULTS: Intervals: Rate: 57 MS: 144 QRSD: 98 QT: 436 QTc: 424 [place]: P: 22 MS: 144 QRS: 82 T: 34 INTERPRETIVE STATEMENTS: Sinus bradycardia Abnormal ECG Compared to ECG 04/08/2019 07:23:07 Sinus rhythm no longer present Right-axis deviation no longer present Electronically Signed On 06-25-19 17:07:47 CDT by Albert Whitaker
[2019-06-25 17:10] LABS: Protime INR 1.03
[2019-06-25 17:19] LABS: ALT/SGPT 129 U/L (12-78); AST/SGOT 67 U/L (15-37); Alkaline Phosphatase 62 U/L (45-117); BUN Blood Urea Nitrogen 12 mg/dL (7-18); Bicarbonate 25 mmol/L (21-32); Bilirubin Direct 0.2 mg/dL (0-0.2); Bilirubin Total 0.5 mg/dL (0.2-1.0); Glucose Level 91 mg/dL (74-106); Lipase 213 U/L (73-393); Magnesium 2.1 mg/dL (1.8-2.4); NT PRO-BNP 6 pg/mL (<125); Potassium 3.8 mmol/L (3.5-5.1); Protein, Total 8.3 g/dL (6.4-8.2); Sodium Level 141 mmol/L (136-145); Troponin (Emerg Dept Use Only) < 0.02 ng/mL (0.0-0.045)
[2019-06-25] MEDS ORDERED: ALPRAZOLAM 0.25 MG TABLET PO PRN (19:16)
[2019-06-25] MEDS ORDERED: ACETAMINOPHEN 500 MG TAB PO PRN (19:16)
[2019-06-25] MEDS ORDERED: MORPHINE 4 MG/ML SYR IV PRN (19:16)
--- NOTE | 2019-06-25 19:17 | EDPHYS ---
Physician Documentation [facility] Name: Vikram Bagley Age: 38 yrs Sex: Male : 1980 Arrival Date: 06/25/2019 Time: 16:24 Bed 6 Private MD: Manolo Velasco ED Physician Zeke Dixon HPI: 06/25 18:30 This 38 yrs old Male presents to ER via Wheelchair with complaints of Chest ma2 Pain. 18:30 The patient or guardian reports chest pain that is located primarily in the substernal ma2 area. The pain does not radiate. The chest pain is described as a heaviness. Duration: The patient or guardian reports a single episode. Severity of pain: At its worst the pain was moderate in the emergency department the pain is unchanged. The patient has not experienced similar symptoms in the past. Historical: - Allergies: 16:32 iodine IV; la1 - Home Meds: 17:29 None [Active]; jl7 - PMHx: 16:32 ADD/ADHD; Anxiety; brain lesion; fatty liver; High Cholesterol; Hypertension; la1 Hypothyroidism; - PSHx: 17:29 brain surgery; Appendectomy; Cholecystectomy; jl7 - Immunization history:: Adult Immunizations up to date. - Social history:: Smoking status: Patient/guardian denies using tobacco, Patient/guardian denies using alcohol, street drugs, The patient lives with family. - Ebola Screening: : No symptoms or risks identified at this time. - Family history:: not pertinent. ROS: 18:30 Constitutional: Negative for fever, chills, and weight loss, Skin: Negative for injury, ma2 rash, and discoloration. 18:30 All other systems are negative. Exam: 18:30 Constitutional: This is a well developed, well nourished patient who is awake, alert, ma2 and in no acute distress. Chest/axilla: Normal chest wall appearance and motion. Nontender with no deformity. No lesions are appreciated. Cardiovascular: Regular rate and rhythm with a normal S1 and S2. No gallops, murmurs, or rubs. Normal PMI, no JVD. No pulse deficits. Respiratory: Lungs have equal breath sounds bilaterally, clear to auscultation and percussion. No rales, rhonchi or wheezes noted. No increased work of breathing, no retractions or nasal flaring. Abdomen/GI: Soft, non-tender, with normal bowel sounds. No distension or tympany. No guarding or rebound. No evidence of tenderness throughout. Vital Signs: 16:31 BP 127 / 77; Pulse 87; Resp 16; Temp 97.3; Pulse Ox 100% on R/A; Weight 154.22 kg; la1 Height 5 ft. 8 in. (172.72 cm); 17:25 BP 109 / 55; Pulse 56; Resp 16 S; Pulse Ox 100% on R/A; Pain 9/10; jl7 18:00 BP 100 / 65; Pulse 57; Resp 18; Pulse Ox 100% on R/A; rv 19:17 BP 108 / 62; Pulse 58; Resp 18; Temp 97.7; Pulse Ox 97% on R/A; Pain 0/10; aa1 20:12 BP 113 / 61; Pulse 54; Resp 20; Temp 97.9; Pulse Ox 96% on R/A; Pain 0/10; aa1 16:31 Body Mass Index 51.70 (154.22 kg, 172.72 cm) la1 MDM: 16:35 Patient medically screened. ma2 18:30 Differential diagnosis: abnormal EKG, acute myocardial infarction, anxiety, coronary ma2 artery disease chest wall pain, gastroesophageal reflux disease (GERD). HEART Score: History: Moderately Suspicious (1). MONTSERRAT Risk Score: not applicable, 1 - patient's age is greater or equal to 65 years. Data reviewed: vital signs, nurses notes. 19:15 Counseling: I had a detailed discussion with the patient and/or guardian regarding: the ma2 historical points, exam findings, and any diagnostic results supporting the discharge/admit diagnosis, the presence of at least one elevated blood pressure reading (>120/80) during this emergency department visit, the need for outpatient follow up. ED course: discussed with dr. cat . 06/25 16:30 Order name: Basic Metabolic Panel; Complete Time: 17:56 ss 06/25 16:30 Order name: CBC with Diff; Complete Time: 17:56 ss 06/25 16:30 Order name: LFT's; Complete Time: 17:56 ss 06/25 16:30 Order name: Magnesium; Complete Time: 17:56 ss 06/25 16:30 Order name: NT PRO-BNP; Complete Time: 17:56 ss 06/25 16:30 Order name: PT-INR; Complete Time: 17:56 ss 06/25 16:30 Order name: Troponin (emerg Dept Use Only); Complete Time: 17:56 ss 06/25 16:30 Order name: XRAY Chest (1 view); Complete Time: 17:56 ss 06/25 16:30 Order name: Lipase; Complete Time: 17:56 ss 06/25 19:19 Order name: Lipid Profile EDCO 06/25 19:19 Order name: Lipid Profile EDCO 06/25 19:19 Order name: Troponin I EDCO 06/25 19:19 Order name: Troponin I EDCO 06/25 19:19 Order name: Troponin I EDCO 06/25 16:30 Order name: EKG; Complete Time: 16:31 ss 06/25 16:30 Order name: Cardiac monitoring; Complete Time: 17:19 ss 06/25 16:30 Order name: EKG - Nurse/Tech; Complete Time: 17:19 ss 06/25 16:30 Order name: IV Saline Lock; Complete Time: 17:19 ss 06/25 16:30 Order name: Labs collected and sent; Complete Time: 17:19 ss 06/25 16:30 Order name: O2 Per Protocol; Complete Time: 17:19 ss 06/25 16:30 Order name: O2 Sat Monitoring; Complete Time: 17:19 ss 06/25 19:19 Order name: CONS Physician Consult EDCO 06/25 19:19 Order name: Echo with Doppler EDCO 06/25 19:19 Order name: EKG Electrocardiogram EDCO 06/25 19:19 Order name: EKG Electrocardiogram EDCO Administered Medications: No medications were administered Disposition: 06/25/19 19:16 Hospitalization ordered by Zeke Cat for Observation. Preliminary diagnosis is Chest pain, unspecified. - Bed requested for Telemetry/MedSurg (observation). - Status is Observation. aa1 - Condition is Stable. - Problem is new. - Symptoms are unchanged. UTI on Admission? No Signatures: Dispatcher [employer] EDMS Marimar Baltazar RN RN aa1 Radha Croft RN RN Jhoan Ching RN RN la1 Rosalie Culver RN RN Ezequiel Meyers RN RN jl7 Zeke Dixon MD MD ma2 Corrections: (The following items were deleted from the chart) 19:36 19:16 Hospitalization Ordered by Zeke Cat MD for Observation. Preliminary cg diagnosis is Chest pain, unspecified. Bed requested for Telemetry/MedSurg (observation). Status is Observation. Condition is Stable. Problem is new. Symptoms are unchanged. UTI on Admission? No. ma2 20:30 19:36 06/25/2019 19:16 Hospitalization Ordered by Zeke Cat MD for Observation. aa1 Preliminary diagnosis is Chest pain, unspecified. Bed requested for Telemetry/MedSurg (observation). Status is Observation. Condition is Stable. Problem is new. Symptoms are unchanged. UTI on Admission? No. cg
--- NOTE | 2019-06-25 19:17 | ER ---
Nurse's Notes [facility] Name: Vikram Bagley Age: 38 yrs Sex: Male : 1980 Arrival Date: 06/25/2019 Time: 16:24 Bed 6 Private MD: Manolo Velasco Diagnosis: Chest pain, unspecified Presentation: 06/25 16:32 Presenting complaint: Patient states: chest pain x 1 hour. Transition of care: patient la1 was not received from another setting of care. Onset of symptoms was June 25, 2019. Risk Assessment: Do you want to hurt yourself or someone else? Patient reports no desire to harm self or others. Initial Sepsis Screen: Does the patient meet any 2 criteria? No. Patient's initial sepsis screen is negative. Does the patient have a suspected source of infection? No. Patient's initial sepsis screen is negative. Care prior to arrival: None. 16:32 Method Of Arrival: Wheelchair la1 16:32 Acuity: SMITA 2 la1 Historical: - Allergies: 16:32 iodine IV; la1 - Home Meds: 17:29 None [Active]; jl7 - PMHx: 16:32 ADD/ADHD; Anxiety; brain lesion; fatty liver; High Cholesterol; Hypertension; la1 Hypothyroidism; - PSHx: 17:29 brain surgery; Appendectomy; Cholecystectomy; jl7 - Immunization history:: Adult Immunizations up to date. - Social history:: Smoking status: Patient/guardian denies using tobacco, Patient/guardian denies using alcohol, street drugs, The patient lives with family. - Ebola Screening: : No symptoms or risks identified at this time. - Family history:: not pertinent. Screenin:25 Abuse screen: Denies threats or abuse. Denies injuries from another. Nutritional jl7 screening: No deficits noted. Tuberculosis screening: No symptoms or risk factors identified. Fall Risk IV access (20 points). Total Levy Fall Scale indicates No Risk (0-24 pts). Assessment: 16:45 General: Appears in no apparent distress. uncomfortable, Behavior is cooperative, jl7 anxious. Pain: Complains of pain in mid-sternal area Pain radiates to anterior aspect of left upper chest Pain currently is 9 out of 10 on a pain scale. Quality of pain is described as radiating, Pain began 1 hour ago. Is intermittent. Neuro: Level of Consciousness is awake, alert, obeys commands, Oriented to person, place, time, situation. Cardiovascular: Heart tones S1 S2 present Patient's skin is warm and dry. Rhythm is sinus rhythm Chest pain is described as Pain is 9 out of 10 on a pain scale. is located in left anterior chest wall. Respiratory: Airway is patent Respiratory effort is even, unlabored, Respiratory pattern is regular, symmetrical, Breath sounds are clear bilaterally. GI: Abdomen is round non-distended, Reports nausea, Patient currently denies diarrhea, vomiting. : No signs and/or symptoms were reported regarding the genitourinary system. Derm: Skin is pink, warm \T\ dry. 19:17 Reassessment: Patient appears in no apparent distress at this time. Patient and/or aa1 family updated on plan of care and expected duration. Pain level reassessed. Patient is alert, oriented x 3, equal unlabored respirations, skin warm/dry/pink. Pt to be admitted; awaiting admission orders at this time Patient denies pain at this time. Patient states feeling better. 20:20 Reassessment: Patient appears in no apparent distress at this time. Patient and/or aa1 family updated on plan of care and expected duration. Pain level reassessed. Patient is alert, oriented x 3, equal unlabored respirations, skin warm/dry/pink. Report given to ADONIS Cardenas on 4th floor. Vital Signs: 16:31 BP 127 / 77; Pulse 87; Resp 16; Temp 97.3; Pulse Ox 100% on R/A; Weight 154.22 kg; la1 Height 5 ft. 8 in. (172.72 cm); 17:25 BP 109 / 55; Pulse 56; Resp 16 S; Pulse Ox 100% on R/A; Pain 9/10; jl7 18:00 BP 100 / 65; Pulse 57; Resp 18; Pulse Ox 100% on R/A; rv 19:17 BP 108 / 62; Pulse 58; Resp 18; Temp 97.7; Pulse Ox 97% on R/A; Pain 0/10; aa1 20:12 BP 113 / 61; Pulse 54; Resp 20; Temp 97.9; Pulse Ox 96% on R/A; Pain 0/10; aa1 16:31 Body Mass Index 51.70 (154.22 kg, 172.72 cm) la1 ED Course: 16:24 Patient arrived in ED. mr 16:24 Manolo Velasco MD is Private Physician. mr 16:30 Arm band placed on left wrist. ss 16:32 Triage completed. la1 16:33 Ezequiel Neely, RN is Primary Nurse. jl7 16:35 Zeke Dixon MD is Attending Physician. ma2 16:45 Patient has correct armband on for positive identification. Placed in gown. Bed in low jl7 position. Call light in reach. Side rails up X 1. site monitor on. Pulse ox on. NIBP on. Warm blanket given. 16:45 Initial lab(s) drawn, by me, sent to lab. Inserted saline lock: 22 gauge in right jb1 antecubital area, using aseptic technique. Blood collected. 16:45 Patient maintains SpO2 saturation greater than 95% on room air. jl7 16:46 XRAY Chest (1 view) In Process Unspecified. EDMS 16:50 EKG done, by diploma pharmacy technician. reviewed by Zeke Dixon MD. 3 19:16 Zeke Avalos MD is Hospitalizing Provider. ma2 20:12 No provider procedures requiring assistance completed. Patient admitted, IV remains in aa1 place. Administered Medications: No medications were administered Outcome: 19:16 Decision to Hospitalize by Provider. ma2 20:26 Admitted to Tele accompanied by nurse, family with patient, via wheelchair, room 407, aa1 with chart, Report called to ADONIS Cardenas 20:26 Condition: stable 20:26 Instructed on the need for admit, Demonstrated understanding of instructions. 20:30 Patient left the ED. aa1 Signatures: Dispatcher [employer] EDMS Anup Diaz 1 Marimar Baltazar RN RN aa1 Alysha Dempsey mr Radha Croft, Jhoan Keene RN, RN RN la1 Leal, Jahala, ADONIS LAMB Zeke Taylor MD MD [facility] She Acevedo 3 Mode Will RN RN rv
[2019-06-25] MEDS ORDERED: METOPROLOL TAR 50 MG TAB PO SCH (21:00)
[2019-06-25] MEDS: ENOXAPARIN 40 MG/0.4 ML SQ SCH (23:54)
[2019-06-25] MEDS: ASPIRIN EC 81 MG TAB PO SCH (23:54)
[2019-06-26 00:18] VITALS: BMI 51.7
[2019-06-26] MEDS ORDERED: HYDROCORTISONE SUC 100 MG INJ IV ONE ×2 (00:19→08:00)
[2019-06-26] MEDS ORDERED: WATER FOR INJ,STERILE 10 ML ONE (00:30)
[2019-06-26 06:49] LABS: Urine Appearance CLEAR; Urine Blood NEGATIVE (NEG); Urine Color YELLOW; Urine Glucose NEGATIVE (NEG); Urine Protein NEGATIVE (NEG); Urine Specific Gravity >=1.030 (1.005-1.030)
[2019-06-26 07:16] LABS: Urine Bilirubin NEGATIVE (NEG); Urine Microscopic Reflex NO UMIC
--- NOTE | 2019-06-26 08:16 | P.HP ---
Certification for Inpatient Patient admitted to: Observation With expected LOS: <2 Midnights Patient will require the following post-hospital care: None Practitioner: I am a practitioner with admitting privileges, knowledge of patient current condition, hospital course, and medical plan of care. Services: Services provided to patient in accordance with Admission requirements found in Title 42 Section 412.3 of the Code of Federal Regulations Patient History Date of Service: 06/25/19 Reason for admission: Chest pain rule out acute coronary syndrome History of Present Illness: Patient is a 38-year-old gentleman who came into the hospital with chest discomfort. Pain was mainly in the sternal region. He said he had been doing a lot a heavy lifting lately. He actually had to move in lifted told home pole. His pain became very severe so he came into the ER for evaluation. He was given nitro, aspirin, morphine, but he had very little relief. On examination his pain was reproducible. Was mainly around the left sternal margin. He also has some myositis. Patient was given anti-inflammatory am within the hr he was feeling much better. At this time, even though he does have risk factors own taking need any aggressive cardiac workup. Will do serial troponins and EKG ended echocardiogram. Will get Cardiology input as well. If his workup is negative he can be discharge with anti-inflammatories with outpatient follow-up. He does have elevated LDL. He also has an history of GARCIA. Will need to keep his cholesterol down and will start him on low-dose statin therapy. With his history of GARCIA, he will need to monitor his LFTs closely Allergies iodine IV Allergy (Uncoded 06/27/17 21:08) Unknown NKDA Allergy (Uncoded 08/06/15 21:25) Unknown No Known Allergies Allergy (Uncoded 01/05/17 23:16) Unknown Home Medications: Aspirin [Aspirin EC 81 MG] 81 mg PO DAILY #30 tablet. 06/26/19 Methylprednisolone [Medrol dosepack] 4 mg PO DIRECTED #1 alexsandra 06/26/19 Rosuvastatin Calcium [Crestor] 10 mg PO DAILY #30 tablet 06/26/19 - Past Medical/Surgical History Has patient received pneumonia vaccine in the past: No Diabetic: Yes -: Diabetes -: Nonalcoholic steatohepatitis -: Hypothyroidism -: Obstructive sleep apnea -: appendectomy -: lap appy -: brain surgery benign lesion - Family History mom Medical History: Other (see notes) Notes: hypothyroid dad Medical History: Diabetes Notes: fatty liver - Social History Smoking Status: Former smoker Alcohol use: Yes CD- Drugs: No Caffeine use: Yes Place of Residence: Home Review of Systems 10-point ROS is otherwise unremarkable Physical Examination - Vital Signs Temperature: 97.3 F Blood Pressure: 106/55 Pulse: 54 Respirations: 16 Pulse Ox (%): 99 - Physical Exam General: Alert, In no apparent distress, Oriented x3 HEENT: Atraumatic, PERRLA, Mucous membr. moist/pink, EOMI, Sclerae nonicteric Neck: Supple, 2+ carotid pulse no bruit, No LAD, Without JVD or thyroid abnormality Respiratory: Clear to auscultation bilaterally, Normal air movement Cardiovascular: Regular rate/rhythm, Normal S1 S2, No murmurs Gastrointestinal: Normal bowel sounds, Soft and benign, Non-distended, No tenderness, No rebound, No guarding Musculoskeletal: No clubbing, No swelling, Tenderness (Tenderness on the left sternocostal margin) Integumentary: No rashes Neurological: Normal gait, Normal speech, Normal strength at 5/5 x4 extr, Normal tone, Sensation intact, Cranial nerves 3-12 intact, Normal affect Lymphatics: No axilla or inguinal lymphadenopathy - Studies Laboratory Data (last 24 hrs) 06/25/19 16:40: PT 12.1, INR 1.03 06/25/19 16:40: WBC 7.9, Hgb 16.1, Hct 47.0, Plt Count 174 06/25/19 16:40: Sodium 141, Potassium 3.8, BUN 12, Creatinine 1.04, Glucose 91, Magnesium 2.1, Total Bilirubin 0.5, AST 67 H, ALT 129 H, Alkaline Phosphatase 62 , Lipase 213 Assessment & Plan - Problems (Diagnosis) (1) Chest pain, rule out acute myocardial infarction Current Visit: Yes Status: Acute (2) Costochondritis, acute Current Visit: Yes Status: Acute (3) Dyslipidemia Current Visit: Yes Status: Acute (4) GARCIA (nonalcoholic steatohepatitis) Current Visit: Yes Status: Acute - Plan 1. Serial troponins and EKG 2. Cardiology consultation 3. Echocardiogram 4. Anti-inflammatory, statin, aspirin, and O2 as needed 5. IV morphine for severe pain 6. Patient should be able to go home in the morning if workup is negative. Outpatient follow-up for further cardiac testing as needed because of his multiple risk factors Discharge Plan: Home Plan to discharge in: Greater than 2 days - Advance Directives Does patient have a Living Will: No Does patient have a Durable POA for Healthcare: No - Code Status/Comfort Care Code Status Assessed: Yes Code Status: Full Code Critical Care: No Time Spent Managing PTS Care (In Minutes): 45
--- NOTE | 2019-06-26 08:18 | P.DS ---
Discharge Date: 06/26/19 Disposition: ROUTINE DISCHARGE Discharge Condition: GOOD Reason for Admission: Chest pain rule out acute coronary syndrome - Problems (1) Chest pain, rule out acute myocardial infarction Status: Acute (2) Costochondritis, acute Status: Acute (3) Dyslipidemia Status: Acute (4) GARCIA (nonalcoholic steatohepatitis) Status: Acute Brief History of Present Illness: Patient is a 38-year-old gentleman who came into the hospital with chest discomfort. Pain was mainly in the sternal region. He said he had been doing a lot a heavy lifting lately. He actually had to move in lifted told home pole. His pain became very severe so he came into the ER for evaluation. He was given nitro, aspirin, morphine, but he had very little relief. On examination his pain was reproducible. Was mainly around the left sternal margin. He also has some myositis. Patient was given anti-inflammatory am within the hr he was feeling much better. At this time, even though he does have risk factors own taking need any aggressive cardiac workup. Will do serial troponins and EKG ended echocardiogram. Will get Cardiology input as well. If his workup is negative he can be discharge with anti-inflammatories with outpatient follow-up. He does have elevated LDL. He also has an history of GARCIA. Will need to keep his cholesterol down and will start him on low-dose statin therapy. With his history of GARCIA, he will need to monitor his LFTs closely Hospital Course: Patient was started on steroids and his symptoms have improved. He did have a stress test and echocardiogram which were completely normal. Patient's cardiac workup is unremarkable. Will continue anti-inflammatories at home. No heavy lifting in no work for 1 week. Return to the ER if his symptoms worsen. At this time patient can follow with PCP in 1-2 weeks. Patient is stable for discharge home. Vital Signs/Physical Exam: Temp Pulse Resp BP Pulse Ox 97.3 F 54 16 106/55 L 99 06/26/19 08:16 06/26/19 08:16 06/26/19 08:16 06/26/19 08:16 06/26/19 08:16 General: Alert, In no apparent distress, Oriented x3 Laboratory Data at Discharge: WBC 7.9 K/uL (4.3-10.9) 06/25/19 16:40 Hgb 16.1 g/dL (13.6-17.9) 06/25/19 16:40 Hct 47.0 % (39.6-49.0) 06/25/19 16:40 Plt Count 174 K/uL (152-406) 06/25/19 16:40 PT 12.1 SECONDS (9.5-12.5) 06/25/19 16:40 INR 1.03 06/25/19 16:40 Sodium 141 mmol/L (136-145) 06/25/19 16:40 Potassium 3.8 mmol/L (3.5-5.1) 06/25/19 16:40 BUN 12 mg/dL (7-18) 06/25/19 16:40 Creatinine 1.04 mg/dL (0.55-1.3) 06/25/19 16:40 Glucose 91 mg/dL (74-106) 06/25/19 16:40 Magnesium 2.1 mg/dL (1.8-2.4) 06/25/19 16:40 Total Bilirubin 0.5 mg/dL (0.2-1.0) 06/25/19 16:40 AST 67 U/L (15-37) H 06/25/19 16:40 ALT 129 U/L (12-78) H 06/25/19 16:40 Alkaline Phosphatase 62 U/L (45-117) 06/25/19 16:40 Troponin I < 0.02 ng/mL (0.0-0.045) 06/26/19 04:17 Triglycerides 141 mg/dL (<150) 06/26/19 04:17 Cholesterol 246 mg/dL (<200) H 06/26/19 04:17 HDL Cholesterol 46 mg/dL (40-60) 06/26/19 04:17 Cholesterol/HDL Ratio 5.35 06/26/19 04:17 Lipase 213 U/L (73-393) 06/25/19 16:40 Home Medications: Aspirin [Aspirin EC 81 MG] 81 mg PO DAILY #30 tablet. 06/26/19 Methylprednisolone [Medrol dosepack] 4 mg PO DIRECTED #1 alexsandra 06/26/19 Rosuvastatin Calcium [Crestor] 10 mg PO DAILY #30 tablet 06/26/19 New Medications: Aspirin [Aspirin EC 81 MG] 81 mg PO DAILY #30 tablet. Methylprednisolone [Medrol dosepack] 4 mg PO DIRECTED #1 alexsandra Rosuvastatin Calcium [Crestor] 10 mg PO DAILY #30 tablet Patient Discharge Instructions: OK TO DC IV AND DC HOME if ok with Cardiology. FOLLOW-UP WITH PRIMARY CARE PROVIDER IN 1-2 WEEKS. FOLLOW-UP WITH CARDIOLOGY IN 1-2 WEEKS. RETURN TO THE ER IF symptoms worsen. CALL or TEXT DR. KAYE AT [phone] IF ANY QUESTIONS REGARDING HOSPITAL STAY. PLEASE CALL THE FLOOR AT [phone] IF ANY MEDICATION OR NURSING QUESTIONS. Diet: AHA Activity: No heavy lifting for 1 week Followup: Albert Whitaker MD [ACTIVE - CAN ADMIT] - (call to schedule appointment) Time spent managing pt's care (in minutes): 30
[2019-06-26] MEDS: ASPIRIN EC 81 MG TAB PO SCH (09:21)
[2019-06-26] MEDS: ENOXAPARIN 40 MG/0.4 ML SQ SCH (09:21)
--- NOTE | 2019-06-26 11:08 | ECHO ---
HEIGHT: 5 ft 8 in WEIGHT: 340 lb 0 oz DATE OF STUDY: 06/26/[address]: Zeke Avalos MD 2-DIMENSIONAL: YES M.MODE: YES DOPPLER: YES COLOR FLOW: YES TDS: NO PORTABLE: NO DEFINITY: NO BUBBLE STUDY: NO DIAGNOSIS: CHEST PAIN/ RULE OUT ACUTE CORONARY SYNDROME CARDIAC HISTORY: CATHERIZATION: NO SURGERY: NO PROSTHETIC VALVE: NO PACEMAKER: NO MEASUREMENTS (cm) DIASTOLIC (NORMALS) SYSTOLIC (NORMALS) IVSd 1.1 (0.6-1.2) LA Diam 4.0 (1.9-4.0) LVEF 65% LVIDd 4.6 (3.5-5.7) LVIDs 3.0 (2.0-3.5) %FS 35% LVPWd 1.2 (0.6-1.2) Ao Diam 3.3 (2.0-3.7) 2 DIMENSIONAL ASSESSMENT: RIGHT ATRIUM: NORMAL LEFT ATRIUM: NORMAL RIGHT VENTRICLE: NORMAL LEFT VENTRICLE: NORMAL TRICUSPID VALVE: NORMAL MITRAL VALVE: NORMAL PULMONIC VALVE: NORMAL AORTIC VALVE: NORMAL PERICARDIAL EFFUSION: NONE AORTIC ROOT: NORMAL LEFT VENTRICULAR WALL MOTION: DOPPLER/COLOR FLOW: PHYSIOLOGIC TRICUSPID REGURGITATION. NORMAL RIGHT VENTRICULAR SYSTOLIC PRESSURE. COMMENTS: NORMAL 2D ECHO WITH DOPPLER. TECHNOLOGIST: GINA BRADEN
--- NOTE | 2019-06-26 11:19 | TREADMILL ---
70% H.R.: 127 85% H.R.: 154 90% H.R.: 163 100% H.R.: 181 DX: CHEST PAIN Date of Study: 06/26/19 Ht: 5 8 Wt: 340 lb 0 oz Consulting Physician: KYLE MEDICATIONS: TYLENOL, XANAX, ASPIRIN, LOVENOX, CRESTOR HISTORY: 38 YEAR OLD MALE WITH COMPLAINTS OF CHEST PAIN. HISTORY OF DIABETES, HYPOTHYROIDISM, BRAIN LESION, ANXIETY, SLEEP APNEA, NON ALCOHOLIC, FORMER SMOKER, HYPERTENSION. OCCASIONAL DRINKER PHYSICIAL EXAMINATION: RESTING B.P.: 108/70 RESTING H.R.: 61 RESTING EKG: NORMAL PROTOCOL: GERRY EXERCISE TIME: 7:56 MAXIMUM HEART RATE: 162 % OF PREDICTED B.P. AT PEAK STRESS: 154/73 H.R. AT 1 MINUTE POST EXERCISE: 146 IMPRESSION: TREADMILL STOPPED DUE TO TARGET HEART RATE REACHED. PATIENT REPORTED CHEST PAIN 8/10 THROUGHOUT PROCEDURE. NO SUPRAVENTRICULAR TACHYCARDIA, VENTRICULAR TACHYCARDIA, PREMATURE ATRIAL COMPLEXES. OCCASIONAL PREMATURE VENTRICULAR COMPLEXES. NORMAL STRESS TEST, NO ISCHEMIA.
--- NOTE | 2019-06-26 12:11 | EKG ---
Test Date: 2019-06-26 Test Time: 08:09:15 Leather Belt Maker: FRANKLIN MEASUREMENT RESULTS: Intervals: Rate: 49 NC: 156 QRSD: 94 QT: 438 QTc: 395 [place]: P: 14 NC: 156 QRS: 88 T: 57 INTERPRETIVE STATEMENTS: Marked sinus bradycardia Early repolarization Abnormal ECG Compared to ECG 06/25/2019 16:35:29 Early repolarization now present Electronically Signed On 06-26-19 12:10:35 CDT by Albert Whitaker
[2019-06-26 12:19] VITALS: BP 110/61; TEMP 97.6
--- NOTE | 2019-06-26 12:35 | CON ---
History Of Present Illness: Mr. Bagley is 38. He had sudden onset of sharp chest pain. Later there was a pressure which resolved after half an hour, came to the hospital. Since he has been here, EKGs and enzymes are normal. Mr. Bagley does not have any vascular disease, does not have hypertension or diabetes. He was a tobacco user until 1 month ago. Physical Examination: Vital Signs: 5 feet 8 inches, 340 pounds. HEENT: Unremarkable. Lungs: Clear. Carotids. No bruit. Abdomen: Soft. Extremities: Normal. Recommendations: I would recommend the patient do a stress test, and if it is normal, he will be dis charged. SHILA/TRISTAN Voice ID: [id number] Report ID: [id number]
[2019-06-26 12:36] VITALS: O2SAT 96
[2019-06-26] MEDS ORDERED: ROSUVASTATIN 10 MG TAB PO SCH (21:00)
== END 2019-06-26 13:38 | disposition home or self-care (01) ==
LOC: ER 16:20 → ERHOLD 19:16 → 4TH 20:20
PROVIDERS: ADMIT Hospitalist; ATTEND Hospitalist
DX: M94.0 Chondrocostal junction syndrome [Tietze] (principal); E78.5 Hyperlipidemia, unspecified; K75.81 Nonalcoholic steatohepatitis (NASH); E11.9 Type 2 diabetes mellitus without complications; G47.33 Obstructive sleep apnea (adult) (pediatric); E03.9 Hypothyroidism, unspecified; Z87.891 Personal history of nicotine dependence; Z79.82 Long term (current) use of aspirin
CPT/HCPCS: 36415; 71045; 80048; 80061; 80076; 81003; 83690; 83735; 83880; 84484; 85025; 85610; 93005; 93017; 93306; 99285; G0378; J1650; J1720

== ENCOUNTER 2020-06-08 12:01 | Emergency (ER) | payer OTHER ==
--- OUTSIDE RECORDS SUMMARY | 2020-06-08 12:03 | XMS REPORT | Continuity of Care Document ---
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 04/03/20 [place] (SEVERE) OBESITY 20 DUE T BACK/ LEG Active 02/17/20 [place] PAIN/FALL [facility] PAIN IN LOWER Active 02/17/20 [place] BACK [facility] Anxiety (finding) Active Problem 06/08/2020 [facility] Depressive Active Problem 06/08/2020 [place] and disorder (disorder) Hyperlipidemia Active Problem 06/08/2020 [place] (disorder) Hypothyroidism Active Problem 06/08/2020 [place] (disorder) Obesity Active Problem 06/08/2020 [place] (disorder) Sleep apnea Active Problem 06/08/2020 [place] (finding) Smoker (finding) Active Problem 06/08/2020 Nursery LOW BACK PAIN Active [facility] Medications Medication Details Route Status Patient Ordering Order Source Instructions Provider Date pantoprazole 40 40 mg = 1 tab, Active H mg oral enteric PO, Daily, # 2019 [place] coated tablet 30 tab, 1 Refill(s), Pharmacy: [facility] #[id number], 175.26, cm, 06/01/20 17:08:00 CDT, Height, 167.727, kg, 06/01/20 17:08:00 CDT, Weight Sodium Chloride 1,000 mL, Inactive 0.9% IV 1,000 Rate: 2019 Nursery mL ml/hr, Infuse over: 47.6 hr, Route: IV, Dosing Weight 167.727 kg, Total Volume: 1,000, Start date: 06/03/20 6:43:00 CDT, Duration: 30 day, Stop date: 07/03/20 6:42:00 CDT, 2.91, m2, 0 Acetaminophen 1,000 mg = 2 Active 500 MG Oral tab, PO, PRN, 2019 [place] Tablet 0 Refill(s) [Tylenol] levothyroxine 200 microgram Active 200 mcg (0.2 = 1 tab, PO, 2019 [place] mg) oral tablet Daily, 0 Refill(s) lovastatin 40 40 mg = 1 tab, Active mg oral tablet PO, Daily, 0 2019 [place] Refill(s) busPIRone 10 mg 10 mg = 1 tab, Active H oral tablet PO, BID, 0 2019 Nursery Refill(s) Famotidine 20 20 mg = 1 tab, Active [place] MG Oral Tablet PO, BID, # 60 2019 Med ical tab, 0 Center Refill(s) {21 See Active Des (Methylpredniso Instructions, 2019 Me dical lone 4 MG Oral PO, Take by Cente r Tablet mouth as [Medrol]) } directed on Pack [Medrol label., # 1 Dosepak] Pack, 0 Refill(s) Senna 8.6 mg 17.2 mg = 2 Active [place] oral tablet tab, PO, BID, 2019 Medica l PRN Center Constipation, X 25 day, # 100 tab, 0 Refill(s) Acetaminophen 1 - 2 tab, PO, Active [place] 300 MG / Q4H, PRN Pain, 2019 Medical Codeine X 4 day, # 36 Center Phosphate 30 MG tab, 0 Oral Tablet Refill(s) [Tylenol with Codeine #3] Saline Flush Notes: (Same No Longer [place] 0.9% as: BD Active 2019 Medical Posiflush) Center levothyroxine 200 microgram Active [place] 200 mcg (0.2 = 1 tab, PO, 2019 Medica l mg) oral tablet Daily, 0 Center Refill(s) Metformin 500 mg = 1 Active [place] hydrochloride tab, PO, BID, 2019 Medi nicholas 500 MG Oral 0 Refill(s) Center Tablet terbinafine 250 250 mg = 1 Active [place] mg oral tablet tab, PO, 2019 Medical Daily, 0 Center Refill(s) Docusate Notes: (Same No Longer [place] as: Colace) Active 2019 Medical (Do Not Crush) Center sennosides, RESIDENTIAL Notes: (Same No Longer H [place] as: Senokot) Active 2019 [facility] Cefazolin Notes: (Same No Longer [place] as Ancef) Active 2019 [facility] D5LR 1,000 mL 1,000 mL, No Longer [place] Rate: 150 Active 2019 Medical ml/hr, Infuse Center over: 6.7 hr, Route: IV, Total Volume: 1,000, Priority: STAT, Start date: 02/17/19 14:32:00 CDT, Duration: 30 day, Stop date: 03/19/19 14:31:00 CDT Saline Flush Notes: (Same No Longer [place] 0.9% as: BD Active 2018 Medical Posiflush) Center phenol Notes: No Longer [place] Chloraseptic Active 2019 Medical [place] (Same Center as: Chloraseptic, Sore Throat [place]) WASTE: F/P - Black; E - Municipal Trash Bin Melatonin 3 MG Notes: (Same No Longer [place] Extended as: Melatonin) Active 2019 Medical Release Tablet Center Tylenol Notes: Do not No Longer [place] exceed 4 Active 2019 Medical gm/day. (Same Center as: Tylenol) Labetalol 10 mg, 2 mL, No Longer [place] Route: IVP, Active 2019 Medical Drug form: Center INJ, Q15Min, kg, PRN Hypertension, Start date: 02/17/19 13:47:00 CDT, Duration: 3 doses or times, Stop date: Limited # of times Hydralazine Notes: (Same [place] Longer [place] as: Active 2019 Medical Apresoline) Center Push over 5 minutes Dilaudid Notes: Same as No Longer [place] Dilaudid Active 2019 [facility] Center Benadryl Notes: (Same No Longer [place] as: Benadryl) Active 2019 [facility] Center Acetaminophen Notes: Do not No Longer [place] 325 MG / exceed 4gm/day Active 2019 Medical Hydrocodone of Center Bitartrate 10 acetaminophen. MG Oral Tablet (Same as: [[place] 10/325] [place] 325/10) Ondansetron Notes: (Same [place] Longer [place] as: Zofran) Active 2019 Medical MEDICATION Center WASTE Product Size: 4 mg Product Wasted: 0 mg Bisacodyl Notes: (Same [place] Longer [place] As: Dulcolax, Active 2019 Medical Bisco-Lax) Center Robaxin Notes: (Same No Longer [facility] as:Robaxin) Active 2019 Medical Center Sodium Chloride 1,000 mL, No Longer [place] 0.9% IV 1,000 Rate: 50 Active 2019 Medical mL ml/hr, Infuse Center over: 20 hr, Route: IV, Total Volume: 1,000, Start date: 02/17/19 13:47:00 CDT, Duration: 30 day, Stop date: 03/19/19 13:46:00 CDT Flomax Notes: (Same No Longer 02/17[facility] As: Flomax) Active 2019 Medical "Do Not Crush" Center Zofran Notes: (Same Inactive 02/17[facility] as: Zofran) 2019 Medical MEDICATION Center WASTE Product Size: 4 mg Product Wasted: ___ mg Morphine Notes: (Same Inactive 02/17[facility] as:MORPhine 2019 Medical Sulfate) Center Ibuprofen 400 Notes: (Same Inactive 02/17[facility] [place] MG Oral Tablet as: Motrin) 2019 Medic al "Do Not Crush" Center Give with food. Acetaminophen Notes: Do not Inactive 02/17[facility] exceed 4 2019 Medical gm/day. (Same Center as: Tylenol) Zofran Notes: (Same Inactive 02/17[facility] as: Zofran) 2019 Medical MEDICATION Center WASTE Product Size: 4 mg Product Wasted: 0 mg Morphine Notes: (Same Inactive 02/17[facility] as:MORPhine 2019 Medical Sulfate) Center Allergies, Adverse Reactions, Alerts Substance Category Reaction Severity Reaction Status Date Comments S ource type Reported iodine Assertion Drug Active allergy Nursery contrast Assertion SWELLS Drug Active media allergy Nursery (iodine-bas ed) Immunizations No Data Provided for This Section Results Order Name Results Value Reference Date Interpretation Comments Rocio rce Range IMMUNOLOGY Coronavirus Not Detected Not (COVID-19) *NA* Detected 2019 [facility] (06/01/20 4:49 PM) IMMUNOLOGY CDC HIV 4th Negative Negative [place] s GEN *NA* 2019 Medical (02/17/19 6:10 AM) Center Pathology Reports No Data Provided for This Section Diagnostic Reports Report Value Date Source Spine cervical wo EXAM: MRI CERVICAL SPINE WITHOUT CONTRAST 10/2018 [facility] contrast MRI DATE: 02/17/2019 Center INDICATION: ' - BLE weakness' ADDITIONAL INFORMATION: Lower extremity weakness after fall. COMPARISON: Concurrent MRI o f the thoracic spine, MRI of the lumbar spine earlier the same date TECHNIQUE: Multiplanar, mult isequence noncontrast MR imaging of the cervical spine. IV contrast: None. FINDINGS: Straightening of the normal cervical lordosis with no traumatic malalignment. There is no ligamentous injury. Vertebral body heights are w ell maintained. The marrow signal is within normal limits. No focal osseous lesion. The cervical spinal cord is normal in size and s ignal. The included soft tissues are normal. Evaluation of the individual levels demonstrates minimal loss of the normal hydration at C6-C7 with mild left uncovertebral arthropathy, but without disc herniation, spinal canal stenosis, or significant neural foraminal narrowing. IMPRESSION: Unremarkable noncontrast MRI of the cervical spi ne. Brain wo contrast MRI EXAM: MRI BRAIN WITHOUT CONTRAST 9 [facility] DATE: 02/17/2019 Center INDICATION: ' - eval meningioma' ADDITIONAL INFORMATION: 38-y ear-old with reported prior surgery for 'benign brain tumor' at outside hospital COMPARISON: None TECHNIQUE: Multiplanar, multisequence MRI of the brain without contrast. IV contrast: None FINDINGS: Postsurgical changes of prio r left frontal craniotomy with interhemispheric approach and surgical tract along the left cingulate gyrus and body of the corpus callosum. No intraventricular lesion is appr eciated on this noncontrast exam. There is surrounding T2/FLAIR hyperintense signal abnormality within the left frontal lobe and cingulate gyrus. There is no acute intracrani al hemorrhage. Hemosiderin lines the surgical tract. Diffusion imaging shows no hyperacute, a cute, or subacute ischemic infarction. Normal T2 hypointense flow v oids are well maintained. There is no definite intracranial mass, limited noncontrast exam. No mass effect. The ventricles are normal in size. The bone marrow signal is within normal limits. IMPRESSION: 1. Prior left frontal crani otomy with interhemispheric approach and surgical tract along the left cingulate gyrus and the body of the corpus callosum. Adjacent T2/FLAIR hyperintense signal abnormality most likely represents encep halomalacia and gliosis, but comparison with prior imaging is recommended. 2. No signs of intracranial meningioma (the lesion in the given indication) or intraventricular lesion on limited noncontrast examination. 3. No acute intracranial abnormality. Spine Thoracic wo EXAM: MRI THORACIC SPINE WITHOUT CONTRAST 10/2018 [facility] contrast MRI DATE: 02/17/2019 Center INDICATION: ' - eval mass' ADDITIONAL INFORMATION: 38-year-old male with ri ght leg numbness after fall COMPARISON: Lumbar spine MRI earlier the same da te TECHNIQUE: Multiplanar, mult isequence noncontrast MR imaging of the thoracic spine. IV contrast: None. FINDINGS: The normal thoracic kyphosis is preserved. Vertebral body heights are w ell maintained. The marrow signal is within normal limits. No focal osseous lesion. The thoracic spinal cord is normal in size and s ignal. The included soft tissues are normal. Evaluation of the individual levels demonstrate no disc herniation, spinal canal stenosis, or neural foraminal narrowing. There are tiny posterior disc osteophyte complexes which efface the ventral CSF space at T3-T4 and C5-C6. IMPRESSION: Unremarkable noncontrast MRI of the thoracic spi ne. Spine lumbar wo EXAM: MRI LUMBAR SPINE WITHOUT CONTRAST 02/18/20 [facility] contrast MRI DATE: 02/17/2019 at 6:53 AM Center INDICATION: 38-year-old male patient presenting with right leg numbness after fall. COMPARISON: None available TECHNIQUE: Multiplanar, mult isequence noncontrast MR imaging of the lumbar spine. IV contrast: None. FINDINGS: Five fully segmented lumbar type vertebral tere s are identified. Mild rectification of the normal lumbar lordosis . Otherwise normal alignment. The lumbar vertebrae are normal in height, shape and signal intensity. Congenitally short pedicles throughout the lumbar spine, rendering a small spinal canal. The spinal canal is widely patent. The conus medullaris terminates at the level of the superior endplate of L2, in a normal fashion. Congenitally short pedicles throughout the lumba r spine. The paraspinal muscles and visible retroperitone al organs are unremarkable. Individual levels: Levels not mentioned below are deemed normal. L4-L5: Posterior annular bul ge indenting the thecal sac, with a superimposed right foraminal and extraforaminal disc protrusion impinging upon the exiting right L4 nerve root. Note is made of narrowing of the right lateral recess displacing the descending right L5 nerve root. Bilateral facet joint sclerosis and hypertrophy. The spinal canal remains patent. L5-S1: Degenerative disc hei ght loss associated with posterior annular bulge indenting the thecal sac. Central disc protrusion measuring 9 x 6 mm in the axial plane, associated with a horizontal annular fissure, indenting the thec al sac, without mechanical compression upon the cauda equina. The disc material appears to contact bilateral descending S1 nerve roots, more conspicuous on the right. Bilater al facet joint arthropathy w ith mild narrowing of the right neural foramen, without effacement of the perineural fat pad. Spinal canal remains patent. IMPRESSION: 1. Right foraminal/extrafor aminal disc protrusion at L4-L5 impinging upon the exiting L4 nerve root. 2. Diffuse bulging of the d isc with central disc protrusion at L5-S1. Disc material appears to contact the descending S1 nerve roots bilaterally, more conspicuous on the right. 3. Mild lumbar spondylosis, more prominent at L 4-L5 and L5-S1 Knee 3 views DX EXAM: XR RIGHT HIP 2 VIEW AND AP PELVIS 02/18/20 19 [facility] Medical EXAM: XR RIGHT FEMUR [address] EXAM: XR RIGHT KNEE 3 VIEWS DATE: 02/17/2019 4:32 CDT INDICATION: - hip pain ADDITIONAL INFORMATION: 'Pt sts his Right leg gave out and he fell down and since has been having increased pain down RLE.' COMPARISON: None. TECHNIQUE: AP pelvis, 2 view hip, 2 views of the femur, 3 views of the knee. FINDINGS: Pelvis/Hip: No acute fractu re or malalignment is identified. There is no sacroiliac joint or pubic symphysis diastasis. Femur: No acute fracture or malalignment is iden tified. Knee: No acute fracture or m alalignment is identified. No knee joint effusion is present. Soft tissues: No soft tissue abnormality is iden tified. IMPRESSION: No acute abnormality. Femur series DX EXAM: XR RIGHT HIP 2 VIEW AND AP PELVIS 02/18/20 19 [facility] Medical EXAM: XR RIGHT FEMUR [address] EXAM: XR RIGHT KNEE 3 VIEWS DATE: 02/17/2019 4:32 CDT INDICATION: - hip pain ADDITIONAL INFORMATION: 'Pt sts his Right leg gave out and he fell down and since has been having increased pain down RLE.' COMPARISON: None. TECHNIQUE: AP pelvis, 2 view hip, 2 views of the femur, 3 views of the knee. FINDINGS: Pelvis/Hip: No acute fractu re or malalignment is identified. There is no sacroiliac joint or pubic symphysis diastasis. Femur: No acute fracture or malalignment is iden tified. Knee: No acute fracture or m alalignment is identified. No knee joint effusion is present. Soft tissues: No soft tissue abnormality is iden tified. IMPRESSION: No acute abnormality. Hip 2/3 views uni w EXAM: XR RIGHT HIP 2 VIEW AND AP PELVIS 10/2018 [facility] Medical pelvis DX EXAM: XR RIGHT FEMUR [address] EXAM: XR RIGHT KNEE 3 VIEWS DATE: 02/17/2019 4:32 CDT INDICATION: - hip pain ADDITIONAL INFORMATION: 'Pt sts his Right leg gave out and he fell down and since has been having increased pain down RLE.' COMPARISON: None. TECHNIQUE: AP pelvis, 2 view hip, 2 views of the femur, 3 views of the knee. FINDINGS: Pelvis/Hip: No acute fractu re or malalignment is identified. There is no sacroiliac joint or pubic symphysis diastasis. Femur: No acute fracture or malalignment is iden tified. Knee: No acute fracture or m alalignment is identified. No knee joint effusion is present. Soft tissues: No soft tissue abnormality is iden tified. IMPRESSION: No acute abnormality. Consultation Notes No Data Provided for This Section Discharge Summaries No Data Provided for This Section History and Physicals No Data Provided for This Section Vital Signs Vital Sign Value Date Comments Source Respitory Rate 9 06/03/[address] [facility] Systolic (mm Hg) 121 06/03/[address] [facility] Diastolic (mm Hg) 57 06/03/2020 [facility] Respitory Rate 18 06/03/[address] [facility] Systolic (mm Hg) 121 06/03/[address] [facility] Diastolic (mm Hg) 49 [facility] 17 06/03/[address] [facility] Systolic (mm Hg) 108 06/03/[address] [facility] Diastolic (mm Hg) 57 06/03/2020 [facility] Weight 167.727 06/03/[address] [facility] BMI Calculated 54.61 06/03/[address] [facility] Height 175.26 cm 06/01/[address] [facility] Height 175.26 cm 05/27/[address] [facility] Weight 165.909 05/27/[address] [facility] BMI Calculated 54.01 05/27/[address] [facility] Heart Rate 51 02/18/2019 [facility] Temperature Oral (F) 97.7 F 02/18/2019 [facility] Respitory Rate 17 02/18/2019 [facility] Systolic (mm Hg) 122 02/18/2019 [facility] Diastolic (mm Hg) 75 02/18/2019 [facility] Temperature Oral (F) 98.5 F 02/18/2019 [facility] Systolic (mm Hg) 135 02/18/2019 [facility] Diastolic (mm Hg) 76 02/18/2019 [facility] Respitory Rate 17 02/18/2019 [facility] Heart Rate 76 02/18/2019 [facility] Systolic (mm Hg) 147 02/18/2019 [facility] Diastolic (mm Hg) 70 02/18/2019 [facility] Temperature Oral (F) 98.0 F 02/18/2019 [facility] Respitory Rate 17 02/18/2019 [facility] Heart Rate 56 02/18/2019 [facility] Encounters Location Location Encounter Encounter Reason Attending ADM DC Stat us Source Details Type Number For Provider Date Date Visit [facility] Observation [id number] [place] 02/17 02/18 Des Lala Jr /2018 [facility] Memorial Recurring [id number] [place] 04/03 05/03 Silas Ekhaese /2019 [facility] Memorial Bedded [id number] [place] 06/03 06/03 [facility] Ekhaese /2019 [facility] Procedures Procedure Code Date Perfomer Comments Source Appendectomy [id number] [facility] Cholecystectomy [id number] [facility] nd Operation [id number] [facility] Assessment and Plan No Data Provided for This Section Plan of Care No Data Provided for This Section Social History Social History Date Source Social History TypeResponse 05/27/[address] [facility] Alcohol Current, Type Beer, Wine, Liquor. Frequency: 1-2 times per week. Substance Abuse Use: None. Smoking Status Former smoker; Type: Cigarettes; Exposur e to Tobacco Smoke None; Cigarette Smoking Last 365 Days Yes; Reg Smoking Cessation Counseling No; Number of years: 22; 1 entered on: 06/03/20 1QUIT 04/2020 Social History TypeResponse 02/17/2019 [facility] Substance Abuse Use: None. Alcohol Current Smoking Status Current every day smoker; Exposure to To bacco Smoke None; Cigarette Smoking Last 365 Days Yes; Reg Smoking Cessation Counseling No entered on: 02/17/19 Social History TypeResponse 02/17/2019 [facility] Alcohol Current Substance Abuse Use: None. Smoking Status Current every day smoker; Exposure to To bacco Smoke None; Cigarette Smoking Last 365 Days Yes; Reg Smoking Cessation Counseling No entered on: 02/17/19 Family History No Data Provided for This Section Advance Directives No Data Provided for This Section Functional Status No Data Provided for This Section
--- OUTSIDE RECORDS SUMMARY | 2020-06-08 12:03 | XMS REPORT | Summary of Care ---
:1980 Author Organization [facility] spital Address [id number] [place] [id number]- Encounter HQ Carolina_nikole(FIN) [id number] Date(s): 06/03/20 - 06/03/20 [facility] [id number] [place] [phone] Discharge Disposition: Home or Self Care Attending Physician: Maryam Olivas DO Referring Physician: Maryam Olivas DO Vital Signs Most recent to oldest 1 2 3 [Reference Range]: Height 175.26 cm 175.26 cm (06/01/20 5:08 PM) (05/27/20 5:03 PM) Blood Pressure [90-140/60-90 121/57 mmHg 121/49 mmHg 108 /57 mmHg mmHg] (06/03/20 8:15 AM) (06/03/20 8:10 AM) (06/03/20 6:2 5 AM) Respiratory Rate [14-20 BRMIN] 9 BRMIN 18 BRMIN 1 7 BRMIN *LOW* (06/03/20 8:10 AM) (06/03/20 6:25 AM) (06/03/20 8:15 AM) Weight 167.727 kg 165.909 kg (06/03/20 6:22 AM) (05/27/20 5:03 PM) Body Mass Index 54.61 m2 54.01 m2 (06/03/20 6:22 AM) (05/27/20 5:03 PM) Problem List Condition Effective Dates Status Health Status Informant Anxiety(Confirmed) Active Depression(Confirmed) Active Hyperlipidemia(Confirmed) Active Hypothyroid(Confirmed) Active Obesity(Confirmed) Active Sleep apnea(Confirmed) Active Smoker(Confirmed) Active Allergies, Adverse Reactions, Alerts Substance Reaction Severity Status iodine Active contrast media (iodine-based) SWELLS Ac tive Medications busPIRone 10 mg oral tablet 10 mg = 1 tab, PO, BID, 0 Refill(s) Start Date: 05/27/20 Status: Orderedlevothyroxine 200 mcg (0.2 mg) oral tablet 200 microgram = 1 tab, PO, Daily, 0 Refill(s) Start Date: 05/27/20 Status: Orderedlovastatin 40 mg oral tablet 40 mg = 1 tab, PO, Daily, 0 Refill(s) Start Date: 05/27/20 Status: Orderedpantoprazole 40 mg oral enteric coated tablet 40 mg = 1 tab, PO, Daily, # 30 tab, 1 Refill(s), Pharmacy: [facility][id number], 175.26, cm, 06/01/20 17:08:00 CDT, Height, 167.727, kg, 06/01/20 17:08:00 CDT, Weight Start Date: 06/03/20 Status: OrderedSodium Chloride 0.9% IV 1,000 mL 1,000 mL, Rate: 21 ml/hr, Infuse over: 47.6 hr, Route: IV, Dosing Weight 167.727 kg, Total Volume: 1,000, Start date: 06/03/20 6:43:00 CDT, Duration: 30 day, Stop date: 07/03/20 6:42:00 CDT, 2.91, m2, 0 Start Date: 06/03/20 Stop Date: 06/03/20 Status: DiscontinuedTylenol Extra Strength 500 mg oral tablet 1,000 mg = 2 tab, PO, PRN, 0 Refill(s) Start Date: 05/27/20 Status: Ordered Results Most recent to oldest [Reference Range]: 1 Coronavirus (COVID-19) ADRIANE [Not Detected] Not Detected *NA* (06/01/20 4:49 PM) Immunizations No data available for this section Procedures Procedure Date Related Diagnosis Body Site Status Appendectomy Completed Cholecystectomy Completed Operation Completed Social History Social History Type Response Alcohol Current, Type Beer, Wine, Li quor. Frequency: 1-2 times per week. Substance Abuse Use: None. Smoking Status Former smoker; Type: Cigaret roberta; Exposure to Tobacco Smoke None; Cigarette Smoking Last 365 Days Yes; Reg Smoking Cessation Counseling No; Number of years: 22; 1 entered on: 06/03/20 1Q04/2020 Assessment and Plan No data available for this section
--- OUTSIDE RECORDS SUMMARY | 2020-06-08 12:03 | XMS REPORT | Summary of Care ---
:1980 Author Organization [facility] [place] [facility] spital Address [address] [place] [phone]- Encounter HQ Carolina_nikole(FIN) [id number] Date(s): 06/03/20 - 06/03/20 [facility] [id number] [place] [phone] Discharge Disposition: Home or Self Care Attending [...] Daily, # 30 tab, 1 Refill(s), Pharmacy: [facility] #[id number], 175.26, cm, 06/01/20 17:08:00 CDT, Height, 167.727, [...]
--- OUTSIDE RECORDS SUMMARY | 2020-06-08 12:03 | XMS REPORT | Summary of Care ---
:1980 Author Organization [facility] Address [id number] [place] [id number]- Encounter HQ Encntr_alias(FIN) [id number] Date(s): 04/03/20 - 05/02/20 Formerly [facility] [id number] [place] [address]- Discharge Disposition: Home or Self Care Attending Physician: Maryam Olivas DO Referring Physician: Maryam Olivas DO Vital Signs No data available for this section Problem List No data available for this section Allergies, Adverse Reactions, Alerts Substance Reaction Severity Status iodine Active Medications No data available for this section Results No data available for this section Immunizations No data available for this section Procedures No data available for this section Social History Social History Type Response Alcohol Current Substance Abuse Use: None. Smoking Status Current every day smoker; Ex posure to Tobacco Smoke None; Cigarette Smoking Last 365 Days Yes; Reg Smoking Cessation Counseling No entered on: 02/17/19 Assessment and Plan No data available for this section
--- OUTSIDE RECORDS SUMMARY | 2020-06-08 12:03 | XMS REPORT | Clinical Summary ---
:1980 Author Organization [facility] Address [address] [place] [address] Care Team Providers Name Role Phone Jamie Primary Care Provider Allergies Active Allergy Reactions Severity Noted Date Comments Gadolinium-Containing Contrast Media Hives 02/17 Given at [facility] Medications No known medications [...] Not on file Implants Implanted Type Area Theater Manager Device Shelf Model / Identifier Expiration Serial / Date Lot Matrix Floseal Hemo W/O Ndl 10 [id number] - [id number] Cement/Keo Left: FRITZ:BIOSCI 08/11/2018 [id number] / Implanted: Qty: 1 on 03/28/2017 by Eduardo Castillo MD ler/Adhesi Head / ve [id number] Cvr Bur-Hl Lp-Neuro 24mm Ti Ns 421.528 - [id number] Fracture/F Left: SYNTHES:SYNTHES 421.528 / Implanted: Qty: 4 on 03/28/2017 by Eduardo Castillo MD ixation H ead [place] / Scr Sd Mtrxneu 4mm Ti Ns .503.104.01 - [id number] Fracture/F Left: SYNTHES:SYNTHES .503.104.01 / Implanted: Qty: 15 on 03/28/2017 by Eduardo Castillo MD ixation Head [place] / Grft Dura Cllgn Duragn [id number] Id-[id number] - [id number] Tissue Left: INTEGRA 07/17/2017 ID-[id number] / Implanted: Qty: 1 on 03/28/2017 by Eduardo Castillo MD Graft /Subs Head LIFESCI:NEURO / titute [id number] Results Not on fileafter 06/08/2019 Insurance Payer Benefit Plan / Subscriber ID Type Phone Address Group BLUE CROSS/BLUE BCBS PPO POS EPO xxxxxxxxxxxx PPO [phone] [address] [place] [address] [facility] HMO POS xxxxxxxxx HMO/POS [facility] SELECT CHOICE Advance Directives For more information, please contact:[address] [phone] Code Status Date Activated Date Inactivated Comments Full Code 03/28/2017 3:16 PM 03/30/2017 2:02 PM This code status was determined by: Patient Full Code 03/15/2017 2:58 AM 03/20/2017 12:50 AM This code status was determined by: Patient
--- OUTSIDE RECORDS SUMMARY | 2020-06-08 12:05 | XMS REPORT | Continuity of Care Document ---
:1980 Author Organization [facility] t Address [address] [place] [address] Care Team Providers Name Role Phone Sharpless Primary Care Physician Leesa Olivas Attending Clinician Blaine Lala Jr Attending Clinician DR CATIE Attending Clinician Unavailable NAOMIE LEDESMA Attending Clinician Unavailable LY Attending Clinician Unavailable An ARREOLA Attending Clinician Unavailable Blaine Lala Jr Admitting Clinician DR CATIE Admitting Clinician Unavailable LY Admitting Clinician Unavailable An ARREOLA Admitting Clinician Unavailable Payers Payer Name Policy Type Policy Number Effective Date Expiration Date S ource Problems Condition Condition Condition Status Onset Resolution Last Treating Co mments Source Name Details Category Date Date Treatment Clinician Date UNK Diagnosis Active 2020-06-01 Mem oria 05-13 16:30:00 l UNK 00:00: [place] 00 Active 05/13/2020 [facility] EGD Diagnosis Active 2020-06-05 Mem oria 05-13 07:42:00 l EGD 00:00: [place] 00 Active 05/13/2020 [facility] DX: Diagnosis Active 2020-04-06 Mem oria E66.01=MOR 7-17 09:58:00 l BID DX: 00:00: [place] (SEVERE) E66.01=MOR 00 OBESITY BID DUE T (SEVERE) OBESITY DUE T Active 04/03/2020 [facility] BACK/ LEG Diagnosis Active 2019-02-17 Memoria PAIN/FALL 6 05:16:00 l BACK/ 00:00: [place] LEG 00 PAIN/FALL Active 02/16/2019 [facility] PAIN IN Diagnosis Active 2019-02-18 Me moria LOWER BACK 02-16 14:59:00 l PAIN IN 00:00: [place] LOWER BACK 00 Active 02/16/2019 [facility] Parkinson Parkinson Disease Active [facility] 00 [place] Brain Brain Disease Active [facility] lesion [facility] 00 [place] Morbid Morbid Disease Active [facility] obesity obesity [facility] 00 [place] YAMIL on YAMIL on Disease Active [facility] CPAP CPAP [facility] - [facility]: [facility] 00 [place] Fatty Fatty Disease Active [facility] liver liver [facility] 00 [place] H/O: H/O: Disease Active [facility] depression depression 630 Berta kes - 00:00: Medical 00 [place] Headache, Headache, Disease Active [facility] acute [facility] - [facility]: [facility] 00 [place] Anxiety Problem Active 2020-06-08 Bryan lóepz (finding) 07:03:26 l Anxiety [place] (finding) Active Problem 06/08/2020 [facility] Depressive Problem Active 2020-06-08 M emoria disorder 07:03:26 l (disorder) [place] Depressive disorder (disorder) Active Problem 06/08/2020 [facility] Hyperlipid Problem Active 2020-06-08 M emoria emia 07:03:26 l (disorder) [place] Hyperlipid emia (disorder) Active Problem 06/08/2020 [facility] Hypothyroi Problem Active 2020-06-08 M emoria dism 07:03:26 l (disorder) [place] Hypothyroi dism (disorder) Active Problem 06/08/2020 [facility] Obesity Problem Active 2020-06-08 Bryan lópez (disorder) 07:03:26 l Obesity [place] (disorder) Active Problem 06/08/2020 [facility] Sleep Problem Active 2020-06-08 Memor ia apnea 07:03:26 l (finding) Sleep [place] apnea (finding) Active Problem 06/08/2020 [facility] Smoker Problem Active 2020-06-08 Memor ia (finding) 07:03:26 l Smoker [place] (finding) Active Problem 06/08/2020 [facility] LOW BACK Diagnosis Active 2019-02-18 M emoria PAIN 14:59:00 l LOW BACK [place] PAIN Active [facility] Allergies, Adverse Reactions, Alerts Allergy Allergy Status Severity Reaction(s) Onset Inactive Treating Comm ents Source Name Type Date Date Clinician No Known DA Active U 2017-09 [facility] Allergie 0-16 [place] s 00:00: d 00 [facility] Propensi [facility]ing adverse 00:00: Medical Contrast reaction [address] [place] [address] Media s iodine iodine Active Memoria l [place] contrast contrast Active Memori a media media l (iodine- (iodine- [place] n based) based) Family History Family Member Diagnosis Comments Start Date Stop Date Source Natural father Diabetes [facility] Maternal grandmother Diabetes [facility] Maternal grandmother Hyperlipidemia [facility] Paternal aunt Cancer [facility] Paternal grandmother Cancer [facility] Paternal grandmother Osteoporosis [facility] Social History Social Habit Start Date Stop Date Quantity Comments Source Sex Assigned At [facility] Social History 2019-02-17 2019-02-17 [facility] yuly 12:17:51 12:17:51 Cigarettes smoked 2017-10-30 2017-10-30 [facility] - current (pack per 00:00:00 00:00:00 [facility] Center day) - Reported Cigarette 2017-10-30 2017-10-30 [facility] - pack-years 00:00:00 00:00:00 [facility] Tobacco Comment 2017-03-27 2017-03-27 since he was [facility] - 00:00:00 00:00:00 20-29 years old Medical C enter quit for 4 years them started smoking again. handout to be given dos Alcohol Comment 2017-03-14 2017-03-14 3 x a year [facility] - 00:00:00 00:00:00 [facility] Smoking Status Start Date Stop Date Source Current every day smoker 2017-10-30 00:00:00 [facility] Medications Ordered Filled Start Stop Current Ordering Indication Dosage Frequency Signature Comments Components Source Medication Medication Date Date Medication? Clinician (SIG) Name Name pantoprazol 2020-0 Yes 40 mg = 1 M emoria e 40 mg -16 tab, PO, l oral 13:20: Daily, # [place] enteric 00 30 tab, 1 coated Refill(s), tablet Pharmacy: [id number], 175.26, cm, 06/01/20 17:08:00 CDT, Height, 167.727, kg, 06/01/20 17:08:00 CDT, Weight Sodium 2020-0 No 1,000 mL, Memori a Chloride 06-03 Rate: 21 l 0.9% IV 11:43: ml/hr, [place] 1,000 mL 00 Infuse over: 47.6 hr, Route: IV, Dosing Weight 167.727 kg, Total Volume: 1,000, Start date: 06/03/20 6:43:00 CDT, Duration: 30 day, Stop date: 07/03/20 6:42:00 CDT, 2.91, m2, 0 Acetaminoph 2020-0 Yes 1,000 mg = Memoria en 500 MG 09 2 tab, PO, l Oral Tablet 22:10: PRN, 0 Herm frank [Tylenol] 00 Refill(s) levothyroxi 2020-0 Yes 200 Memori a ne 200 mcg 9 microgram l (0.2 mg) 22:09: = 1 tab, Kisha nn oral tablet 00 PO, Daily, 0 Refill(s) lovastatin 2020-0 Yes 40 mg = 1 Me moria 40 mg oral 9-09 tab, PO, l tablet 22:09: Daily, 0 [place] 00 Refill(s) busPIRone 2020-0 Yes 10 mg = 1 Mem oria 10 mg oral 9-09 tab, PO, l tablet 22:09: BID, 0 [place] 00 Refill(s) Famotidine 2019-0 Yes 20 mg = 1 Me moria 20 MG Oral 6-03 tab, PO, l Tablet 22:35: BID, # 60 [place] 00 tab, 0 Refill(s) {21 Yes See Memoria (Methylpred 6-03 Instructio l nisolone 4 22:35: ns, PO, Herm frank MG Oral 00 Take by Tablet mouth as [Medrol]) } directed Pack on label., [Medrol # 1 Pack, Dosepak] 0 Refill(s) Senna 8.6 Yes 17.2 mg = Mem oria mg oral 6-03 2 tab, PO, l tablet 22:35: BID, PRN [place] 00 Constipati on, X 25 day, # 100 tab, 0 Refill(s) Acetaminoph Yes 1 - 2 tab, Memoria en 300 MG / 6-03 PO, Q4H, l Codeine 22:35: PRN Pain, Kisha nn Phosphate 00 X 4 day, # 30 MG Oral 36 tab, 0 Tablet Refill(s) [Tylenol with Codeine #3] Saline No Notes: Memoria Flush 0.9% 02-18 (Same as: l 02:00: BD [place] 00 Posiflush) levothyroxi Yes 200 Memori a ne 200 mcg 02-18 microgram l (0.2 mg) 00:00: = 1 tab, Kisha nn oral tablet 00 PO, Daily, 0 Refill(s) Metformin Yes 500 mg = 1 Me moria hydrochlori 6-03 tab, PO, l de 500 MG 00:00: BID, 0 [place] n Oral Tablet 00 Refill(s) terbinafine Yes 250 mg = 1 Memoria 250 mg oral -02 tab, PO, l tablet 23:59: Daily, 0 [place] 00 Refill(s) Docusate No Notes: Memoria 02-17 (Same as: l 22:00: Colace) (Do Not Crush) sennosides, No Notes: Bryan lópez HALF-WAY 02-17 (Same as: l 22:00: Senokot) Cefazolin No Notes: Memori a - (Same as l 21:00: Ancef) D5LR 1,000 No 1,000 mL, Me moria mL 02-17 Rate: 150 l 19:32: ml/hr, Infuse over: 6.7 hr, Route: IV, Total Volume: 1,000, Priority: STAT, Start date: 02/17/19 14:32:00 CDT, Duration: 30 day, Stop date: 03/19/19 14:31:00 CDT Saline No Notes: Memoria Flush 0.9% 02-17 (Same as: l 18:47: BD Posiflush) phenol No Notes: Memoria 02-17 Chlorasept l 18:47: ic [place] (Same as: Chlorasept ic, Sore Throat [place]) WASTE: F/P - Black; E - Municipal Trash Bin Melatonin 3 No Notes: Bryan lópez MG Extended 02-17 (Same as: l Release 18:47: Melatonin) Tylenol No Notes: Do Memor ia 02-17 not exceed l 18:47: 4 gm/day. [place] (Same as: Tylenol) Labetalol No 10 mg, 2 Bryan lópez -02 mL, Route: l 18:47: IVP, Drug form: INJ, Q15Min, kg, PRN Hypertensi on, Start date: 02/17/19 13:47:00 CDT, Duration: 3 doses or times, Stop date: Limited # of times Hydralazine No Notes: Bryan lópez - (Same as: l 18:47: Apresoline ) Push over 5 minutes Dilaudid No Notes: Memoria 6-02 Same as l 18:47: Dilaudid Benadryl No Notes: Memoria 6- (Same as: l 18:47: Benadryl) Acetaminoph No Notes: Do M emoria en 325 MG / 02-17 not exceed l Hydrocodone 18:47: 4gm/day of Bitartrate acetaminop 10 MG Oral hen. Tablet (Same as: [Chowchilla Chowchilla 10/325] 325/10) Ondansetron No Notes: Bryan lópez - (Same as: l 18:47: Zofran) [place] 00 MEDICATION WASTE Product Size: 4 mg Product Wasted: 0 mg Bisacodyl No Notes: Memori a 6-02 (Same As: l 18:47: Dulcolax, [place] 00 Bisco-Lax) Robaxin No Notes: Memoria 6- (Same l 18:47: as:Robaxin [place] ) Sodium No 1,000 mL, Memori a Chloride 02-17 Rate: 50 l 0.9% IV 18:47: ml/hr, [place] 1,000 mL 00 Infuse over: 20 hr, Route: IV, Total Volume: 1,000, Start date: 02/17/19 13:47:00 CDT, Duration: 30 day, Stop date: 03/19/19 13:46:00 CDT Flomax No Notes: Memoria 6- (Same As: l 18:45: Flomax) [place] 00 "Do Not Crush" Zofran No Notes: Memoria 6- (Same as: l 17:08: Zofran) [place] 00 MEDICATION WASTE Product Size: 4 mg Product Wasted: ___ mg Morphine No Notes: Memoria 6-02 (Same l 17:08: as:MORPhin [place] 00 e Sulfate) Ibuprofen No Notes: Memori a 400 MG Oral 02-17 (Same as: l Tablet 09:12: Motrin) [place] 00 "Do Not Crush" Give with food. Acetaminoph No Notes: Do M emoria en - not exceed l 09:12: 4 gm/day. [place] 00 (Same as: Tylenol) Zofran No Notes: Memoria 6-02 (Same as: l 09:11: Zofran) [place] 00 MEDICATION WASTE Product Size: 4 mg Product Wasted: 0 mg Morphine No Notes: Memoria 6- (Same l 09:11: as:MORPhin [place] 00 e Sulfate) Vital Signs Vital Name Observation Time Observation Value Comments Source Respitory Rate 2020-06-03 13:15:00 Memori al [place] Systolic (mm Hg) 2020-06-03 13:15:00 Bryan rial [place] Diastolic (mm Hg) 2020-06-03 13:15:00 Mem orial [place] Respitory Rate 2020-06-03 13:10:00 Memori al [place] Systolic (mm Hg) 2020-06-03 13:10:00 Bryan rial [place] Diastolic (mm Hg) 2020-06-03 13:10:00 Mem orial [place] Respitory Rate 2020-06-03 11:25:00 Memori al [place] Systolic (mm Hg) 2020-06-03 11:25:00 Bryan rial [place] Diastolic (mm Hg) 2020-06-03 11:25:00 Mem orial [place] Weight 2020-06-03 11:22:00 [facility] [place] BMI Calculated 2020-06-03 11:22:00 Memori al [place] Height 2020-06-01 22:08:00 175.26 cm [facility] [place] Height 2020-05-27 22:03:00 175.26 cm [facility] [place] Weight 2020-05-27 22:03:00 [facility] [place] BMI Calculated 2020-05-27 22:03:00 Memori al [place] Heart Rate 2019-02-18 20:57:00 [facility] [place] Temperature Oral (F) 2019-02-18 20:57:00 97.7 F [facility] [place] Respitory Rate 2019-02-18 20:57:00 Memori al [place] Systolic (mm Hg) 2019-02-18 20:57:00 Bryan rial [place] Diastolic (mm Hg) 2019-02-18 20:57:00 Mem orial [place] Temperature Oral (F) 2019-02-18 17:25:00 98.5 F [facility] [place] Systolic (mm Hg) 2019-02-18 17:25:00 Bryan rial [place] Diastolic (mm Hg) 2019-02-18 17:25:00 Mem orial [place] Respitory Rate 2019-02-18 17:25:00 Memori al [place] Heart Rate 2019-02-18 17:25:00 [facility] [place] Systolic (mm Hg) 2019-02-18 12:53:00 Bryan rial [place] Diastolic (mm Hg) 2019-02-18 12:53:00 Mem orial [place] Temperature Oral (F) 2019-02-18 12:53:00 98.0 F [facility] [place] Respitory Rate 2019-02-18 12:53:00 Memori al [place] Heart Rate 2019-02-18 12:53:00 [facility] [place] Procedures Procedure Date / Time Performed Performing Clinician [facility] e Appendectomy [facility] [place] Cholecystectomy [facility] [place] Operation [facility] [place] Encounters Start End Encounter Admission Attending Care Care Encounter Source Date/Time Date/Time Type Type Clinicians Facility Department ID 2020-04-06 Outpatient MHSE JONNIE 9600 MH 09:50:31 [facility] 2020-06-03 2020-06-03 Outpatient Ekhaese, MHPL MHPL [id number] 05:46:00 08:34:00 [place] 01 Im[place] 2020-06-03 2020-06-03 Outpatient Ekhaese, MHPL MHPL [id number] 05:46:00 08:34:00 [place] 01 Imariabe 2020-06-03 2020-06-03 Outpatient MHBL JONNIE 7501 MHBL 05:46:00 05:46:00 2020-04-03 2020-05-02 Outpatient Ekhaese, MHSE MHSE [id number] 14:00:00 23:59:00 [place] 00 Imariabe 2019-02-17 2019-02-18 [facility] [id number] 01:58:09 18:05:00 [place] 00 Blaine 2019-02-17 2019-02-17 Outpatient E [facility] [address] [facility] 13:47:00 13:47:00 2018-04-18 2018-04-18 Outpatient Yu [facility] HSEACU [id number] [place] 07:34:00 10:07:00 [facility] Results Test Test Test Comments Results Result Source Description Time Comments IMMUNOLOGY 2020-05 Not Detected Memorial -14 *NA*(06/01/20 4:49 PM) [facility] [place] 21:49:0 0 IMMUNOLOGY 2019-02 Negative *NA*(02/17/19 Bryan rial -02 6:10 AM) [place] 11:10:0 0 XR SMITA W 2018-04 FluoroscopyLocation CONTRAST*HSE* -01 Code: [id number] 10:12:2 HISTORY: Back 5 painComments: Fluoroscopy was provided during Lumbar SMITA. Approximately fluoroscopytime was 34.4 seconds. 4 fluoroscopic spot images were taken.IMPRESSION: Fluoroscopy services provided. Please see operative report for fulldetails. RAD, CHEST, 1 2017-10 Reason for exam:->LOSS FINAL REPORT PATIENT VIEW, NON DEPT -12 OF CONSCIOUSNESSShould ID: [id number] Chest 19:07:0 this be performed at one view AP 10/30/2017 0 the bedside?->Yes 7:07 PM CLINICAL INDICATION: LOSS OF CONSCIOUSNESS COMPARISON: None available IMPRESSION: There is atelectasis in the right lung base. The left lung is clear. Cardiomediastinal contours are within normal limits. The central pulmonary vasculature is not engorged. Signed: Sharif Du Verified Date/Time: 10/30/2017 19:07:24 Reading Location: [facility] Radiology Reading Room ALYSIS W/ MICROSCOPIC 2017-10-30 18:49:00 Test Item Value Reference Range Interpretation Comme nts COLOR (BEAKER) (test code = 470) Yellow CLARITY (BEAKER) (test code = 469) Clear SPECIFIC GRAVITY UA (BEAKER) (test code = 468) 1.014 1.001-1 .035 PH UA (BEAKER) (test code = 467) 6.5 5.0-8.0 PROTEIN UA (BEAKER) (test code = 464) Negative Negative GLUCOSE UA (BEAKER) (test code = 365) Negative Negative KETONES UA (BEAKER) (test code = 371) Negative Negative BILIRUBIN UA (BEAKER) (test code = 462) Negative Negative BLOOD UA (BEAKER) (test code = 461) Negative Negative NITRITE UA (BEAKER) (test code = 465) Negative Negative LEUKOCYTE ESTERASE UA (BEAKER) (test code = 466) Negative Negat keturah UROBILINOGEN UA (BEAKER) (test code = 463) 2.0 mg/dL 0.2-1.0 H RBC UA (BEAKER) (test code = 519) < /HPF WBC UA (BEAKER) (test code = 520) < /HPF MUCUS (BEAKER) (test code = 1574) Rare SOURCE(BEAKER) (test code = 2795) Urine, Clean Catch BASIC METABOLIC [id number] 18:08:00 Test Item Value Reference Range Interpretation Comments SODIUM (BEAKER) 141 meq/L 136-145 (test code = 381) POTASSIUM (BEAKER) 4.1 meq/L 3.5-5.1 (test code = 379) CHLORIDE (BEAKER) 108 meq/L 98-107 H (test code = 382) CO2 (BEAKER) (test 21 meq/L 22-29 L code = 355) BLOOD UREA NITROGEN 12 mg/dL 7-21 (BEAKER) (test code = 354) CREATININE (BEAKER) 0.94 mg/dL 0.57-1.25 (test code = 358) GLUCOSE RANDOM 206 mg/dL 70-105 H (BEAKER) (test code = 652) CALCIUM (BEAKER) 9.0 mg/dL 8.4-10.2 (test code = 697) EGFR (BEAKER) (test mL/min/1.73 INSUFFIC IENT CLINICAL code = 1092) sq m DATA TO CALCULA TE ESTIMATED GFR. [id number] 18:06:00 Test Item Value Reference Range Interpretation Comments MAGNESIUM (BEAKER) (test code = 2.0 mg/dL 1.6-2.6 627) [id number] 18:06:00 Test Item Value Reference Range Interpretation Comments LIPASE (BEAKER) (test code = 749) 67 U/L 8-78 TROPONIN [id number] 18:03:00 Test Item Value Reference Range Interpretation Comments TROPONIN I (BEAKER) (test code = 397) < ng/mL 0.00-0.03 Troponin I (TnI) levels [...] neurological disease, and persistent tachyarrhythmia.CT, BRAIN, WITHOUT [id number] 17:52:00Reason for exam:->LOSS OF CONSCIOUSNESSWhat is the patient's [...] postcontrast MRI is recommended. Signed: Sharif Du Verified Date/Time: 10/30/2017 17:52:21 Reading Location: [facility] Radiology Reading Room CBC W/PLT COUNT & AUTO [id number] 17:19:00 Test Item Value Reference Range Interpretation Comments WHITE BLOOD CELL COUNT (BEAKER) 9.0 K/ L 3.5-10.5 (test code = 775) RED BLOOD CELL COUNT (BEAKER) 5.15 M/ L 4.63-6.08 (test code = 761) HEMOGLOBIN (BEAKER) (test code = 15.6 GM/DL 13.7-17.5 410) HEMATOCRIT (BEAKER) (test code = 47.0 % 40.1-51.0 411) MEAN CORPUSCULAR VOLUME (BEAKER) 91.3 fL 79.0-92.2 (test code = 753) MEAN CORPUSCULAR HEMOGLOBIN 30.3 pg 25.7-32.2 (BEAKER) (test code = 751) MEAN CORPUSCULAR HEMOGLOBIN CONC 33.2 GM/DL 32.3-36.5 (BEAKER) (test code = 752) RED CELL DISTRIBUTION WIDTH 13.5 % 11.6-14.4 (BEAKER) (test code = 412) PLATELET COUNT (BEAKER) (test 205 K/CU MM 150-450 code = 756) MEAN PLATELET VOLUME (BEAKER) 9.9 fL 9.4-12.4 (test code = 754) NUCLEATED RED BLOOD CELLS 0 /100 WBC 0-0 (BEAKER) (test code = 413) NEUTROPHILS RELATIVE PERCENT 58 % (BEAKER) (test code = 429) LYMPHOCYTES RELATIVE PERCENT 33 % (BEAKER) (test code = 430) MONOCYTES RELATIVE PERCENT 6 % (BEAKER) (test code = 431) EOSINOPHILS RELATIVE PERCENT 2 % (BEAKER) (test code = 432) BASOPHILS RELATIVE PERCENT 1 % (BEAKER) (test code = 437) NEUTROPHILS ABSOLUTE COUNT 5.19 K/ L 1.78-5.38 (BEAKER) (test code = 670) LYMPHOCYTES ABSOLUTE COUNT 3.00 K/ L 1.32-3.57 (BEAKER) (test code = 414) MONOCYTES ABSOLUTE COUNT (BEAKER) 0.54 K/ L 0.30-0.82 (test code = 415) EOSINOPHILS ABSOLUTE COUNT 0.17 K/ L 0.04-0.54 (BEAKER) (test code = 416) BASOPHILS ABSOLUTE COUNT (BEAKER) 0.05 K/ L 0.01-0.08 (test code = 417) IMMATURE GRANULOCYTES-RELATIVE 0 % 0-1 PERCENT (BEAKER) (test code = 2801) AFB CULTURE + [id number] 08:57:00 Test Item Value Reference Range Interpretation Comments CULTURE (BEAKER) (test No acid-fast bacilli code = 1095) isolated in 42 days AFB SMEAR (BEAKER) No acid fast bacilli (test code = 994) seen FUNGUS CULTURE + [id number] 07:23:00 Test Item Value Reference Range Interpretation Comments CULTURE (BEAKER) (test No fungus isolated in code = 1095) 28 days FUNGUS SMEAR (BEAKER) No fungi seen (test code = 1406) FLOW CYTOMETRY [id number] 15:21:00 Test Item Value Reference Range Interpretation Comments FLOW CYTOMETRY RESULT See Separate Report POINTER (BEAKER) (test code = 2758) FLOW CYTOMETRY AP CASE # [id number] (BEAKER) (test code = 2759) TISSUE [id number] 10:11:00Surgical Pathology Report Case: [id number] Authorizing Provider: Eduardo Castillo MD Collected: 03/28/2017 1215 Ordering Location: [facility] PERIOPERATIVE Received: 03/28/2017 1221 SERVICES Pathologist: Samuel [...] axonal dilatation are noted with neurofilament stains. Myel ination is normal as determined with Luxol fast blue/PAS stains. IDH-1 is negative for tumor cells. P53 stains are negative. GFAP highlights reactive gliosis. Synaptophysin staining is not abnormal. The findings are nonspecific. Definite features of primary demyelination are also absent. [id number]; 28101b9; 20357; 97535; 47393; 29798 x4Left craniotomy, brain tumorA. Tumor, left frontal tumorPart A. The specimen is received fresh for frozen labeled with the patient's name and accession number as "tumor" with description of "left frontal tumor" is a 0.6 x 0.6 x 0.3 cm aggregate of multiple fragments of mustafa soft tissue. ___ squash is smear prepared. The specimen is submitted entirely in cassette [id number]. Part C. Received fresh for frozen [...] of multiple fragments of mustafa-pink soft tissue with an aggregate measurement of 1 x 0.5 x 0.5 cm. The sp ecimen is submitted entirely in cassette DFS1 and D2. SM/plLEFT FRONTAL TUMOR: - AFS1 - CEREBRAL CORTEX [...] developed and its performance characteristics determined by [facility], Pathology Laboratory.It has not been cleared or [...] perform high complexity clinical laboratory testing.BASIC METABOLIC [id number] 09:32:00 Test Item Value Reference Range Interpretation Comments SODIUM (BEAKER) 137 meq/L 136-145 (test code = 381) POTASSIUM (BEAKER) 3.7 meq/L 3.5-5.1 (test code = 379) CHLORIDE (BEAKER) 103 meq/L 98-107 (test code = 382) CO2 (BEAKER) (test 27 meq/L 22-29 code = 355) BLOOD UREA NITROGEN 9 mg/dL 7-21 (BEAKER) (test code = 354) CREATININE (BEAKER) 0.84 mg/dL 0.57-1.25 (test code = 358) GLUCOSE RANDOM 201 mg/dL 70-105 H (BEAKER) (test code = 652) CALCIUM (BEAKER) 8.6 mg/dL 8.4-10.2 (test code = 697) EGFR (BEAKER) (test mL/min/1.73 INSUFFIC IENT CLINICAL code = 1092) sq m DATA TO CALCULA TE ESTIMATED GFR. CBC W/PLT COUNT & AUTO [id number] 09:09:00 Test Item Value Reference Range Interpretation Comments WHITE BLOOD CELL COUNT (BEAKER) 11.2 K/ L 4.0-10.0 H (test code = 775) RED BLOOD CELL COUNT (BEAKER) 4.23 M/ L 4.20-5.80 (test code = 761) HEMOGLOBIN (BEAKER) (test code = 13.8 GM/DL 13.0-16.8 410) HEMATOCRIT (BEAKER) (test code = 39.2 % 40.0-50.0 L 411) MEAN CORPUSCULAR VOLUME (BEAKER) 92.8 fL 82.0-98.0 (test code = 753) MEAN CORPUSCULAR HEMOGLOBIN 32.8 pg 27.0-33.0 (BEAKER) (test code = 751) MEAN CORPUSCULAR HEMOGLOBIN CONC 35.3 GM/DL 32.0-36.0 (BEAKER) (test code = 752) RED CELL DISTRIBUTION WIDTH 12.0 % 10.3-14.2 (BEAKER) (test code = 412) PLATELET COUNT (BEAKER) (test 163 K/CU MM 150-430 code = 756) MEAN PLATELET VOLUME (BEAKER) 7.5 fL 6.5-10.5 (test code = 754) NUCLEATED RED BLOOD CELLS 0 /100 WBC 0-0 (BEAKER) (test code = 413) NEUTROPHILS RELATIVE PERCENT 69 % (BEAKER) (test code = 429) LYMPHOCYTES RELATIVE PERCENT 23 % (BEAKER) (test code = 430) MONOCYTES RELATIVE PERCENT 6 % (BEAKER) (test code = 431) EOSINOPHILS RELATIVE PERCENT 2 % (BEAKER) (test code = 432) BASOPHILS RELATIVE PERCENT 0 % (BEAKER) (test code = 437) NEUTROPHILS ABSOLUTE COUNT 7.70 K/ L 1.80-8.00 (BEAKER) (test code = 670) LYMPHOCYTES ABSOLUTE COUNT 2.63 K/ L 1.48-4.50 (BEAKER) (test code = 414) MONOCYTES ABSOLUTE COUNT (BEAKER) 0.70 K/ L 0.00-1.30 (test code = 415) EOSINOPHILS ABSOLUTE COUNT 0.20 K/ L 0.00-0.50 (BEAKER) (test code = 416) BASOPHILS ABSOLUTE COUNT (BEAKER) 0.02 K/ L 0.00-0.20 (test code = 417) 0.00BASIC METABOLIC [id number] 03:22:00 Test Item Value Reference Range Interpretation Comments SODIUM (BEAKER) 138 meq/L 136-145 (test code = 381) POTASSIUM (BEAKER) 4.3 meq/L 3.5-5.1 (test code = 379) CHLORIDE (BEAKER) 106 meq/L 98-107 (test code = 382) CO2 (BEAKER) (test 22 meq/L 22-29 code = 355) BLOOD UREA NITROGEN 9 mg/dL 7-21 (BEAKER) (test code = 354) CREATININE (BEAKER) 0.82 mg/dL 0.57-1.25 (test code = 358) GLUCOSE RANDOM 148 mg/dL 70-105 H (BEAKER) (test code = 652) CALCIUM (BEAKER) 8.4 mg/dL 8.4-10.2 (test code = 697) EGFR (BEAKER) (test mL/min/1.73 INSUFFIC IENT CLINICAL code = 1092) sq m DATA TO CALCULA TE ESTIMATED GFR. [id number] 03:20:00 Test Item Value Reference Range Interpretation Comments PHOSPHORUS (BEAKER) (test code = 3.5 mg/dL 2.3-4.7 604) [id number] 03:20:00 Test Item Value Reference Range Interpretation Comments MAGNESIUM (BEAKER) (test code = 1.9 mg/dL 1.6-2.6 627) CBC (HEMOGRAM ONLY)2017-03-29 03:09:00 Test Item Value Reference Range Interpretation Comments WHITE BLOOD CELL COUNT (BEAKER) 19.6 K/ L 4.0-10.0 H (test code = 775) RED BLOOD CELL COUNT (BEAKER) 4.54 M/ L 4.20-5.80 (test code = 761) HEMOGLOBIN (BEAKER) (test code = 14.1 GM/DL 13.0-16.8 410) HEMATOCRIT (BEAKER) (test code = 41.4 % 40.0-50.0 411) MEAN CORPUSCULAR VOLUME (BEAKER) 91.2 fL 82.0-98.0 (test code = 753) MEAN CORPUSCULAR HEMOGLOBIN 31.0 pg 27.0-33.0 (BEAKER) (test code = 751) MEAN CORPUSCULAR HEMOGLOBIN CONC 34.0 GM/DL 32.0-36.0 (BEAKER) (test code = 752) RED CELL DISTRIBUTION WIDTH 13.6 % 10.3-14.2 (BEAKER) (test code = 412) PLATELET COUNT (BEAKER) (test 193 K/CU MM 150-430 code = 756) MEAN PLATELET VOLUME (BEAKER) 7.3 fL 6.5-10.5 (test code = 754) NUCLEATED RED BLOOD CELLS 0 /100 WBC 0-0 (BEAKER) (test code = 413) 0.00MYCOBACTERIUM TB PCR [id number] 14:38:00 Test Item Value Reference Range Interpretation Comments MYCOBACTERIUM TB (test code = 3257414732) HGB/HCT (H&H) - STAT [id number] 11:35:00 Test Item Value Reference Range Interpretation Comments HEMOGLOBIN (BEAKER) (test code = 13.8 g/dL 13.0-16.8 410) HEMATOCRIT (BEAKER) (test code = 41.0 % 40.0-50.0 411) FiO2:35%, Temp: 36.7CFiO2:35%, Temp: 36.7CFiO2:35%, Temp: 36.7CFiO2:35%, Temp: 36.7CFiO2:35%, Temp: 36.7CCALCIUM, [id number] 11:35:00 Test Item Value Reference Range Interpretation Comments CALCIUM IONIZED (BEAKER) (test 1.03 mmol/L 1.12-1.27 L code = 698) PH, BLOOD (BEAKER) (test code = 7.42 1810) BLOOD GAS, [id number] 11:34:00 Test Item Value Reference Range Interpretation Comments PH ARTERIAL (BEAKER) (test code = 7.42 7.35-7.45 383) PCO2 ARTERIAL (BEAKER) (test code 33 mmHg 35-45 L = 384) PO2 ARTERIAL (BEAKER) (test code 74 mmHg 80-90 L = 385) O2 SATURATION ARTERIAL (BEAKER) 95.5 % 96.0-97.0 L (test code = 386) HCO3 ARTERIAL (BEAKER) (test code 21 mmol/L 21-29 = 388) BASE EXCESS ARTERIAL (BEAKER) -3.0 mmol/L -2.0-3.0 L (test code = 387) PATIENT TEMPERATURE (BEAKER) 36.7 C (test code = 1818) FIO2 (BEAKER) (test code = 1819) 35.0 % FiO2:35%, Temp: 36.7CFiO2:35%, Temp: 36.7CFiO2:35%, Temp: 36.7CFiO2:35%, Temp: 36.7CFiO2:35%, Temp: 36.7CGLUCOSE-STAT [id number] 11:33:00 Test Item Value Reference Range Interpretation Comments GLUCOSE RANDOM (BEAKER) (test code 101 mg/dL 70-110 = 652) FiO2:35%, Temp: 36.7CFiO2:35%, Temp: 36.7CFiO2:35%, Temp: 36.7CFiO2:35%, Temp: 36.7CFiO2:35%, Temp: 36.7CSODIUM NA-STAT [id number] 11:33:00 Test Item Value Reference Range Interpretation Comments SODIUM (BEAKER) (test code = 381) 136 meq/L 135-148 FiO2:35%, Temp: 36.7CFiO2:35%, Temp: 36.7CFiO2:35%, Temp: 36.7CFiO2:35%, Temp: 36.7CFiO2:35%, Temp: 36.7CPOTASSIUM-STAT [id number] 11:33:00 Test Item Value Reference Range Interpretation Comments POTASSIUM (BEAKER) (test code = 3.8 meq/L 3.6-5.5 379) FiO2:35%, Temp: 36.7CFiO2:35%, Temp: 36.7CFiO2:35%, Temp: 36.7CFiO2:35%, Temp: 36.7CFiO2:35%, Temp: 36.7CURINALYSIS W/ [id number] 08:37:00 Test Item Value Reference Range Interpretation Comments COLOR (BEAKER) (test code = Yellow 470) CLARITY (BEAKER) (test code = Clear 469) SPECIFIC GRAVITY UA (BEAKER) 1.023 1.001-1.035 (test code = 468) PH UA (BEAKER) (test code = 6.0 5.0-8.0 467) PROTEIN UA (BEAKER) (test code 10 mg/dL Negative A = 464) GLUCOSE UA (BEAKER) (test code Negative Negative = 365) KETONES UA (BEAKER) (test code Negative Negative = 371) BILIRUBIN UA (BEAKER) (test Negative Negative code = 462) BLOOD UA (BEAKER) (test code = Negative Negative 461) NITRITE UA (BEAKER) (test code Negative Negative = 465) LEUKOCYTE ESTERASE UA (BEAKER) Negative Negative (test code = 466) UROBILINOGEN UA (BEAKER) (test 0.2 mg/dL 0.2-1.0 code = 463) RBC UA (BEAKER) (test code = 1 /HPF 519) WBC UA (BEAKER) (test code = 1 /HPF 520) MUCUS (BEAKER) (test code = Rare 1574) SQUAMOUS EPITHELIAL (BEAKER) 1 /HPF (test code = 516) SOURCE(BEAKER) (test code = Urine, Voided 1625) FLOW [id number] 14:12:00Flow Cytometry Report Case: [id number] Authorizing Provider: Ayanna Christine MD Collected: 03/18/2017 1428 Ordering Location: [address] Received: 03/20/2017 0822 Service Pathologist: Dalia Roper MD Specimen: Other CEREBROSPINAL FLUID,FLOW CYTOMETRY:- NON-DIAGNOSTIC DUE TO LOW CELLULARITY AND NON-SPECIFIC ANTIBODY STAINING Please correlate with mor phologic and clinical findings. [id number] massCerebrospinal fluidCD2, CD3, CD4, CD5, CD7, CD8, CD10, CD11c, CD19, CD20, CD23, CD34, CD38, CD45, CD56, Gerty, LambdaFlow cytometric evaluation is limitedby low cellularity and non-specific antibody staining.These tests were developed and their performance characteristics determined by [facility]. They have not been cleared or approved by the U.S. Foodand Drug Administration. The FDA has determined that such clearance or approval is not necessary. Itshould not be regarded as investigational or for research. This laboratory is certified under the Clinical Laboratory Improvement Amendments of 1988 ("CLIA") as qualified to perform high- complexity clinical testing.CSF CULTURE + GRAM [id number] 09:13:00 Test Item Value Reference Range Interpretation Comments CULTURE (BEAKER) (test code No growth = 1095) GRAM STAIN RESULT (BEAKER) No WBCs (test code = 1123) GRAM STAIN RESULT (BEAKER) No organisms seen (test code = 81505) HSV 1/2 PCR, [id number] 17:52:00 Test Item Value Reference Range Interpretation Comments HSV BY PCR (BEAKER) (test code = NEGATIVE NEGATIVE 334) Herpes Simplex Virus (HSV) not detected.These assays were performed by real-time PCR utilizing [...] and its performance characteristics determined by the [facility] Pathology Department, Section of Molecular Pathology. It has not been cleared or approved by the U.S. Food and Drug Administration (FDA), as FDA approval is not required for clinical use of the test. Validation was done as required by the Clinical Laboratory Amendments of 1988.[id number] 14:15:00Medical Cytology Report Case: [id number] Authorizing Provider: Ayanna Christine MD Collected: 03/18/2017 1302 Ordering Location: [address] Received: 03/20/2017 0905 Service Pathologist: Alysha Giraldo MD Specimen: CSF, tube 4 CEREBROSPINAL FLUID (CYTOSPINS): - NO MALIGNANT CELLS IDENTIFIED; - ESSENTIALLY ACELLULAR SAMPLE Signing Pathologist Direct Phone Line: [phone] signed by Alysha Giraldo MD on 03/20/2017 at 2:15 [id number] massCEREBROSPINAL FLUID (CYTOSPINS)2 cytospinsCollected: [id number]: [id number]ity [facility] of [facility], Department of Pathology, [address] [place] [address], [facility], [facility] of [facility], [address] [place] [address], UBFQ- GLUCOSE [id number] 18:01:00 Test Item Value Reference Range Interpretation Comments POC-GLUCOSE METER 108 mg/dL 70-110 TESTED AT [place] [address] ([facility]) (test code = HERBERT Castro [facility] 1538) [address] POCT-GLUCOSE [id number] 12:24:00 Test Item Value Reference Range Interpretation Comments POC-GLUCOSE METER 129 mg/dL 70-110 H TESTED AT [place] [address] ([facility]) (test code = HERBERT Castro [facility] 1538) [address] CBC W/PLT COUNT & AUTO [id number] 10:53:00 Test Item Value Reference Range Interpretation Comments WHITE BLOOD CELL COUNT (BEAKER) 9.0 K/ L 4.0-10.0 (test code = 775) RED BLOOD CELL COUNT (AKER) 4.89 M/ L 4.20-5.80 (test code = 761) HEMOGLOBIN (BEAKER) (test code = 15.2 GM/DL 13.0-16.8 410) HEMATOCRIT (AKER) (test code = 45.0 % 40.0-50.0 411) MEAN CORPUSCULAR VOLUME (AKER) 91.9 fL 82.0-98.0 (test code = 753) MEAN CORPUSCULAR HEMOGLOBIN 31.0 pg 27.0-33.0 (BEAKER) (test code = 751) MEAN CORPUSCULAR HEMOGLOBIN CONC 33.8 GM/DL 32.0-36.0 (AKER) (test code = 752) RED CELL DISTRIBUTION WIDTH 12.1 % 10.3-14.2 (AKER) (test code = 412) PLATELET COUNT (BEAKER) (test 172 K/CU MM 150-430 code = 756) MEAN PLATELET VOLUME (BEAKER) 7.5 fL 6.5-10.5 (test code = 754) NUCLEATED RED BLOOD CELLS 0 /100 WBC 0-0 (BEAKER) (test code = 413) NEUTROPHILS RELATIVE PERCENT 46 % (BEAKER) (test code = 429) LYMPHOCYTES RELATIVE PERCENT 43 % (BEAKER) (test code = 430) MONOCYTES RELATIVE PERCENT 7 % (BEAKER) (test code = 431) EOSINOPHILS RELATIVE PERCENT 3 % (BEAKER) (test code = 432) BASOPHILS RELATIVE PERCENT 0 % (BEAKER) (test code = 437) NEUTROPHILS ABSOLUTE COUNT 4.15 K/ L 1.80-8.00 (BEAKER) (test code = 670) LYMPHOCYTES ABSOLUTE COUNT 3.86 K/ L 1.48-4.50 (BEAKER) (test code = 414) MONOCYTES ABSOLUTE COUNT (BEAKER) 0.63 K/ L 0.00-1.30 (test code = 415) EOSINOPHILS ABSOLUTE COUNT 0.31 K/ L 0.00-0.50 (BEAKER) (test code = 416) BASOPHILS ABSOLUTE COUNT (BEAKER) 0.04 K/ L 0.00-0.20 (test code = 417) 0.00(MANUAL DIFFERENTIAL)2017-03-19 10:53:00 Test Item Value Reference Range Interpretation Comments TOTAL COUNTED (BEAKER) (test code = 1351) POCT-GLUCOSE [id number] 08:15:00 Test Item Value Reference Range Interpretation Comments POC-GLUCOSE METER 110 mg/dL 70-110 TESTED AT [facility] 6720 (BEAKER) (test code = HERBERT [place] 1538) [address] BASIC METABOLIC [id number] 06:38:00 Test Item Value Reference Range Interpretation Comments SODIUM (BEAKER) 140 meq/L 136-145 (test code = 381) POTASSIUM (BEAKER) 3.8 meq/L 3.5-5.1 (test code = 379) CHLORIDE (BEAKER) 106 meq/L 98-107 (test code = 382) CO2 (BEAKER) (test 23 meq/L 22-29 code = 355) BLOOD UREA NITROGEN 10 mg/dL 7-21 (BEAKER) (test code = 354) CREATININE (BEAKER) 0.94 mg/dL 0.57-1.25 (test code = 358) GLUCOSE RANDOM 106 mg/dL 70-105 H (BEAKER) (test code = 652) CALCIUM (BEAKER) 8.4 mg/dL 8.4-10.2 (test code = 697) EGFR (BEAKER) (test mL/min/1.73 INSUFFIC IENT CLINICAL code = 1092) sq m DATA TO CALCULA TE ESTIMATED GFR. HIV-1 ANTIGEN WITH HIV-1/2 [id number] 06:37:00 Test Item Value Reference Range Interpretation Comments HIV-1 ANTIGEN WITH HIV 1\\T\\2 Nonreactive Nonreactive ANTIBODY (2) (BEAKER) (test code = 2586) POCT-GLUCOSE [id number] 22:04:00 Test Item Value Reference Range Interpretation Comments POC-GLUCOSE METER 77 mg/dL 70-110 TESTED AT [place] [address] (BEAKER) (test code = [place] [address]38) CSF CELL COUNT [id number] 16:31:00 Test Item Value Reference Range Interpretation Comments APPEARANCE CSF (BEAKER) (test code Clear Clear = 407) COLOR CSF (BEAKER) (test code = Colorless Colorless 408) RBC CSF (BEAKER) (test code = 409) 2 /cu mm 0-5 WBC CSF (BEAKER) (test code = 0 /cu mm <=5 1020) RBCS FRESH (BEAKER) (test code = 100% Fresh 1444) NUMBER OF CELLS DIFF'D (BEAKER) 0 (test code = 1591) TUBE NUMBER CSF (BEAKER) (test 3 code = 2678) PROTEIN, [id number] 15:25:00 Test Item Value Reference Range Interpretation Comments PROTEIN CSF (BEAKER) (test code = 60 mg/dL 15-45 H 378) GLUCOSE, [id number] 15:19:00 Test Item Value Reference Range Interpretation Comments GLUCOSE CSF (BEAKER) (test code = 53 mg/dL 40-70 406) MICHAEL INK [id number] 15:10:00 Test Item Value Reference Range Interpretation Comments MICHAEL INK No encapsulated yeast No encapsulated yeast (BEAKER) (test seen seen code = 1612) POCT-GLUCOSE [id number] 07:47:00 Test Item Value Reference Range Interpretation Comments POC-GLUCOSE METER 97 mg/dL 70-110 TESTED AT [facility] 6720 (BEAKER) (test code = [place] [address] 68[address]) CBC W/PLT COUNT & AUTO [id number] 06:05:00 Test Item Value Reference Range Interpretation Comments WHITE BLOOD CELL COUNT (BEAKER) 10.3 K/ L 4.0-10.0 H (test code = 775) RED BLOOD CELL COUNT (BEAKER) 4.96 M/ L 4.20-5.80 (test code = 761) HEMOGLOBIN (BEAKER) (test code = 14.6 GM/DL 13.0-16.8 410) HEMATOCRIT (BEAKER) (test code = 46.1 % 40.0-50.0 411) MEAN CORPUSCULAR VOLUME (BEAKER) 92.9 fL 82.0-98.0 (test code = 753) MEAN CORPUSCULAR HEMOGLOBIN 29.4 pg 27.0-33.0 (BEAKER) (test code = 751) MEAN CORPUSCULAR HEMOGLOBIN CONC 31.7 GM/DL 32.0-36.0 L (BEAKER) (test code = 752) RED CELL DISTRIBUTION WIDTH 12.1 % 10.3-14.2 (BEAKER) (test code = 412) PLATELET COUNT (BEAKER) (test 175 K/CU MM 150-430 code = 756) MEAN PLATELET VOLUME (BEAKER) 7.5 fL 6.5-10.5 (test code = 754) NUCLEATED RED BLOOD CELLS 0 /100 WBC 0-0 (BEAKER) (test code = 413) NEUTROPHILS RELATIVE PERCENT 46 % (BEAKER) (test code = 429) LYMPHOCYTES RELATIVE PERCENT 42 % (BEAKER) (test code = 430) MONOCYTES RELATIVE PERCENT 8 % (BEAKER) (test code = 431) EOSINOPHILS RELATIVE PERCENT 3 % (BEAKER) (test code = 432) BASOPHILS RELATIVE PERCENT 1 % (BEAKER) (test code = 437) NEUTROPHILS ABSOLUTE COUNT 4.74 K/ L 1.80-8.00 (BEAKER) (test code = 670) LYMPHOCYTES ABSOLUTE COUNT 4.36 K/ L 1.48-4.50 (BEAKER) (test code = 414) MONOCYTES ABSOLUTE COUNT (BEAKER) 0.80 K/ L 0.00-1.30 (test code = 415) EOSINOPHILS ABSOLUTE COUNT 0.33 K/ L 0.00-0.50 (BEAKER) (test code = 416) BASOPHILS ABSOLUTE COUNT (BEAKER) 0.06 K/ L 0.00-0.20 (test code = 417) 0.00BASIC METABOLIC [id number] 05:56:00 Test Item Value Reference Range Interpretation Comments SODIUM (BEAKER) 138 meq/L 136-145 (test code = 381) POTASSIUM (BEAKER) 4.0 meq/L 3.5-5.1 (test code = 379) CHLORIDE (BEAKER) 107 meq/L 98-107 (test code = 382) CO2 (BEAKER) (test 24 meq/L 22-29 code = 355) BLOOD UREA NITROGEN 15 mg/dL 7-21 (BEAKER) (test code = 354) CREATININE (BEAKER) 0.96 mg/dL 0.57-1.25 (test code = 358) GLUCOSE RANDOM 94 mg/dL 70-105 (BEAKER) (test code = 652) CALCIUM (BEAKER) 8.2 mg/dL 8.4-10.2 L (test code = 697) EGFR (BEAKER) (test mL/min/1.73 INSUFFIC IENT CLINICAL code = 1092) sq m DATA TO CALCULA TE ESTIMATED GFR. [id number] 05:01:00 Test Item Value Reference Range Interpretation Comments PROTIME (BEAKER) (test code = 13.7 seconds 11.7-14.7 759) INR (BEAKER) (test code = 370) 1.1 <=5.9 PARTIAL THROMBOPLASTIN TIME 27.2 seconds 22.5-36.0 (BEAKER) (test code = 760) RECOMMENDED COUMADIN/WARFARIN INR THERAPY RANGESSTANDARD DOSE: 2.0 - 3.0 Includes: PROPHYLAXIS forvenous thrombosis, systemic embolization; TREATMENT for venous thrombosis and/or pulmonary embolus.HIGH RISK: Target INR is 2.5-3.5 for patients with mechanical heart valves.POCT-GLUCOSE [id number] 21:22:00 Test Item Value Reference Range Interpretation Comments POC-GLUCOSE METER 174 mg/dL 70-110 H TESTED AT [facility] 67[address] ([facility]) (test code = EHRBERT Castro [place] 1538) [address] POCT-GLUCOSE [id number] 17:05:00 Test Item Value Reference Range Interpretation Comments POC-GLUCOSE METER 104 mg/dL 70-110 TESTED AT [place] [address] ([facility]) (test code = HERBERT Castro [place] 1538) [address] [id number] 12:22:00 Test Item Value Reference Range Interpretation Comments PROTIME ([facility]) (test code = 15.0 seconds 11.7-14.7 H 759) INR ([facility]) (test code = 370) 1.2 <=5.9 PARTIAL THROMBOPLASTIN TIME 27.5 seconds 22.5-36.0 ([facility]) (test code = 760) RECOMMENDED COUMADIN/WARFARIN INR THERAPY RANGESSTANDARD DOSE: 2.0 - 3.0 Includes: PROPHYLAXIS forvenous thrombosis, systemic embolization; TREATMENT for venous thrombosis and/or pulmonary embolus.HIGH RISK: Target INR is 2.5-3.5 for patients with mechanical heart valves.[id number] 12:20:00 Test Item Value Reference Range Interpretation Comments MAGNESIUM ([facility]) (test code = 1.9 mg/dL 1.6-2.6 627) POCT-GLUCOSE [id number] 11:34:00 Test Item Value Reference Range Interpretation Comments POC-GLUCOSE METER 90 mg/dL 70-110 TESTED AT [place] [address] ([facility]) (test code = HERBERT Castro [facility] [address] 1538) POCT-GLUCOSE [id number] 07:35:00 Test Item Value Reference Range Interpretation Comments POC-GLUCOSE METER 105 mg/dL 70-110 TESTED AT [place] [address] ([facility]) (test [facility] = [facility] [place] 1538) [address] CBC W/PLT COUNT & AUTO [id number] 07:01:00 Test Item Value Reference Range Interpretation Comments WHITE BLOOD CELL COUNT ([facility]) 12.6 K/ L 4.0-10.0 H (test code = 775) RED BLOOD CELL COUNT ([facility]) 5.10 M/ L 4.20-5.80 (test code = 761) HEMOGLOBIN ([facility]) (test code = 15.4 GM/DL 13.0-16.8 410) HEMATOCRIT ([facility]) (test code = 47.2 % 40.0-50.0 411) MEAN CORPUSCULAR VOLUME ([facility]) 92.4 fL 82.0-98.0 (test code = 753) MEAN CORPUSCULAR HEMOGLOBIN 30.2 pg 27.0-33.0 (BEAKER) (test code = 751) MEAN CORPUSCULAR HEMOGLOBIN CONC 32.7 GM/DL 32.0-36.0 (BEAKER) (test code = 752) RED CELL DISTRIBUTION WIDTH 12.2 % 10.3-14.2 (BEAKER) (test code = 412) PLATELET COUNT (BEAKER) (test 162 K/CU MM 150-430 code = 756) MEAN PLATELET VOLUME (BEAKER) 8.6 fL 6.5-10.5 (test code = 754) NUCLEATED RED BLOOD CELLS 0 /100 WBC 0-0 (BEAKER) (test code = 413) NEUTROPHILS RELATIVE PERCENT 54 % (BEAKER) (test code = 429) LYMPHOCYTES RELATIVE PERCENT 38 % (BEAKER) (test code = 430) MONOCYTES RELATIVE PERCENT 6 % (BEAKER) (test code = 431) EOSINOPHILS RELATIVE PERCENT 1 % (BEAKER) (test code = 432) BASOPHILS RELATIVE PERCENT 1 % (BEAKER) (test code = 437) NEUTROPHILS ABSOLUTE COUNT 6.80 K/ L 1.80-8.00 (BEAKER) (test code = 670) LYMPHOCYTES ABSOLUTE COUNT 4.76 K/ L 1.48-4.50 H (BEAKER) (test code = 414) MONOCYTES ABSOLUTE COUNT (BEAKER) 0.79 K/ L 0.00-1.30 (test code = 415) EOSINOPHILS ABSOLUTE COUNT 0.17 K/ L 0.00-0.50 (BEAKER) (test code = 416) BASOPHILS ABSOLUTE COUNT (BEAKER) 0.09 K/ L 0.00-0.20 (test code = 417) 0.00BASI METABOLIC [id number] 06:11:00 Test Item Value Reference Range Interpretation Comments SODIUM (BEAKER) 138 meq/L 136-145 (test code = 381) POTASSIUM (BEAKER) 4.3 meq/L 3.5-5.1 Specimen slightly (test code = 379) hemolyzed CHLORIDE (BEAKER) 108 meq/L 98-107 H (test code = 382) CO2 (BEAKER) (test 19 meq/L 22-29 L code = 355) BLOOD UREA NITROGEN 13 mg/dL 7-21 (BEAKER) (test code = 354) CREATININE (BEAKER) 0.88 mg/dL 0.57-1.25 Specimen slightly (test code = 358) hemolyzed GLUCOSE RANDOM 93 mg/dL 70-105 (BEAKER) (test code = 652) CALCIUM (BEAKER) 8.4 mg/dL 8.4-10.2 (test code = 697) EGFR (BEAKER) (test mL/min/1.73 INSUFFIC IENT CLINICAL code = 1092) sq m DATA TO CALCULA TE ESTIMATED GFR. HEPATIC FUNCTION [id number] 06:10:00 Test Item Value Reference Range Interpretation Comments TOTAL PROTEIN (BEAKER) 6.7 gm/dL 6.0-8.3 Speci men slightly (test code = 770) hemolyzed ALBUMIN (BEAKER) (test 3.3 g/dL 3.5-5.0 L Speci men slightly code = 1145) hemolyzed BILIRUBIN TOTAL 0.2 mg/dL 0.2-1.2 Specimen sli ghtly (BEAKER) (test code = hemoly zed 377) BILIRUBIN DIRECT 0.1 mg/dL 0.1-0.5 Specimen sl ightly (BEAKER) (test code = hemoly zed 706) ALKALINE PHOSPHATASE 71 U/L 40-150 (BEAKER) (test code = 346) AST (SGOT) (BEAKER) 54 U/L 5-34 H Specimen slightly (test code = 353) hemolyzed ALT (SGPT) (BEAKER) 84 U/L 6-55 H Specimen slightly (test code = 347) hemolyzed POCT-GLUCOSE [id number] 21:29:00 Test Item Value Reference Range Interpretation Comments POC-GLUCOSE METER 238 mg/dL 70-110 H TESTED AT [facility] (test code = [facility] 1538) [address] CREATINE KINASE (CK)2017-03-16 19:00:00 Test Item Value Reference Range Interpretation Comments CREATINE KINASE TOTAL (BEAKER) (test 212 U/L 29-200 H code = 380) POCT-GLUCOSE [id number] 17:04:00 Test Item Value Reference Range Interpretation Comments POC-GLUCOSE METER 88 mg/dL 70-110 TESTED AT [facility] 6720 ([facility]) (test code = HERBERT Castro [facility] [address] 1538) POCT-GLUCOSE [id number] 11:53:00 Test Item Value Reference Range Interpretation Comments POC-GLUCOSE METER 119 mg/dL 70-110 H TESTED AT [facility] 6720 (BEAKER) (test code = HERBERT [place] 1538) [address] POCT-GLUCOSE [id number] 07:32:00 Test Item Value Reference Range Interpretation Comments POC-GLUCOSE METER 142 mg/dL 70-110 H TESTED AT [facility] 6720 (BEAKER) (test code = HERBERT [place] 1538) [address] CBC W/PLT COUNT & AUTO [id number] 06:33:00 Test Item Value Reference Range Interpretation Comments WHITE BLOOD CELL COUNT (BEAKER) 12.2 K/ L 4.0-10.0 H (test code = 775) RED BLOOD CELL COUNT (BEAKER) 5.24 M/ L 4.20-5.80 (test code = 761) HEMOGLOBIN (BEAKER) (test code = 15.6 GM/DL 13.0-16.8 410) HEMATOCRIT (BEAKER) (test code = 48.5 % 40.0-50.0 411) MEAN CORPUSCULAR VOLUME (BEAKER) 92.5 fL 82.0-98.0 (test code = 753) MEAN CORPUSCULAR HEMOGLOBIN 29.7 pg 27.0-33.0 (BEAKER) (test code = 751) MEAN CORPUSCULAR HEMOGLOBIN CONC 32.1 GM/DL 32.0-36.0 (BEAKER) (test code = 752) RED CELL DISTRIBUTION WIDTH 13.6 % 10.3-14.2 (BEAKER) (test code = 412) PLATELET COUNT (BEAKER) (test 190 K/CU MM 150-430 code = 756) MEAN PLATELET VOLUME (BEAKER) 7.8 fL 6.5-10.5 (test code = 754) NUCLEATED RED BLOOD CELLS 0 /100 WBC 0-0 (BEAKER) (test code = 413) NEUTROPHILS RELATIVE PERCENT 73 % (BEAKER) (test code = 429) LYMPHOCYTES RELATIVE PERCENT 23 % (BEAKER) (test code = 430) MONOCYTES RELATIVE PERCENT 3 % (BEAKER) (test code = 431) EOSINOPHILS RELATIVE PERCENT 0 % (BEAKER) (test code = 432) BASOPHILS RELATIVE PERCENT 0 % (BEAKER) (test code = 437) NEUTROPHILS ABSOLUTE COUNT 8.89 K/ L 1.80-8.00 H (BEAKER) (test code = 670) LYMPHOCYTES ABSOLUTE COUNT 2.85 K/ L 1.48-4.50 (BEAKER) (test code = 414) MONOCYTES ABSOLUTE COUNT (BEAKER) 0.34 K/ L 0.00-1.30 (test code = 415) EOSINOPHILS ABSOLUTE COUNT 0.03 K/ L 0.00-0.50 (BEAKER) (test code = 416) BASOPHILS ABSOLUTE COUNT (BEAKER) 0.06 K/ L 0.00-0.20 (test code = 417) 0.00BASIC METABOLIC [id number] 06:20:00 Test Item Value Reference Range Interpretation Comments SODIUM (BEAKER) 138 meq/L 136-145 (test code = 381) POTASSIUM (BEAKER) 4.8 meq/L 3.5-5.1 (test code = 379) CHLORIDE (BEAKER) 106 meq/L 98-107 (test code = 382) CO2 (BEAKER) (test 23 meq/L 22-29 code = 355) BLOOD UREA NITROGEN 15 mg/dL 7-21 (BEAKER) (test code = 354) CREATININE (BEAKER) 0.92 mg/dL 0.57-1.25 (test code = 358) GLUCOSE RANDOM 142 mg/dL 70-105 H (BEAKER) (test code = 652) CALCIUM (BEAKER) 9.0 mg/dL 8.4-10.2 (test code = 697) EGFR (BEAKER) (test mL/min/1.73 INSUFFIC IENT CLINICAL code = 1092) sq m DATA TO CALCULA TE ESTIMATED GFR. [id number] 05:51:00 Test Item Value Reference Range Interpretation Comments PROTIME (BEAKER) (test code = 14.1 seconds 11.7-14.7 759) INR (BEAKER) (test code = 370) 1.1 <=5.9 PARTIAL THROMBOPLASTIN TIME 27.5 seconds 22.5-36.0 (BEAKER) (test code = 760) RECOMMENDED COUMADIN/WARFARIN INR THERAPY RANGESSTANDARD DOSE: 2.0 - 3.0 Includes: PROPHYLAXIS forvenous thrombosis, systemic embolization; TREATMENT for venous thrombosis and/or pulmonary embolus.HIGH RISK: Target INR is 2.5-3.5 for patients with mechanical heart valves.T4, [id number] 19:26:00 Test Item Value Reference Range Interpretation Comments FREE T4 (BEAKER) (test code = 655) 0.79 ng/dL 0.70-1.48 TSH/FREE T4 IF [id number] 18:49:00 Test Item Value Reference Range Interpretation Comments THYROID STIMULATING HORMONE 14.58 uIU/mL 0.35-4.94 H (BEAKER) (test code = 772) [id number] 18:11:00 Test Item Value Reference Range Interpretation Comments AMMONIA ([facility]) (test code = 348) 43 mol/L 18-72 POCT-GLUCOSE [id number] 17:22:00 Test Item Value Reference Range Interpretation Comments POC-GLUCOSE METER 118 mg/dL 70-110 H TESTED AT [place] [address] ([facility]) (test code = [facility] 1538) [id number] POCT-GLUCOSE [id number] 07:33:00 Test Item Value Reference Range Interpretation Comments POC-GLUCOSE METER 202 mg/dL 70-110 H TESTED AT [place] [address] ([facility]) (test code = [facility] 1538) [id number] CBC (HEMOGRAM ONLY)2017-03-15 06:38:00 Test Item Value Reference Range Interpretation Comments WHITE BLOOD CELL COUNT (BEAKER) 20.1 K/ L 4.0-10.0 H (test code = 775) RED BLOOD CELL COUNT (BEAKER) 5.45 M/ L 4.20-5.80 (test code = 761) HEMOGLOBIN (BEAKER) (test code = 15.9 GM/DL 13.0-16.8 410) HEMATOCRIT (BEAKER) (test code = 50.1 % 40.0-50.0 H 411) MEAN CORPUSCULAR VOLUME (BEAKER) 92.0 fL 82.0-98.0 (test code = 753) MEAN CORPUSCULAR HEMOGLOBIN 29.3 pg 27.0-33.0 (BEAKER) (test code = 751) MEAN CORPUSCULAR HEMOGLOBIN CONC 31.8 GM/DL 32.0-36.0 L (BEAKER) (test code = 752) RED CELL DISTRIBUTION WIDTH 12.0 % 10.3-14.2 (BEAKER) (test code = 412) PLATELET COUNT (BEAKER) (test 218 K/CU MM 150-430 code = 756) MEAN PLATELET VOLUME (BEAKER) 7.4 fL 6.5-10.5 (test code = 754) NUCLEATED RED BLOOD CELLS 0 /100 WBC 0-0 (BEAKER) (test code = 413) 0.00BASI METABOLIC [id number] 05:56:00 Test Item Value Reference Range Interpretation Comments SODIUM (BEAKER) 138 meq/L 136-145 (test code = 381) POTASSIUM (BEAKER) 4.2 meq/L 3.5-5.1 (test code = 379) CHLORIDE (BEAKER) 105 meq/L 98-107 (test code = 382) CO2 (BEAKER) (test 21 meq/L 22-29 L code = 355) BLOOD UREA NITROGEN 13 mg/dL 7-21 (BEAKER) (test code = 354) CREATININE (BEAKER) 0.85 mg/dL 0.57-1.25 (test code = 358) GLUCOSE RANDOM 127 mg/dL 70-105 H (BEAKER) (test code = 652) CALCIUM (BEAKER) 9.5 mg/dL 8.4-10.2 (test code = 697) EGFR (BEAKER) (test mL/min/1.73 INSUFFIC IENT CLINICAL code = 1092) sq m DATA TO CALCULA TE ESTIMATED GFR. [id number] 05:48:00 Test Item Value Reference Range Interpretation Comments PROTIME (BEAKER) (test code = 14.1 seconds 11.7-14.7 759) INR (BEAKER) (test code = 370) 1.1 <=5.9 PARTIAL THROMBOPLASTIN TIME 26.1 seconds 22.5-36.0 (BEAKER) (test code = 760) RECOMMENDED COUMADIN/WARFARIN INR THERAPY RANGESSTANDARD DOSE: 2.0 - 3.0 Includes: PROPHYLAXIS forvenous thrombosis, systemic embolization; TREATMENT for venous thrombosis and/or pulmonary embolus.HIGH RISK: Target INR is 2.5-3.5 for patients with mechanical heart valves.POCT-GLUCOSE [id number] 00:03:00 Test Item Value Reference Range Interpretation Comments POC-GLUCOSE METER 133 mg/dL 70-110 H TESTED AT [facility] [address] ([place]) (test code = [place] 3157) [id number]
[2020-06-08] MEDS ORDERED: HYDROCODONE/APAP 10/325 TAB ONE (12:36)
--- NOTE | 2020-06-08 15:14 | EDPHYS ---
Physician Documentation [facility] Name: Vikram Bagley Age: 39 yrs Sex: Male : 1980 Arrival Date: 06/08/2020 Time: 12:04 Bed 13 Private MD: Manolo Velasco ED Physician Pedro Reyes HPI: 06/08 12:21 This 39 yrs old Male presents to ER via Ambulatory with complaints of Car fell pm1 on left shoulder area. 12:21 Onset: The symptoms/episode began/occurred just prior to arrival. pm1 12:21 The patient or guardian complains of pain, that is acute. left shoulder. Context: The pm1 problem was sustained at home, resulted from Crush injury, The patient reports no decreased range of motion. The patient reports no obvious deformity. Modifying factors: the symptoms are alleviated by remaining still, The symptoms are aggravated by moving arm above his head. Associated signs and symptoms: Pertinent negatives: chest pain, neck pain, shortness of breath, headache, head injury. Treatment prior to arrival includes: no previous treatment. The patient has not experienced similar symptoms in the past. Patient was working underneath his car and the dale stand gave out. The car fell on his left shoulder and he was able to pull himself out from under the car. No numbness or tingling to left hand and arm. Patient able to move left shoulder FROM but painful above his head. Historical: - Allergies: 12:12 iodine IV; iw - Home Meds: 12:12 levothyroxine oral [Active]; Zocor Oral [Active]; iw - PMHx: 12:12 ADD/ADHD; Anxiety; brain lesion; fatty liver; High Cholesterol; Hypertension; iw Hypothyroidism; - PSHx: 12:12 brain surgery; Appendectomy; Cholecystectomy; iw - Immunization history:: Adult Immunizations Last tetanus immunization: up to date. - Social history:: Smoking status: Patient denies any tobacco usage or history of. ROS: 12:21 Constitutional: Negative for fever, chills, and weight loss, Neck: Negative for injury, pm1 pain, and swelling, Cardiovascular: Negative for chest pain, palpitations, and edema, Respiratory: Negative for shortness of breath, cough, wheezing, and pleuritic chest pain, Abdomen/GI: Negative for abdominal pain, nausea, vomiting, diarrhea, and constipation, Back: Negative for injury and pain. 12:21 Skin: Negative for injury, rash, and discoloration. 12:21 Neuro: Negative for headache, weakness, numbness, tingling, and seizure. 12:21 MS/extremity: Positive for pain, of the anterior aspect of left shoulder, Negative for decreased range of motion, deformity. Exam: 12:21 Constitutional: This is a well developed, well nourished patient who is awake, alert, pm1 and in no acute distress. Head/Face: Normocephalic, atraumatic. Neck: Trachea midline, no thyromegaly or masses palpated, and no cervical lymphadenopathy. Supple, full range of motion without nuchal rigidity, or vertebral point tenderness. No Meningismus. Chest/axilla: Normal chest wall appearance and motion. Nontender with no deformity. No lesions are appreciated. 12:21 Back: No spinal tenderness. No costovertebral tenderness. Full range of motion. Skin: Warm, dry with normal turgor. Normal color with no rashes, no lesions, and no evidence of cellulitis. 12:21 Cardiovascular: Exam negative for acute changes, Rate: normal, Rhythm: regular, Pulses: no pulse deficits are appreciated. 12:21 Respiratory: Exam negative for acute changes, respiratory distress, shortness of breath. 12:21 Musculoskeletal/extremity: Extremities: grossly normal except: noted in the anterior aspect of left shoulder: tenderness, supraspinatus insertion point, There is no evidence of decreased ROM, deformity, Circulation is intact in all extremities. the left hand and left arm Sensation intact. 12:21 Neuro: Exam negative for acute changes, Orientation: is normal, Mentation: is normal, Motor: is normal, moves all fours, Sensation: is normal, no obvious gross deficits. Vital Signs: 12:08 BP 132 / 65; Pulse 67; Resp 16 S; Temp 97.3; Pulse Ox 98% on R/A; Weight 158.76 kg; iw Height 5 ft. 9 in. (175.26 cm); Pain 10/10; 15:12 BP 106 / 52; Pulse 60; Resp 18; Pulse Ox 96% ; ll1 12:08 Body Mass Index 51.69 (158.76 kg, 175.26 cm) iw MDM: 12:15 Patient medically screened. pm1 13:19 Data reviewed: vital signs. Data interpreted: Pulse oximetry: on room air is 98 %. pm1 Interpretation: normal. 15:12 Counseling: I had a detailed discussion with the patient and/or guardian regarding: the pm1 historical points, exam findings, and any diagnostic results supporting the discharge/admit diagnosis, radiology results, the need for outpatient follow up, a orthopedic surgeon, to return to the emergency department if symptoms worsen or persist or if there are any questions or concerns that arise at home. 06/08 12:21 Order name: Chest Single View XRAY pm1 06/08 12:21 Order name: Shoulder Left (2 View) XRAY pm1 06/08 12:21 Order name: Sling; Complete Time: 14:06 pm1 Administered Medications: 12:30 Drug: [place] 10 mg-325 mg 1 tabs Route: PO; 14:06 Follow up: Response: No adverse reaction; Pain is decreased; RASS: Alert and Calm (0) ll1 Disposition: 15:45 Co-signature as Attending Physician, Pedro Reyes MD. rn Disposition: 06/08/20 15:13 Discharged to Home. Impression: Contusion of left shoulder, Pain in left shoulder. - Condition is Stable. - Discharge Instructions: Contusion, Shoulder Pain, How to Use a Sling. - Prescriptions for Tramadol 50 mg Oral Tablet - take 1 tablet by ORAL route every 8 hours as needed; 12 tablet. - Medication Reconciliation Form, Thank You Letter, Antibiotic Education, Prescription Opioid Use, Work release form form. - Follow up: Emergency Department; When: As needed; Reason: Worsening of condition. Follow up: Private Physician; When: 2 - 3 days; Reason: Recheck today's complaints, Continuance of care, Re-evaluation by your physician. Follow up: Gino Madison MD; When: 2 - 3 days; Reason: Recheck today's complaints, Continuance of care, Re-evaluation by your physician. - Problem is new. - Symptoms have improved. Signatures: Dispatcher [employer] EDAntoinette Hay, RN RN iw Pedro Reyes MD MD rn Marinas, Patrick, ARCH CUSHION SKIVING MACHINE OPERATOR ARCH CUSHION SKIVING MACHINE OPERATOR pm1 Luanne Christianson RN RN ll1 Corrections: (The following items were deleted from the chart) 15:24 15:13 06/08/2020 15:13 Discharged to Home. Impression: Contusion of left shoulder; Pain ll1 in left shoulder. Condition is Stable. Forms are Medication Reconciliation Form, Thank You Letter, Antibiotic Education, Prescription Opioid Use. Follow up: Emergency Department; When: As needed; Reason: Worsening of condition. Follow up: Private Physician; When: 2 - 3 days; Reason: Recheck today's complaints, Continuance of care, Re-evaluation by your physician. Follow up: Dr. Gino Madison; When: 2 - 3 days; Reason: Recheck today's complaints, Continuance of care, Re-evaluation by your physician. Problem is new. Symptoms have improved. pm1
--- NOTE | 2020-06-08 15:14 | ER ---
Nurse's Notes [facility] Name: Vikram Bagley Age: 39 yrs Sex: Male : 1980 Arrival Date: 06/08/2020 Time: 12:04 Bed 13 Private MD: Manolo Velasco Diagnosis: Contusion of left shoulder;Pain in left shoulder Presentation: 06/08 12:08 Chief complaint: Patient states: was working underneath a car 3 hours, the dale gave iw out and car fell onto his left shoulder, was drug back with the car and was pinned under car for 3-4 seconds and was able to yank his arm out, denies difficulty breathing. Coronavirus screen: At this time, the client does not indicate any symptoms associated with coronavirus-19. Ebola Screen: Patient negative for fever greater than or equal to 101.5 degrees Fahrenheit, and additional compatible Ebola Virus Disease symptoms Patient denies exposure to infectious person. Patient denies travel to an Ebola-affected area in the 21 days before illness onset. No symptoms or risks identified at this time. Initial Sepsis Screen: Does the patient meet any 2 criteria? No. Patient's initial sepsis screen is negative. Does the patient have a suspected source of infection? No. Patient's initial sepsis screen is negative. Risk Assessment: Do you want to hurt yourself or someone else? Patient reports no desire to harm self or others. Onset of symptoms was June 08, 2020. 12:08 Method Of Arrival: Ambulatory iw 12:08 Acuity: SMITA 2 iw Historical: - Allergies: 12:12 iodine IV; iw - Home Meds: 12:12 levothyroxine oral [Active]; Zocor Oral [Active]; iw - PMHx: 12:12 ADD/ADHD; Anxiety; brain lesion; fatty liver; High Cholesterol; Hypertension; iw Hypothyroidism; - PSHx: 12:12 brain surgery; Appendectomy; Cholecystectomy; iw - Immunization history:: Adult Immunizations Last tetanus immunization: up to date. - Social history:: Smoking status: Patient denies any tobacco usage or history of. Screenin:17 Abuse screen: Denies threats or abuse. Denies injuries from another. Nutritional iw screening: No deficits noted. Tuberculosis screening: No symptoms or risk factors identified. Fall Risk None identified. Assessment: 12:17 General: Appears in no apparent distress. Behavior is calm, cooperative. Pain: iw Complains of pain in anterior aspect of left shoulder, left bicep, posterior aspect of left shoulder and left tricep. Neuro: Level of Consciousness is awake, alert, obeys commands, Oriented to person, place, time, situation, Moves all extremities. Full function. Cardiovascular: Patient's skin is warm and dry. Respiratory: Respiratory effort is even, unlabored, Respiratory pattern is regular, symmetrical. GI: Abdomen is non-distended. Derm: Skin is intact, is healthy with good turgor. Musculoskeletal: Range of motion: limited in left shoulder. 13:15 Reassessment: Patient and/or family updated on plan of care and expected duration. Pain ll1 level reassessed. Patient is alert, oriented x 3, equal unlabored respirations, skin warm/dry/pink. 14:15 Reassessment: Patient and/or family updated on plan of care and expected duration. Pain ll1 level reassessed. Patient is alert, oriented x 3, equal unlabored respirations, skin warm/dry/pink. 15:13 Reassessment: Patient and/or family updated on plan of care and expected duration. Pain ll1 level reassessed. Patient is alert, oriented x 3, equal unlabored respirations, skin warm/dry/pink. 15:23 Musculoskeletal: Circulation, motion, and sensation intact. Capillary refill < 3 ll1 seconds, Tenderness present in left shoulder. Vital Signs: 12:08 BP 132 / 65; Pulse 67; Resp 16 S; Temp 97.3; Pulse Ox 98% on R/A; Weight 158.76 kg; iw Height 5 ft. 9 in. (175.26 cm); Pain 10/10; 15:12 BP 106 / 52; Pulse 60; Resp 18; Pulse Ox 96% ; ll1 12:08 Body Mass Index 51.69 (158.76 kg, 175.26 cm) iw ED Course: 12:04 Patient arrived in ED. mr 12:04 Manolo Velasco MD is Private Physician. mr 12:11 Triage completed. iw 12:12 Arm band placed on. iw 12:13 Neil Adrian NP is PHCP. pm1 12:13 Pedro Reyes MD is Attending Physician. pm1 12:17 nAtoinette Adhikari RN is Primary Nurse. iw 12:17 Patient has correct armband on for positive identification. Pulse ox on. NIBP on. iw 14:17 Chest Single View XRAY In Process Unspecified. EDMS 14:17 Shoulder Left (2 View) XRAY In Process Unspecified. EDMS 15:13 Gino Madison MD is Referral Physician. pm1 15:23 No provider procedures requiring assistance completed. Patient did not have IV access ll1 during this emergency room visit. Administered Medications: 12:30 Drug: [place] 10 mg-325 mg 1 tabs Route: PO; iw 14:06 Follow up: Response: No adverse reaction; Pain is decreased; RASS: Alert and Calm (0) ll1 Outcome: 15:13 Discharge ordered by MD. pm1 15:23 Discharged to home ambulatory. ll1 15:23 Condition: stable 15:23 Discharge instructions given to patient, Instructed on discharge instructions, follow up and referral plans. medication usage, Demonstrated understanding of instructions, follow-up care, medications, Prescriptions given X 1. 15:24 Patient left the ED. ll1 Signatures: Dispatcher [employer] [facility] Alysha Dempsey Irene, RN RN iw Neil Adrian, LATRICE SAND CONDITIONER pm1 Luanne Christianson RN RN ll1 Corrections: (The following items were deleted from the chart) 12:18 12:08 Pulse 67bpm; Resp 16bpm; Spontaneous; Pulse Ox 98% RA; Temp 97.3F; 158.76 kg; iw Height 5 ft. 9 in.; BMI: 51.6; Pain 10/10; iw
[2020-06-08 15:28] VITALS: TEMP 97.3
[2020-06-08 15:30] VITALS: BP 106/52; O2SAT 96
--- NOTE | 2020-06-08 15:32 | RAD REPORT ---
EXAM DESCRIPTION: RAD - Chest Single View - 06/08/2020 2:18 pm CLINICAL HISTORY: left shoulder pain COMPARISON: Portable June 2019 TECHNIQUE: AP portable chest image was obtained 06/08/2020 2:18 pm . FINDINGS: Lungs are clear. Interstitial pattern matches comparison. Heart and vasculature are normal . No measurable pleural effusion and no pneumothorax. No acute bony abnormality seen. No acute aortic findings suspected. IMPRESSION: No acute cardiopulmonary process. No significant change from comparison.
--- NOTE | 2020-06-08 15:32 | RAD REPORT ---
EXAM DESCRIPTION: RAD - Shoulder Left 2 View - 06/08/2020 2:18 pm CLINICAL HISTORY: PAIN, blunt force trauma COMPARISON: No comparisons TECHNIQUE: Internal and external rotation views of the left shoulder were obtained. FINDINGS: There is no fracture or dislocation. No AC joint separation. Minimal degenerative change s een at the AC joint and undersurface of the acromion. No acute or suspicious findings. IMPRESSION: Negative two-view left shoulder examination for acute findings.
== END 2020-06-08 15:24 | disposition home or self-care (01) ==
LOC: ER 12:01
DX: S40.012A Contusion of left shoulder, initial encounter (principal); W20.8XXA Other cause of strike by thrown, projected or falling object, initial encounter; Y93.89 Activity, other specified; Y92.9 Unspecified place or not applicable; E03.9 Hypothyroidism, unspecified; F41.9 Anxiety disorder, unspecified; Z91.09 Other allergy status, other than to drugs and biological substances
CPT/HCPCS: 71045; 99284

== ENCOUNTER 2020-06-22 22:27 | Emergency (ER) | payer OTHER ==
[2020-06-22] MEDS ORDERED: HYDROCODONE/APAP 5/325 MG TAB ONE (23:28)
[2020-06-22 23:44] LABS: Absolute Lymphocytes (CBC) 3.3 K/uL (0.7-4.9); Basophils % 0.8 % (0-1.3); Hematocrit 43.1 % (39.6-49.0); Lymphocytes % 37.2 % (15.3-44.8); MPV 9.2 fL (7.6-11.3); RBC Red Blood Cell Count 4.73 M/uL (4.33-5.43)
[2020-06-22 23:48] LABS: Protime INR 1.07
[2020-06-22 23:58] LABS: Albumin 3.6 g/dL (3.4-5.0); Bilirubin Direct 0.1 mg/dL (0-0.2); Bilirubin Total 0.3 mg/dL (0.2-1.0); Potassium 3.7 mmol/L (3.5-5.1); Protein, Total 7.4 g/dL (6.4-8.2)
[2020-06-23] MEDS ORDERED: NA CHLORIDE 0.9% 1,000 ML ONE (00:21)
[2020-06-23 02:00] LABS: Urine Blood NEGATIVE (NEG); Urine Glucose 1+ (NEG); Urine Protein NEGATIVE (NEG); Urine Specific Gravity >1.030 (1.005-1.030); Urine pH 6.5 (5.0-7.0)
[2020-06-23] MEDS ORDERED: MORPHINE 2 MG/ML SYR ONE (02:01)
[2020-06-23 03:47] LABS: Potassium 3.9 mmol/L (3.5-5.1)
--- NOTE | 2020-06-23 04:12 | EDPHYS ---
Physician Documentation [facility] Name: Vikram Bagley Age: 39 yrs Sex: Male : 1980 Arrival Date: 06/22/2020 Time: 22:28 Bed 7 Private MD: ED Physician Alvaro Mcpherson HPI: 06/22 23:02 This 39 yrs old Male presents to ER via Ambulatory with complaints of Shoulder mh7 Pain. 23:02 The patient or guardian complains of pain, that is acute, swelling. The patient or mh7 guardian complains of tenderness. The complaints affect the left bicep. Context: The problem was sustained at home, resulted from unknown cause. Onset: The symptoms/episode began/occurred today. Treatment prior to arrival includes: no previous treatment. Modifying factors: The symptoms are alleviated by nothing. the symptoms are aggravated by nothing. Associated signs and symptoms: Pertinent positives: pain, swelling, bruising, Pertinent negatives: decreased range of motion, deformity, fever, nausea, numbness, tingling, vomiting, warmth, weakness. Severity of symptoms: At their worst the symptoms were moderate, earlier today, in the emergency department the symptoms are unchanged. The patient has been recently seen at the [facility] Emergency Department, a couple of weeks ago. Historical: - Allergies: 22:43 iodine IV; bb - Home Meds: 22:43 levothyroxine oral [Active]; Zocor Oral [Active]; bb - PMHx: 22:43 ADD/ADHD; Anxiety; brain lesion; fatty liver; High Cholesterol; Hypertension; bb Hypothyroidism; - PSHx: 22:43 brain surgery; Appendectomy; Cholecystectomy; bb - Immunization history:: Adult Immunizations up to date. - Social history:: Smoking status: Patient/guardian denies using tobacco, Stopped _ months ago 2 Patient uses alcohol, occasionally. Patient/guardian denies using street drugs. ROS: 23:02 Constitutional: Negative for fever, chills, and weight loss, Eyes: Negative for injury, mh7 pain, redness, and discharge, ENT: Negative for injury, pain, and discharge, Neck: Negative for injury, pain, and swelling, Cardiovascular: Negative for chest pain, palpitations, and edema, Respiratory: Negative for shortness of breath, cough, wheezing, and pleuritic chest pain, Abdomen/GI: Negative for abdominal pain, nausea, vomiting, diarrhea, and constipation, Back: Negative for injury and pain, : Negative for injury, bleeding, discharge, and swelling, Skin: Negative for injury, rash, and discoloration, Neuro: Negative for headache, weakness, numbness, tingling, and seizure, Psych: Negative for depression, anxiety, suicide ideation, homicidal ideation, and hallucinations, Allergy/Immunology: Negative for hives, rash, and allergies, Endocrine: Negative for neck swelling, polydipsia, polyuria, polyphagia, and marked weight changes, Hematologic/Lymphatic: Negative for swollen nodes, abnormal bleeding, and unusual bruising. Exam: 23:02 Constitutional: This is a well developed, well nourished patient who is awake, alert, mh7 and in no acute distress. Head/Face: Normocephalic, atraumatic. Eyes: Pupils equal round and reactive to light, extra-ocular motions intact. Lids and lashes normal. Conjunctiva and sclera are non-icteric and not injected. Cornea within normal limits. Periorbital areas with no swelling, redness, or edema. Neck: Trachea midline, no thyromegaly or masses palpated, and no cervical lymphadenopathy. Supple, full range of motion without nuchal rigidity, or vertebral point tenderness. No Meningismus. Chest/axilla: Normal chest wall appearance and motion. Nontender with no deformity. No lesions are appreciated. Cardiovascular: Regular rate and rhythm with a normal S1 and S2. No gallops, murmurs, or rubs. Normal PMI, no JVD. No pulse deficits. Respiratory: Lungs have equal breath sounds bilaterally, clear to auscultation and percussion. No rales, rhonchi or wheezes noted. No increased work of breathing, no retractions or nasal flaring. Abdomen/GI: Soft, non-tender, with normal bowel sounds. No distension or tympany. No guarding or rebound. No evidence of tenderness throughout. Back: No spinal tenderness. No costovertebral tenderness. Full range of motion. 23:02 Neuro: Awake and alert, GCS 15, oriented to person, place, time, and situation. Cranial nerves II-XII grossly intact. Motor strength 5/5 in all extremities. Sensory grossly intact. Cerebellar exam normal. Normal gait. Psych: Awake, alert, with orientation to person, place and time. Behavior, mood, and affect are within normal limits. 23:02 Musculoskeletal/extremity: Extremities: noted in the left bicep: ecchymosis, swelling, tenderness, noted in the left shoulder: tenderness, ROM: intact in all extremities, Circulation is intact in all extremities. Pulses: are normal with no appreciated deficits, Perfusion: the patient is normally perfused throughout, Perfusion: the extremity is normally perfused throughout, Sensation intact. Compartment Syndrome exam of affected extremity: is normal. no numbness, no tingling, no sensation deficit, no palor, no weak pulses, Joints: the left shoulder displays tenderness, Weight bearing: able to fully bear weight, without difficulty, Tendon exam: specific tendon testing normal through active and passive range of motion DVT Exam: negative Homans' sign noted on exam, no appreciated bluish discoloration, no erythema, no increased warmth, pain, that is moderate, of the left bicep, swelling, that is mild, of the left bicep, tenderness, that is moderate, of the left bicep. 23:02 Skin: ecchymosis left bicep. Vital Signs: 22:39 BP 133 / 75; Pulse 76; Resp 18 S; Temp 98.6(O); Pulse Ox 95% on R/A; Weight 165.56 kg bb (R); Height 5 ft. 9 in. (175.26 cm) (R); Pain 06/27; 06/23 00:00 BP 114 / 92; Pulse 66; Resp 16; Pulse Ox 96% on R/A; jb4 01:40 BP 129 / 65; Pulse 60; Resp 16; Pulse Ox 97% on R/A; jb4 02:00 BP 121 / 67; Pulse 59; Resp 16; Pulse Ox 97% on R/A; jb4 02:45 BP 113 / 56; Pulse 63; Resp 16; Pulse Ox 95% on R/A; jb4 03:30 BP 120 / 66; Pulse 61; Resp 16; Pulse Ox 96% on R/A; jb4 06/22 22:39 Body Mass Index 53.90 (165.56 kg, 175.26 cm) bb MDM: 06/22 22:50 Patient medically screened. [facility] 06/23 04:08 Differential diagnosis: closed fracture, contusion, abrasion, Hematoma. Data reviewed: [facility] vital signs, nurses notes, old medical records, lab test result(s), CBC, electrolytes, urinalysis, radiologic studies, plain films, ultrasound. Data interpreted: Pulse oximetry: on room air is 97 %. Interpretation: normal. Counseling: I had a detailed discussion with the patient and/or guardian regarding: the historical points, exam findings, and any diagnostic results supporting the discharge/admit diagnosis, lab results, radiology results, the need for outpatient follow up, to return to the emergency department if symptoms worsen or persist or if there are any questions or concerns that arise at home. Response to treatment: the patient's symptoms have markedly improved after treatment. 06/22 22:55 Order name: CBC with Diff; Complete Time: 23:51 [facility] 06/22 22:55 Order name: Basic Metabolic Panel; Complete Time: 00:05 [facility] 06/22 22:55 Order name: LFT's; Complete Time: 00:05 [facility] 06/22 22:55 Order name: CPK; Complete Time: 00:05 [facility] 06/22 22:55 Order name: Protime (+inr); Complete Time: 23:51 [facility] 06/22 22:55 Order name: Ptt, Activated; Complete Time: 23:51 [facility] 06/22 22:55 Order name: Humerus Left XRAY [facility] 06/22 22:55 Order name: Shoulder Left (2 View) XRAY [facility] 06/23 00:35 Order name: Urine Dipstick--Ancillary (enter results); Complete Time: 02:37 tt3 06/23 01:21 Order name: UPPER EXTREMITY VENOUS UNILATE EDMS 06/23 02:53 Order name: Basic Metabolic Panel; Complete Time: 04:07 [facility] 06/23 02:53 Order name: CPK; Complete Time: 04:07 [facility] 06/22 22:55 Order name: Saline Lock; Complete Time: 23:21 [facility] 06/23 00:07 Order name: Urine Dipstick-Ancillary (obtain specimen); Complete Time: 00:36 mh Administered Medications: 06/22 23:17 Drug: [place] 5 mg-325 mg 1 tabs Route: PO; 06/23 00:15 Follow up: Response: No adverse reaction; Pain is decreased; RASS: Alert and Calm (0) jb4 00:12 Drug: NS 0.9% 1000 ml Route: IV; Rate: 1000 ml; Site: right antecubital; 01:00 Follow up: Response: No adverse reaction; IV Status: Completed infusion jb4 01:51 Drug: morphine 2 mg {Note: RASS 0.} Route: IVP; Site: right hand; 02:20 Follow up: Response: No adverse reaction; Pain is decreased; RASS: Alert and Calm (0) jb4 Disposition: 06/23/20 04:11 Discharged to Home. Impression: Left Bicep Hematoma, Left Shoulder Contusion. - Condition is Stable. - Discharge Instructions: Hematoma, [id number], Shoulder Pain, Ghoq-an-Ytor. - Prescriptions for Tylenol- Codeine #3 300-30 mg Oral Tablet - take 2 tablets by ORAL route every 6 hours As needed; 15 tablet. - Medication Reconciliation Form, Thank You Letter, Antibiotic Education, Prescription Opioid Use form. - Follow up: Private Physician; When: 1 - 2 days; Reason: Worsening of condition, Recheck today's complaints, Continuance of care, Re-evaluation by your physician. Follow up: Clemente Robledo MD; When: 1 - 2 days; Reason: Worsening of condition, Recheck today's complaints. - Problem is new. - Symptoms have improved. Signatures: Dispatcher [employer] [facility] Nevaeh Camrona RN RN Jadon Mak RN RN jb4 Giuseppe Mak Maurice, MD MD mh7 Corrections: (The following items were deleted from the chart) 01:21 00:34 Extremity Venous Uni [id number].BRZ ordered. [facility] 04:19 04:11 06/23/2020 04:11 Discharged to Home. Impression: Left Bicep Hematoma. Condition mh7 is Stable. Forms are Medication Reconciliation Form, Thank You Letter, Antibiotic Education, Prescription Opioid Use. Follow up: Private Physician; When: 1 - 2 days; Reason: Worsening of condition, Recheck today's complaints, Continuance of care, Re-evaluation by your physician. Follow up: Clemente Robledo; When: 1 - 2 days; Reason: Worsening of condition, Recheck today's complaints. Problem is new. Symptoms have improved. mh7 04:39 04:19 06/23/2020 04:11 Discharged to Home. Impression: Left Bicep Hematoma; Left jb4 Shoulder Contusion. Condition is Stable. Discharge Instructions: Hematoma, [id number]-Srzl. Prescriptions for Tylenol-Codeine #3 300-30 mg Oral Tablet - take 2 tablets by ORAL route every 6 hours As needed; 15 tablet. and Forms are Medication Reconciliation Form, Thank You Letter, Antibiotic Education, Prescription Opioid Use. Follow up: Private Physician; When: 1 - 2 days; Reason: Worsening of condition, Recheck today's complaints, Continuance of care, Re-evaluation by your physician. Follow up: Clemente Robledo; When: 1 - 2 days; Reason: Worsening of condition, Recheck today's complaints. Problem is new. Symptoms have improved. mh7
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
[2020-06-23 04:46] VITALS: TEMP 98.6
[2020-06-23 04:54] VITALS: BP 120/66; O2SAT 96
--- NOTE | 2020-06-23 08:18 | RAD REPORT ---
EXAM DESCRIPTION: US - UPPER EXTREMITY VENOUS UNILATE - 06/23/2020 1:22 am CLINICAL HISTORY: Left arm pain COMPARISON: None. FINDINGS: Left internal jugular vein, left subclavian vein, left axillary vein, left brachial vein, left cephalic, left basilic veins demonstrate phasic signal. The veins are compressible. Doppler demo nstrates good flow. . No large hematoma visualized IMPRESSION: No sonographic evidence of thrombus involving the left upper extremity veins.
--- NOTE | 2020-06-23 14:27 | RAD REPORT ---
EXAM DESCRIPTION: RAD - Humerus Left - 06/23/2020 12:00 am EXAM DESCRIPTION: XR Shoulder Left 2 View (accession [id number]) CLINICAL HISTORY: SWELLING TECHNIQUE: Two views of the left shoulder are submitted. COMPARISON: None available for comparison FINDINGS: Bones: No acute fracture. Joints: No dislocation. Soft tissues: Unremarkable IMPRESSION: No acute abnormality. EXAM DESCRIPTION: XR Humerus Left (accession [id number]) CLINICAL HISTORY: SWELLING TECHNIQUE: Two views of the left humerus are submitted. COMPARISON: None available for comparison FINDINGS: Bones: No acute fracture. Joints: No dislocation. Soft tissues: Unremarkable IMPRESSION: No acute abnormality. Electronically signed by: Luca Bloom MD 06/23/2020 12:19 AM CDT Due to temporary technical issues with the PACS/Fluency reporting system, reports are being signed by the in house radiologist without review as a courtesy to ensure prompt reporting. The interpreting r adiologist is fully responsible for the content of the report.
--- NOTE | 2020-06-23 14:28 | RAD REPORT ---
EXAM DESCRIPTION: RAD - Shoulder Left 2 View - 06/23/2020 12:01 am EXAM DESCRIPTION: XR Shoulder Left 2 View (accession [id number]) CLINICAL HISTORY: SWELLING TECHNIQUE: Two views of the left shoulder are submitted. COMPARISON: None available for comparison FINDINGS: Bones: No acute fracture. Joints: No dislocation. Soft tissues: Unremarkable IMPRESSION: No acute abnormality. EXAM DESCRIPTION: XR Humerus Left (accession [id number]) CLINICAL HISTORY: SWELLING TECHNIQUE: Two views of the left humerus are submitted. COMPARISON: None available for comparison FINDINGS: Bones: No acute fracture. Joints: No dislocation. Soft tissues: Unremarkable IMPRESSION: No acute abnormality. Electronically signed by: Luca Bloom MD 06/23/2020 12:19 AM CDT Due to temporary technical issues with the PACS/Fluency reporting system, reports are being signed by the in house radiologist without review as a courtesy to ensure prompt reporting. The interpreting r adiologist is fully responsible for the content of the report.
--- OUTSIDE RECORDS SUMMARY | 2020-06-25 09:50 | XMS REPORT | Clinical Summary ---
:1980 Author Organization [facility] Address [address] [place] [address] Care Team Providers Name Role Phone Jamie [...] Not on file Implants Implanted Type Area Content Management Specialist Device Shelf Model / Identifier Expiration Serial / Date Lot Matrix Floseal Hemo W/O Ndl 10 [id number] - [id number] Cement/Keo Left: FRITZ:BIOSCI 08/11/2018 [id number] / Implanted: Qty: 1 on 03/28/2017 by Eduardo Castillo MD ler/Adhesi Head / ve [id number] Cvr Bur-Hl Lp-Neuro 24mm Ti Ns 421.528 - [id number] Fracture/F Left: SYNTHES:SYNTHES 421.528 / Implanted: Qty: 4 on 03/28/2017 by Eduardo Castillo MD ixation H ead [place] / Scr Sd Mtrxneu 4mm Ti Ns 503.104.01 - [id number] Fracture/F Left: SYNTHES:SYNTHES 503.104.01 / Implanted: Qty: 15 on 03/28/2017 by Eduardo Castillo MD ixation Head [place] / Grft Dura Cllgn Duragn [id number] Id-[id number] - [id number] Tissue Left: INTEGRA 07/17/2017 [id number] / Implanted: Qty: 1 on 03/28/2017 by Eduardo Castillo MD Graft /Subs Head LIFESCI:NEURO / titute [id number] Results Not on fileafter 06/24/2019 Insurance Payer Benefit Plan / Subscriber ID Type Phone Address Group BLUE CROSS/BLUE BCBS PPO POS EPO xxxxxxxxxxxx PPO [phone] [address] [place] [address] [facility] HMO POS xxxxxxxxx HMO/POS [facility] SELECT CHOICE Advance Directives For more information, please contact:[address] [phone] Code Status Date Activated Date Inactivated Comments Full Code 03/28/2017 3:16 PM 03/30/2017 2:02 PM This code status was determined by: Patient Full Code 03/15/2017 2:58 AM 03/20/2017 12:50 AM This code status was determined by: Patient
--- OUTSIDE RECORDS SUMMARY | 2020-06-25 09:50 | XMS REPORT | Continuity of Care Document ---
:1980 Author Organization [employer] 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 Active 04/03/20 [place] (SEVERE) OBESITY 20 DUE T BACK/ LEG Active 02/17/20 [place] PAIN/FALL [facility] PAIN IN LOWER Active 02/17/20 [place] [facility] Anxiety (finding) Active Problem 06/08/2020 [facility] Depressive Active Problem 06/08/2020 [place] and disorder (disorder) Hyperlipidemia Active Problem 06/08/2020 [place] (disorder) Hypothyroidism Active Problem 06/08/2020 [place] (disorder) Obesity Active Problem 06/08/2020 [place] (disorder) Sleep apnea Active Problem 06/08/2020 [place] (finding) Smoker (finding) Active Problem 06/08/2020 [place] LOW BACK PAIN Active [place] [facility] Medications Medication Details Route Status Patient Ordering Order Source Instructions Provider Date pantoprazole 40 40 mg = 1 tab, Active H mg oral enteric PO, Daily, # 2019 [place] coated tablet 30 tab, 1 Refill(s), Pharmacy: [id number], 175.26, cm, 06/01/20 17:08:00 CDT, Height, 167.727, kg, 06/01/20 17:08:00 CDT, Weight Sodium Chloride 1,000 mL, Inactive 0.9% IV 1,000 Rate: 2019 [place] mL ml/hr, Infuse over: 47.6 hr, Route: [...] H oral tablet PO, BID, 0 2019 [place] Refill(s) Famotidine 20 20 mg = 1 [...] 2019 [facility] ([facility] Not Crush[facility] Center sennosides, PRISON Notes: (Same No Longer H [place] as: [...] Medical Posif[place]ush) Center phenol Notes: No Longer [place] Chloraseptic Active 2019 Medical [place] (Same Center as: Chloraseptic, Sore Throat [place]) WASTE: F/P - Black; E - Municipal Trash [facility] Melatonin 3 MG Notes: (Same No Longer [place] Extended as: Melatonin) Active 2019 Medical Release [...] 10 acetaminophen. MG Oral Tablet (Same as: [[place] 10/325] [place] 325/10) Ondansetron Notes: (Same [place] Longer [place]: Zofran) Active 2019 Medical MEDICATION Center WASTE Product Size: 4 mg Product Wasted: 0 mg Bisacodyl Notes: (Same [place] Longer [place] As: Dulcolax, Active 2019 Medical [place]) Center Robaxin Notes: (Same No Longer [facility] as:Robaxin) Active 2019 [facility] Sodium Chloride 1,000 mL, No Longer [place] 0.9% IV 1,000 Rate: 50 Active 2019 Medical mL ml/hr, Infuse Center over: 20 hr, Route: IV, Total Volume: 1,000, Start date: 02/17/19 13:47:00 CDT, Duration: 30 day, Stop date: 03/19/19 13:46:00 CDT Flomax Notes: (Same No Longer 02/17[facility] As: Flomax) Active 2019 Medical "Do Not Crush" Center Zofran Notes: (Same Inactive 02/17[facility] as: Zofran) 2019 Medical MEDICATION Center WASTE Product Size: 4 mg Product Wasted: ___ mg Morphine Notes: (Same Inactive 02/17[facility] as:MORPhine 2019 Medical Sulfate) Center Ibuprofen 400 Notes: (Same Inactive 02/17[facility] [place] Oral Tablet as: Motrin) 2019 Medic al "Do Not Crush" Center Give with food. Acetaminophen Notes: Do not Inactive 02/17[facility] exceed 4 2019 Medical gm/day. (Same Center as: Tylenol) Zofran Notes: (Same Inactive 02/17[facility] as: Zofran) 2019 Medical MEDICATION Center WASTE Product Size: 4 mg Product Wasted: 0 mg Morphine Notes: (Same Inactive 02/17[facility] as:MORPhine 2019 Medical Sulfate) Center Allergies, Adverse Reactions, Alerts Substance Category Reaction Severity Reaction Status Date Comments S ource type Reported iodine Assertion Drug Active allergy [place] contrast Assertion SWELLS Drug Active media allergy [place] (iodine-bas ed) Immunizations No Data Provided for This Section Results Order Name Results Value Reference Date Interpretation Comments Rocio rce Range IMMUNOLOGY Coronavirus Not Detected Not (COVID-19) *NA* Detected 2019 [facility] (06/01/20 4:49 PM) IMMUNOLOGY CDC HIV 4th Negative Negative Maxime s GEN *NA* 2019 Medical (02/17/19 6:10 AM) Center Pathology Reports No Data Provided for This Section Diagnostic Reports Report Value Date Source Spine cervical wo EXAM: MRI CERVICAL SPINE WITHOUT CONTRAST 10/2018 [facility] contrast MRI DATE: 02/17/2019 Center INDICATION: ' [...] MRI EXAM: MRI BRAIN WITHOUT CONTRAST 9 [facility] DATE: 02/17/2019 Center INDICATION: ' - eval [...] EXAM: MRI THORACIC SPINE WITHOUT CONTRAST 10/2018 [facility] contrast MRI DATE: 02/17/2019 Center INDICATION: ' [...] EXAM: MRI LUMBAR SPINE WITHOUT CONTRAST 02/18/20 [facility] contrast MRI DATE: 02/17/2019 at 6:53 AM [...] 2 VIEW AND AP PELVIS 02/18/20 19 [facility] EXAM: XR RIGHT FEMUR 2 VIEWS [...] 2 VIEW AND AP PELVIS 02/18/20 19 [facility] EXAM: XR RIGHT FEMUR 2 VIEWS [...] HIP 2 VIEW AND AP PELVIS 10/2018 [facility] pelvis DX EXAM: XR RIGHT FEMUR [...] Date Comments Source Respitory Rate 9 06/03/2020 [facility] Systolic (mm Hg) 121 06/03/2020 [facility] Diastolic (mm Hg) 57 06/03/2020 [place] Respitory Rate 18 06/03/2020 [facility] Systolic (mm Hg) 121 06/03/2020 [facility] Diastolic (mm Hg) 49 [facility]03[facility] Resp[facility] Rate 17 06/03/2020 [facility] Systolic (mm Hg) 108 06/03/2020 [facility] Diastolic (mm Hg) 57 06/03/2020 [facility] d Weight 167.727 06/03/2020 [facility] BMI Calculated 54.61 06/03/2020 [facility] Height 175.26 cm 06/01/2020 [facility] Height 175.26 cm 05/27/2020 [facility] Weight 165.909 05/27/2020 [facility] BMI Calculated 54.01 05/27/2020 [facility] Heart Rate 51 02/18/2019 [facility] Temperature Oral (F) 97.7 F 02/18/2019 [facility] Respitory Rate 17 02/18/2019 [facility] Systolic (mm Hg) 122 02/18/2019 [facility] Diastolic (mm Hg) 75 02/18/2019 [facility] Temperature Oral (F) 98.5 F 02/18/2019 [facility] Systolic (mm Hg) 135 02/18/2019 [facility] Diastolic (mm Hg) 76 02/18/2019 [facility] Respitory Rate 17 02/18/2019 [facility] Heart Rate 76 02/18/2019 [facility] [place] Systolic (mm Hg) 147 02/18/2019 [facility] Diastolic (mm Hg) 70 02/18/2019 [facility] Temperature Oral (F) 98.0 F 02/18/2019 [facility] Respitory Rate 17 02/18/2019 [facility] Heart Rate 56 02/18/2019 [facility] Encounters Location Location Encounter Encounter Reason Attending ADM DC Stat us Source Details Type Number For Provider Date Date Visit [facility] Observation [id number] [place] 02/17 02/18 Des L[place] Jr /2018 [facility] Memorial Recurring [id number] [place] 04/03 05/03 Silas Ekhaese /2019 [facility] Memorial Bedded [id number] [place] 06/03 06/03 [facility] Outpatient Ekhaese /2019 [facility] Procedures Procedure Code Date Perfomer Comments Source Appendectomy [id number] [facility] Cholecystectomy [id number] [facility] nd Operation [id number] [facility] Assessment and Plan No Data Provided for This Section Plan of Care No Data Provided for This Section Social History Social History Date Source Social History TypeResponse 05/27/2020 [facility] Alcohol Current, Type Beer, Wine, Liquor. Frequency: 1-2 times per week. Substance Abuse Use: None. Smoking Status Former smoker; Type: Cigarettes; Exposur e to Tobacco Smoke None; Cigarette Smoking Last 365 Days Yes; Reg Smoking Cessation Counseling No; Number of years: 22; 1 entered on: 06/03/20 1QUIT 04/2020 Social History TypeResponse 02/17/2019 [facility] Substance Abuse Use: None. Alcohol Current Smoking Status Current every day smoker; Exposure to To bacco Smoke None; Cigarette Smoking Last 365 Days Yes; Reg Smoking Cessation Counseling No entered on: 02/17/19 Social History TypeResponse 02/17/2019 [facility] Alcohol Current Substance Abuse Use: None. [...]
--- OUTSIDE RECORDS SUMMARY | 2020-06-25 09:52 | XMS REPORT | Continuity of Care Document ---
:1980 Author Organization [facility] t Address [address] [place] [address] Care Team Providers Name Role Phone Sharpless [...] Mem oria 05-13 16:30:00 l UNK 00:00: [place] 00 Active 05/13/2020 [facility] EGD Diagnosis Active 2020-06-05 Mem oria 05-13 07:42:00 l EGD 00:00: [place] 00 Active 05/13/2020 [facility] DX: Diagnosis Active 2020-04-06 Mem oria E66.01=MOR 7-17 09:58:00 l BID DX: 00:00: [place] (SEVERE) E66.01=MOR 00 OBESITY BID DUE T (SEVERE) OBESITY DUE T Active 04/03/2020 [facility] BACK/ LEG Diagnosis Active 2019-02-17 Memoria PAIN/FALL 6 05:16:00 l BACK/ 00:00: [place] LEG 00 PAIN/FALL Active 02/16/2019 [facility] PAIN IN Diagnosis Active 2019-02-18 Me moria LOWER BACK 02-16 14:59:00 l PAIN IN 00:00: Silas LOWER BACK 00 Active 02/16/2019 [facility] Parkinson Parkinson Disease Active [facility] 00 [place] Brain Brain Disease Active [facility] lesion [facility] 00 [place] Morbid Morbid Disease Active [facility] obesity obesity [facility] 00 [place] YAMIL on YAMIL on Disease Active [facility] CPAP CPAP [facility] 00 [place] Fatty Fatty Disease Active [facility] liver liver [facility] 00 [place] H/O: H/O: Disease Active [facility] depression depression 630 Berta kes - 00:00: Medical 00 [place] Headache, Headache, Disease Active [facility] acute [facility] - 00:[facility]: [facility] 00 [place] Anxiety Problem Active 2020-06-08 Bryan lópez (finding) 07:03:26 l Anxiety Silas (finding) Active Problem 06/08/2020 [facility] Depressive Problem Active 2020-06-08 M emoria disorder 07:03:26 l (disorder) [place] Depressive disorder (disorder) Active Problem 06/08/2020 [facility] Hyperlipid Problem Active 2020-06-08 M emoria emia 07:03:26 l (disorder) [place] Hyperlipid emia (disorder) Active Problem 06/08/2020 [facility] Hypothyroi Problem Active 2020-06-08 M emoria dism 07:03:26 l (disorder) [place] Hypothyroi dism (disorder) Active Problem 06/08/2020 [facility] Obesity Problem Active 2020-06-08 Bryan lópez (disorder) 07:03:26 l Obesity Silas (disorder) Active Problem 06/08/2020 [facility] Sleep Problem Active 2020-06-08 Memor ia apnea 07:03:26 l (finding) Sleep [place] apnea (finding) Active Problem 06/08/2020 [facility] Smoker Problem Active 2020-06-08 Memor ia (finding) 07:03:26 l Smoker [place] (finding) Active Problem 06/08/2020 [facility] LOW BACK Diagnosis Active 2019-02-18 M emoria PAIN 14:59:00 l LOW BACK [place] PAIN Active [facility] Allergies, Adverse Reactions, Alerts Allergy Allergy Status Severity Reaction(s) Onset Inactive Treating Comm ents Source Name Type Date Date Clinician No Known DA Active U 2017-09 [facility]ie 0-16 [facility] s 00:00: d 00 [facility] Gadolini Propensi [facility]ing adverse 00:00: Medical Contrast reaction [address] [place] [address] Media s iodine iodine Active Memoria l [place] contrast contrast Active Memori a media media l (iodine- (iodine- [place] based) based) Family History Family Member Diagnosis Comments Start Date Stop Date Source Natural father Diabetes [facility] Maternal grandmother Diabetes [facility] Maternal grandmother Hyperlipidemia [facility] Paternal aunt Cancer [facility] Paternal grandmother Cancer [facility] Paternal grandmother Osteoporosis [facility] Social History Social Habit Start Date Stop Date Quantity Comments Source Sex Assigned At [facility] Social History 2019-02-17 2019-02-17 [facility] yuly 12:17:51 12:17:51 Cigarettes smoked 2017-10-30 2017-10-30 [facility] - current (pack per 00:00:00 00:00:00 Medical Center day) - Reported Cigarette 2017-10-30 2017-10-30 [facility] - pack-years 00:00:00 00:00:00 [facility] Tobacco Comment 2017-03-27 2017-03-27 since he was [facility] - 00:00:00 00:00:00 20-29 years old Medical C enter quit for 4 years them started smoking again. handout to be given dos Alcohol Comment 2017-03-14 2017-03-14 3 x a year [facility] - 00:00:00 00:00:00 [facility] Smoking Status Start Date Stop Date Source Current every day smoker 2017-10-30 00:00:00 [facility] Medications Ordered Filled Start Stop Current Ordering Indication Dosage Frequency Signature Comments Components Source Medication Medication Date Date Medication? Clinician (SIG) Name Name pantoprazol 2020-0 Yes 40 mg = 1 M emoria e 40 mg -16 tab, PO, l oral 13:20: Daily, # Silas enteric 00 30 tab, 1 coated Refill(s), tablet Pharmacy: [id number], 175.26, cm, 06/01/20 17:08:00 CDT, Height, 167.727, kg, 06/01/20 17:08:00 CDT, Weight Sodium 2020-0 No 1,000 mL, Memori a Chloride 06-03 Rate: 21 l 0.9% IV 11:43: ml/hr, [place] 1,000 mL 00 Infuse over: 47.6 hr, [...] tab, PO, l tablet 22:09: Daily, 0 [place] 00 Refill(s) busPIRone 2020-0 Yes 10 mg [...] tab, PO, l tablet 22:35: BID, PRN Silas 00 Constipati on, X 25 day, # [...] tab, PO, l tablet 23:59: Daily, 0 [place] 00 Refill(s) Docusate No Notes: Memoria 02-17 (Same as: l 22:00: Colace) (Do Not Crush) sennosides, No Notes: Bryan lópez MCC 02-17 (Same as: l 22:00: Senokot) Cefazolin [...] Notes: Memoria 02-17 Chlorasept l 18:47: ic [place] (Same as: Chlorasept ic, Sore Throat [place]) WASTE: F/P - Black; E - Municipal Trash Bin Melatonin 3 No Notes: Bryan lópez MG Extended 02-17 (Same as: l Release 18:47: Melatonin) Tylenol No Notes: Do Memor ia 02-17 not exceed l 18:47: 4 gm/day. [place] (Same as: Tylenol) Labetalol No 10 mg, [...] 10 MG Oral hen. Tablet (Same as: [[place] 10/325] 325/10) Ondansetron No Notes: Bryan lópez - (Same as: l 18:47: Zofran) [place] 00 MEDICATION WASTE Product Size: 4 mg Product Wasted: 0 mg Bisacodyl No Notes: Memori a 6-02 (Same As: l 18:47: Dulcolax, Silas 00 Bisco-Lax) Robaxin No Notes: Memoria 6- (Same l 18:47: as:Robaxin [place] ) Sodium No 1,000 mL, Memori a Chloride 02-17 Rate: 50 l 0.9% IV 18:47: ml/hr, Silas 1,000 mL 00 Infuse over: 20 hr, Route: IV, Total Volume: 1,000, Start date: 02/17/19 13:47:00 CDT, Duration: 30 day, Stop date: 03/19/19 13:46:00 CDT Flomax No Notes: Memoria 6- (Same As: l 18:45: Flomax) [place] 00 "Do Not Crush" Zofran No Notes: Memoria 6- (Same as: l 17:08: Zofran) [place] 00 MEDICATION WASTE Product Size: 4 mg Product Wasted: ___ mg Morphine No Notes: Memoria 6-02 (Same l 17:08: as:MORPhin Silas 00 e Sulfate) Ibuprofen No Notes: Memori a 400 MG Oral 02-17 (Same as: l Tablet 09:12: Motrin) Silas 00 "Do Not Crush" Give with food. Acetaminoph No Notes: Do M emoria en - not exceed l 09:12: 4 gm/day. [place] 00 (Same as: Tylenol) Zofran No Notes: Memoria 6-02 (Same as: l 09:11: Zofran) Silas 00 MEDICATION WASTE Product Size: 4 mg Product Wasted: 0 mg Morphine No Notes: Memoria 6- (Same l 09:11: as:MORPhin [place] 00 e Sulfate) Vital Signs Vital Name Observation Time Observation Value Comments Source Respitory Rate 2020-06-03 13:15:00 Memori al [place] Systolic (mm Hg) 2020-06-03 13:15:00 Bryan rial [place] Diastolic (mm Hg) 2020-06-03 13:15:00 Mem orial [place] Respitory Rate 2020-06-03 13:10:00 Memori al [place] Systolic (mm Hg) 2020-06-03 13:10:00 Bryan rial [place] Diastolic (mm Hg) 2020-06-03 13:10:00 Mem orial [place] Respitory Rate 2020-06-03 11:25:00 Memori al [place] Systolic (mm Hg) 2020-06-03 11:25:00 Bryan rial [place] Diastolic (mm Hg) 2020-06-03 11:25:00 Mem orial [place] Weight 2020-06-03 11:22:00 [facility] [place] BMI Calculated 2020-06-03 11:22:00 Memori al [place] Height 2020-06-01 22:08:00 175.26 cm [facility] [place] Height 2020-05-27 22:03:00 175.26 cm [facility] [place] Weight 2020-05-27 22:03:00 [facility] [place] BMI Calculated 2020-05-27 22:03:00 Memori al [place] Heart Rate 2019-02-18 20:57:00 [facility] [place] Temperature Oral (F) 2019-02-18 20:57:00 97.7 F [facility] [place] Respitory Rate 2019-02-18 20:57:00 Memori al [place] Systolic (mm Hg) 2019-02-18 20:57:00 Bryan rial [place] Diastolic (mm Hg) 2019-02-18 20:57:00 Mem orial [place] Temperature Oral (F) 2019-02-18 17:25:00 98.5 F [facility] [place] Systolic (mm Hg) 2019-02-18 17:25:00 Bryan rial [place] Diastolic (mm Hg) 2019-02-18 17:25:00 Mem orial [place] Respitory Rate 2019-02-18 17:25:00 Memori al [place] Heart Rate 2019-02-18 17:25:00 [facility] [place] Systolic (mm Hg) 2019-02-18 12:53:00 Bryan rial [place] Diastolic (mm Hg) 2019-02-18 12:53:00 Mem orial [place] Temperature Oral (F) 2019-02-18 12:53:00 98.0 F [facility] [place] Respitory Rate 2019-02-18 12:53:00 Memori al [place] Heart Rate 2019-02-18 12:53:00 [facility] Procedures Procedure Date / Time Performed Performing Clinician [facility] e Appendectomy [facility] Cholecystectomy [facility] Operation [facility] [place] Encounters Start End Encounter Admission Attending Care Care Encounter Source Date/Time Date/Time Type Type Clinicians Facility Department ID 2020-04-06 Outpatient MHSE JONNIE [id number] MH 09:50:31 [facility] 2020-06-03 2020-06-03 Outpatient Ekhaese, MHPL MHPL [id number] 05:46:00 08:34:00 [place] 01 Imariabe 2020-06-03 2020-06-03 Outpatient Ekhaese, MHPL MHPL [id number] 05:46:00 08:34:00 [place] 01 Imariabe 2020-06-03 2020-06-03 Outpatient MHBL JONNIE 7501 MHBL 05:46:00 05:46:00 2020-04-03 2020-05-02 Outpatient Ekhaese, MHSE MHSE [id number] 14:00:00 23:59:00 [place] 00 Imariabe 2019-02-17 2019-02-18 [facility] [id number] 01:58:09 18:05:00 [place] 00 [place] 2019-02-17 2019-02-17 Outpatient E [facility] [id number] [facility] 13:47:00 13:47:00 2018-04-18 2018-04-18 Outpatient Yu [facility] HSEACU [id number] [place] 07:34:00 10:07:00 [facility] Results Test Test Test Comments Results Result Source Description Time Comments IMMUNOLOGY 2020-05 Not Detected [facility] -14 *NA*(06/01/20 4:49 PM) Her dav[place] 21:49:0 0 IMMUNOLOGY 2019-02 Negative *NA*(02/17/19 Bryan rial -02 6:10 AM) Silas 11:10:0 0 XR SMITA W 2018-04 FluoroscopyLocation CONTRAST*HSE* -01 Code: [id number] 10:12:2 HISTORY: Back 5 painComments: Fluoroscopy was provided during Lumbar SMITA. Approximately fluoroscopytime was 34.4 seconds. 4 fluoroscopic spot images were taken.IMPRESSION: Fluoroscopy services provided. Please see operative report for fulldetails. RAD, CHEST, 1 2017-10 Reason for exam:->LOSS FINAL REPORT PATIENT VIEW, NON DEPT -12 OF CONSCIOUSNESSShould ID: [id number] Chest 19:07:0 this be performed at one view AP 10/30/2017 0 the bedside?->Yes 7:07 PM CLINICAL INDICATION: LOSS OF CONSCIOUSNESS COMPARISON: None available IMPRESSION: There is atelectasis in the right lung base. The left lung is clear. Cardiomediastinal contours are within normal limits. The central pulmonary vasculature is not engorged. Signed: Sharif Du Verified Date/Time: 10/30/2017 19:07:24 Reading Location: [facility] Radiology Reading Room ALYSIS W/ MICROSCOPIC [...] = 2795) Urine, Clean Catch BASIC METABOLIC [id number] 18:08:00 Test Item Value Reference Range Interpretation [...] m DATA TO CALCULA TE ESTIMATED GFR. [id number] 18:06:00 Test Item Value Reference Range Interpretation Comments MAGNESIUM (BEAKER) (test code = 2.0 mg/dL 1.6-2.6 627) [id number] 18:06:00 Test Item Value Reference Range Interpretation Comments LIPASE (BEAKER) (test code = 749) 67 U/L 8-78 TROPONIN [id number] 18:03:00 Test Item Value Reference Range Interpretation [...] neurological disease, and persistent tachyarrhythmia.CT, BRAIN, WITHOUT [id number] 17:52:00Reason for exam:->LOSS OF CONSCIOUSNESSWhat is the [...] Du Verified Date/Time: 10/30/2017 17:52:21 Reading Location: [facility] Radiology Reading Room CBC W/PLT COUNT & AUTO [id number] 17:19:00 Test Item Value Reference Range Interpretation [...] (test code = 2801) AFB CULTURE + [id number] 08:57:00 Test Item Value Reference Range Interpretation Comments CULTURE (BEAKER) (test No acid-fast bacilli code = 1095) isolated in 42 days AFB SMEAR (BEAKER) No acid fast bacilli (test code = 994) seen FUNGUS CULTURE + [id number] 07:23:00 Test Item Value Reference Range Interpretation Comments CULTURE (BEAKER) (test No fungus isolated in code = 1095) 28 days FUNGUS SMEAR (BEAKER) No fungi seen (test code = 1406) FLOW CYTOMETRY [id number] 15:21:00 Test Item Value Reference Range Interpretation Comments FLOW CYTOMETRY RESULT See Separate Report POINTER (BEAKER) (test code = 2758) FLOW CYTOMETRY AP CASE # [id number] (BEAKER) (test code = 2759) TISSUE [id number] 10:11:00Surgical Pathology Report Case: [id number] Authorizing Provider: Eduardo Castillo MD Collected: 03/28/2017 1215 Ordering Location: [facility] PERIOPERATIVE Received: 03/28/2017 1221 SERVICES Pathologist: [...] features of primary demyelination are also absent. 55881w8; 58998s3; 81446; 47899; 80486; 77625 x4Left craniotomy, brain tumorA. Tumor, left frontal tumorPart A. The specimen is received fresh for frozen labeled with the patient's name and accession number as "tumor" with description of "left frontal tumor" is a 0.6 x 0.6 x 0.3 cm aggregate of multiple fragments of mustafa soft tissue. ___ squash is smear prepared. The specimen is submitted entirely in cassette [id number]. Part C. Received fresh for frozen [...] its performance characteristics determined by [facility], Pathology Laboratory.It has not been cleared [...] perform high complexity clinical laboratory testing.BASIC METABOLIC [id number] 09:32:00 Test Item Value Reference Range Interpretation [...] ESTIMATED GFR. CBC W/PLT COUNT & AUTO [id number] 09:09:00 Test Item Value Reference Range Interpretation [...] 0.00-0.20 (test code = 417) 0.00BASIC METABOLIC [id number] 03:22:00 Test Item Value Reference Range Interpretation [...] m DATA TO CALCULA TE ESTIMATED GFR. [id number] 03:20:00 Test Item Value Reference Range Interpretation Comments PHOSPHORUS (BEAKER) (test code = 3.5 mg/dL 2.3-4.7 604) [id number] 03:20:00 Test Item Value Reference Range Interpretation [...] (test code = 413) 0.00MYCOBACTERIUM TB PCR [id number] 14:38:00 Test Item Value Reference Range Interpretation Comments MYCOBACTERIUM TB (test code = 3149962540) HGB/HCT (H&H) - STAT [id number] 11:35:00 Test Item Value Reference Range Interpretation Comments HEMOGLOBIN (BEAKER) (test code = 13.8 g/dL 13.0-16.8 410) HEMATOCRIT (BEAKER) (test code = 41.0 % 40.0-50.0 411) FiO2:35%, Temp: 36.7CFiO2:35%, Temp: 36.7CFiO2:35%, Temp: 36.7CFiO2:35%, Temp: 36.7CFiO2:35%, Temp: 36.7CCALCIUM, [id number] 11:35:00 Test Item Value Reference Range Interpretation Comments CALCIUM IONIZED (BEAKER) (test 1.03 mmol/L 1.12-1.27 L code = 698) PH, BLOOD (BEAKER) (test code = 7.42 1810) BLOOD GAS, [id number] 11:34:00 Test Item Value Reference Range Interpretation [...] 36.7CFiO2:35%, Temp: 36.7CFiO2:35%, Temp: 36.7CFiO2:35%, Temp: 36.7CGLUCOSE-STAT [id number] 11:33:00 Test Item Value Reference Range Interpretation Comments GLUCOSE RANDOM (BEAKER) (test code 101 mg/dL 70-110 = 652) FiO2:35%, Temp: 36.7CFiO2:35%, Temp: 36.7CFiO2:35%, Temp: 36.7CFiO2:35%, Temp: 36.7CFiO2:35%, Temp: 36.7CSODIUM NA-STAT [id number] 11:33:00 Test Item Value Reference Range Interpretation Comments SODIUM (BEAKER) (test code = 381) 136 meq/L 135-148 FiO2:35%, Temp: 36.7CFiO2:35%, Temp: 36.7CFiO2:35%, Temp: 36.7CFiO2:35%, Temp: 36.7CFiO2:35%, Temp: 36.7CPOTASSIUM-STAT [id number] 11:33:00 Test Item Value Reference Range Interpretation Comments POTASSIUM (BEAKER) (test code = 3.8 meq/L 3.6-5.5 379) FiO2:35%, Temp: 36.7CFiO2:35%, Temp: 36.7CFiO2:35%, Temp: 36.7CFiO2:35%, Temp: 36.7CFiO2:35%, Temp: 36.7CURINALYSIS W/ [id number] 08:37:00 Test Item Value Reference Range Interpretation [...] 516) SOURCE(BEAKER) (test code = Urine, Voided 0540) FLOW [id number] 14:12:00Flow Cytometry Report Case: [id number] Authorizing Provider: Ayanna Christine MD Collected: 03/18/2017 1428 Ordering Location: [address] Received: 03/20/2017 0822 Service Pathologist: Dalia Roper MD Specimen: Other CEREBROSPINAL FLUID,FLOW CYTOMETRY:- NON-DIAGNOSTIC DUE TO LOW CELLULARITY AND NON-SPECIFIC ANTIBODY STAINING Please correlate with mor phologic and clinical findings. 22563Bikob massCerebrospinal fluidCD2, CD3, CD4, CD5, CD7, CD8, CD10, CD11c, CD19, CD20, CD23, CD34, CD38, CD45, CD56, Branch, LambdaFlow cytometric evaluation is limitedby low cellularity and non-specific antibody staining.These tests were developed and their performance characteristics determined by [facility]. They have not been cleared or approved by the U.S. Foodand Drug Administration. The FDA has determined that such clearance or approval is not necessary. Itshould not be regarded as investigational or for research. This laboratory is certified under the Clinical Laboratory Improvement Amendments of 1988 ("CLIA") as qualified to perform high- complexity clinical testing.CSF CULTURE + GRAM [id number] 09:13:00 Test Item Value Reference Range Interpretation Comments CULTURE (BEAKER) (test code No growth = 1095) GRAM STAIN RESULT (BEAKER) No WBCs (test code = 1123) GRAM STAIN RESULT (BEAKER) No organisms seen (test code = 44354) HSV 1/2 PCR, [id number] 17:52:00 Test Item Value Reference Range Interpretation [...] its performance characteristics determined by the [facility] Pathology Department, Section of Molecular Pathology. It has not been cleared or approved by the U.S. Food and Drug Administration (FDA), as FDA approval is not required for clinical use of the test. Validation was done as required by the Clinical Laboratory Amendments of 1988.[id number] 14:15:00Medical Cytology Report Case: [id number] Authorizing Provider: Ayanna Christine MD Collected: 03/18/2017 1302 Ordering Location: [address] Received: 03/20/2017 0905 Service Pathologist: Alysha Giraldo MD Specimen: CSF, tube 4 CEREBROSPINAL FLUID (CYTOSPINS): - NO MALIGNANT CELLS IDENTIFIED; - ESSENTIALLY ACELLULAR SAMPLE Signing Pathologist Direct Phone Line: [phone] signed by Alysha Giraldo MD on 03/20/2017 at 2:15 [id number] massCEREBROSPINAL FLUID (CYTOSPINS)2 cytospinsCollected: [id number]: [id number]field Memorial Hospital, Department of Pathology, [address] [place] [address], [facility], [facility] of [facility]ology, [address] [place] [address], FKWG- GLUCOSE [id number] 18:01:00 Test Item Value Reference Range Interpretation Comments POC-GLUCOSE METER 108 mg/dL 70-110 TESTED AT [place] [address] ([facility]) (test code = HERBERT Castro [facility] 1538) [address] POCT-GLUCOSE [id number] 12:24:00 Test Item Value Reference Range Interpretation Comments POC-GLUCOSE METER 129 mg/dL 70-110 H TESTED AT [place] [address] ([facility]) (test code = HERBERT Castro [facility] 1538) [address] CBC W/PLT COUNT & AUTO [id number] 10:53:00 Test Item Value Reference Range Interpretation [...] COUNTED (BEAKER) (test code = 1351) POCT-GLUCOSE [id number] 08:15:00 Test Item Value Reference Range Interpretation Comments POC-GLUCOSE METER 110 mg/dL 70-[address] [facility] (BEAKER) (test code = [place]ERT [place] 1538) [address] BASIC METABOLIC [id number] 06:38:00 Test Item Value Reference Range Interpretation [...] TE ESTIMATED GFR. HIV-1 ANTIGEN WITH HIV-1/2 [id number] 06:37:00 Test Item Value Reference Range Interpretation Comments HIV-1 ANTIGEN WITH HIV 1\\T\\2 Nonreactive Nonreactive ANTIBODY (2) (BEAKER) (test code = 2586) POCT-GLUCOSE [id number] 22:04:00 Test Item Value Reference Range Interpretation Comments POC-GLUCOSE METER 77 mg/dL 70-110 TESTED AT [place] [address] (BEAKER) (test code = [place] [address] 1538) CSF CELL COUNT [id number] 16:31:00 Test Item Value Reference Range Interpretation [...] (BEAKER) (test 3 code = 2678) PROTEIN, [id number] 15:25:00 Test Item Value Reference Range Interpretation Comments PROTEIN CSF (BEAKER) (test code = 60 mg/dL 15-45 H 378) GLUCOSE, [id number] 15:19:00 Test Item Value Reference Range Interpretation Comments GLUCOSE CSF (BEAKER) (test code = 53 mg/dL 40-70 406) MICHAEL INK [id number] 15:10:00 Test Item Value Reference Range Interpretation Comments MICHAEL INK No encapsulated yeast No encapsulated yeast (BEAKER) (test seen seen code = 1612) POCT-GLUCOSE [id number] 07:47:00 Test Item Value Reference Range Interpretation Comments POC-GLUCOSE METER 97 mg/dL 70-[address] [facility] [address] (BEAKER) (test code = [place] [address] 6937) CBC W/PLT COUNT & AUTO [id number] 06:05:00 Test Item Value Reference Range Interpretation [...] 0.00-0.20 (test code = 417) 0.00BASIC METABOLIC [id number] 05:56:00 Test Item Value Reference Range Interpretation [...] m DATA TO CALCULA TE ESTIMATED GFR. [id number] 05:01:00 Test Item Value Reference Range Interpretation [...] 2.5-3.5 for patients with mechanical heart valves.POCT-GLUCOSE [id number] 21:22:00 Test Item Value Reference Range Interpretation Comments POC-GLUCOSE METER 174 mg/dL 70-[address] [facility] ([facility]) (test code = HER[place]ERT [place] 1538) [address] POCT-GLUCOSE [id number] 17:05:00 Test Item Value Reference Range Interpretation Comments POC-GLUCOSE METER 104 mg/dL 70-110 TESTED AT [place] [address] ([facility]) (test code = HER[place]ERT Castro [place] 1538) [address] [id number] 12:22:00 Test Item Value Reference Range Interpretation Comments PROTIME ([facility]) (test code = 15.0 seconds 11.7-14.7 H 759) INR ([facility]) (test code = 370) 1.2 <=5.9 PARTIAL THROMBOPLASTIN TIME 27.5 seconds 22.5-36.0 ([facility]) (test code = 760) RECOMMENDED COUMADIN/WARFARIN INR THERAPY RANGESSTANDARD DOSE: 2.0 - 3.0 Includes: PROPHYLAXIS forvenous thrombosis, systemic embolization; TREATMENT for venous thrombosis and/or pulmonary embolus.HIGH RISK: Target INR is 2.5-3.5 for patients with mechanical heart valves.[id number] 12:20:00 Test Item Value Reference Range Interpretation Comments MAGNESIUM ([facility]) (test code = 1.9 mg/dL 1.6-2.6 627) POCT-GLUCOSE [id number] 11:34:00 Test Item Value Reference Range Interpretation Comments POC-GLUCOSE METER 90 mg/dL 70-110 TESTED AT [place] [address] ([facility]) (test code = HERBERT Castro [facility] [address] 1538) POCT-GLUCOSE [id number] 07:35:00 Test Item Value Reference Range Interpretation Comments POC-GLUCOSE METER 105 mg/dL 70-110 TESTED AT [place] [address] ([facility]) (test [facility] = [facility] [place] 1538) [address] CBC W/PLT COUNT & AUTO [id number] 07:01:00 Test Item Value Reference Range Interpretation Comments WHITE BLOOD CELL COUNT ([facility]) 12.6 K/ L 4.0-10.0 H (test code = 775) RED BLOOD CELL COUNT ([facility]) 5.10 M/ L 4.20-5.80 (test code = 761) HEMOGLOBIN ([facility]) (test code = 15.4 GM/DL 13.0-16.8 410) HEMATOCRIT ([facility]) (test code = 47.2 % 40.0-50.0 411) MEAN CORPUSCULAR VOLUME ([facility]) 92.4 fL 82.0-98.0 (test code [...] 0.00-0.20 (test code = 417) 0.00BASI METABOLIC [id number] 06:11:00 Test Item Value Reference Range Interpretation [...] TO CALCULA TE ESTIMATED GFR. HEPATIC FUNCTION [id number] 06:10:00 Test Item Value Reference Range Interpretation [...] slightly (test code = 347) hemolyzed POCT-GLUCOSE [id number] 21:29:00 Test Item Value Reference Range Interpretation Comments POC-GLUCOSE METER 238 mg/dL 70-[address] [facility] [facility] 1538) [address] CREATINE KINASE (CK)2017-03-16 19:00:00 Test Item Value Reference Range Interpretation Comments CREATINE KINASE TOTAL (BEAKER) (test 212 U/L 29-200 H code = 380) POCT-GLUCOSE [id number] 17:04:00 Test Item Value Reference Range Interpretation Comments POC-GLUCOSE METER 88 mg/dL 70-[address] [facility] [address] ([facility]) (test code = HERBERT Castro [facility] [address] 1538) POCT-GLUCOSE [id number] 11:53:00 Test Item Value Reference Range Interpretation Comments POC-GLUCOSE METER 119 mg/dL 70-[address] [facility] [address] (BEAKER) (test code = HER[place]ERT [place] 1538) [address] POCT-GLUCOSE [id number] 07:32:00 Test Item Value Reference Range Interpretation Comments POC-GLUCOSE METER 142 mg/dL 70-[address] [facility] [address] (BEAKER) (test code = HERBERT [place] 1538) [address] CBC W/PLT COUNT & AUTO [id number] 06:33:00 Test Item Value Reference Range Interpretation [...] 0.00-0.20 (test code = 417) 0.00BASIC METABOLIC [id number] 06:20:00 Test Item Value Reference Range Interpretation [...] m DATA TO CALCULA TE ESTIMATED GFR. [id number] 05:51:00 Test Item Value Reference Range Interpretation [...] 2.5-3.5 for patients with mechanical heart valves.T4, [id number] 19:26:00 Test Item Value Reference Range Interpretation Comments FREE T4 (BEAKER) (test code = 655) 0.79 ng/dL 0.70-1.48 TSH/FREE T4 IF [id number] 18:49:00 Test Item Value Reference Range Interpretation Comments THYROID STIMULATING HORMONE 14.58 uIU/mL 0.35-4.94 H (BEAKER) (test code = 772) [id number] 18:11:00 Test Item Value Reference Range Interpretation Comments AMMONIA ([facility]) (test code = 348) 43 mol/L 18-72 POCT-GLUCOSE [id number] 17:22:00 Test Item Value Reference Range Interpretation Comments POC-GLUCOSE METER 118 mg/dL 70-110 H TESTED AT [place] [address] ([facility]) (test code = [facility] 1538) [address] POCT-GLUCOSE [id number] 07:33:00 Test Item Value Reference Range Interpretation Comments POC-GLUCOSE METER 202 mg/dL 70-110 H TESTED AT [place] [address] ([facility]) (test code = [facility] 1538) [address] CBC (HEMOGRAM ONLY)2017-03-15 06:38:00 Test Item Value [...] (BEAKER) (test code = 413) 0.00BASI METABOLIC [id number] 05:56:00 Test Item Value Reference Range Interpretation [...] m DATA TO CALCULA TE ESTIMATED GFR. [id number] 05:48:00 Test Item Value Reference Range Interpretation [...] 2.5-3.5 for patients with mechanical heart valves.POCT-GLUCOSE [id number] 00:03:00 Test Item Value Reference Range Interpretation Comments POC-GLUCOSE METER 133 mg/dL 70-[address] [facility] [address] ([place]) (test code = HER[place]ERT [place] 9662) [address]
== END 2020-06-23 04:39 | disposition home or self-care (01) ==
LOC: ER 22:27
DX: S40.012A Contusion of left shoulder, initial encounter (principal); S40.022A Contusion of left upper arm, initial encounter; X58.XXXA Exposure to other specified factors, initial encounter; Y93.9 Activity, unspecified; Y92.009 Unspecified place in unspecified non-institutional (private) residence as the place of occurrence of the external cause; I10 Essential (primary) hypertension; E03.9 Hypothyroidism, unspecified; F90.9 Attention-deficit hyperactivity disorder, unspecified type; Z91.048 Other nonmedicinal substance allergy status
CPT/HCPCS: 96361; 85025; 80048 ×2; 36415; 82550 ×2; 85610; 80076; 85730; 81003; 73060; 73030; 93971; 96374; 99284; J2270; J7030

== ENCOUNTER 2021-05-08 21:11 | Emergency (ER) | payer BC, OTHER ==
--- OUTSIDE RECORDS SUMMARY | 2021-05-08 21:16 | XMS REPORT | Continuity of Care Document ---
:1980 Author Organization [facility] t Address [address] [place] [address] Dr. [address] [place] [address] Care Team Providers Name Role Phone Sharpless Primary Care Physician WALKER Attending Clinician Unavailable Only, Test Attending Clinician Unavailable Doctor Unassigned, Name Attending Clinician Unavailable Leesa Olivas Attending Clinician Blaine Lala Jr Attending Clinician DR CATIE Attending Clinician Unavailable NAOMIE LEDESMA Attending Clinician Unavailable LY Attending Clinician Unavailable An ARREOLA Attending Clinician Unavailable Blaine Lala Jr Admitting Clinician DR CATIE Admitting Clinician Unavailable LY Admitting Clinician Unavailable An ARREOLA Admitting Clinician Unavailable Payers Payer Name Policy Type Policy Number Effective Date Expiration Date Micah hernandez BCBSTX PPO [id number] 2020 00:00:00 Problems Condition Condition Condition Status Onset Resolution Last Treating Co mments Source Name Details Category Date Date Treatment Clinician Date EGD Diagnosis Active 2020-06-05 Mem oria 05-13 07:42:00 l EGD 00:00: [place] 00 Active 05/13/2020 [facility] Silas UNK Diagnosis Active 2020-06-01 Mem oria 05-13 16:30:00 l UNK 00:00: [place] 00 Active 05/13/2020 [facility] DX: Diagnosis Active 2020-04-06 [facility] oria E66.01=MOR 7-17 09:58:00 l BID DX: 00:00: [place] (SEVERE) E66.01=MOR 00 OBESITY BID DUE T (SEVERE) OBESITY DUE T Active 04/03/2020 [place] BACK/ LEG Diagnosis Active 2019-02-17 Memoria PAIN/FALL 6 05:16:00 l BACK/ 00:00: [place] LEG 00 PAIN/FALL Active 02/16/2019 [facility] PAIN IN Diagnosis Active 2019-02-18 [facility] LOWER BACK 6 14:59:00 l PAIN IN 00:00: [place] LOWER BACK 00 Active 02/16/2019 [facility] Parkinson Parkinson Disease Active [facility] [place] Brain Brain Disease Active [facility] lesion lesion [facility] - [facility] [place] Morbid Morbid Disease Active [facility] obesity obesity [facility] - [facility]: Medical 00 [place] YAMIL on YAMIL on Disease Active [facility] CPAP CPAP [facility] - 00:[facility]: [facility] [place] Fatty Fatty Disease Active [facility] liver liver 6-30 [facility] - [facility]: [facility] 00 [place] H/O: H/O: Disease Active [facility] depression depression 6-30 Berta kes - 00:00: Medical 00 [place] Headache, Headache, Disease Active [facility] acute acute [facility] - 00:[facility]: Medical 00 [place] Anxiety Problem Active 2020-07-15 Bryan lópez (finding) 23:16:17 l Anxiety Silas (finding) Active Problem 07/15/[address] Depressive Problem Active 2020-07-15 M emoria disorder 23:16:17 l (disorder) [place] Depressive disorder (disorder) Active Problem 07/15/[address] Hyperlipid Problem Active 2020-07-15 M emoria emia 23:16:17 l (disorder) [place] Hyperlipid emia (disorder) Active Problem 07/15/[address] Hypothyroi Problem Active 2020-07-15 M emoria dism 23:16:17 l (disorder) [place] Hypothyroi dism (disorder) Active Problem 07/15/[address] Obesity Problem Active 2020-07-15 Bryan lópez (disorder) 23:16:17 l Obesity [place] (disorder) Active Problem 07/15/[address] Sleep Problem Active 2020-07-15 Memor ia apnea 23:16:17 l (finding) Sleep [place] apnea (finding) Active Problem 07/15/[address] Smoker Problem Active 2020-07-15 Memor ia (finding) 23:16:17 l Smoker Silas (finding) Active Problem 07/15/[address] LOW BACK Diagnosis Active 2019-02-18 M emoria PAIN 14:59:00 l LOW BACK [place] PAIN Active [facility] Allergies, Adverse Reactions, Alerts Allergy Allergy Status Severity Reaction(s) Onset Inactive Treating Comm ents Source Name Type Date Date Clinician No Known DA Active U 2017-09 [facility] 0-16 [facility] Propensi Active Hives 2017 [facility] at [facility] adverse [facility]: Medical Contrast reaction 00 [place] [employer] s iodine iodine Active Memoria l [place] contrast contrast Active Memori a media media l (iodine- (iodine- [place] based) based) Family History Family Member Diagnosis Comments Start Date Stop Date Source Natural father Diabetes [facility] Maternal grandmother Diabetes [facility] Maternal grandmother Hyperlipidemia [facility] Paternal aunt Cancer [facility] Paternal grandmother Cancer [facility] Paternal grandmother Osteoporosis [facility] Social History Social Habit Start Date Stop Date Quantity Comments Source Sex Assigned At [facility] Social History 2020-05-27 2020-05-27 Haim emery 22:07:33 22:07:33 Cigarettes smoked 2017-10-30 2017-10-30 [facility]REG[facility] Ignacio - current (pack per 00:00:00 [facility]:00 [facility] day) - Reported Cigarette 2017-10-30 2017-10-[address] [facility] [address] [facility] - pack-years 00:00:00 00:00:00 [facility] Tobacco use and 2017-10-30 2017-10-30 Never used GREGOR Boudreaux - exposure 00:00:00 00:00:00 [facility] Alcohol intake 2017-10-30 2017-10-30 Current drinker GREGOR Agudelo - 00:00:00 00:00:00 of alcohol [facility] (finding) Tobacco Comment 2017-03-27 2017-03-27 since he was GREGOR Ignacio - 00:00:00 00:00:00 20-29 years old Medical C enter quit for 4 years them started smoking again. handout to be given dos Alcohol Comment 2017-03-14 2017-03-14 3 x a year GREGOR Boudreaux - 00:00:00 00:00:00 [facility] Smoking Status Start Date Stop Date Source Current every day smoker 2017-10-30 00:00:00 [facility] Medications Ordered Filled Start Stop Current Ordering Indication Dosage Frequency Signature Comments Components Source Medication Medication Date Date Medication? Clinician (SIG) Name Name pantoprazol 2019- Yes 40 mg = 1 M emoria e 40 mg -16 tab, PO, l oral 13:20: Daily, # Silas enteric 00 30 tab, 1 coated Refill(s), tablet Pharmacy: [id number], 175.26, cm, 06/01/20 17:08:00 CDT, Height, 167.727, kg, 06/01/20 17:08:00 CDT, Weight Sodium 2019- No 1,000 mL, Memori a Chloride -16 Rate: 21 l 0.9% IV 11:43: ml/hr, Silas 1,000 mL 00 Infuse over: 47.6 hr, Route: IV, Dosing Weight 167.727 kg, Total Volume: 1,000, Start date: 06/03/20 6:43:00 CDT, Duration: 30 day, Stop date: 07/03/20 6:42:00 CDT, 2.91, m2, 0 Acetaminoph Yes 1,000 mg = Memoria en 500 MG 05-27 2 tab, PO, l Oral Tablet 22:10: PRN, 0 Herm frank [Tylenol] 00 Refill(s) levothyroxi Yes 200 Memori a ne 200 mcg 05-27 microgram l (0.2 mg) 22:09: = 1 tab, Kisha nn oral tablet 00 PO, Daily, 0 Refill(s) lovastatin Yes 40 mg = 1 Me moria 40 mg oral 09 tab, PO, l tablet 22:09: Daily, 0 [place] 00 Refill(s) busPIRone Yes 10 mg = 1 Mem oria 10 mg oral -09 tab, PO, l tablet 22:09: BID, 0 [place] 00 Refill(s) Famotidine Yes 20 mg = 1 Me moria 20 MG Oral 6-03 tab, PO, l Tablet 22:35: BID, # 60 Satanm n 00 tab, 0 Refill(s) { Yes See Memoria (Methylpred 6-03 Instructio l nisolone 4 22:35: ns, PO, Herm frank MG Oral 00 Take by Tablet mouth as [Medrol]) } directed Pack on label., [Medrol # 1 Pack, Dosepak] 0 Refill(s) Senna 8.6 Yes 17.2 mg = Mem oria mg oral 6-03 2 tab, PO, l tablet 22:35: BID, PRN [place] 00 Constipati on, X 25 day, # 100 tab, 0 Refill(s) Acetaminoph Yes 1 - 2 tab, Memoria en 300 MG / 6-03 PO, Q4H, l Codeine 22:35: PRN Pain, Kisha nn Phosphate 00 X 4 day, # 30 MG Oral 36 tab, 0 Tablet Refill(s) [Tylenol with Codeine #3] Saline No Notes: Memoria Flush 0.9% -03 (Same as: l 02:00: BD [place] Posiflush) levothyroxi Yes 200 Memori a ne 200 mcg -03 microgram l (0.2 mg) 00:00: = 1 tab, Kisha nn oral tablet 00 PO, Daily, 0 Refill(s) Metformin Yes 500 mg = 1 Me moria hydrochlori 6-03 tab, PO, l de 500 MG 00:00: BID, 0 [place] Oral Tablet 00 Refill(s) terbinafine Yes 250 mg = 1 Memoria 250 mg oral -02 tab, PO, l tablet 23:59: Daily, 0 [place] 00 Refill(s) Docusate No Notes: Memoria - (Same as: l 22:00: Colace) [place] (Do Not Crush) sennosides, No Notes: Bryan lópez PRISON 02-17 (Same as: l 22:00: Senokot) [place] Cefazolin No Notes: Memori a - (Same as l 21:00: Ancef) Silas 00 D5LR 1,000 No 1,000 mL, Me moria mL 02-17 Rate: 150 l 19:32: ml/hr, Infuse over: 6.7 hr, Route: IV, Total Volume: 1,000, Priority: STAT, Start date: 02/17/19 14:32:00 CDT, Duration: 30 day, Stop date: 03/19/19 14:31:00 CDT Saline No Notes: Memoria Flush 0.9% 02-17 (Same as: l 18:47: BD Sil[place] Posiflush) phenol No Notes: Memoria 02-17 Chlorasept l 18:47: ic [place] (Same as: Chlorasept ic, Sore Throat [place]) WASTE: F/P - Black; E - Municipal Trash Bin Melatonin 3 No Notes: Bryan lópez MG Extended 02-17 (Same as: l Release 18:47: Melatonin) Herm frank Tablet 00 Tylenol No Notes: Do Memor ia 02-17 not exceed l 18:47: 4 gm/day. Silas 00 (Same as: Tylenol) Labetalol No 10 mg, 2 Bryan lópez 6-02 mL, Route: l 18:47: IVP, Drug form: INJ, Q15Min, kg, PRN Hypertensi on, Start date: 02/17/19 13:47:00 CDT, Duration: 3 doses or times, Stop date: Limited # of times Hydralazine No Notes: Bryan lópez 6- (Same as: l 18:47: Apresoline ) Push over 5 minutes Dilaudid No Notes: Memoria 6-02 Same as l 18:47: Dilaudid Benadryl No Notes: Memoria 6- (Same as: l 18:47: Benadryl) Acetaminoph No Notes: Do M emoria en 325 MG / 02-17 not exceed l Hydrocodone 18:47: 4gm/day of [place] Bitartrate 00 acetaminop 10 MG Oral hen. Tablet (Same as: [[place] 10/325] 325/10) Ondansetron No Notes: Bryan lópez - (Same as: l 18:47: Zofran) MEDICATION WASTE Product Size: 4 mg Product Wasted: 0 mg Bisacodyl No Notes: Memori a - (Same As: l 18:47: Dulcolax, [place] 00 Bisco-Lax) Robaxin No Notes: Memoria 6- (Same l 18:47: as:Robaxin ) Sodium No 1,000 mL, Memori a Chloride 02-17 Rate: 50 l 0.9% IV 18:47: ml/hr, Silas 1,000 mL 00 Infuse over: 20 hr, Route: IV, Total Volume: 1,000, Start date: 02/17/19 13:47:00 CDT, Duration: 30 day, Stop date: 03/19/19 13:46:00 CDT Flomax No Notes: Memoria 6- (Same As: l 18:45: Flomax) [place] 00 "Do Not Crush" Zofran No Notes: Memoria 6-02 (Same as: l 17:08: Zofran) [place] 00 MEDICATION WASTE Product Size: 4 mg Product Wasted: ___ mg Morphine No Notes: Memoria - (Same l 17:08: as:MORPhin [place] 00 e Sulfate) Ibuprofen No Notes: Memori a 400 MG Oral 02-17 (Same as: l Tablet 09:12: Motrin) [place] "Do Not Crush" Give with food. Acetaminoph No Notes: Do M emoria en 02-17 not exceed l 09:12: 4 gm/day. Silas 00 (Same as: Tylenol) Zofran No Notes: Memoria 02-17 (Same as: l 09:11: Zofran) [place] 00 MEDICATION WASTE Product Size: 4 mg Product Wasted: 0 mg Morphine No Notes: Memoria - (Same l 09:11: as:MORPhin [place] 00 e Sulfate) Vital Signs Vital Name Observation Time Observation Value Comments Source Respitory Rate 2020-06-03 13:15:00 Memori al [place] Systolic (mm Hg) 2020-06-03 13:15:00 Bryan rial [place] Diastolic (mm Hg) 2020-06-03 13:15:00 Mem orial [place] Respitory Rate 2020-06-03 13:10:00 Memori al [place] Systolic (mm Hg) 2020-06-03 13:10:00 Bryan rial [place] Diastolic (mm Hg) 2020-06-03 13:10:00 Mem orial [place] Respitory Rate 2020-06-03 11:25:00 Memori al [place] Systolic (mm Hg) 2020-06-03 11:25:00 Bryan rial [place] Diastolic (mm Hg) 2020-06-03 11:25:00 Mem orial [place] Weight 2020-06-03 11:22:00 [facility] BMI Calculated 2020-06-03 11:22:00 Memori al [place] Height 2020-06-01 22:08:00 175.26 cm [facility] Height 2020-05-27 22:03:00 175.26 cm [facility] Weight 2020-05-27 22:03:00 [facility] BMI Calculated 2020-05-27 22:03:00 Memori al [place] Heart Rate 2019-02-18 20:57:00 [facility] [place] Temperature Oral (F) 2019-02-18 20:57:00 97.7 F [facility] [place] Respitory Rate 2019-02-18 20:57:00 Memori al [place] Systolic (mm Hg) 2019-02-18 20:57:00 Bryan rial [place] Diastolic (mm Hg) 2019-02-18 20:57:00 Mem orial [place] Temperature Oral (F) 2019-02-18 17:25:00 98.5 F [facility] [place] Systolic (mm Hg) 2019-02-18 17:25:00 Bryan rial [place] Diastolic (mm Hg) 2019-02-18 17:25:00 Mem orial [place] Respitory Rate 2019-02-18 17:25:00 Memori al [place] Heart Rate 2019-02-18 17:25:00 [facility] [place] Systolic (mm Hg) 2019-02-18 12:53:00 Bryan rial [place] Diastolic (mm Hg) 2019-02-18 12:53:00 Mem orial [place] Temperature Oral (F) 2019-02-18 12:53:00 98.0 F Memorial [place] Respitory Rate 2019-02-18 12:53:00 Memori al [place] Heart Rate 2019-02-18 12:53:00 [facility] [place] Procedures Procedure Date / Time Performed Performing Clinician [facility] e Appendectomy [facility] [place] Cholecystectomy [facility] [place] Operation [facility] [place] Encounters Start End Encounter Admission Attending Care Care Encounter Source Date/Time Date/Time Type Type Clinicians Facility Department ID 2021-02-24 Outpatient OFFERMAN, [facility] [id number] [place] 15:27:08 [facility] 2020-04-06 Outpatient MHSE JONNIE 9600 MH 09:50:31 [facility] 2021-05-03 2021-05-03 Laboratory Only, Adc [facility] [id number] 12:23:00 12:38:00 Only Test Kalina 350.1.13.10 Bran 4.2.7.2.686 [place] [id number] 2021-05-03 2021-05-03 Orders Doctor GOMEZ [id number] 00:00:00 00:00:00 Only Unassigned, CURT 350.1.13.10 [place] [facility] 4.2.7.2.686 [id number] 2020-07-31 2020-07-31 Outpatient STLMLC STLMLC [id number] [facility] 2020-07-27 2020-07-27 Outpatient STLMLC STLMLC [id number] [facility] 2020-07-13 2020-07-14 Outpt Diag nullFlavo [facility] [id number] Memoria 21:07:00 04:59:00 Services r Outpatient 00 [facility] 2020-07-13 2020-07-13 Outpatient Ekhaese, MHHOIP HOIP [id number] 16:07:00 23:59:00 [place] 00 aria 2020-07-08 2020-07-08 Outpatient STLMLC STLC [id number] [facility] 2020-07-07 2020-07-07 Outpatient STLMLC STLMLC [id number] [facility] 2020-06-03 2020-06-03 Bedded nullFlavo [facility] [id number] Memoria 10:46:00 13:34:00 Outpatient r Silas 01 l [facility] 2020-06-03 2020-06-03 Outpatient Ekhaese, MHPL MHPL [id number] 05:46:00 08:34:00 [place] 01 ariabe 2020-06-03 2020-06-03 Outpatient Ekhaese, MHPL MHPL [id number] 05:46:00 08:34:00 [place] 01 aria 2020-06-03 2020-06-03 Outpatient MHBL JONNIE [id number] MHBL 05:46:00 05:46:00 2020-04-03 2020-05-03 Recurring nullFlavo [facility] [id number] Memoria 19:00:00 04:59:[address] [place] [address] [facility] 2020-04-03 2020-05-02 Outpatient Ekhaese, MHSE [facility] [id number] 14:00:00 23:59:00 [place] 00 Imariabe 2019-02-17 2019-02-18 Observatio nullFlavo [facility] [id number] Memoria 06:58:09 23:05:00 n r Silas 00 l [facility] 2019-02-17 2019-02-18 Outpatient Dai, [facility] [id number] 01:58:09 18:05:00 [place] 00 Blaine 2019-02-17 2019-02-17 Outpatient E [facility] [id number] [facility] 13:47:00 13:47:00 2018-04-18 2018-04-18 [facility] C [facility] [id number] [place] 07:34:00 10:07:00 [facility] Results Test Test Test Comments Results Result Source Description Time Comments IMMUNOLOGY 2020-05 Not Detected [facility] -14 *NA*(06/01/20 4:49 PM) [facility] 21:49:0 0 IMMUNOLOGY 2019-02 Negative *NA*(02/17/19 Bryan rial - 6:10 AM) [place] 11:10:0 0 XR SMITA W 2018-04 FluoroscopyLocation CONTRAST*HSE* -01 Code: [id number] 10:12:2 HISTORY: Back 5 painComments: Fluoroscopy was provided during Lumbar SMITA. Approximately fluoroscopytime was 34.4 seconds. 4 fluoroscopic spot images were taken.IMPRESSION: Fluoroscopy services provided. Please see operative report for fulldetails. RAD, CHEST, 1 2017-10 Reason for exam:->LOSS FINAL REPORT PATIENT VIEW, NON DEPT -12 OF CONSCIOUSNESSShould ID: [id number] Chest 19:07:0 this be performed at one view AP 10/30/2017 0 the bedside?->Yes 7:07 PM CLINICAL INDICATION: LOSS OF CONSCIOUSNESS COMPARISON: None available IMPRESSION: There is atelectasis in the right lung base. The left lung is clear. Cardiomediastinal contours are within normal limits. The central pulmonary vasculature is not engorged. Signed: Sharif Du Verified Date/Time: 10/30/2017 19:07:24 Reading Location: [facility] Radiology Reading Room ALYSIS W/ MICROSCOPIC [...] = 1574) Rare SOURCE(BEAKER) (test code = 8770) Urine, Clean Catch BASIC METABOLIC [id number] 18:08:00 Test Item Value Reference Range Interpretation [...] m DATA TO CALCULA TE ESTIMATED GFR. [id number] 18:06:00 Test Item Value Reference Range Interpretation Comments MAGNESIUM (GHANSHYAM) (test code = 2.0 mg/dL 1.6-2.6 627) [id number] 18:06:00 Test Item Value Reference Range Interpretation Comments LIPASE (BEAKER) (test code = 749) 67 U/L 8-78 TROPONIN [id number] 18:03:00 Test Item Value Reference Range Interpretation [...] neurological disease, and persistent tachyarrhythmia.CT, BRAIN, WITHOUT [id number] 17:52:00Reason for exam:->LOSS OF CONSCIOUSNESSWhat is the [...] pre and postcontrast MRI is recommended. Signed: SeSharif rolon Verified Date/Time: 10/30/2017 17:52:21 Reading Location: [facility] Radiology Reading Room CBC W/PLT COUNT & AUTO [id number] 17:19:00 Test Item Value Reference Range Interpretation [...] (test code = 2801) AFB CULTURE + [id number] 08:57:00 Test Item Value Reference Range Interpretation Comments CULTURE (BEAKER) (test No acid-fast bacilli code = 1095) isolated in 42 days AFB SMEAR (BEAKER) No acid fast bacilli (test code = 994) seen FUNGUS CULTURE + [id number] 07:23:00 Test Item Value Reference Range Interpretation Comments CULTURE (BEAKER) (test No fungus isolated in code = 1095) 28 days FUNGUS SMEAR (BEAKER) No fungi seen (test code = 1406) FLOW CYTOMETRY [id number] 15:21:00 Test Item Value Reference Range Interpretation Comments FLOW CYTOMETRY RESULT See Separate Report POINTER (BEAKER) (test code = 2758) FLOW CYTOMETRY AP CASE # [id number] (BEAKER) (test code = 2759) TISSUE [id number] 10:11:00Surgical Pathology Report Case: [id number] Authorizing Provider: Eduardo Castillo MD Collected: 03/28/2017 1215 Ordering Location: [facility] PERIOPERATIVE Received: 03/28/2017 1221 SERVICES Pathologist: [...] features of primary demyelination are also absent. 17378d1; 37030z1; 48565; 71464; 35066; 59142 x4Left craniotomy, brain tumorA. Tumor, left frontal tumorPart A. The specimen is received fresh for frozen labeled with the patient's name and accession number as "tumor" with description of "left frontal tumor" is a 0.6 x 0.6 x 0.3 cm aggregate of multiple fragments of mustafa soft tissue. ___ squash is smear prepared. The specimen is submitted entirely in cassette OIE4tmt A2. Part C. Received fresh for frozen [...] perform high complexity clinical laboratory testing.BASIC METABOLIC [id number] 09:32:00 Test Item Value Reference Range Interpretation [...] ESTIMATED GFR. CBC W/PLT COUNT & AUTO [id number] 09:09:00 Test Item Value Reference Range Interpretation [...] 0.00-0.20 (test code = 417) 0.00BASIC METABOLIC [id number] 03:22:00 Test Item Value Reference Range Interpretation [...] m DATA TO CALCULA TE ESTIMATED GFR. [id number] 03:20:00 Test Item Value Reference Range Interpretation Comments PHOSPHORUS (BEAKER) (test code = 3.5 mg/dL 2.3-4.7 604) [id number] 03:20:00 Test Item Value Reference Range Interpretation [...] (test code = 413) 0.00MYCOBACTERIUM TB PCR [id number] 14:38:00 Test Item Value Reference Range Interpretation Comments MYCOBACTERIUM TB (test code = 5084739187) HGB/HCT (H&H) - STAT [id number] 11:35:00 Test Item Value Reference Range Interpretation Comments HEMOGLOBIN (BEAKER) (test code = 13.8 g/dL 13.0-16.8 410) HEMATOCRIT (BEAKER) (test code = 41.0 % 40.0-50.0 411) FiO2:35%, Temp: 36.7CFiO2:35%, Temp: 36.7CFiO2:35%, Temp: 36.7CFiO2:35%, Temp: 36.7CFiO2:35%, Temp: 36.7CCALCIUM, [id number] 11:35:00 Test Item Value Reference Range Interpretation Comments CALCIUM IONIZED (BEAKER) (test 1.03 mmol/L 1.12-1.27 L code = 698) PH, BLOOD (BEAKER) (test code = 7.42 1810) BLOOD GAS, [id number] 11:34:00 Test Item Value Reference Range Interpretation [...] 36.7CFiO2:35%, Temp: 36.7CFiO2:35%, Temp: 36.7CFiO2:35%, Temp: 36.7CGLUCOSE-STAT [id number] 11:33:00 Test Item Value Reference Range Interpretation Comments GLUCOSE RANDOM (BEAKER) (test code 101 mg/dL 70-110 = 652) FiO2:35%, Temp: 36.7CFiO2:35%, Temp: 36.7CFiO2:35%, Temp: 36.7CFiO2:35%, Temp: 36.7CFiO2:35%, Temp: 36.7CSODIUM NA-STAT [id number] 11:33:00 Test Item Value Reference Range Interpretation Comments SODIUM (BEAKER) (test code = 381) 136 meq/L 135-148 FiO2:35%, Temp: 36.7CFiO2:35%, Temp: 36.7CFiO2:35%, Temp: 36.7CFiO2:35%, Temp: 36.7CFiO2:35%, Temp: 36.7CPOTASSIUM-STAT [id number] 11:33:00 Test Item Value Reference Range Interpretation Comments POTASSIUM (BEAKER) (test code = 3.8 meq/L 3.6-5.5 379) FiO2:35%, Temp: 36.7CFiO2:35%, Temp: 36.7CFiO2:35%, Temp: 36.7CFiO2:35%, Temp: 36.7CFiO2:35%, Temp: 36.7CURINALYSIS W/ [id number] 08:37:00 Test Item Value Reference Range Interpretation [...] 516) SOURCE(BEAKER) (test code = Urine, Voided 2262) FLOW [id number] 14:12:00Flow Cytometry Report Case: [id number] Authorizing Provider: Ayanna Christine MD Collected: 03/18/2017 1428 Ordering Location: [address] Received: 03/20/2017 0822 Service Pathologist: Dalia Roper MD Specimen: Other CEREBROSPINAL FLUID,FLOW CYTOMETRY:- NON-DIAGNOSTIC DUE TO LOW CELLULARITY AND NON-SPECIFIC ANTIBODY STAINING Please correlate with mor phologic and clinical findings. [id number] massCerebrospinal fluidCD2, CD3, CD4, CD5, CD7, CD8, CD10, CD11c, CD19, CD20, CD23, CD34, CD38, CD45, CD56, [place], LambdaFlow cytometric evaluation is limitedby low cellularity and non-specific antibody staining.These tests were developed and their performance characteristics determined by [facility]. They have not been cleared or approved by the U.S. Foodand Drug Administration. The FDA has determined that such clearance or approval is not necessary. Itshould not be regarded as investigational or for research. This laboratory is certified under the Clinical Laboratory Improvement Amendments of 1988 ("CLIA") as qualified to perform high- complexity clinical testing.CSF CULTURE + GRAM [id number] 09:13:00 Test Item Value Reference Range Interpretation Comments CULTURE (BEAKER) (test code No growth = 1095) GRAM STAIN RESULT (BEAKER) No WBCs (test code = 1123) GRAM STAIN RESULT (BEAKER) No organisms seen (test code = 00010) HSV 1/2 PCR, [id number] 17:52:00 Test Item Value Reference Range Interpretation [...] and its performance characteristics determined by the [facility] Pathology Department, Section of Molecular Pathology. It has not been cleared or approved by the U.S. Food and Drug Administration (FDA), as FDA approval is not required for clinical use of the test. Validation was done as required by the Clinical Laboratory Amendments of 1988.[id number] 14:15:00Medical Cytology Report Case: [id number] Authorizing Provider: Ayanna Christine MD Collected: 03/18/2017 1302 Ordering Location: [address] Received: 03/20/2017 0905 Service Pathologist: Alysha Giraldo MD Specimen: CSF, tube 4 CEREBROSPINAL FLUID (CYTOSPINS): - NO MALIGNANT CELLS IDENTIFIED; - ESSENTIALLY ACELLULAR SAMPLE Signing Pathologist Direct Phone Line: [phone] signed by Alysha Giraldo MD on 03/20/2017 at 2:15 [id number] massCEREBROSPINAL FLUID (CYTOSPINS)2 cytospinsCollected: [id number]: [id number] [facility], Department of Pathology, [address] [place] [address], [facility], [address] [place] [address], PWJX- GLUCOSE [id number] 18:01:00 Test Item Value Reference Range Interpretation Comments POC-GLUCOSE METER 108 mg/dL 70-110 TESTED AT [place] [address] (GHANSHYAM) (test code = HERBERT Castro [facility] 1538) [id number] POCT-GLUCOSE [id number] 12:24:00 Test Item Value Reference Range Interpretation Comments POC-GLUCOSE METER 129 mg/dL 70-110 H TESTED AT [facility] 6720 (BEAKER) (test code = [place]ERT [place] 1538) [address] CBC W/PLT COUNT & AUTO [id number] 10:53:00 Test Item Value Reference Range Interpretation Comments WHITE BLOOD CELL COUNT (BEAKER) 9.0 K/ L 4.0-10.0 (test code = 775) RED BLOOD CELL COUNT (BEAKER) 4.89 M/ L 4.20-5.80 (test code = 761) HEMOGLOBIN (BEAKER) (test code = 15.2 GM/DL 13.0-16.8 410) HEMATOCRIT (BEAKER) (test code = 45.0 % 40.0-50.0 411) MEAN CORPUSCULAR VOLUME (BEAKER) 91.9 fL 82.0-98.0 (test code = 753) MEAN CORPUSCULAR HEMOGLOBIN 31.0 pg 27.0-33.0 (BEAKER) (test code = 751) MEAN CORPUSCULAR HEMOGLOBIN CONC 33.8 GM/DL 32.0-36.0 (BEAKER) (test code = 752) [...] COUNTED (BEAKER) (test code = 1351) POCT-GLUCOSE [id number] 08:15:00 Test Item Value Reference Range Interpretation Comments POC-GLUCOSE METER 110 mg/dL 70-110 TESTED AT [place] [address] ([facility]) (test code = [facility] 1538) [address] BASIC METABOLIC [id number] 06:38:00 Test Item Value Reference Range Interpretation [...] TE ESTIMATED GFR. HIV-1 ANTIGEN WITH HIV-1/2 [id number] 06:37:00 Test Item Value Reference Range Interpretation Comments HIV-1 ANTIGEN WITH HIV 1\\T\\2 Nonreactive Nonreactive ANTIBODY (2) (BEAKER) (test code = 2586) POCT-GLUCOSE [id number] 22:04:00 Test Item Value Reference Range Interpretation Comments POC-GLUCOSE METER 77 mg/dL 70-110 TESTED AT [place] [address] ([facility]) (test code = [facility] [address] 1538) CSF CELL COUNT [id number] 16:31:00 Test Item Value Reference Range Interpretation [...] (BEAKER) (test 3 code = 2678) PROTEIN, [id number] 15:25:00 Test Item Value Reference Range Interpretation Comments PROTEIN CSF (BEAKER) (test code = 60 mg/dL 15-45 H 378) GLUCOSE, [id number] 15:19:00 Test Item Value Reference Range Interpretation Comments GLUCOSE CSF (BEAKER) (test code = 53 mg/dL 40-70 406) MICHAEL INK [id number] 15:10:00 Test Item Value Reference Range Interpretation Comments MICHAEL INK No encapsulated yeast No encapsulated yeast (BEAKER) (test seen seen code = 1612) POCT-GLUCOSE [id number] 07:47:00 Test Item Value Reference Range Interpretation Comments POC-GLUCOSE METER 97 mg/dL 70-110 TESTED AT [facility] 67 (BEAKER) (test code = [place] [address] 1538) CBC W/PLT COUNT & AUTO [id number] 06:05:00 Test Item Value Reference Range Interpretation [...] K/ L 0.00-0.20 (test code = 417) [facility] [id number] 05:56:00 Test Item Value Reference Range Interpretation [...] 8.4-10.2 L (test code = 697) EGFR ([facility]) (test mL/min/1.73 INSUFFIC IENT CLINICAL code = 1092) sq m DATA TO CALCULA TE ESTIMATED GFR. [id number] 05:01:00 Test Item Value Reference Range Interpretation [...] 2.5-3.5 for patients with mechanical heart valves.POCT-GLUCOSE [id number] 21:22:00 Test Item Value Reference Range Interpretation Comments POC-GLUCOSE METER 174 mg/dL 70-110 H TESTED AT [place] [address] ([facility]) (test code = HERBERT Castro [facility] 1538) [address] POCT-GLUCOSE [id number] 17:05:00 Test Item Value Reference Range Interpretation Comments POC-GLUCOSE METER 104 mg/dL 70-110 TESTED AT [place] [address] ([facility]) (test code = HERBERT Castro [facility] 1538) [address] [id number] 12:22:00 Test Item Value Reference Range Interpretation Comments PROTIME (BEAKER) (test code = 15.0 seconds 11.7-14.7 H 759) INR (BEAKER) (test code = 370) 1.2 <=5.9 PARTIAL THROMBOPLASTIN TIME 27.5 seconds 22.5-36.0 (BEAKER) (test code = 760) RECOMMENDED COUMADIN/WARFARIN INR THERAPY RANGESSTANDARD DOSE: 2.0 - 3.0 Includes: PROPHYLAXIS forvenous thrombosis, systemic embolization; TREATMENT for venous thrombosis and/or pulmonary embolus.HIGH RISK: Target INR is 2.5-3.5 for patients with mechanical heart valves.[id number] 12:20:00 Test Item Value Reference Range Interpretation Comments MAGNESIUM (BEAKER) (test code = 1.9 mg/dL 1.6-2.6 627) POCT-GLUCOSE [id number] 11:34:00 Test Item Value Reference Range Interpretation Comments POC-GLUCOSE METER 90 mg/dL 70-110 TESTED AT [facility] 6720 (BEAKER) (test code = [place] [address] 1538) POCT-GLUCOSE [id number] 07:35:00 Test Item Value Reference Range Interpretation Comments POC-GLUCOSE METER 105 mg/dL 70-110 TESTED AT [place] [address] (BEAKER) (test code = HER[place]ERT [place] 1538) [address] CBC W/PLT COUNT & AUTO [id number] 07:01:00 Test Item Value Reference Range Interpretation Comments WHITE BLOOD CELL COUNT (BEAKER) 12.6 K/ L 4.0-10.0 H (test code = 775) RED BLOOD CELL COUNT (BEAKER) 5.10 M/ L 4.20-5.80 (test code = 761) HEMOGLOBIN (BEAKER) (test code = 15.4 GM/DL 13.0-16.8 410) HEMATOCRIT (BEAKER) (test code = 47.2 % 40.0-50.0 411) MEAN CORPUSCULAR VOLUME (BEAKER) 92.4 fL 82.0-98.0 (test code = 753) [...] 0.00-0.20 (test code = 417) 0.00BASIC METABOLIC [id number] 06:11:00 Test Item Value Reference Range Interpretation [...] TO CALCULA TE ESTIMATED GFR. HEPATIC FUNCTION [id number] 06:10:00 Test Item Value Reference Range Interpretation Comments TOTAL PROTEIN (BEAKER) 6.7 gm/dL 6.0-8.3 Speci men slightly (test code = 770) hemolyzed ALBUMIN (BEAKER) (test 3.3 g/dL 3.5-5.0 L Speci men slightly code = 1145) hemolyzed BILIRUBIN TOTAL 0.2 mg/dL 0.2-1.2 Specimen sli ghtly ([facility]) (test code = hemoly zed 377) BILIRUBIN DIRECT 0.1 mg/dL 0.1-0.5 Specimen sl ightly (BEAKER) (test code = hemoly zed 706) ALKALINE PHOSPHATASE 71 U/L 40-150 (AKER) (test code = 346) AST (SGOT) (AKER) 54 U/L 5-34 H Specimen slightly (test code = 353) hemolyzed ALT (SGPT) (AKER) 84 U/L 6-55 H Specimen slightly (test code = 347) hemolyzed POCT-GLUCOSE [id number] 21:29:00 Test Item Value Reference Range Interpretation Comments POC-GLUCOSE METER 238 mg/dL 70-110 H TESTED AT [place] [address] ([facility]) (test code = HERBERT Castro [facility] 1538) [address] CREATINE KINASE (CK)2017-03-16 19:00:00 Test Item Value Reference Range Interpretation Comments CREATINE KINASE TOTAL ([facility]) (test 212 U/L 29-200 H code = 380) POCT-GLUCOSE [id number] 17:04:00 Test Item Value Reference Range Interpretation Comments POC-GLUCOSE METER 88 mg/dL 70-110 TESTED AT [place] [address] ([facility]) (test code = HERBERT [place] [facility] [address] 1538) POCT-GLUCOSE [id number] 11:53:00 Test Item Value Reference Range Interpretation Comments POC-GLUCOSE METER 119 mg/dL 70-110 H TESTED AT [place] [address] ([facility]) (test code = HERBERT Castro [facility] 1538) [address] POCT-GLUCOSE [id number] 07:32:00 Test Item Value Reference Range Interpretation Comments POC-GLUCOSE METER 142 mg/dL 70-110 H TESTED AT [place] [address] ([facility]) (test code = HERBERT Castro [facility] 1538) [address] CBC W/PLT COUNT & AUTO [id number] 06:33:00 Test Item Value Reference Range Interpretation Comments WHITE BLOOD CELL COUNT ([facility]) 12.2 K/ L 4.0-10.0 H (test code = 775) RED BLOOD CELL COUNT ([facility]) 5.24 M/ L 4.20-5.80 (test code = [...] 0.00-0.20 (test code = 417) 0.00BASI METABOLIC [id number] 06:20:00 Test Item Value Reference Range Interpretation [...] m DATA TO CALCULA TE ESTIMATED GFR. [id number] 05:51:00 Test Item Value Reference Range Interpretation [...] 2.5-3.5 for patients with mechanical heart valves.T4, [id number] 19:26:00 Test Item Value Reference Range Interpretation Comments FREE T4 (BEAKER) (test code = 655) 0.79 ng/dL 0.70-1.48 TSH/FREE T4 IF [id number] 18:49:00 Test Item Value Reference Range Interpretation Comments THYROID STIMULATING HORMONE 14.58 uIU/mL 0.35-4.94 H (BEAKER) (test code = 772) [id number] 18:11:00 Test Item Value Reference Range Interpretation Comments AMMONIA (BEAKER) (test code = 348) 43 mol/L 18-72 POCT-GLUCOSE [id number] 17:22:00 Test Item Value Reference Range Interpretation Comments POC-GLUCOSE METER 118 mg/dL 70-110 H TESTED AT [facility] 6720 ([facility] (test code = [place] 1538) [address] POCT-GLUCOSE [id number] 07:33:00 Test Item Value Reference Range Interpretation Comments POC-GLUCOSE METER 202 mg/dL 70-110 H TESTED AT [facility] 6720 (BEAKER) (test code = [place] 1538) [address] CBC (HEMOGRAM ONLY)2017-03-15 06:38:00 Test Item Value [...] WBC 0-0 (BEAKER) (test code = 413) 0.00BASIC METABOLIC [id number] 05:56:00 Test Item Value Reference Range Interpretation [...] 358) GLUCOSE RANDOM 127 mg/dL 70-105 H ([facility]) (test code = 652) CALCIUM ([facility]) 9.5 mg/dL 8.4-10.2 (test code = 697) EGFR ([facility]) (test mL/min/1.73 INSUFFIC IENT CLINICAL code = 1092) sq m DATA TO CALCULA TE ESTIMATED GFR. [id number] 05:48:00 Test Item Value Reference Range Interpretation Comments PROTIME ([facility]) (test code = 14.1 seconds 11.7-14.7 759) INR ([facility]) (test code = 370) 1.1 <=5.9 PARTIAL THROMBOPLASTIN TIME 26.1 seconds 22.5-36.0 ([facility]) (test code = 760) RECOMMENDED COUMADIN/WARFARIN INR THERAPY RANGESSTANDARD DOSE: 2.0 - 3.0 Includes: PROPHYLAXIS forvenous thrombosis, systemic embolization; TREATMENT for venous thrombosis and/or pulmonary embolus.HIGH RISK: Target INR is 2.5-3.5 for patients with mechanical heart valves.POCT-GLUCOSE [id number] 00:03:00 Test Item Value Reference Range Interpretation Comments POC-GLUCOSE METER 133 mg/dL 70-110 H TESTED AT [facility] 1395 ([facility]) (test code = [place] 1538) [id number]
[2021-05-08] MEDS ORDERED: ACETAMINOPHEN 500 MG TAB ONE (22:48)
[2021-05-08] MEDS ORDERED: dexAMETHasone 10 MG/ML VIAL ONE (23:56)
--- NOTE | 2021-05-08 23:56 | ER ---
Nurse's Notes [facility] Name: Vikram Bagley Age: 40 yrs Sex: Male : 1980 Arrival Date: 05/08/2021 Time: 21:14 Bed 9 Private MD: Diagnosis: Coronavirus infection, unspecified Presentation: 05/08 21:29 Chief complaint: Patient states: SOB, Cough, Headache, ear pain x 2 days. Pt stated he kg was exposed Monday and then got tested Monday and it was negative. Coronavirus screen: Client denies travel out of the [place] in the last 14 days. At this time, unable to obtain information related to travel outside the [place] Client presents with at least one sign or symptom that may indicate coronavirus-19. Standard/surgical mask placed on the client. Provider contacted for isolation considerations. The client reports previous COVID testing was negative. Date of collection: May 03, 2021. Ebola Screen: Patient negative for fever greater than or equal to 101.5 degrees Fahrenheit, and additional compatible Ebola Virus Disease symptoms Patient denies exposure to infectious person. Patient denies travel to an Ebola-affected area in the 21 days before illness onset. Initial Sepsis Screen: Does the patient meet any 2 criteria? No. Patient's initial sepsis screen is negative. Does the patient have a suspected source of infection? No. Patient's initial sepsis screen is negative. Risk Assessment: Do you want to hurt yourself or someone else? Patient reports no desire to harm self or others. Onset of symptoms was May 06, 2021. 21:29 Method Of Arrival: Ambulatory kg 21:29 Acuity: SMITA 4 kg Triage Assessment: 21:32 General: Appears uncomfortable, Behavior is calm, cooperative, appropriate for age, kg quiet. Pain: Complains of pain in face Pain radiates to Generalized. Respiratory: Reports shortness of breath at rest on exertion cough that is productive, Onset: The symptoms/episode began/occurred gradually, the patient has mild shortness of breath. Historical: - Allergies: 21:32 iodine IV; kg - Home Meds: 21:32 metformin 1,000 mg Oral tab 1 tab 2 times per day [Active]; kg - PMHx: 21:32 Anxiety; brain lesion; fatty liver; High Cholesterol; Hypertension; Hypothyroidism; kg NIDDM; - PSHx: 21:32 Cholecystectomy; kg - Immunization history:: Adult Immunizations not up to date, Client reports receiving the 1st dose of the Covid vaccine, April 13, 2021 [employer]. - Social history:: Smoking status: Patient/guardian denies using tobacco, Stopped _ months ago 1 Patient uses alcohol, weekly. Screenin:15 Abuse screen: Denies threats or abuse. Nutritional screening: No deficits noted. em Tuberculosis screening: No symptoms or risk factors identified. Fall Risk None identified. Assessment: 22:15 General: Appears in no apparent distress. uncomfortable, ill, Behavior is calm, em cooperative, appropriate for age, Reports fever for 1-2 days, feeling ill for 1-2 days. Neuro: Level of Consciousness is awake, alert, obeys commands, Oriented to person, place, time, situation. Cardiovascular: Capillary refill < 3 seconds Patient's skin is warm and dry. Respiratory: Airway is patent Respiratory effort is even, unlabored, Respiratory pattern is regular, symmetrical. Derm: Skin is intact, is healthy with good turgor, Skin is pink, warm \T\ dry. Musculoskeletal: Capillary refill < 3 seconds, Range of motion: intact in all extremities. Vital Signs: 21:29 BP 135 / 89; Pulse 94; Resp 20; Temp 100.0(O); Pulse Ox 97% on R/A; Weight 165.56 kg kg (R); Height 5 ft. 9 in. (175.26 cm) (R); Pain 10/10; 05/09 00:16 BP 116 / 61; Pulse 67; Resp 18; Temp 99.2; Pulse Ox 97% on R/A; em 05/08 21:29 Body Mass Index 53.90 (165.56 kg, 175.26 cm) kg ED Course: 05/08 21:14 Patient arrived in ED. as 21:32 Triage completed. kg 21:32 Arm band placed on right wrist. kg 21:53 Milan Gauthier PA is PHCP. jmm 21:53 Alvaro Mcpherson MD is Attending Physician. jmm 22:15 Patient has correct armband on for positive identification. em 22:15 Inserted saline lock: 20 gauge in left antecubital area, using aseptic technique. em 23:31 Scott Stewart, RN is Primary Nurse. em 05/09 00:15 No provider procedures requiring assistance completed. IV discontinued, intact, em bleeding controlled, No redness/swelling at site. Pressure dressing applied. Administered Medications: 05/08 22:27 Drug: Tylenol 1000 mg Route: PO; kg 23:58 Not Given (Physician Discretion): Decadron - Dexamethasone 10 mg IVP once em Outcome: 23:55 Discharge ordered by MD. zambrano 05/09 00:15 Discharged to home ambulatory, with family. em Condition: good Discharge instructions given to patient, Instructed on discharge instructions, follow up and referral plans. medication usage, Demonstrated understanding of instructions, follow-up care, medications, Prescriptions given X 4. 00:17 Patient left the ED. em Signatures: Milan Gauthier PA PA jmm Munoz, Edgar, RN RN Krystal Martell Kristen, RN RN kg
--- NOTE | 2021-05-08 23:56 | EDPHYS ---
Physician Documentation [facility] Name: Vikram Bagley Age: 40 yrs Sex: Male : 1980 Arrival Date: 05/08/2021 Time: 21:14 Bed 9 Private MD: ED Physician Alvaro Mcpherson HPI: 05/08 23:53 This 40 yrs old Male presents to ER via Ambulatory with complaints of jmm Shortness Of Breath, Cough, Congestion. 23:53 Onset: The symptoms/episode began/occurred gradually, 1 day(s) ago. The patient's jmm shortness of breath is aggravated by nothing, is alleviated by nothing. Associated signs and symptoms: Pertinent positives: non-productive cough, fever. This is a 40-year-old male with a history of hyperlipidemia, hypertension the presents emerged part with complaints of cough congestion shortness of breath beginning 1 day ago. has similar symptoms.. Historical: - Allergies: 21:32 iodine IV; kg - Home Meds: 21:32 metformin 1,000 mg Oral tab 1 tab 2 times per day [Active]; kg - PMHx: 21:32 Anxiety; brain lesion; fatty liver; High Cholesterol; Hypertension; Hypothyroidism; kg NIDDM; - PSHx: 21:32 Cholecystectomy; kg - Immunization history:: Adult Immunizations not up to date, Client reports receiving the 1st dose of the Covid vaccine, April 13, 2021 [employer]. - Social history:: Smoking status: Patient/guardian denies using tobacco, Stopped _ months ago 1 Patient uses alcohol, weekly. ROS: 23:53 Constitutional: Positive for fever. jmm 23:53 Respiratory: Positive for cough. 23:53 All other systems are negative. Exam: 23:53 Constitutional: This is a well developed, well nourished patient who is awake, alert, jmm and in no acute distress. Head/Face: atraumatic. Eyes: EOMI, no conjunctival erythema appreciated ENT: Moist Mucus Membranes Neck: Trachea midline, Supple Chest/axilla: Normal chest wall appearance and motion. Cardiovascular: Regular rate and rhythm. No edema appreciated Respiratory: Normal respirations, no respiratory distress appreciated Abdomen/GI: Non distended, soft Back: Normal ROM Skin: General appearance color normal MS/ Extremity: Moves all extremities, no obvious deformities appreciated, no edema noted to the lower extremities Neuro: Awake and alert, normal gait Psych: Behavior is normal, Mood is normal, Patient is cooperative and pleasant Vital Signs: 21:29 BP 135 / 89; Pulse 94; Resp 20; Temp 100.0(O); Pulse Ox 97% on R/A; Weight 165.56 kg kg (R); Height 5 ft. 9 in. (175.26 cm) (R); Pain 10/10; 05/09 00:16 BP 116 / 61; Pulse 67; Resp 18; Temp 99.2; Pulse Ox 97% on R/A; em 05/08 21:29 Body Mass Index 53.90 (165.56 kg, 175.26 cm) kg MDM: 05/08 23:30 Patient medically screened. [facility] 23:54 Data reviewed: vital signs, nurses notes. Counseling: I had a detailed discussion with juan manuel the patient and/or guardian regarding: the historical points, exam findings, and any diagnostic results supporting the discharge/admit diagnosis, the need for outpatient follow up, to return to the emergency department if symptoms worsen or persist or if there are any questions or concerns that arise at home. ED course: Patient is alert nontoxic in appearance in the ED. Exhibits no signs of respiratory distress. Vital signs are within normal limits. Patient is given strict return precautions. Patient is otherwise advised to follow with PCP for close evaluation.. 05/08 21:36 Order name: COVID-19 : Document "Date of Symptom Onset" if Symptomatic. kg 05/08 22:43 Order name: Glucose, Ancillary Testing; Complete Time: 22:46 EDMS 05/08 23:28 Order name: SARS-COV-2 RT PCR; Complete Time: 23:36 EDMS 05/08 21:59 Order name: Saline Lock; Complete Time: 22:20 [facility] Administered Medications: 22:27 Drug: Tylenol 1000 mg Route: PO; kg 23:58 Not Given (Physician Discretion): Decadron - Dexamethasone 10 mg IVP once em Disposition: 05/09 05:34 Co-signature as Attending Physician, Alvaro Mcpherson MD. [email or web address] Disposition Summary: 05/08/21 23:55 Discharge Ordered Location: Home [facility] Condition: Stable [facility] Diagnosis - Coronavirus infection, unspecified [facility] Followup: [facility] - With: Private Physician - When: 2 - 3 days - Reason: Recheck today's complaints, Continuance of care, Re-evaluation by your physician Discharge Instructions: - Discharge Summary Sheet [facility] - COVID-19 [facility] Forms: - Medication Reconciliation Form [facility] - Thank You Letter [facility] - Antibiotic Education [facility] - Prescription Opioid Use [facility] Prescriptions: - albuterol sulfate 90 mcg/actuation Inhalation HFA aerosol inhaler - inhale 2 puff by INHALATION route every 4 hours; 1 Pump; Refills: 0, Product [facility] Selection Permitted - Prednisone 20 mg Oral Tablet - take 3 tablets by ORAL route once daily for 5 days; 15 tablet; Refills: 0, [facility] Product Selection Permitted - Zithromax Z-Joseph 250 mg Oral Tablet - take 1 tablet by ORAL route as directed for 5 days Day 1 - take two (2) tablets [facility] one time. Day 2, 3, 4 , 5 take one (1) tablet once daily.; 6 tablet; Refills: 0, Product Selection Permitted - ivermectin 3 mg Oral tablet - take 6 tablet by ORAL route as directed Please take 6 tablets by mouth on day 1 [facility] and then take another 6 tablets by mouth on day 3; 12 tablet; Refills: 0, Product Selection Permitted Signatures: Dispatcher [employer] EDDE Milan Gauthier PA PA Alvaro Ponce MD MD 7 Irina Christiansen, ADONIS RN kg Scott Stewart RN em Corrections: (The following items were deleted from the chart) 05/08 22:03 21:37 CORONAVIRUS ordered. EDDE EDMS 22:04 22:01 Chest For PE Angio+CT.RAD.BRZ ordered. EDMS EDMS 22:06 21:59 BASIC METABOLIC PANEL+C.LAB.BRZ ordered. EDMS EDMS 22:07 21:59 D-DIMER+COAG.LAB.BRZ ordered. EDMS EDMS 23:48 21:37 Chest Pa And Lat (2 Views)+RAD.RAD.BRZ ordered. EDDE EDMS
[2021-05-09 00:21] VITALS: O2SAT 97
[2021-05-09 00:22] VITALS: BP 116/61; TEMP 99.2
== END 2021-05-09 00:17 | disposition home or self-care (01) ==
LOC: ER 21:11
DX: U07.1 COVID-19 (principal); I10 Essential (primary) hypertension; E11.9 Type 2 diabetes mellitus without complications; Z91.048 Other nonmedicinal substance allergy status
CPT/HCPCS: 82947; 99283; U0003; J1100